=== PATIENT | male | born 1955 | race Caucasian/White ===

== ENCOUNTER 2016-04-10 07:14 | Day surgery (SDC) | payer OTHER ==
[2016-04-04 15:50] VITALS: BMI 29.9
[~2016-04-10 07:14] MED LIST: ACETAMINOPHEN TAB 500 MG TAB PO ONE; DEXAMETHASONE SOD PHOSPHATE 10 MG/ML 1 ML VIAL IV ONE; DEXAMETHASONE SOD PHOSPHATE 4 MG/ML 1 ML VIAL IV ONE; FAMOTIDINE 20 MG/2 ML VIAL IV ONE; HYDROmorphone 1 MG/ML 1 ML SYRINGE IVP PRN; LACTATED RINGERS 1,000 ML IV SCH; LIDOCAINE 1% 20 ML VIAL (10MG/ML) FOR IV START INTRADERMA PRN; MIDAZOLAM 2 MG/2 ML VIAL IV PRN; ONDANSETRON 4 MG/2 ML VIAL IVP ONE; SCOPOLAMINE 1.5MG/72HR PATCH TRANSDERM ONE
[2016-04-10 08:03] LABS: Glucose,Whole Blood 120 mg/dL (75-99)
[2016-04-10] MEDS ORDERED: fentaNYL (PF) 50 MCG/ML 2 ML AMP ONE (08:39)
[2016-04-10] MEDS ORDERED: DEXAMETHASONE SOD PHOS (MDV) 100 MG/10 ML VIAL ONE (08:39)
[2016-04-10] MEDS ORDERED: GLYCOPYRROLATE 0.2 MG/ML 2 ML VIAL ONE (08:39)
[2016-04-10] MEDS ORDERED: ROCURONIUM BROMIDE 10 MG/ML 10 ML VIAL IV ONE (08:39)
[2016-04-10] MEDS ORDERED: LIDOCAINE 1% INJ 10MG/ML (20 ML MDV) ONE (08:39)
[2016-04-10] MEDS ORDERED: SUCCINYLCHOLINE CHLORIDE VIAL 200 MG/10 ML VIAL IV ONE (08:39)
[2016-04-10] MEDS ORDERED: NEOSTIGMINE 1 MG/ML 10 ML VIAL ONE (08:39)
[2016-04-10] MEDS ORDERED: MIDAZOLAM 2 MG/2 ML VIAL ONE (08:39)
[2016-04-10] MEDS ORDERED: PROPOFOL 10 MG/ML 20 ML VIAL IV ONE (08:39)
[2016-04-10 09:29] VITALS: TEMP 97.4
--- NOTE | 2016-04-10 09:51 | P.OP ---
Date of Procedure: 04/10/16 Preoperative Diagnosis: Left vocal cord mass Postoperative Diagnosis: same Procedure(s) Performed: Direct microscopic laryngoscopy with removal of left vocal cord mass Anesthesia: PRASHANTHA Surgeon: Derek Reina Estimated Blood Loss (ml): 0 Pathology: other (left vocal cord mass) Condition: stable Disposition: PACU Indications for Procedure: This patient has had persistent hoarseness and was found have a left vocal cord mass. Surgical removal was recommended. All risks, benefits, and alternative therapies were discussed in detail. Consent was obtained and all questions were answered. Operative Findings: Left vocal cord mass noted Description of Procedure: This patient was taken to the operative room and placed in the supine position. A general inhalation anesthetic is administered to the patient by mask and subsequently intubated with a cuffed endotracheal tube by the department of anesthesia with a functioning IV line in place. The patient was monitored throughout the entire case by the department of anesthesia. A Jako laryngoscope was placed into the patient's mouth with care to avoid any trauma to the lips teeth gums or tongue. The entire Eliseo and hypopharynx was evaluated including the piriform sinus aryepiglottic folds Pitkin cords base of tongue etc. After a thorough evaluation was placed on suspension on a Lewy and a left vocal cord mass was identified which was removed with biopsy forceps. Complete removal of this mass was obtained without entry into the lamina propria. Patient tolerated this well. Hemostasis occurred spontaneously is to mentation was removed and the patient was taken to postanesthesia recovery room in excellent condition. Patient is to call me if any problems should arise. The patient is on 7 days of absolute voice rest. His tells me he clears his throat a lot because of postnasal drainage I will keep him on Flonase with continue to treat him with omeprazole twice a day and will give and [place] for pain
[2016-04-10 10:06] VITALS: RESP 18
[2016-04-10 10:31] VITALS: BP 122/75; PULSE 52
[2016-04-10 10:31] LABS: Glucose,Whole Blood 173 mg/dL (75-99)
== END 2016-04-10 11:24 | disposition home or self-care (01) ==
LOC: OR 07:14
PROVIDERS: ATTEND Otolaryngology
DX: J38.1 Polyp of vocal cord and larynx (principal); K21.9 Gastro-esophageal reflux disease without esophagitis; E11.9 Type 2 diabetes mellitus without complications; I10 Essential (primary) hypertension; Z79.2 Long term (current) use of antibiotics; Z79.84 Long term (current) use of oral hypoglycemic drugs; Z79.52 Long term (current) use of systemic steroids; Z79.899 Other long term (current) drug therapy; Z87.891 Personal history of nicotine dependence
CPT/HCPCS: 88305; 31541; J2250; J0330; J1100 ×2; J2710; J2405; J2001; J3010; J2704

== ENCOUNTER 2017-06-26 07:48 | Day surgery (SDC) | payer OTHER ==
[2017-06-24 11:56] VITALS: BMI 31.8
[~2017-06-26 07:48] MED LIST changes: -ACETAMINOPHEN TAB 500 MG TAB PO ONE; -DEXAMETHASONE SOD PHOSPHATE 10 MG/ML 1 ML VIAL IV ONE; -DEXAMETHASONE SOD PHOSPHATE 4 MG/ML 1 ML VIAL IV ONE; -FAMOTIDINE 20 MG/2 ML VIAL IV ONE; -HYDROmorphone 1 MG/ML 1 ML SYRINGE IVP PRN; -LIDOCAINE 1% 20 ML VIAL (10MG/ML) FOR IV START INTRADERMA PRN; -MIDAZOLAM 2 MG/2 ML VIAL IV PRN; -ONDANSETRON 4 MG/2 ML VIAL IVP ONE; -SCOPOLAMINE 1.5MG/72HR PATCH TRANSDERM ONE
[2017-06-26 07:59] VITALS: TEMP 96.9
[2017-06-26] MEDS ORDERED: LIDOCAINE 1% 20 ML VIAL (10MG/ML) FOR IV START INTRADERMA ONE (08:10)
[2017-06-26 08:13] LABS: Glucose,Whole Blood 87 mg/dL (75-99)
[2017-06-26] MEDS ORDERED: PROPOFOL 10 MG/ML 20 ML VIAL IV ONE (08:42)
[2017-06-26] MEDS ORDERED: fentaNYL (PF) 50 MCG/ML 2 ML AMP ONE (08:42)
[2017-06-26] MEDS ORDERED: MIDAZOLAM 2 MG/2 ML VIAL ONE (08:42)
[2017-06-26 09:22] VITALS: BP 143/80; PULSE 69; RESP 18
[2017-06-26 09:28] LABS: Glucose,Whole Blood 87 mg/dL (75-99)
--- NOTE | 2017-06-26 09:46 | P.PCN ---
Date of Procedure: 06/26/17 Preoperative Diagnosis: Screening colonoscopy Postoperative Diagnosis: Colon polyps one in descending two at hepatic flexure Procedure(s) Performed: Colonoscopy with polypectomy 3 Anesthesia: MAC Surgeon: Jadiel Gomez Pathology: other (Colon polyp 3) Condition: stable Description of Procedure: Patient was brought into the Endo suitePlaced in left lateral decubitus position underwent sedation per department of anesthesia rectal exam was performed onto maladies are noted the scope was then passed from the rectum to the cecum with ease and slowly withdrawn make sure to visualize all well gordon on the way out there were 2 sessile polyps noted at the hepatic flexure these were removed using hot forceps biopsy. There was a pedunculated polyp noted in the descending colon this was removed via hot snare. There is no other abnormalities noted the scope was retroflexed in the rectum and no abnormalities were noted patient tolerated procedure well no apparent complications Plan - Discharge Summary New Discharge Prescriptions: No Action Metoprolol Succinate [Toprol XL] 100 mg PO QAM Fenofibrate 160 mg PO DAILY Ezetimibe/Simvastatin [Vytorin 10-40 mg Tablet] 1 tab PO DAILY Losartan [Cozaar] 50 mg PO QAM Multivitamins, Thera [Multivitamin (formulary)] 1 tab PO DAILY sitaGLIPtin PHOS/metFORMIN HCL [Janumet 50-1,000 mg Tablet] 1 tab PO BID chlordiazePOXIDE/CLIDINIUM BR [Chlordiazepoxide-Clidinium Cap] 1 cap PO DAILY Acetaminophen Tab [Tylenol Tab] 650 mg PO DIRECTED PRN PRN Reason: Pain Cinnamon Bark [Cinnamon] 500 mg PO DAILY Omeprazole 20 mg PO BID #60 cap Discharge Medication List Ezetimibe/Simvastatin [Vytorin 10-40 mg Tablet] 1 tab PO DAILY 12/23/13 [History ] Fenofibrate 160 mg PO DAILY 12/23/13 [History] Losartan [Cozaar] 50 mg PO QAM 12/23/13 [History] Metoprolol Succinate [Toprol XL] 100 mg PO QAM 12/23/13 [History] Multivitamins, Thera [Multivitamin (formulary)] 1 tab PO DAILY 12/06/15 [History ] chlordiazePOXIDE/CLIDINIUM BR [Chlordiazepoxide-Clidinium Cap] 1 cap PO DAILY [History] sitaGLIPtin PHOS/metFORMIN HCL [Janumet 50-1,000 mg Tablet] 1 tab PO BID [History] Acetaminophen Tab [Tylenol Tab] 650 mg PO DIRECTED PRN 04/04/16 [History] Cinnamon Bark [Cinnamon] 500 mg PO DAILY 04/04/16 [History] Omeprazole 20 mg PO BID #60 cap 04/10/16 [Rx] Follow up Appointment(s)/Referral(s): Jadiel Gomez, [Doctor of Osteopathic Medicine] - As Needed Patient Instructions/Handouts: *[facility] - (Anesthesia) Endoscopy Discharge Instructions, Colonoscopy (DC), Colorectal Polyps (DC) Activity/Diet/Wound Care/Special Instructions: REST TODAY, ENCOURAGE FLUIDS AT HOME DR GOMEZ'S OFFICE WILL CALL WITH RESULTS IN 5-7 DAYS AND WHEN TO HAVE THE COLONOSCOPY. (WITHIN 3 DAYS) Discharge Disposition: HOME SELF-CARE
== END 2017-06-26 09:43 | disposition home or self-care (01) ==
LOC: ORWHC2ENDO 07:48
PROVIDERS: ATTEND Student in an Organized Health Care Education/Training Program
DX: Z12.11 Encounter for screening for malignant neoplasm of colon (principal); D12.3 Benign neoplasm of transverse colon; D12.4 Benign neoplasm of descending colon; I10 Essential (primary) hypertension; E78.5 Hyperlipidemia, unspecified; E78.00 Pure hypercholesterolemia, unspecified; E11.9 Type 2 diabetes mellitus without complications; Z79.84 Long term (current) use of oral hypoglycemic drugs; Z79.899 Other long term (current) drug therapy; Z86.010 Personal history of colon polyps
CPT/HCPCS: 88305; 45385; 45384; J2250; J3010; J2704

== ENCOUNTER 2019-06-20 08:22 | Inpatient (IN) | payer OTHER ==
--- NOTE | 2019-06-20 08:48 | ED ---
Abdominal Pain HPI - General Source: patient Mode of arrival: ambulatory <Day Patel - Last Filed: 06/20/19 12:25> <Brandie Moreno - Last Filed: 06/25/19 12:33> - General Chief Complaint: Abdominal Pain Stated Complaint: stomach pain/cramps/vomiting Time Seen by Provider: 06/20/19 08:31 - History of Present Illness Initial Comments: 63-year-old male with history of ETOH abuse, PUD and HTN presenting today for chief complaint of generalized crampy in nature abdominal pain x 1-2 days. Patient states that he has not had a bowel movement 3 days and feels as though he is constipated. However patient does note that he has specific pain in the epigastric region. Patient denies any radiation to the back. Patient states he attempts to eat or drink for the last day he has had vomiting he states it comes back up. Patient denies any melanotic stool prior to the onset of the symptoms. Patient denies any particular blood per rectum. Patient does have history of peptic ulcer he states this feels different than when that "acts up". Patient denies chest pain, shortness of breath. Patient states he has not been drinking heavily, denies feeling like he is withdrawing- he state his history of severe alcohol abuse was when he was over 2 years ago. (Day Patel) - Related Data Home Medications Medication Instructions Recorded Confirmed Ezetimibe/Simvastatin [Vytorin 1 tab PO DAILY 12/23/13 06/20/19 10-40 mg Tablet] Fenofibrate 160 mg PO DAILY 12/23/13 06/20/19 Losartan [Cozaar] 50 mg PO QAM 12/23/13 06/20/19 Metoprolol Succinate [Toprol XL] 100 mg PO QAM 12/23/13 06/20/19 sitaGLIPtin PHOS/metFORMIN HCL 1 tab PO BID 12/06/15 06/20/19 [Janumet 50-1,000 mg Tablet] Cinnamon Bark [Cinnamon] 500 mg PO BID 04/04/16 06/20/19 Alive Men's 1 tab PO DAILY 06/20/19 06/20/19 Cartilage/Collagen/Bor/Hyalur 1 tab PO DAILY 06/20/19 06/20/19 [Move Free Ultra Tablet] Omeprazole 20 mg PO DAILY 06/20/19 06/20/19 Previous Rx's Medication Instructions Recorded Melatonin 10 mg PO HS #30 tablet.er 06/24/19 Sennosides/Docusate Sodium [Carmen 1 tab PO DAILY #30 tab 06/24/19 Colace] Trimethobenzamide [Tigan] 300 mg PO TID #10 capsule 06/24/19 Allergies Allergy/AdvReac Type Severity Reaction Status Date / Time No Known Allergies Allergy Verified 06/20/19 11:32 Review of Systems ROS Other: All systems not noted in ROS Statement are negative. <Day Patel - Last Filed: 06/20/19 12:25> ROS Other: All systems not noted in ROS Statement are negative. <Brandie Moreno - Last Filed: 06/25/19 12:33> ROS Statement: Those systems with pertinent positive or pertinent negative responses have been documented in the HPI. Past Medical History Past Medical History: Diabetes Mellitus, GERD/Reflux, Hyperlipidemia, Hypertension, Musculoskeletal Disorder Additional Past Medical History / Comment(s): DDD, HX OF PEPTIC ULCERS years ago, alcholism History of Any Multi-Drug Resistant Organisms: None Reported Past Surgical History: Orthopedic Surgery, Tonsillectomy Additional Past Surgical History / Comment(s): RIGHT ANKLE, right elbow replacement,cyst removed from vocal cord Past Anesthesia/Blood Transfusion Reactions: No Reported Reaction Past Psychological History: No Psychological Hx Reported Smoking Status: Former smoker Past Alcohol Use History: Occasional Past Drug Use History: None Reported - Past Family History Mother Family Medical History: No Reported History Father Additional Family Medical History / Comment(s): Father had borderline diabetes. He is living. <Day Patel - Last Filed: 06/20/19 12:25> General Exam <Day Patel - Last Filed: 06/20/19 12:25> - General Exam Comments Initial Comments: General: The patient is awake and alert, appears uncomfortable. Eye: +3 mm pupils are equal, round and reactive to light, extra-ocular moveme nts are intact. No nystagmus. There is normal conjunctiva bilaterally. No signs of icterus. Ears, nose, mouth and throat: There are moist mucous membranes and no oral le sions. Neck: The neck is supple, there is no tenderness or JVD. Cardiovascular: There is a regular rate and rhythm. No murmur, rub or gallop is appreciated. Respiratory: Lungs are clear to auscultation, respirations are non-labored, breath sounds are equal. No wheezes, stridor, rales, or rhonchi. Gastrointestinal: Soft, non-distended, diffusely tender abdomen but maximal tenderness in the epigastric region, abdomen is without masses or organomegaly noted. There is no rebound or guarding present. Musculoskeletal: Normal ROM, no tenderness. Strength 5/5. Sensation intact. Radial pulses equal bilaterally 2+. Neurological: A&O x 3. CN II-XII intact grossly, There are no obvious motor or sensory deficits. Coordination appears grossly intact. Speech is normal. Skin: Skin is warm and dry and no rashes or lesions are noted. Psychiatric: Cooperative, appropriate mood & affect, normal judgment. (Day Patel) Course Vital Signs 06/20/19 06/20/19 08:27 10:54 Temperature 98.5 F Pulse Rate 131 H 86 Respiratory 18 16 Rate Blood Pressure 120/87 146/80 O2 Sat by Pulse 98 99 Oximetry Medical Decision Making - Lab Data Result diagrams: 06/20/19 08:55 06/20/19 08:55 <Day Patel - Last Filed: 06/20/19 12:25> - Lab Data Result diagrams: 06/22/19 05:21 06/23/19 10:43 <Brandie Moreno - Last Filed: 06/25/19 12:33> - Medical Decision Making 63-year-old male presenting today for chief complaint of abdominal pain history of alcoholism. CT revealed findings consistent with pancreatitis. No evidence of necrotizing pancreatitis. Patient has no cullens or parham turners sign. Pa tient lipase ~11,000 amylsa 6x upper limits of normal. Lactic acid elevated. Pt given hydration. Ordered NPO. [place]ma on consult. Patient admitted after attending provider spoke with provider from [facility]. Patient agreeable to admission and care plan. (Day Patel) I was available for consultation in the emergency department. The history and physical exam were done by the midlevel provider. I was consulted for this patients care. I reviewed the case with the midlevel provider and based on their presentation of the patient, I agree with the assessment, medical decision making and plan of care as documented. I discussed the case with Dr. Noel who accepted admission of the patient. Chart was dictated using [employer] dictation software. Attempts were made to correct any dictation errors however some typographical errors may persist. (Brandie Moreno) - Lab Data Lab Results 06/20/19 06/20/19 06/20/19 Range/Units 08:55 08:55 08:55 WBC 10.4 (3.8-10.6) k/uL RBC 4.64 (4.30-5.90) m/uL Hgb 14.3 (13.0-17.5) gm/dL Hct 43.9 (39.0-53.0) % MCV 94.7 (80.0-100.0) fL MCH 30.8 (25.0-35.0) pg MCHC 32.5 (31.0-37.0) g/dL RDW 12.9 (11.5-15.5) % Plt Count 165 (150-450) k/uL Neutrophils % 80 % Lymphocytes % 12 % Monocytes % 6 % Eosinophils % 1 % Basophils % 0 % Neutrophils # 8.3 H (1.3-7.7) k/uL Lymphocytes # 1.2 (1.0-4.8) k/uL Monocytes # 0.6 (0-1.0) k/uL Eosinophils # 0.1 (0-0.7) k/uL Basophils # 0.0 (0-0.2) k/uL PT 12.7 H (9.0-12.0) sec INR 1.3 H (<1.2) APTT 24.2 (22.0-30.0) sec Sodium 138 (137-145) mmol/L Potassium 4.2 (3.5-5.1) mmol/L Chloride 103 (98-107) mmol/L Carbon Dioxide 20 L (22-30) mmol/L Anion Gap 15 mmol/L BUN 20 (9-20) mg/dL Creatinine 1.42 H (0.66-1.25) mg/dL Est GFR (CKD-EPI)AfAm 61 (>60 ml/min/1.73 sqM) Est GFR (CKD-EPI)NonAf 53 (>60 ml/min/1.73 sqM) Glucose 218 H (74-99) mg/dL Lactic Ac Sepsis Rflx Plasma Lactic Acid Yang (0.7-2.0) mmol/L Calcium 9.3 (8.4-10.2) mg/dL Total Bilirubin 1.6 H (0.2-1.3) mg/dL AST 43 (17-59) U/L ALT 26 (4-49) U/L Alkaline Phosphatase 27 L (38-126) U/L Troponin I (0.000-0.034) ng/mL Total Protein 7.1 (6.3-8.2) g/dL Albumin 4.3 (3.5-5.0) g/dL Amylase 641 H* (30-110) U/L Lipase 38194 H (23-300) U/L Serum Alcohol <10 mg/dL 06/20/19 06/20/19 06/20/19 Range/Units 08:55 08:55 09:45 WBC (3.8-10.6) k/uL RBC (4.30-5.90) m/uL Hgb (13.0-17.5) gm/dL Hct (39.0-53.0) % MCV (80.0-100.0) fL MCH (25.0-35.0) pg MCHC (31.0-37.0) g/dL RDW (11.5-15.5) % Plt Count (150-450) k/uL Neutrophils % % Lymphocytes % % Monocytes % % Eosinophils % % Basophils % % Neutrophils # (1.3-7.7) k/uL Lymphocytes # (1.0-4.8) k/uL Monocytes # (0-1.0) k/uL Eosinophils # (0-0.7) k/uL Basophils # (0-0.2) k/uL PT (9.0-12.0) sec INR (<1.2) APTT (22.0-30.0) sec Sodium (137-145) mmol/L Potassium (3.5-5.1) mmol/L Chloride (98-107) mmol/L Carbon Dioxide (22-30) mmol/L Anion Gap mmol/L BUN (9-20) mg/dL Creatinine (0.66-1.25) mg/dL Est GFR (CKD-EPI)AfAm (>60 ml/min/1.73 sqM) Est GFR (CKD-EPI)NonAf (>60 ml/min/1.73 sqM) Glucose (74-99) mg/dL Lactic Ac Sepsis Rflx Y Plasma Lactic Acid Yang 2.7 H* (0.7-2.0) mmol/L Calcium (8.4-10.2) mg/dL Total Bilirubin (0.2-1.3) mg/dL AST (17-59) U/L ALT (4-49) U/L Alkaline Phosphatase (38-126) U/L Troponin I <0.012 (0.000-0.034) ng/mL Total Protein (6.3-8.2) g/dL Albumin (3.5-5.0) g/dL Amylase (30-110) U/L Lipase (23-300) U/L Serum Alcohol mg/dL Disposition Is patient prescribed a controlled substance at d/c from ED?: No Time of Disposition: 10:37 Decision to Admit Reason: Admit from EC Decision Date: 06/20/19 Decision Time: 10:37 <Day Patel - Last Filed: 06/20/19 12:25> <Brandie Moreno - Last Filed: 06/25/19 12:33> Clinical Impression: Pancreatitis, Abdominal pain, Nausea, Vomiting, Lactic acidosis Disposition: HOME SELF-CARE Condition: Good
[2019-06-20] MEDS ORDERED: ONDANSETRON 4 MG/2 ML VIAL IVP STA (08:55)
[2019-06-20] MEDS ORDERED: HYDROmorphone 0.5 MG/0.5 ML SYRINGE IVP STA ×2 (08:55→10:34)
[2019-06-20] MEDS ORDERED: SODIUM CHLORIDE 0.9% 1,000 ML IV ONE ×2 (08:56→09:46)
[2019-06-20 09:10] LABS: Basophils % (A) 0 %; Eosinophils # (A) 0.1 k/uL (0-0.7); Eosinophils % (A) 1 %; HCT 43.9 % (39.0-53.0); HGB 14.3 gm/dL (13.0-17.5); Lymphocytes # (A) 1.2 k/uL (1.0-4.8); Lymphocytes % (A) 12 %; MCH 30.8 pg (25.0-35.0); MCHC 32.5 g/dL (31.0-37.0); MCV 94.7 fL (80.0-100.0); Mean Platelet Volume 8.7; Monocytes # (A) 0.6 k/uL (0-1.0); Monocytes % (A) 6 %; Neutrophils # (A) 8.3 k/uL (1.3-7.7); Neutrophils % (A) 80 %; Platelet Count 165 k/uL (150-450); RBC 4.64 m/uL (4.30-5.90); RDW 12.9 % (11.5-15.5); WBC 10.4 k/uL (3.8-10.6)
[2019-06-20 09:26] LABS: ALT 26 U/L (4-49); AST 43 U/L (17-59); African American GFR (CKD) 61 (>60 ml/min/1.73 sqM); Albumin 4.3 g/dL (3.5-5.0); Alcohol <10 mg/dL; Alkaline Phosphatase 27 U/L (38-126); Anion Gap 15 mmol/L; Blood Urea Nitrogen 20 mg/dL (9-20); Calcium 9.3 mg/dL (8.4-10.2); Carbon Dioxide 20 mmol/L (22-30); Chloride 103 mmol/L (98-107); Glucose 218 mg/dL (74-99); Non-African American GFR(CKD) 53 (>60 ml/min/1.73 sqM); Potassium 4.2 mmol/L (3.5-5.1); Sodium 138 mmol/L (137-145); Total Bilirubin 1.6 mg/dL (0.2-1.3); Total Protein 7.1 g/dL (6.3-8.2)
[2019-06-20 09:30] LABS: Amylase 641 U/L (30-110)
[2019-06-20 09:32] LABS: INR 1.3 (<1.2); Partial Thromboplastin Time 24.2 sec (22.0-30.0); Prothrombin Time 12.7 sec (9.0-12.0)
[2019-06-20] MEDS ORDERED: SODIUM CHLORIDE 0.9% 500 ML 500 ML IV ONE (09:47)
--- NOTE | 2019-06-20 10:27 | CT ---
EXAMINATION TYPE: CT abdomen pelvis w con DATE OF EXAM: 06/20/2019 COMPARISON: None HISTORY: Nonlocalized abdominal pain, cramps and vomiting CT DLP: 1710.6 mGycm Automated exposure control for dose reduction was used. TECHNIQUE: Helical acquisition of images was performed from the lung bases through the pelvis. CONTRAST: Performed without Oral Contrast and with IV Contrast, patient injected with 100 ml mL of Isovue 300. FINDINGS: LUNG BASES: Minimal bibasilar subsegmental atelectasis. LIVER/GB: Hepatic parenchyma is diffusely hypoattenuated in comparison to that of the spleen, most commonly see n in hepatic steatosis. This finding limits evaluation for hepatic masses. Hyperdense 1.3 cm left hep atic lesion seen on image 15 that is incompletely characterized. No intrahepatic biliary ductal dilat ation. No cholelithiasis on CT. Trace perihepatic ascites on coronal image 35. PANCREAS: Moderate to severe peripancreatic fat stranding and mesenteric edema seen. The pancreas enh ances homogeneously without evidence of necrotizing pancreatitis at this time. There is no well-forme d peripherally enhancing fluid collection to suggest acute necrotic fluid collection or pancreatic ps eudocyst. The splenic artery is unremarkable without evidence of pseudoaneurysm. Portal vein and port al splenic confluence as well as the splenic vein appear patent. There is likely reactive circumferen tial thickening of the duodenum related to reactive duodenitis. Prominent and enlarged peripancreatic lymph nodes measure up to 1.2 cm in short axis, also likely reactive. Mesenteric edema extends throu ghout the central low abdomen and a small amount of free fluid is seen within the pelvis. SPLEEN: No splenomegaly. ADRENALS: No nodule or thickening. KIDNEYS: Kidneys enhance and excrete symmetrically without hydronephrosis. FREE AIR: No free air is visualized. ADENOPATHY: Prominent an enlarged peripancreatic lymph nodes as described above. No abnormal adenopa thy of the pelvis. REPRODUCTIVE ORGANS: Probable small left hydrocele that would be better evaluated with ultrasound. URINARY BLADDER: Circumferential thickening may relate to incomplete distention. OSSEOUS STRUCTURES: Compression deformity at L1 has vertebral body height loss of approximately 40 % and is age-indeterminate without priors. Mild to moderate multilevel degenerative change of the spin e. BOWEL: Circumferential thickening of the duodenum again likely relates to reactive duodenitis. No di lated large or small bowel. Appendix is not seen however the inflammatory changes are more localized in the upper abdomen done right lower quadrant. OTHER: Mild atherosclerosis of the abdominal aorta and its branches. IMPRESSION: 1. ACUTE UNCOMPLICATED PANCREATITIS WITHOUT EVIDENCE OF NECROTIZING PANCREATITIS, SPLENIC ARTERY PSEU DOANEURYSM, PORTAL SPLENIC THROMBOSIS, OR PERIPANCREATIC FLUID COLLECTION. THERE IS HOWEVER THICKENIN G OF THE ADJACENT DUODENUM, LIKELY REACTIVE DUODENITIS. THERE IS ALSO MESENTERIC EDEMA AND SMALL VOLU ME ASCITES. APPENDIX IS NONVISUALIZED. 2. HEPATIC STEATOSIS AND INDETERMINANT LEFT HEPATIC LOBE HYPERDENSE 1.3 CM LESION THAT COULD BE FURTH ER CHARACTERIZED WITH ENHANCED LIVER MRI NONEMERGENT BASIS.
[2019-06-20] MEDS ORDERED: HYDROmorphone 0.5 MG/0.5 ML SYRINGE IVP PRN (10:34)
[2019-06-20] MEDS ORDERED: NALOXONE 0.4 MG/ML 1 ML VIAL IV PRN (10:34)
[2019-06-20] MEDS: SODIUM CHLORIDE 0.9% 1,000 ML IV SCH ×3 (10:51→23:57)
[2019-06-20 12:29] LABS: Glucose,Whole Blood 186 mg/dL (75-99)
[2019-06-20] MEDS ORDERED: INSULIN ASPART (NovoLOG) 100 UNIT/ML VIAL SQ SCH (12:30)
[2019-06-20] MEDS: POLYETHYLENE GLYCOL 3350 17 GM POWD.PACK PO SCH (12:38)
[2019-06-20] MEDS: ONDANSETRON 4 MG/2 ML VIAL IVP PRN ×2 (12:38→18:57)
[2019-06-20] MEDS: LOSARTAN 50 MG TAB PO SCH (12:38)
[2019-06-20] MEDS: METOPROLOL SUCCINATE (ER) 100 MG TAB.ER.24H PO SCH (12:55)
[2019-06-20] MEDS: SIMETHICONE 80 MG CHEWABLE PO SCH ×3 (12:56→20:45)
[2019-06-20] MEDS ORDERED: LORazepam 2 MG/ML INJ IV PRN ×3 (13:09)
--- NOTE | 2019-06-20 13:25 | P.HPIM ---
<Dayami Camarena A - Last Filed: 06/20/19 13:08> History of Present Illness H&P Date: 06/20/19 Chief Complaint: abdominal pain This is a 63-year-old male patient of Dr. Boothe with past medical history of diabetes mellitus type 2, gastroesophageal reflux disease, hypertension, hyperlipidemia, degenerative disc disease, history of alcohol abuse. Patient complains of abdominal discomfort with bloating for a couple of days. He states he thought he was just constipated. He states it was so bad that he was unable to sleep due to the pain. He has been taking water and Tylenol which seemed to make his symptoms worse. He states his last alcohol intake was 3 days ago. He usually drinks a half a pint 3-4 times per week. Patient's last colonoscopy was in [address] szymanski status post polypectomy 2 finding in the descending colon tubulovillous adenoma and in the hepatic flexure tubular adenoma. Patient came into [facility] emergency center for evaluation. Patient was afebrile, heart rate initially 131 and repeated 86, blood pressure 120/87, pulse ox 90% on room air. CBC unremarkable. Electrolytes within normal limits, CO2 20, BUN 20 creatinine 1.42, blood sugar 218. Amylase 641, lipase 11,249. Lactic acid 2.7. Troponin negative. CAT scan of the abdomen and pelvis revealed acute uncomplicated pancreatitis without evidence of necrotizing pancreatitis, splenic artery pseudoaneurysm aneurysm, portosplenic thrombosis or. Pancreatic fluid collection. There is however thickening of the adjacent duodenum likely reactive duodenitis. Also mesenteric edema and small volume ascites. Appendix not visualized. Hepatic steatosis and indeterminate left hepatic lobe hyperdense 1.3 cm lesion that could be further characterized with enhanced liver MRI. Patient was admitted to the [facility] floor and consult requested with GI. Review of Systems Constitutional: Reports poor appetite, Denies chills, Denies fever, Denies lethargy, Denies malaise Eyes: denies blurred vision, denies pain Ears, nose, mouth and throat: Denies dental pain, Denies nasal congestion, Denies nasal discharge, Denies vertigo Cardiovascular: Denies chest pain, Denies decreased exercise tolerance, Denies dyspnea on exertion, Denies edema, Denies leg edema, Denies lightheadedness, Denies shortness of breath, Denies syncope Respiratory: Denies cough, Denies cough with sputum, Denies dyspnea, Denies excessive sputum, Denies hemoptysis, Denies home oxygen, Denies respiratory infections, Denies wheezing Gastrointestinal: Reports abdominal pain, Reports bloating, Reports constipation, Reports loss of appetite, Denies BRBPR, Denies diarrhea, Denies hematemesis, Denies hematochezia, Denies melena, Denies nausea, Denies vomiting Genitourinary: Denies dysuria, Denies urinary frequency, Denies urinary retention Musculoskeletal: Denies frequent falls, Denies gait dysfunction, Denies muscle weakness, Denies myalgias Integumentary: Denies pruritus, Denies rash, Denies wounds Neurological: Denies change in mentation, Denies change in speech, Denies gait dysfunction, Denies numbness, Denies seizures, Denies weakness Psychiatric: Denies anxiety, Denies depression Endocrine: Denies fatigue, Denies weight change Past Medical History Past Medical History: Diabetes Mellitus, Eye Disorder, GERD/Reflux, Hyperlipidemia, Hypertension, Osteoarthritis (OA) Additional Past Medical History / Comment(s): NIDDM type II, peptic ulcer, alcoholism, benign colon polyp, occasional thoracic back pain (hs of crushed vertebra), arthritis R ankle, glaucoma L eye History of Any Multi-Drug Resistant Organisms: None Reported Past Surgical History: Adenoidectomy, Orthopedic Surgery, Tonsillectomy Additional Past Surgical History / Comment(s): r elbow radial head implant, bilateral carpal tunnel releases, trimalleolar fracture repair on the right with subsequent removal of hardware, benign L vocal cord mass removed, colonoscopy wi th polypectomy, bilateral cataract removals/lens implants. Past Anesthesia/Blood Transfusion Reactions: No Reported Reaction, Motion Sickness Smoking Status: Former smoker Additional Past Alcohol Use History / Comment(s): Patient smoked from 1996 and quit in 2002. Patient has a history of alcohol abuse currently drinking a half a pint of vodka treated 4 times per week. - Past Family History Mother Family Medical History: Cancer, Diabetes Mellitus Additional Family Medical History / Comment(s): Skin cancer. Mother at age 85 from dementia. Father Additional Family Medical History / Comment(s): Father had borderline diabetes. He is living. Sister(s) Additional Family Medical History / Comment(s): patient has 3 sisters with no major medical problems. Patient does not have any brothers. Patient has 2 sons and 2 daughters with no major medical problems. Medications and Allergies Home Medications Medication Instructions Recorded Confirmed Type Ezetimibe/Simvastatin [Vytorin 1 tab PO DAILY 12/23/13 06/20/19 History 10-40 mg Tablet] Fenofibrate 160 mg PO DAILY 12/23/13 06/20/19 History Losartan [Cozaar] 50 mg PO QAM 12/23/13 06/20/19 History Metoprolol Succinate [Toprol XL] 100 mg PO QAM 12/23/13 06/20/19 History sitaGLIPtin PHOS/metFORMIN HCL 1 tab PO BID 12/06/15 06/20/19 History [Janumet 50-1,000 mg Tablet] Cinnamon Bark [Cinnamon] 500 mg PO BID 04/04/16 06/20/19 History Alive Men's 1 tab PO DAILY 06/20/19 06/20/19 History Cartilage/Collagen/Bor/Hyalur 1 tab PO DAILY 06/20/19 06/20/19 History [Move Free Ultra Tablet] Omeprazole 20 mg PO DAILY 06/20/19 06/20/19 History Melatonin 10 mg PO HS #30 tablet.er 06/24/19 Rx Sennosides/Docusate Sodium [Carmen 1 tab PO DAILY #30 tab 06/24/19 Rx Colace] Trimethobenzamide [Tigan] 300 mg PO TID #10 capsule 06/24/19 Rx Allergies Allergy/AdvReac Type Severity Reaction Status Date / Time No Known Allergies Allergy Verified 06/20/19 11:32 Physical Exam Vitals: Vital Signs Temp Pulse Resp BP Pulse Ox 06/20/19 10:54 86 16 146/80 99 06/20/19 08:27 98.5 F 131 H 18 120/87 98 Intake and Output 06/19/19 06/20/19 06/20/19 22:59 06:59 14:59 Other: Weight 108.862 kg Gen: This is a 63-year-old male. Patient is resting in bed and appears to be comfortable and in no acute distress. HEENT: Head is atraumatic, normocephalic. Pupils equal, round. Sclerae is anicteric. NECK: Supple. No JVD. No lymphadenopathy. No thyromegaly. LUNGS: Clear to auscultation. No wheezes or rhonchi. No intercostal retractions. HEART: Regular rate and rhythm. Systolic murmur. ABDOMEN: Distended. Bowel sounds are present. No masses. Left-sided tenderness. EXTREMITIES: No pedal edema. No calf tenderness. Dorsalis pedis +2 bilaterally. NEUROLOGICAL: Patient is awake, alert and oriented x3. Cranial nerves 2 through 12 are grossly intact. Results CBC & Chem 7: 06/20/19 08:55 06/20/19 08:55 Labs: Abnormal Lab Results - Last 24 Hours (Table) 06/20/19 06/20/19 06/20/19 Range/Units 08:55 08:55 08:55 Neutrophils # 8.3 H (1.3-7.7) k/uL PT 12.7 H (9.0-12.0) sec INR 1.3 H (<1.2) Carbon Dioxide 20 L (22-30) mmol/L Creatinine 1.42 H (0.66-1.25) mg/dL Glucose 218 H (74-99) mg/dL Plasma Lactic Acid Yang (0.7-2.0) mmol/L Total Bilirubin 1.6 H (0.2-1.3) mg/dL Alkaline Phosphatase 27 L (38-126) U/L Amylase 641 H* (30-110) U/L Lipase 29009 H (23-300) U/L 06/20/19 Range/Units 08:55 Neutrophils # (1.3-7.7) k/uL PT (9.0-12.0) sec INR (<1.2) Carbon Dioxide (22-30) mmol/L Creatinine (0.66-1.25) mg/dL Glucose (74-99) mg/dL Plasma Lactic Acid Yang 2.7 H* (0.7-2.0) mmol/L Total Bilirubin (0.2-1.3) mg/dL Alkaline Phosphatase (38-126) U/L Amylase (30-110) U/L Lipase (23-300) U/L Thrombosis Risk Factor Assmnt - DVT/VTE Prophylaxis DVT/VTE Prophylaxis: Pharmacologic Prophylaxis ordered - Choose All That Apply Any of the Below Risk Factors Present?: Yes Each Factor Represents 1 point: Obesity (BMI >25) Other Risk Factors: Yes Each Risk Factor Represents 2 Points: Age 61-74 years Other congenital or acquired thrombophilia - If yes, enter type in comment: No Thrombosis Risk Factor Assessment Total Risk Factor Score: 3 Thrombosis Risk Factor Assessment Level: Moderate Risk Assessment and Plan Plan: 1. Acute pancreatitis. Consult with GI. Continue Dilaudid as needed for pain, Zofran as needed for nausea and IV fluids. MiraLAX and simethicone added. R echeck lipase, CMP and CBC in the morning. 2. Hypertension. Continue losartan 50 mg daily, Toprol-XL 100 mg daily. 3. Hyperlipidemia. Hold fenofibrate and Vytorin. 4. Diabetes mellitus type 2. Hold Janumet. Start NovoLog scale every 6 hours. 5. Gastroesophageal reflux disease. Continue Protonix 40 mg IV push twice daily. 6. Alcohol abuse. Patient placed on the CIWA protocol with Ativan. Continue thiamine daily. 7. Acute kidney injury and chronic kidney disease stage II. Continue IV fluids. Recheck electrolytes and renal function in the morning. 8. DVT prophylaxis. Heparin subcu. Patient will be admitted to the hospital for a minimum of 2 night stay. Discharge plan: home Impression and plan of care have been directed as dictated by the signing physician. Dayami Camarena nurse practitioner acting as scribe for signing physician. <Marcella Noel - Last Filed: 06/30/19 20:21> Results CBC & Chem 7: 06/22/19 05:21 06/23/19 10:43
[2019-06-20] MEDS ORDERED: HYDROmorphone 1 MG/ML 1 ML SYRINGE IM PRN (13:48)
[2019-06-20] MEDS: THIAMINE 100 MG TAB PO SCH (16:58)
[2019-06-20] MEDS: HYDROmorphone 1 MG/ML 1 ML SYRINGE IVP PRN ×3 (16:59→23:56)
[2019-06-20 17:56] LABS: Glucose,Whole Blood 193 mg/dL (75-99)
[2019-06-20] MEDS: INSULIN ASPART (NovoLOG) 100 UNIT/ML VIAL SQ SCH ×2 (17:58→23:59)
[2019-06-20] MEDS: PANTOPRAZOLE 40 MG/10 ML VIAL IVP SCH (20:43)
[2019-06-20] MEDS: HEPARIN SODIUM,PORCINE 5,000 UNIT/ML 1 ML VIAL SQ SCH (20:45)
[2019-06-20 23:51] LABS: Glucose,Whole Blood 167 mg/dL (75-99)
[2019-06-21] MEDS: ONDANSETRON 4 MG/2 ML VIAL IVP PRN ×3 (03:06→21:05)
[2019-06-21] MEDS: HYDROmorphone 1 MG/ML 1 ML SYRINGE IVP PRN ×7 (03:08→23:57)
[2019-06-21 05:49] LABS: Glucose,Whole Blood 137 mg/dL (75-99)
[2019-06-21] MEDS: INSULIN ASPART (NovoLOG) 100 UNIT/ML VIAL SQ SCH ×5 (06:05→20:58)
[2019-06-21] MEDS: SODIUM CHLORIDE 0.9% 1,000 ML IV SCH ×2 (06:08→17:43)
[2019-06-21 06:34] LABS: ALT 18 U/L (4-49); AST 31 U/L (17-59); African American GFR (CKD) >90 (>60 ml/min/1.73 sqM); Alkaline Phosphatase 22 U/L (38-126); Anion Gap 7 mmol/L; Blood Urea Nitrogen 17 mg/dL (9-20); Calcium 7.5 mg/dL (8.4-10.2); Carbon Dioxide 25 mmol/L (22-30); Chloride 105 mmol/L (98-107); Glucose 155 mg/dL (74-99); Non-African American GFR(CKD) 80 (>60 ml/min/1.73 sqM); Potassium 4.3 mmol/L (3.5-5.1); Sodium 137 mmol/L (137-145); Total Bilirubin 1.1 mg/dL (0.2-1.3); Total Protein 5.6 g/dL (6.3-8.2)
[2019-06-21 06:38] LABS: HCT 36.9 % (39.0-53.0); HGB 11.9 gm/dL (13.0-17.5); MCHC 32.3 g/dL (31.0-37.0); MCV 96.1 fL (80.0-100.0); Mean Platelet Volume 9.2; Platelet Count 108 k/uL (150-450); RBC 3.83 m/uL (4.30-5.90)
[2019-06-21 07:22] LABS: Cholesterol 117 mg/dL (<200); HDL Cholesterol 26 mg/dL (40-60); LDL Cholesterol,Calculated 72 mg/dL (0-99); Triglycerides 94 mg/dL (<150)
[2019-06-21] MEDS: THIAMINE 100 MG TAB PO SCH ×2 (08:21→17:44)
[2019-06-21] MEDS: LOSARTAN 50 MG TAB PO SCH (08:21)
[2019-06-21] MEDS: POLYETHYLENE GLYCOL 3350 17 GM POWD.PACK PO SCH ×2 (08:22→09:17)
[2019-06-21] MEDS: HEPARIN SODIUM,PORCINE 5,000 UNIT/ML 1 ML VIAL SQ SCH ×2 (08:22→20:58)
[2019-06-21] MEDS: METOPROLOL SUCCINATE (ER) 100 MG TAB.ER.24H PO SCH (08:22)
[2019-06-21] MEDS: PANTOPRAZOLE 40 MG/10 ML VIAL IVP SCH ×2 (08:22→20:57)
[2019-06-21] MEDS ORDERED: NON FORMULARY DRUG (Omeprazole [Omeprazole] 20 MG) PO SCH (09:00)
[2019-06-21 11:19] VITALS: BMI 29.9
[2019-06-21 11:45] LABS: Glucose,Whole Blood 144 mg/dL (75-99)
--- NOTE | 2019-06-21 12:17 | P.PN ---
Subjective Progress Note Date: 06/21/19 This is a 63-year-old male patient of Dr. Boothe with past medical history of diabetes mellitus type 2, gastroesophageal reflux disease, hypertension, hyperlipidemia, degenerative disc disease, history of alcohol abuse. Patient complains of abdominal discomfort with bloating for a couple of days. He states he thought he was just constipated. He states it was so bad that he was unable to sleep due to the pain. He has been taking water and Tylenol which seemed to make his symptoms worse. He states his last alcohol intake was 3 days ago. He usually drinks a half a pint 3-4 times per week. Patient's last colonoscopy was in [address] szymanski status post polypectomy 2 finding in the descending colon tubulovillous adenoma and in the hepatic flexure tubular adenoma. Patient came into [facility] emergency center for evaluation. Patient was afebrile, heart rate initially 131 and repeated 86, blood pressure 120/87, pulse ox 90% on room air. CBC unremarkable. Electrolytes within normal limits, CO2 20, BUN 20 creatinine 1.42, blood sugar 218. Amylase 641, lipase 11,249. Lactic acid 2.7. Troponin negative. CAT scan of the abdomen and pelvis revealed acute uncomplicated pancreatitis without evidence of necrotizing pancreatitis, splenic artery pseudoaneurysm aneurysm, portosplenic thrombosis or. Pancreatic fluid collection. There is however thickening of the adjacent duodenum likely reactive duodenitis. Also mesenteric edema and small volume ascites. Appendix not visualized. Hepatic steatosis and indeterminate left hepatic lobe hyperdense 1.3 cm lesion that could be further characterized with enhanced liver MRI. Patient was admitted to the [facility] floor and consult requested with GI. 06/20: Patient is afebrile, heart rate 90, blood pressure 135/72, pulse ox 94% on room air. Repeat blood work reveals an ABC 8, hemoglobin 11.9,, platelet count 108. Electrolytes and renal function normal, blood sugar 155, Blood blood glucose running between 137 193. Total bilirubin 1.1, AST 31, ALT 18, alkaline phosphatase 22. Albumin 3. Triglycerides 94, cholesterol 117, LDL 72, HDL 26, repeat lipase 3842. Patient is currently nothing by mouth except for his small amount of ice chips and medications. Patient has been seen by GI this morning and diet advanced to clear liquids. Patient states that he is feeling better today. He continues to have some pain more so to the lower abdomen. Patient states he had a little nausea this morning which is improved. His last bowel movement was on Thursday. He is not passing gas. He still some bloating. Simethicone was discontinued. Patient states that he slept okay last night but floor was very noisy. Objective - Vital Signs Vital signs: Vital Signs Temp 99 F 06/21/19 05:00 Pulse 90 06/21/19 05:00 Resp 16 06/21/19 05:00 BP 135/72 06/21/19 05:00 Pulse Ox 94 L 06/21/19 05:00 Intake & Output 06/20/19 06/21/19 06/21/19 18:59 06:59 18:59 Intake Total 300 1800 Balance 300 1800 Weight 108.862 kg Intake: Intake, IV Titration 300 1800 Amount Sodium Chloride 0.9% 1, 300 1800 000 ml @ 150 mls/hr IV . [id number] Rx[facility][id number] Other: # Voids 1 2 - Exam Review of Systems Constitutional: Reports poor appetite, Denies chills, Denies fever, Denies lethargy, Denies malaise Eyes: denies blurred vision, denies pain Ears, nose, mouth and throat: Denies dental pain, Denies nasal congestion, Denies nasal discharge, Denies vertigo Cardiovascular: Denies chest pain, Denies decreased exercise tolerance, Denies dyspnea on exertion, Denies edema, Denies leg edema, Denies lightheadedness, Denies shortness of breath, Denies syncope Respiratory: Denies cough, Denies cough with sputum, Denies dyspnea, Denies excessive sputum, Denies hemoptysis, Denies home oxygen, Denies respiratory infections, Denies wheezing Gastrointestinal: Reports abdominal pain-improving, Reports bloating, Reports constipation, Reports loss of appetite, Denies BRBPR, Denies diarrhea, Denies hematemesis, Denies hematochezia, Denies melena, Denies nausea, Denies vomiting Genitourinary: Denies dysuria, Denies urinary frequency, Denies urinary re tention Musculoskeletal: Denies frequent falls, Denies gait dysfunction, Denies muscle weakness, Denies myalgias Integumentary: Denies pruritus, Denies rash, Denies wounds Neurological: Denies change in mentation, Denies change in speech, Denies gait dysfunction, Denies numbness, Denies seizures, Denies weakness Psychiatric: Denies anxiety, Denies depression Endocrine: Denies fatigue, Denies weight change Physical examination Gen: This is a 63-year-old male. Patient is resting in bed and appears to be comfortable and in no acute distress. HEENT: Head is atraumatic, normocephalic. Pupils equal, round. Sclerae is anicteric. NECK: Supple. No JVD. No lymphadenopathy. No thyromegaly. LUNGS: Clear to auscultation. No wheezes or rhonchi. No intercostal retractions. HEART: Regular rate and rhythm. Systolic murmur. ABDOMEN: Distended. Bowel sounds are present. No masses. Mild lower quadrant tenderness. EXTREMITIES: No pedal edema. No calf tenderness. Dorsalis pedis +2 bilaterally. NEUROLOGICAL: Patient is awake, alert and oriented x3. Cranial nerves 2 through 12 are grossly intact. - Labs CBC & Chem 7: 06/21/19 05:45 06/21/19 05:45 Labs: Abnormal Lab Results - Last 24 Hours (Table) 06/20/19 06/20/19 06/20/19 Range/Units 08:55 08:55 08:55 RBC (4.30-5.90) m/uL Hgb (13.0-17.5) gm/dL Hct (39.0-53.0) % Plt Count (150-450) k/uL Neutrophils # 8.3 H (1.3-7.7) k/uL PT 12.7 H (9.0-12.0) sec INR 1.3 H (<1.2) Carbon Dioxide 20 L (22-30) mmol/L Creatinine 1.42 H (0.66-1.25) mg/dL Glucose 218 H (74-99) mg/dL POC Glucose (mg/dL) (75-99) mg/dL Plasma Lactic Acid Yang (0.7-2.0) mmol/L Calcium (8.4-10.2) mg/dL Total Bilirubin 1.6 H (0.2-1.3) mg/dL Alkaline Phosphatase 27 L (38-126) U/L Total Protein (6.3-8.2) g/dL Albumin (3.5-5.0) g/dL HDL Cholesterol (40-60) mg/dL Amylase 641 H* (30-110) U/L Lipase 63001 H (23-300) U/L 06/20/19 06/20/19 06/20/19 Range/Units 08:55 12:26 17:53 RBC (4.30-5.90) m/uL Hgb (13.0-17.5) gm/dL Hct (39.0-53.0) % Plt Count (150-450) k/uL Neutrophils # (1.3-7.7) k/uL PT (9.0-12.0) sec INR (<1.2) Carbon Dioxide (22-30) mmol/L Creatinine (0.66-1.25) mg/dL Glucose (74-99) mg/dL POC Glucose (mg/dL) 186 H 193 H (75-99) mg/dL Plasma Lactic Acid Yang 2.7 H* (0.7-2.0) mmol/L Calcium (8.4-10.2) mg/dL Total Bilirubin (0.2-1.3) mg/dL Alkaline Phosphatase (38-126) U/L Total Protein (6.3-8.2) g/dL Albumin (3.5-5.0) g/dL HDL Cholesterol (40-60) mg/dL Amylase (30-110) U/L Lipase (23-300) U/L 06/20/19 06/21/19 06/21/19 Range/Units 23:50 05:45 05:45 RBC 3.83 L (4.30-5.90) m/uL Hgb 11.9 L (13.0-17.5) gm/dL Hct 36.9 L (39.0-53.0) % Plt Count 108 L (150-450) k/uL Neutrophils # (1.3-7.7) k/uL PT (9.0-12.0) sec INR (<1.2) Carbon Dioxide (22-30) mmol/L Creatinine (0.66-1.25) mg/dL Glucose 155 H (74-99) mg/dL POC Glucose (mg/dL) 167 H (75-99) mg/dL Plasma Lactic Acid Yang (0.7-2.0) mmol/L Calcium 7.5 L (8.4-10.2) mg/dL Total Bilirubin (0.2-1.3) mg/dL Alkaline Phosphatase 22 L (38-126) U/L Total Protein 5.6 L (6.3-8.2) g/dL Albumin 3.0 L (3.5-5.0) g/dL HDL Cholesterol 26 L (40-60) mg/dL Amylase (30-110) U/L Lipase 3842 H (23-300) U/L 06/21/19 Range/Units 05:49 RBC (4.30-5.90) m/uL Hgb (13.0-17.5) gm/dL Hct (39.0-53.0) % Plt Count (150-450) k/uL Neutrophils # (1.3-7.7) k/uL PT (9.0-12.0) sec INR (<1.2) Carbon Dioxide (22-30) mmol/L Creatinine (0.66-1.25) mg/dL Glucose (74-99) mg/dL POC Glucose (mg/dL) 137 H (75-99) mg/dL Plasma Lactic Acid Yang (0.7-2.0) mmol/L Calcium (8.4-10.2) mg/dL Total Bilirubin (0.2-1.3) mg/dL Alkaline Phosphatase (38-126) U/L Total Protein (6.3-8.2) g/dL Albumin (3.5-5.0) g/dL HDL Cholesterol (40-60) mg/dL Amylase (30-110) U/L Lipase (23-300) U/L Assessment and Plan Plan: 1. Acute pancreatitis, alcohol induced. Consult with GI. Continue Dilaudid as needed for pain, Zofran as needed for nausea and IV fluids. Recheck lipase, and CBC in the morning. Advance diet to clear liquids. 2. Hypertension. Continue losartan 50 mg daily, Toprol-XL 100 mg daily. 3. Hyperlipidemia. Hold fenofibrate and Vytorin. 4. Diabetes mellitus type 2. Hold Janumet. Continue NovoLog scale every bef ore meals and at bedtime. 5. Gastroesophageal reflux disease. Continue Protonix 40 mg IV push twice daily. 6. Alcohol abuse. Patient placed on the CIWA protocol with Ativan. Continue thiamine daily. 7. Acute kidney injury and chronic kidney disease stage II. Decrease IV fluids to 50 mL per hour. 8. Thrombocytopenia, chronic secondary to alcohol abuse. 9. DVT prophylaxis. Heparin subcu. Discharge plan: home on Thursday or Impression and plan of care have been directed as dictated by the signing physician. Dayami Camarena nurse practitioner acting as scribe for signing physician.
[2019-06-21 14:57] LABS: Hemoglobin A1C 6.2 % (4.0-6.0)
[2019-06-21 17:47] LABS: Glucose,Whole Blood 159 mg/dL (75-99)
--- NOTE | 2019-06-21 18:56 | P.CONS ---
History of Present Illness - Reason for Consult Consult date: 06/21/19 Pancreatitis Requesting physician: Rashel Boothe - Chief Complaint Abdominal pain - History of Present Illness 63-year-old male with a medical history significant for diabetes mellitus, GERD, hypertension, hyperlipidemia, and alcohol abuse who presented to the hospital for evaluation of abdominal pain. The patient reports abdominal pain in the right upper quadrant. Epigastric region of his abdomen occurring over the few days prior to presentation. He reports that the pain was severe and woke him up from his sleep. He denies any similar episodes of pain or hospitalizations for pancreatitis. He does believe he is a remote history of peptic ulcer disease. She reports associated nausea and vomiting with the episode. The patient does have a history of alcohol abuse and reports daily alcohol consumption up until 2 years ago. Currently he is still drinking liquor approximately 3-4 days per week when he consumes 0.5-1 pints at that time. Last colonoscopy was in 06/2017 and significant for polypectomy. He denies any change in bowel habits at this time with no bowel movement reported today. He currently denies passing any flatus. He takes omeprazole daily for his reflux disease. Laboratory evaluation on presentation was significant for WBC 8, hemoglobin 11.9, platelet count 108,000, INR 1.3, total bilirubin 1.1, alkaline phosphatase 22, AST 31, PLT 18, triglyceride level XCIV with a amylase of 641 and a lipase of 11,249 on presentation. Computed tomography scan of the abdomen was significant for uncomplicated pancreatitis with a small liver cyst noted. Review of Systems REVIEW OF SYSTEMS: CONSTITUTIONAL: Denies any fevers, chills, weight change or fatigue. CARDIOVASCULAR: Denies any chest pain, palpitations high or low blood pressures RESPIRATORY: Denies any shortness of breath, hemoptysis or cough. GENITOURINARY: No dysuria or hematuria. MUSCULOSKELETAL: No weakness reported. SKIN: Denies any new rashes or lesions, jaundice or pallor. PSYCHIATRIC: Denies any depression or anxiety, history of alcohol abuse. NEUROLOGY: Denies headache, denies any new focal deficits. EARS/NOSE/THROAT: No recent hearing change, congestion, nasal discharge or sore throat. EYES: No pain in eyes, discharge or change in vision. GASTROINTESTINAL: As per HPI. Past Medical History Past Medical History: Diabetes Mellitus, Eye Disorder, GERD/Reflux, Hyperlipidemia, Hypertension, Osteoarthritis (OA) Additional Past Medical History / Comment(s): NIDDM type II, peptic ulcer, alcoholism, benign colon polyp, occasional thoracic back pain (hs of crushed vertebra), arthritis R ankle, glaucoma L eye History of Any Multi-Drug Resistant Organisms: None Reported Past Surgical History: Adenoidectomy, Orthopedic Surgery, Tonsillectomy Additional Past Surgical History / Comment(s): r elbow radial head implant, bilateral carpal tunnel releases, trimalleolar fracture repair on the right with subsequent removal of hardware, benign L vocal cord mass removed, colonoscopy with polypectomy, bilateral cataract removals/lens implants. Past Anesthesia/Blood Transfusion Reactions: No Reported Reaction, Motion Sickness Smoking Status: Former smoker Additional Past Alcohol Use History / Comment(s): Patient smoked from 1996 and quit in 2002. Patient has a history of alcohol abuse currently drinking a half a pint of vodka treated 4 times per week. - Past Family History Mother Family Medical History: Cancer, Diabetes Mellitus Additional Family Medical History / Comment(s): Skin cancer. Mother at age 85 from dementia. Father Additional Family Medical History / Comment(s): Father had borderline diabetes. He is living. Sister(s) Additional Family Medical History / Comment(s): patient has 3 sisters with no major medical problems. Patient does not have any brothers. Patient has 2 sons and 2 daughters with no major medical problems. Medications and Allergies Home Medications Medication Instructions Recorded Confirmed Type Ezetimibe/Simvastatin [Vytorin 1 tab PO DAILY 12/23/13 06/20/19 History 10-40 mg Tablet] Fenofibrate 160 mg PO DAILY 12/23/13 06/20/19 History Losartan [Cozaar] 50 mg PO QAM 12/23/13 06/20/19 History Metoprolol Succinate [Toprol XL] 100 mg PO QAM 12/23/13 06/20/19 History sitaGLIPtin PHOS/metFORMIN HCL 1 tab PO BID 12/06/15 06/20/19 History [Janumet 50-1,000 mg Tablet] Cinnamon Bark [Cinnamon] 500 mg PO BID 04/04/16 06/20/19 History Alive Men's 1 tab PO DAILY 06/20/19 06/20/19 History Cartilage/Collagen/Bor/Hyalur 1 tab PO DAILY 06/20/19 06/20/19 History [Move Free Ultra Tablet] Omeprazole 20 mg PO DAILY 06/20/19 06/20/19 History Allergies Allergy/AdvReac Type Severity Reaction Status Date / Time No Known Allergies Allergy Verified 06/20/19 11:32 Physical Exam Vitals: Vital Signs Temp Pulse Pulse Resp BP BP Pulse Ox 06/21/19 08:00 90 16 06/21/19 05:00 99 F 90 16 135/72 94 L 06/21/19 00:00 16 06/20/19 21:00 98.4 F 93 16 156/80 97 06/20/19 12:00 109 H 18 172/100 96 06/20/19 10:54 86 16 146/80 99 Intake and Output 06/20/19 06/21/19 06/21/19 22:59 06:59 14:59 Intake Total 600 1200 Balance 600 1200 Intake: Intake, IV Titration 600 1200 Amount Sodium Chloride 0.9% 1, 600 1200 000 ml @ 150 mls/hr IV . Q6H40M MELISSA Rx#:[id number] Other: # Voids 2 On physical examination, patient appears comfortable in no apparent distress. HEAD: Normocephalic, atraumatic. EYES: No scleral icterus. No conjunctival injection. MOUTH: No lesions, tongue midline. NECK: Trachea midline, no gross abnormalities. CHEST: Clear to auscultation with no wheezing or rhonchi appreciated. HEART: Regular rate and rhythm. ABDOMEN: Soft, obese and moderately tender to palpation. Bowel sounds are positive. No organomegaly. No guarding or rigidity. EXTREMITIES: No pedal edema. SKIN: No rashes, no jaundice. NEUROLOGIC: Alert and oriented x3. No focal deficits. Results CBC & Chem 7: 06/21/19 05:45 06/21/19 05:45 Labs: Abnormal Lab Results - Last 24 Hours (Table) 06/20/19 06/20/19 06/20/19 Range/Units 08:55 08:55 08:55 RBC (4.30-5.90) m/uL Hgb (13.0-17.5) gm/dL Hct (39.0-53.0) % Plt Count (150-450) k/uL PT 12.7 H (9.0-12.0) sec INR 1.3 H (<1.2) Carbon Dioxide 20 L (22-30) mmol/L Creatinine 1.42 H (0.66-1.25) mg/dL Glucose 218 H (74-99) mg/dL POC Glucose (mg/dL) (75-99) mg/dL Plasma Lactic Acid Yang 2.7 H* (0.7-2.0) mmol/L Calcium (8.4-10.2) mg/dL Total Bilirubin 1.6 H (0.2-1.3) mg/dL Alkaline Phosphatase 27 L (38-126) U/L Total Protein (6.3-8.2) g/dL Albumin (3.5-5.0) g/dL HDL Cholesterol (40-60) mg/dL Amylase 641 H* (30-110) U/L Lipase 79593 H (23-300) U/L 06/20/19 06/20/19 06/20/19 Range/Units 12:26 17:53 23:50 RBC (4.30-5.90) m/uL Hgb (13.0-17.5) gm/dL Hct (39.0-53.0) % Plt Count (150-450) k/uL PT (9.0-12.0) sec INR (<1.2) Carbon Dioxide (22-30) mmol/L Creatinine (0.66-1.25) mg/dL Glucose (74-99) mg/dL POC Glucose (mg/dL) 186 H 193 H 167 H (75-99) mg/dL Plasma Lactic Acid Yang (0.7-2.0) mmol/L Calcium (8.4-10.2) mg/dL Total Bilirubin (0.2-1.3) mg/dL Alkaline Phosphatase (38-126) U/L Total Protein (6.3-8.2) g/dL Albumin (3.5-5.0) g/dL HDL Cholesterol (40-60) mg/dL Amylase (30-110) U/L Lipase (23-300) U/L 06/21/19 06/21/19 06/21/19 Range/Units 05:45 05:45 05:49 RBC 3.83 L (4.30-5.90) m/uL Hgb 11.9 L (13.0-17.5) gm/dL Hct 36.9 L (39.0-53.0) % Plt Count 108 L (150-450) k/uL PT (9.0-12.0) sec INR (<1.2) Carbon Dioxide (22-30) mmol/L Creatinine (0.66-1.25) mg/dL Glucose 155 H (74-99) mg/dL POC Glucose (mg/dL) 137 H (75-99) mg/dL Plasma Lactic Acid Yang (0.7-2.0) mmol/L Calcium 7.5 L (8.4-10.2) mg/dL Total Bilirubin (0.2-1.3) mg/dL Alkaline Phosphatase 22 L (38-126) U/L Total Protein 5.6 L (6.3-8.2) g/dL Albumin 3.0 L (3.5-5.0) g/dL HDL Cholesterol 26 L (40-60) mg/dL Amylase (30-110) U/L Lipase 3842 H (23-300) U/L CT scan - abdomen: report reviewed (Computed tomography scan of the abdomen was significant for uncomplicated pancreatitis with a small liver cyst noted.) Assessment and Plan (1) Pancreatitis Narrative/Plan: 63-year-old male presented to the hospital with complaints of abdominal pain found to have elevation in amylase at 641 and lipase at 11,[address] imaging suggestive of acute uncomplicated pancreatitis. No prior episodes of pancreatitis. Likely etiology secondary to alcohol consumption with the patient reporting daily alcohol use until 2 years ago and currently still consuming liquor approximately 0.5-1 pint of alcohol 3-4 days per week. Triglyceride level was found to be normal. No evidence of cholelithiasis on computed tomography scan of the abdomen. Current Visit: Yes Status: Acute Code(s): K85.90 - ACUTE PANCREATITIS WITHOUT NECROSIS OR INFECTION, UNSP SNOMED Code(s): 43842895 (2) Liver cyst Current Visit: Yes Status: Acute Code(s): K76.89 - OTHER SPECIFIED DISEASES OF LIVER SNOMED Code(s): 23106612 (3) Abdominal pain Current Visit: Yes Status: Acute Code(s): R10.9 - UNSPECIFIED ABDOMINAL PAIN SNOMED Code(s): 76383583 (4) Chronic alcohol abuse Current Visit: No Status: Acute Code(s): F10.10 - ALCOHOL ABUSE, UNCOMPLICATED SNOMED Code(s): 387510976 Plan: Supportive care Okay for liquid diet Continue IV fluid hydration Continue patient control Patient encouraged to ambulate Alcohol abstinence Alpha-fetoprotein level ordered given findings of liver cyst which is likely benign in nature Ultrasound of the abdomen ordered for further characterization of liver cyst and to rule out cholelithiasis, although likely etiology of pancreatitis is secondary to alcohol consumption Thank you for allowing us to participate in the care of the patient
[2019-06-21 20:37] LABS: Glucose,Whole Blood 147 mg/dL (75-99)
[2019-06-22] MEDS: HYDROmorphone 1 MG/ML 1 ML SYRINGE IVP PRN ×7 (03:14→22:24)
[2019-06-22 07:01] LABS: Glucose,Whole Blood 126 mg/dL (75-99)
[2019-06-22 07:46] LABS: HCT 33.8 % (39.0-53.0); HGB 10.9 gm/dL (13.0-17.5); MCH 31.1 pg (25.0-35.0); MCHC 32.2 g/dL (31.0-37.0); MCV 96.4 fL (80.0-100.0); Mean Platelet Volume 9.6; RDW 12.9 % (11.5-15.5); WBC 7.9 k/uL (3.8-10.6)
[2019-06-22] MEDS: INSULIN ASPART (NovoLOG) 100 UNIT/ML VIAL SQ SCH ×4 (07:55→20:36)
[2019-06-22] MEDS: LOSARTAN 50 MG TAB PO SCH (08:03)
[2019-06-22] MEDS: THIAMINE 100 MG TAB PO SCH ×2 (08:03→13:13)
[2019-06-22] MEDS: SODIUM CHLORIDE 0.9% 1,000 ML IV SCH (08:04)
[2019-06-22] MEDS: HEPARIN SODIUM,PORCINE 5,000 UNIT/ML 1 ML VIAL SQ SCH ×2 (08:05→20:36)
[2019-06-22] MEDS: PANTOPRAZOLE 40 MG/10 ML VIAL IVP SCH ×2 (08:05→20:35)
[2019-06-22] MEDS: METOPROLOL SUCCINATE (ER) 100 MG TAB.ER.24H PO SCH (08:14)
--- NOTE | 2019-06-22 08:19 | US ---
EXAMINATION TYPE: US abdomen complete DATE OF EXAM: 06/22/2019 COMPARISON: CT 06/20/2019 CLINICAL HISTORY: Pancreatitis. Very limited exam due to large amount of overlying bowel gas EXAM MEASUREMENTS: Liver Length: 17.3 cm Gallbladder Wall: 0.2 cm CBD: Not visualized with certainty Spleen: 13.7 cm Right Kidney: 12.3 x 7.6 x 6.1 cm Left Kidney: 14.0 x 7.7 x 6.3 cm Pancreas: Obscured by bowel gas Liver: Attenuating, coarse, echogenic echotexture. Measuring upper limits of normal. Unable to visua lized area seen on CT Gallbladder: Sludge visualized, appears hydropic Evidence for sonographic Garcia's sign: Yes CBD: Not visualized with certainty Spleen: Measuring upper limits of normal Right Kidney: No hydronephrosis or masses seen Left Kidney: No hydronephrosis or masses seen Upper IVC: Unable to visualized due to overlying bowel gas Abd Aorta: Unable to visualized due to overlying bowel gas Small amount of ascites visualized Kidneys are symmetric and free of hydronephrosis. No renal lesions are seen. IMPRESSION: 1. Limited evaluation. 2. Fatty liver with hepatomegaly. 3. Gallbladder sludge with hydrops noted.
[2019-06-22] MEDS ORDERED: BISACODYL 10 MG SUPP RECTAL STA (10:40)
[2019-06-22] MEDS ORDERED: BISACODYL 5 MG TABLET.DR PO SCH (10:45)
[2019-06-22 11:01] LABS: Platelet Count 97 k/uL (150-450)
--- NOTE | 2019-06-22 11:24 | XR ---
EXAMINATION TYPE: XR abdomen 2V DATE OF EXAM: 06/22/2019 COMPARISON: NONE HISTORY: Pain TECHNIQUE: Single supine KUB image of the abdomen is obtained FINDINGS: Small bowel demonstrates no evidence for dilatation or air fluid levels. Gas and fecal material is seen in non-distended colon. No convincing evidence for pneumoperitoneum. No unusual calcifications. The lung bases are clear. The osseous structures are intact. IMPRESSION: 1. Overall nonobstructive bowel gas pattern.
[2019-06-22 11:33] LABS: Glucose,Whole Blood 186 mg/dL (75-99)
--- NOTE | 2019-06-22 13:52 | P.PN ---
Subjective Progress Note Date: 06/22/19 This is a 63-year-old male patient of Dr. Boothe with past medical history of diabetes mellitus type 2, gastroesophageal reflux disease, hypertension, hyperlipidemia, degenerative disc disease, history of alcohol abuse. Patient complains of abdominal discomfort with bloating for a couple of days. He states he thought he was just constipated. He states it was so bad that he was unable to sleep due to the pain. He has been taking water and Tylenol which seemed to make his symptoms worse. He states his last alcohol intake was 3 days ago. He usually drinks a half a pint 3-4 times per week. Patient's last colonoscopy was in [address] szymanski status post polypectomy 2 finding in the descending colon tubulovillous adenoma and in the hepatic flexure tubular adenoma. Patient came into [facility] emergency center for evaluation. Patient was afebrile, heart rate initially 131 and repeated 86, blood pressure 120/87, pulse ox 90% on room air. CBC unremarkable. Electrolytes within normal limits, CO2 20, BUN 20 creatinine 1.42, blood sugar 218. Amylase 641, lipase 11,249. Lactic acid 2.7. Troponin negative. CAT scan of the abdomen and pelvis revealed acute uncomplicated pancreatitis without evidence of necrotizing pancreatitis, splenic artery pseudoaneurysm aneurysm, portosplenic thrombosis or. Pancreatic fluid collection. There is however thickening of the adjacent duodenum likely reactive duodenitis. Also mesenteric edema and small volume ascites. Appendix not visualized. Hepatic steatosis and indeterminate left hepatic lobe hyperdense 1.3 cm lesion that could be further characterized with enhanced liver MRI. Patient was admitted to the [facility] floor and consult requested with GI. 06/20: Patient is afebrile, heart rate 90, blood pressure 135/72, pulse ox 94% on room air. Repeat blood work reveals an ABC 8, hemoglobin 11.9,, platelet count 108. Electrolytes and renal function normal, blood sugar 155, Blood blood glucose running between 137 193. Total bilirubin 1.1, AST 31, ALT 18, alkaline phosphatase 22. Albumin 3. Triglycerides 94, cholesterol 117, LDL 72, HDL 26, repeat lipase 3842. Patient is currently nothing by mouth except for his small amount of ice chips and medications. Patient has been seen by GI this morning and diet advanced to clear liquids. Patient states that he is feeling better today. He continues to have some pain more so to the lower abdomen. Patient states he had a little nausea this morning which is improved. His last bowel movement was on Thursday. He is not passing gas. He still some bloating. Simethicone was discontinued. Patient states that he slept okay last night but floor was very noisy. 06/21: Patient has been seen by GI and alpha-fetoprotein has been ordered regarding the liver cyst which is most likely is benign. Also ultrasound of the abdomen was ordered which revealed limited evaluation, fatty liver with hepatomegaly, gallbladder sludge with hydrops. Repeat lipase 861. AFP tumor marker less than 2.5. WBC 7.9 coming from 10.9 and platelet count 97. Blood sugars run between 126 and 186. The patient continues to have abdominal pain to the lower quadrants and states he has not had a bowel movement yet and has not been passing gas but is burping. He has been on MiraLAX daily and abdominal x- ray ordered which revealed nonobstructive bowel gas pattern. Dulcolax marquez ppository ordered. Diet was then kept at clear liquid. Anticipate possible discharge tomorrow. Objective - Vital Signs Vital signs: Vital Signs Temp 99 F 06/22/19 05:00 Pulse 86 06/22/19 08:00 Resp 16 06/22/19 08:00 BP 141/69 06/22/19 05:00 Pulse Ox 92 L 06/22/19 05:00 Intake & Output 06/21/19 06/22/19 06/22/19 18:59 06:59 18:59 Intake Total 800 760 Balance 800 760 Weight 108.862 kg Intake: Intake, IV Titration 800 400 Amount Sodium Chloride 0.9% 1, 600 000 ml @ 150 mls/hr IV . Q6H40M MELISSA Rx#:[id number] Sodium Chloride 0.9% 1, 200 400 000 ml @ 50 mls/hr IV . Q20H MELISSA Rx#:[id number] Oral 360 Other: # Voids 2 2 - Exam Review of Systems Constitutional: Reports poor appetite, Denies chills, Denies fever, Denies lethargy, Denies malaise Ears, nose, mouth and throat: Denies dental pain, Denies nasal congestion, Denies nasal discharge, Denies vertigo Cardiovascular: Denies chest pain, Denies decreased exercise tolerance, Denies dyspnea on exertion, Denies edema, Denies leg edema, Denies lightheadedness, Denies shortness of breath, Denies syncope Respiratory: Denies cough, Denies cough with sputum, Denies dyspnea, Denies excessive sputum, Denies hemoptysis, Denies home oxygen, Denies respiratory infections, Denies wheezing Gastrointestinal: Reports abdominal pain-improving, Reports bloating, Reports constipation, Reports loss of appetite, Denies BRBPR, Denies diarrhea, Denies hematemesis, Denies hematochezia, Denies melena, Denies nausea, Denies vomiting Genitourinary: Denies dysuria, Denies urinary frequency, Denies urinary retention Musculoskeletal: Denies frequent falls, Denies gait dysfunction, Denies muscle weakness, Denies myalgias Integumentary: Denies pruritus, Denies rash, Denies wounds Neurological: Denies change in mentation, Denies change in speech, Denies gait dysfunction, Denies numbness, Denies seizures, Denies weakness Psychiatric: Denies anxiety, Denies depression Endocrine: Denies fatigue, Denies weight change Physical examination Gen: This is a 63-year-old male. Patient is resting in bed and appears to be comfortable and in no acute distress. HEENT: Head is atraumatic, normocephalic. Pupils equal, round. Sclerae is anicteric. NECK: Supple. No JVD. No lymphadenopathy. No thyromegaly. LUNGS: Clear to auscultation. No wheezes or rhonchi. No intercostal retractions. HEART: Regular rate and rhythm. Systolic murmur. ABDOMEN: Mild distention. Bowel sounds are present. No masses. Mild lower quadrant tenderness to palpation. EXTREMITIES: No pedal edema. No calf tenderness. Dorsalis pedis +2 bilat erally. NEUROLOGICAL: Patient is awake, alert and oriented x3. Cranial nerves 2 through 12 are grossly intact. - Labs CBC & Chem 7: 06/22/19 05:21 06/21/19 05:45 Labs: Abnormal Lab Results - Last 24 Hours (Table) 06/21/19 06/21/19 06/21/19 Range/Units 05:45 11:37 17:40 RBC (4.30-5.90) m/uL Hgb (13.0-17.5) gm/dL Hct (39.0-53.0) % POC Glucose (mg/dL) 144 H 159 H (75-99) mg/dL Hemoglobin A1c 6.2 H (4.0-6.0) % Lipase (23-300) U/L 06/21/19 06/22/19 06/22/19 Range/Units 20:36 05:21 05:21 RBC 3.50 L (4.30-5.90) m/uL Hgb 10.9 L (13.0-17.5) gm/dL Hct 33.8 L (39.0-53.0) % POC Glucose (mg/dL) 147 H (75-99) mg/dL Hemoglobin A1c (4.0-6.0) % Lipase 861 H (23-300) U/L 06/22/19 Range/Units 07:00 RBC (4.30-5.90) m/uL Hgb (13.0-17.5) gm/dL Hct (39.0-53.0) % POC Glucose (mg/dL) 126 H (75-99) mg/dL Hemoglobin A1c (4.0-6.0) % Lipase (23-300) U/L Assessment and Plan Plan: 1. Acute pancreatitis, alcohol induced. Consult with GI. Continue Dilaudid as needed for pain, Zofran as needed for nausea and IV fluids. Recheck lipase. Continue clear liquids. Dulcolax suppository ordered and continue MiraLAX. 2. Hypertension. Continue losartan 50 mg daily, Toprol-XL 100 mg daily. 3. Hyperlipidemia. Hold fenofibrate and Vytorin. 4. Diabetes mellitus type 2. Hold Janumet. Continue NovoLog scale every before meals and at bedtime. 5. Gastroesophageal reflux disease. Continue Protonix 40 mg IV push twice daily. 6. Alcohol abuse. Patient placed on the CIWA protocol with Ativan. Continue thiamine daily. 7. Acute kidney injury and chronic kidney disease stage II. Decrease IV fluids to 50 mL per hour. 8. Thrombocytopenia, chronic secondary to alcohol abuse. 9. DVT prophylaxis. Heparin subcu. Discharge plan: home on Impression and plan of care have been directed as dictated by the signing physician. Dayami Camarena nurse practitioner acting as scribe for signing physician.
[2019-06-22 17:04] LABS: Glucose,Whole Blood 146 mg/dL (75-99)
--- NOTE | 2019-06-22 17:28 | P.PN ---
Subjective Progress Note Date: 06/22/19 Principal diagnosis: Abdominal pain, pancreatitis Patient is seen in bed reporting abdominal pain and associated nausea and vomiting. Overall improved however still symptomatic. Objective - Vital Signs Vital signs: Vital Signs Temp 99 F 06/22/19 11:40 Pulse 86 06/22/19 16:00 Resp 20 06/22/19 16:00 BP 152/89 06/22/19 11:40 Pulse Ox 93 L 06/22/19 11:40 Intake & Output 06/21/19 06/22/19 06/22/19 18:59 06:59 18:59 Intake Total 800 760 400 Balance 800 760 400 Weight 108.862 kg Intake: Intake, IV Titration 800 400 400 Amount Sodium Chloride 0.9% 1, 600 000 ml @ 150 mls/hr IV . Q6H40M MELISSA Rx#:[id number] Sodium Chloride 0.9% 1, 200 400 400 000 ml @ 50 mls/hr IV . Q20H MELISSA Rx#:[id number] Oral 360 Other: # Voids 2 2 2 - Exam On physical examination, patient appears comfortable in no apparent distress. HEAD: Normocephalic, atraumatic. EYES: No scleral icterus. No conjunctival injection. MOUTH: No lesions, tongue midline. NECK: Trachea midline, no gross abnormalities. ABDOMEN: Soft, moderately tender to palpation. Bowel sounds are positive. No organomegaly. No guarding or rigidity. EXTREMITIES: No pedal edema. SKIN: No rashes, no jaundice. NEUROLOGIC: Alert and oriented x3. - Labs CBC & Chem 7: 06/22/19 05:21 06/21/19 05:45 Labs: Abnormal Lab Results - Last 24 Hours (Table) 06/21/19 06/21/19 06/22/19 Range/Units 17:40 20:36 05:21 RBC (4.30-5.90) m/uL Hgb (13.0-17.5) gm/dL Hct (39.0-53.0) % Plt Count (150-450) k/uL POC Glucose (mg/dL) 159 H 147 H (75-99) mg/dL Lipase 861 H (23-300) U/L 06/22/19 06/22/19 06/22/19 Range/Units 05:21 07:00 11:17 RBC 3.50 L (4.30-5.90) m/uL Hgb 10.9 L (13.0-17.5) gm/dL Hct 33.8 L (39.0-53.0) % Plt Count 97 L (150-450) k/uL POC Glucose (mg/dL) 126 H 186 H (75-99) mg/dL Lipase (23-300) U/L 06/22/19 Range/Units 17:02 RBC (4.30-5.90) m/uL Hgb (13.0-17.5) gm/dL Hct (39.0-53.0) % Plt Count (150-450) k/uL POC Glucose (mg/dL) 146 H (75-99) mg/dL Lipase (23-300) U/L Assessment and Plan (1) Pancreatitis Narrative/Plan: 63-year-old male presented to the hospital with complaints of abdominal pain found to have elevation in amylase at 641 and lipase at 11,[address] imaging suggestive of acute uncomplicated pancreatitis. No prior episodes of pancreatitis. Likely etiology secondary to alcohol consumption with the patient reporting daily alcohol use until 2 years ago and currently still consuming liquor approximately 0.5-1 pint of alcohol 3-4 days per week. Triglyceride level was found to be normal. No evidence of cholelithiasis on computed tomography scan of the abdomen. Current Visit: Yes Status: Acute Code(s): K85.90 - ACUTE PANCREATITIS WITHOUT NECROSIS OR INFECTION, UNSP SNOMED Code(s): 05272339 (2) Liver cyst Current Visit: Yes Status: Acute Code(s): K76.89 - OTHER SPECIFIED DISEASES OF LIVER SNOMED Code(s): 88092589 (3) Abdominal pain Current Visit: Yes Status: Acute Code(s): R10.9 - UNSPECIFIED ABDOMINAL PAIN SNOMED Code(s): 94080375 (4) Chronic alcohol abuse Current Visit: No Status: Acute Code(s): F10.10 - ALCOHOL ABUSE, UNCOMPLICATED SNOMED Code(s): 563257682 Plan: Supportive care Okay for liquid diet Continue IV fluid hydration Continue patient control Patient encouraged to ambulate Alcohol abstinence Alpha-fetoprotein level ordered given findings of liver cyst and normal Ultrasound of the abdomen significant for some sludge and a hydropic gallbladder Thank you for allowing us to participate in the care of the patient
[2019-06-22 20:07] LABS: Glucose,Whole Blood 143 mg/dL (75-99)
[2019-06-23] MEDS: HYDROmorphone 1 MG/ML 1 ML SYRINGE IVP PRN ×2 (02:49→08:45)
[2019-06-23] MEDS: SODIUM CHLORIDE 0.9% 1,000 ML IV SCH (02:52)
[2019-06-23 07:03] LABS: Glucose,Whole Blood 124 mg/dL (75-99)
[2019-06-23] MEDS: INSULIN ASPART (NovoLOG) 100 UNIT/ML VIAL SQ SCH ×4 (08:15→20:34)
[2019-06-23] MEDS: POLYETHYLENE GLYCOL 3350 17 GM POWD.PACK PO SCH (08:21)
[2019-06-23] MEDS: PANTOPRAZOLE 40 MG/10 ML VIAL IVP SCH ×2 (08:21→20:34)
[2019-06-23] MEDS: LOSARTAN 50 MG TAB PO SCH (08:21)
[2019-06-23] MEDS: HEPARIN SODIUM,PORCINE 5,000 UNIT/ML 1 ML VIAL SQ SCH ×2 (08:21→20:34)
[2019-06-23] MEDS: THIAMINE 100 MG TAB PO SCH ×2 (08:21→17:48)
[2019-06-23] MEDS: METOPROLOL SUCCINATE (ER) 100 MG TAB.ER.24H PO SCH (08:21)
[2019-06-23] MEDS: ONDANSETRON 4 MG/2 ML VIAL IVP PRN (08:25)
[2019-06-23] MEDS: TRIMETHOBENZAMIDE 300 MG CAP PO SCH ×3 (10:48→22:05)
[2019-06-23 11:02] LABS: Glucose,Whole Blood 205 mg/dL (75-99)
[2019-06-23] MEDS ORDERED: NA PHOS,M-B/NA PHOS,DI-BA 133 ML ENEMA RECTAL ONE (11:13)
[2019-06-23 11:14] LABS: ALT 14 U/L (4-49); AST 27 U/L (17-59); African American GFR (CKD) >90 (>60 ml/min/1.73 sqM); Albumin 2.9 g/dL (3.5-5.0); Alkaline Phosphatase 25 U/L (38-126); Anion Gap 8 mmol/L; Blood Urea Nitrogen 11 mg/dL (9-20); Calcium 7.4 mg/dL (8.4-10.2); Carbon Dioxide 24 mmol/L (22-30); Chloride 100 mmol/L (98-107); Glucose 197 mg/dL (74-99); Non-African American GFR(CKD) >90 (>60 ml/min/1.73 sqM); Potassium 4.1 mmol/L (3.5-5.1); Sodium 132 mmol/L (137-145); Total Bilirubin 1.5 mg/dL (0.2-1.3); Total Protein 5.5 g/dL (6.3-8.2)
[2019-06-23] MEDS: KETOROLAC 30 MG/ML 1 ML VIAL IVP PRN ×2 (13:18→20:32)
--- NOTE | 2019-06-23 13:27 | P.PN ---
Subjective Progress Note Date: 06/23/19 This is a 63-year-old male patient of Dr. Boothe with past medical history of diabetes mellitus type 2, gastroesophageal reflux disease, hypertension, hyperlipidemia, degenerative disc disease, history of alcohol abuse. Patient complains of abdominal discomfort with bloating for a couple of days. He states he thought he was just constipated. He states it was so bad that he was unable to sleep due to the pain. He has been taking water and Tylenol which seemed to make his symptoms worse. He states his last alcohol intake was 3 days ago. He usually drinks a half a pint 3-4 times per week. Patient's last colonoscopy was in [address] szymanski status post polypectomy 2 finding in the descending colon tubulovillous adenoma and in the hepatic flexure tubular adenoma. Patient came into [facility] emergency center for evaluation. Patient was afebrile, heart rate initially 131 and repeated 86, blood pressure 120/87, pulse ox 90% on room air. CBC unremarkable. Electrolytes within normal limits, CO2 20, BUN 20 creatinine 1.42, blood sugar 218. Amylase 641, lipase 11,249. Lactic acid 2.7. Troponin negative. CAT scan of the abdomen and pelvis revealed acute uncomplicated pancreatitis without evidence of necrotizing pancreatitis, splenic artery pseudoaneurysm aneurysm, portosplenic thrombosis or. Pancreatic fluid collection. There is however thickening of the adjacent duodenum likely reactive duodenitis. Also mesenteric edema and small volume ascites. Appendix not visualized. Hepatic steatosis and indeterminate left hepatic lobe hyperdense 1.3 cm lesion that could be further characterized with enhanced liver MRI. Patient was admitted to the [facility] floor and consult requested with GI. 06/20: Patient is afebrile, heart rate 90, blood pressure 135/72, pulse ox 94% on room air. Repeat blood work reveals an ABC 8, hemoglobin 11.9,, platelet count 108. Electrolytes and renal function normal, blood sugar 155, Blood blood glucose running between 137 193. Total bilirubin 1.1, AST 31, ALT 18, alkaline phosphatase 22. Albumin 3. Triglycerides 94, cholesterol 117, LDL 72, HDL 26, repeat lipase 3842. Patient is currently nothing by mouth except for his small amount of ice chips and medications. Patient has been seen by GI this morning and diet advanced to clear liquids. Patient states that he is feeling better today. He continues to have some pain more so to the lower abdomen. Patient states he had a little nausea this morning which is improved. His last bowel movement was on Thursday. He is not passing gas. He still some bloating. Simethicone was discontinued. Patient states that he slept okay last night but floor was very noisy. 06/21: Patient has been seen by GI and alpha-fetoprotein has been ordered regarding the liver cyst which is most likely is benign. Also ultrasound of the abdomen was ordered which revealed limited evaluation, fatty liver with hepatomegaly, gallbladder sludge with hydrops. Repeat lipase 861. AFP tumor marker less than 2.5. WBC 7.9 coming from 10.9 and platelet count 97. Blood sugars run between 126 and 186. The patient continues to have abdominal pain to the lower quadrants and states he has not had a bowel movement yet and has not been passing gas but is burping. He has been on MiraLAX daily and abdominal x- ray ordered which revealed nonobstructive bowel gas pattern. Dulcolax marquez ppository ordered. Diet was then kept at clear liquid. Anticipate possible discharge tomorrow. 06/22: Patient did not have a bowel movement yesterday after MiraLAX and Dulcolax suppository. Patient complains of cramping type abdominal pain both lower quadrants into the left side. He is passing very little gas. He continues to have nausea and vomiting with clear liquids. GI has not advanced diet. GI he has change Zofran to Tigan. Patient states that he is urinating without difficulties. We will add Fleets enema for today, discontinue Dilaudid and start Toradol as needed. Patient has been afebrile, heart rate 75, blood pressure 162/72, pulse ox 95% on room air. Repeat lipase 595, total bilirubin 1.5, AST 27, ALT 14, alkaline phosphatase 25, albumin 2.9 and blood sugars running between 124 and 205. Sodium 132, potassium 4.1, chloride 100, CO2 24, BUN 11 creatinine 0.74. Anticipate probable discharge tomorrow. Objective - Vital Signs Vital signs: Vital Signs Temp 98.6 F 06/23/19 05:00 Pulse 75 06/23/19 05:00 Resp 18 06/23/19 05:00 BP 162/72 06/23/19 05:00 Pulse Ox 95 06/23/19 05:00 Intake & Output 06/22/19 06/23/19 06/23/19 18:59 06:59 18:59 Intake Total 400 590 Balance 400 590 Intake: Intake, IV Titration 400 Amount Sodium Chloride 0.9% 1, 400 000 ml @ 50 mls/hr IV . Q20H [facility] Rx#:[id number] Oral 590 Other: Voiding Method Toilet # Voids 2 3 - Exam Review of Systems Constitutional: Reports poor appetite, Denies chills, Denies fever, Denies lethargy, Denies malaise Ears, nose, mouth and throat: Denies dental pain, Denies nasal congestion, Denies nasal discharge, Denies vertigo Cardiovascular: Denies chest pain, Denies decreased exercise tolerance, Denies dyspnea on exertion, Denies edema, Denies leg edema, Denies lightheadedness, Denies shortness of breath, Denies syncope Respiratory: Denies cough, Denies cough with sputum, Denies dyspnea, Denies e xcessive sputum, Denies hemoptysis, Denies home oxygen, Denies respiratory infections, Denies wheezing Gastrointestinal: Reports abdominal pain-improving, Reports bloating, Reports constipation, Reports loss of appetite, Denies BRBPR, Denies diarrhea, Denies hematemesis, Denies hematochezia, Denies melena, reports nausea, reports vomiting Genitourinary: Denies dysuria, Denies urinary frequency, Denies urinary retention Musculoskeletal: Denies frequent falls, Denies gait dysfunction, Denies muscle weakness, Denies myalgias Integumentary: Denies pruritus, Denies rash, Denies wounds Neurological: Denies change in mentation, Denies change in speech, Denies gait dysfunction, Denies numbness, Denies seizures, Denies weakness Psychiatric: Denies anxiety, Denies depression Endocrine: Denies fatigue, Denies weight change Physical examination Gen: This is a 63-year-old male. Patient is resting in bed and appears to be comfortable and in no acute distress. HEENT: Head is atraumatic, normocephalic. Pupils equal, round. Sclerae is anicteric. NECK: Supple. No JVD. No lymphadenopathy. No thyromegaly. LUNGS: Clear to auscultation. No wheezes or rhonchi. No intercostal retractions. HEART: Regular rate and rhythm. Systolic murmur. ABDOMEN: Mild distention. Bowel sounds are present. No masses. Mild lower quadrant and left upper quadrant tenderness to palpation. EXTREMITIES: No pedal edema. No calf tenderness. Dorsalis pedis +2 bilaterally. NEUROLOGICAL: Patient is awake, alert and oriented x3. Cranial nerves 2 through 12 are grossly intact. - Labs CBC & Chem 7: 06/22/19 05:21 06/23/19 10:43 Labs: Abnormal Lab Results - Last 24 Hours (Table) 06/22/19 06/22/19 06/22/19 Range/Units 11:17 17:02 20:06 POC Glucose (mg/dL) 186 H 146 H 143 H (75-99) mg/dL 06/23/19 06/23/19 Range/Units 07:02 11:01 POC Glucose (mg/dL) 124 H 205 H (75-99) mg/dL Assessment and Plan Plan: 1. Acute pancreatitis, alcohol induced. Consult with GI. Dilaudid discontinued and started Toradol IV as needed. Zofran changed to Tigan. Continue clear liquids for now. Repeat lipase for the morning. 2. Hypertension. Continue losartan 50 mg daily, Toprol-XL 100 mg daily. 3. Hyperlipidemia. Hold fenofibrate and Vytorin. 4. Diabetes mellitus type 2. Hold Janumet. Continue NovoLog scale every before meals and at bedtime. 5. Gastroesophageal reflux disease. Continue Protonix 40 mg IV push twice daily. 6. Alcohol abuse. Patient placed on the CIWA protocol with Ativan. Continue thiamine daily. 7. Acute kidney injury and chronic kidney disease stage II. Saline lock 8. Thrombocytopenia, chronic secondary to alcohol abuse. 9. Constipation. Continue MiraLAX and fleets enema ordered for today. 10. DVT prophylaxis. Heparin subcu. Discharge plan: home on Thursday Impression and plan of care have been directed as dictated by the signing physician. Dayami Camarena nurse practitioner acting as scribe for signing physician.
[2019-06-23 17:06] LABS: Glucose,Whole Blood 107 mg/dL (75-99)
[2019-06-23 20:02] LABS: Glucose,Whole Blood 138 mg/dL (75-99)
--- NOTE | 2019-06-23 20:15 | P.PN ---
Subjective Progress Note Date: 06/23/19 Principal diagnosis: Abdominal pain, pancreatitis Patient is seen in bed he is still reporting abdominal pain. No bowel movement reported. He is passing flatus. Objective - Vital Signs Vital signs: Vital Signs Temp 98.6 F 06/23/19 14:13 Pulse 81 06/23/19 14:13 Resp 18 06/23/19 14:13 BP 150/77 06/23/19 14:13 Pulse Ox 95 06/23/19 14:13 Intake & Output 06/23/19 06/23/19 06/24/19 06:59 18:59 06:59 Intake Total 590 240 Balance 590 240 Intake: Oral 590 240 Other: Voiding Method Toilet # Voids 3 1 - Exam On physical examination, patient appears comfortable in no apparent distress. HEAD: Normocephalic, atraumatic. EYES: No scleral icterus. No conjunctival injection. MOUTH: No lesions, tongue midline. NECK: Trachea midline, no gross abnormalities. ABDOMEN: Soft, moderately tender to palpation. Bowel sounds are positive. No organomegaly. No guarding or rigidity. EXTREMITIES: No pedal edema. SKIN: No rashes, no jaundice. NEUROLOGIC: Alert and oriented x3. - Labs CBC & Chem 7: 06/22/19 05:21 06/23/19 10:43 Labs: Abnormal Lab Results - Last 24 Hours (Table) 06/23/19 06/23/19 06/23/19 Range/Units 07:02 10:43 11:01 Sodium 132 L (137-145) mmol/L Glucose 197 H (74-99) mg/dL POC Glucose (mg/dL) 124 H 205 H (75-99) mg/dL Calcium 7.4 L (8.4-10.2) mg/dL Total Bilirubin 1.5 H (0.2-1.3) mg/dL Alkaline Phosphatase 25 L (38-126) U/L Total Protein 5.5 L (6.3-8.2) g/dL Albumin 2.9 L (3.5-5.0) g/dL Lipase 595 H (23-300) U/L 06/23/19 06/23/19 Range/Units 17:05 20:01 Sodium (137-145) mmol/L Glucose (74-99) mg/dL POC Glucose (mg/dL) 107 H 138 H (75-99) mg/dL Calcium (8.4-10.2) mg/dL Total Bilirubin (0.2-1.3) mg/dL Alkaline Phosphatase (38-126) U/L Total Protein (6.3-8.2) g/dL Albumin (3.5-5.0) g/dL Lipase (23-300) U/L Assessment and Plan (1) Pancreatitis Narrative/Plan: 63-year-old male presented to the hospital with complaints of abdominal pain found to have elevation in amylase at 641 and lipase at 11,[address] imaging suggestive of acute uncomplicated pancreatitis. No prior episodes of pancreatitis. Likely etiology secondary to alcohol consumption with the patient reporting daily alcohol use until 2 years ago and currently still consuming liquor approximately 0.5-1 pint of alcohol 3-4 days per week. Triglyceride level was found to be normal. No evidence of cholelithiasis on computed tomography scan of the abdomen. Current Visit: Yes Status: Acute Code(s): K85.90 - ACUTE PANCREATITIS WITHOUT NECROSIS OR INFECTION, UNSP SNOMED Code(s): 68586896 (2) Liver cyst Current Visit: Yes Status: Acute Code(s): K76.89 - OTHER SPECIFIED DISEASES OF LIVER SNOMED Code(s): 29600199 (3) Abdominal pain Current Visit: Yes Status: Acute Code(s): R10.9 - UNSPECIFIED ABDOMINAL PAIN SNOMED Code(s): 12001850 (4) Chronic alcohol abuse Current Visit: No Status: Acute Code(s): F10.10 - ALCOHOL ABUSE, UNCOMPLICATED SNOMED Code(s): 726932306 Plan: Supportive care Okay for liquid diet Continue IV fluid hydration Continue patient control Patient encouraged to ambulate Alcohol abstinence Alpha-fetoprotein level normal Ultrasound of the abdomen significant for some sludge and a hydropic gallbladder Thank you for allowing us to participate in the care of the patient
[2019-06-24 07:01] LABS: Glucose,Whole Blood 125 mg/dL (75-99)
[2019-06-24] MEDS: INSULIN ASPART (NovoLOG) 100 UNIT/ML VIAL SQ SCH ×2 (07:36→13:03)
[2019-06-24] MEDS: PANTOPRAZOLE 40 MG/10 ML VIAL IVP SCH (08:58)
[2019-06-24] MEDS: LOSARTAN 50 MG TAB PO SCH (08:58)
[2019-06-24] MEDS: HEPARIN SODIUM,PORCINE 5,000 UNIT/ML 1 ML VIAL SQ SCH (08:58)
[2019-06-24] MEDS: POLYETHYLENE GLYCOL 3350 17 GM POWD.PACK PO SCH (08:58)
[2019-06-24] MEDS: TRIMETHOBENZAMIDE 300 MG CAP PO SCH (08:59)
[2019-06-24] MEDS: THIAMINE 100 MG TAB PO SCH (08:59)
[2019-06-24] MEDS: METOPROLOL SUCCINATE (ER) 100 MG TAB.ER.24H PO SCH (09:01)
[2019-06-24] MEDS: KETOROLAC 30 MG/ML 1 ML VIAL IVP PRN (09:08)
[2019-06-24 11:55] LABS: Glucose,Whole Blood 177 mg/dL (75-99)
[2019-06-24 12:31] VITALS: BP 160/84; PULSE 55; RESP 17; TEMP 98.5
--- NOTE | 2019-06-24 12:42 | P.DS ---
Providers Date of admission: 06/20/19 11:17 Expected date of discharge: 06/24/19 Attending physician: Rashel Boothe Consults: 06/20/19 11:42 Consult Physician Routine Consulting Provider: Nerissa Gallegos Consult Reason/Comments: pancreatitis Do you want consulting provider notified?: Yes Primary care physician: Rashel Boothe [facility] Course: This is a 63-year-old male patient of Dr. Boothe with past medical history of diabetes mellitus type 2, gastroesophageal reflux disease, hypertension, hyperlipidemia, degenerative disc disease, history of alcohol abuse. Patient complains of abdominal discomfort with bloating for a couple of days. He states he thought he was just constipated. He states it was so bad that he was unable to sleep due to the pain. He has been taking water and Tylenol which seemed to make his symptoms worse. He states his last alcohol intake was 3 days ago. He usually drinks a half a pint 3-4 times per week. Patient's last colonoscopy was in [address] szymanski status post polypectomy 2 finding in the descending colon tubulovillous adenoma and in the hepatic flexure tubular adenoma. Patient came into [facility] emergency center for evaluation. Patient was afebrile, heart rate initially 131 and repeated 86, blood pressure 120/87, pulse ox 90% on room air. CBC unremarkable. Electrolytes within normal limits, CO2 20, BUN 20 creatinine 1.42, blood sugar 218. Amylase 641, lipase 11,249. Lactic acid 2.7. Troponin negative. CAT scan of the abdomen and pelvis revealed acute uncomplicated pancreatitis without evidence of necrotizing pancreatitis, splenic artery pseudoaneurysm aneurysm, portosplenic thrombosis or. Pancreatic fluid collection. There is however thickening of the adjacent duodenum likely reactive duodenitis. Also mesenteric edema and small volume ascites. Appendix not visualized. Hepatic steatosis and indeterminate left hepatic lobe hyperdense 1.3 cm lesion that could be further characterized with enhanced liver MRI. Patient was admitted to the [facility] floor and consult requested with GI. 06/20: Patient is afebrile, heart rate 90, blood pressure 135/72, pulse ox 94% on room air. Repeat blood work reveals an ABC 8, hemoglobin 11.9,, platelet count 108. Electrolytes and renal function normal, blood sugar 155, Blood blood glucose running between 137 193. Total bilirubin 1.1, AST 31, ALT 18, alkaline phosphatase 22. Albumin 3. Triglycerides 94, cholesterol 117, LDL 72, HDL 26, repeat lipase 3842. Patient is currently nothing by mouth except for his small amount of ice chips and medications. Patient has been seen by GI this morning and diet advanced to clear liquids. Patient states that he is feeling better today. He continues to have some pain more so to the lower abdomen. Patient states he had a little nausea this morning which is improved. His last bowel movement was on Thursday. He is not passing gas. He still some bloating. Simethicone was discontinued. Patient states that he slept okay last night but floor was very noisy. 06/21: Patient has been seen by GI and alpha-fetoprotein has been ordered regarding the liver cyst which is most likely is benign. Also ultrasound of the abdomen was ordered which revealed limited evaluation, fatty liver with hepatomegaly, gallbladder sludge with hydrops. Repeat lipase 861. AFP tumor marker less than 2.5. WBC 7.9 coming from 10.9 and platelet count 97. Blood sugars run between 126 and 186. The patient continues to have abdominal pain to the lower quadrants and states he has not had a bowel movement yet and has not been passing gas but is burping. He has been on MiraLAX daily and abdominal x- ray ordered which revealed nonobstructive bowel gas pattern. Dulcolax suppository ordered. Diet was then kept at clear liquid. Anticipate possible discharge tomorrow. 06/22: Patient did not have a bowel movement yesterday after MiraLAX and Dulcolax suppository. Patient complains of cramping type abdominal pain both lower quadrants into the left side. He is passing very little gas. He continues to have nausea and vomiting with clear liquids. GI has not advanced diet. GI he has change Zofran to Tigan. Patient states that he is urinating without difficulties. We will add Fleets enema for today, discontinue Dilaudid and start Toradol as needed. Patient has been afebrile, heart rate 75, blood pr essure 162/72, pulse ox 95% on room air. Repeat lipase 595, total bilirubin 1.5, AST 27, ALT 14, alkaline phosphatase 25, albumin 2.9 and blood sugars running between 124 and 205. Sodium 132, potassium 4.1, chloride 100, CO2 24, BUN 11 creatinine 0.74. Anticipate probable discharge tomorrow. 06/23: Patient is an afebrile, heart rate 59, blood pressure 135/69, pulse ox 92- 95% on room air. Repeat lipase 672. Sugars running between 125 and 138. The patient did have a small bowel movement yesterday. Abdominal pain is improving. He has been receiving Tigan and Toradol. GI has increased diet full liquids. Patient tolerates this diet for lunch, patient will be discharged home today in stable condition. Discharge diagnoses: 1. Acute pancreatitis, alcohol induced. 2. Hypertension. 3. Hyperlipidemia. 4. Diabetes mellitus type 2. 5. Gastroesophageal reflux disease. 6. Alcohol abuse. 7. Acute kidney injury and chronic kidney disease stage II. 8. Thrombocytopenia, chronic secondary to alcohol abuse. Discharge plan: home Impression and plan of care have been directed as dictated by the signing physician. Dayami Camarena nurse practitioner acting as scribe for signing physician. Patient Condition at Discharge: Good Plan - Discharge Summary Discharge Rx Participant: No New Discharge Prescriptions: New Sennosides/Docusate Sodium [Carmen Colace] 1 tab PO DAILY #30 tab Melatonin 10 mg PO HS #30 tablet.er Trimethobenzamide [Tigan] 300 mg PO TID #10 capsule Continue Metoprolol Succinate [Toprol XL] 100 mg PO QAM Fenofibrate 160 mg PO DAILY Ezetimibe/Simvastatin [Vytorin 10-40 mg Tablet] 1 tab PO DAILY Losartan [Cozaar] 50 mg PO QAM sitaGLIPtin PHOS/metFORMIN HCL [Janumet 50-1,000 mg Tablet] 1 tab PO BID Cinnamon Bark [Cinnamon] 500 mg PO BID Alive Men's 1 tab PO DAILY Omeprazole 20 mg PO DAILY Cartilage/Collagen/Bor/Hyalur [Move Free Ultra Tablet] 1 tab PO DAILY Discharge Medication List Ezetimibe/Simvastatin [Vytorin 10-40 mg Tablet] 1 tab PO DAILY 12/23/13 [History] Fenofibrate 160 mg PO DAILY 12/23/13 [History] Losartan [Cozaar] 50 mg PO QAM 12/23/13 [History] Metoprolol Succinate [Toprol XL] 100 mg PO QAM 12/23/13 [History] sitaGLIPtin PHOS/metFORMIN HCL [Janumet 50-1,000 mg Tablet] 1 tab PO BID 12/06/15 [History] Cinnamon Bark [Cinnamon] 500 mg PO BID 04/04/16 [History] Alive Men's 1 tab PO DAILY 06/20/19 [History] Cartilage/Collagen/Bor/Hyalur [Move Free Ultra Tablet] 1 tab PO DAILY 06/20/19 [History] Omeprazole 20 mg PO DAILY 06/20/19 [History] Melatonin 10 mg PO HS #30 tablet.er 06/24/19 [Rx] Sennosides/Docusate Sodium [Carmen Colace] 1 tab PO DAILY #30 tab 06/24/19 [Rx] Trimethobenzamide [Tigan] 300 mg PO TID #10 capsule 06/24/19 [Rx] Follow up Appointment(s)/Referral(s): Rashel Boothe MD [Primary Care Provider] - 1 Week (Office message states that they are closed please call thursday to schedule a follow up.) Activity/Diet/Wound Care/Special Instructions: Hold Vytorin for one week Discharge Disposition: HOME SELF-CARE
== END 2019-06-24 15:44 | disposition home or self-care (01) | DRG 439 ==
LOC: EC 08:22 → 5NMEDONC 11:17
PROVIDERS: ADMIT Internal Medicine Geriatric Medicine; ATTEND Internal Medicine Geriatric Medicine
DX: K85.20 Alcohol induced acute pancreatitis without necrosis or infection (principal); E87.2 Acidosis; K82.1 Hydrops of gallbladder; N17.9 Acute kidney failure, unspecified; R18.8 Other ascites; D69.59 Other secondary thrombocytopenia; E11.22 Type 2 diabetes mellitus with diabetic chronic kidney disease; E78.5 Hyperlipidemia, unspecified; F10.10 Alcohol abuse, uncomplicated; I12.9 Hypertensive chronic kidney disease with stage 1 through stage 4 chronic kidney disease, or unspecified chronic kidney disease; K21.9 Gastro-esophageal reflux disease without esophagitis; K29.80 Duodenitis without bleeding; K76.0 Fatty (change of) liver, not elsewhere classified; K76.89 Other specified diseases of liver; N18.2 Chronic kidney disease, stage 2 (mild); Z79.84 Long term (current) use of oral hypoglycemic drugs; Z79.899 Other long term (current) drug therapy; Z80.8 Family history of malignant neoplasm of other organs or systems; Z83.3 Family history of diabetes mellitus; Z86.010 Personal history of colon polyps; Z87.11 Personal history of peptic ulcer disease; Z87.19 Personal history of other diseases of the digestive system; Z87.891 Personal history of nicotine dependence; Z96.1 Presence of intraocular lens
CPT/HCPCS: 74019; 74177; 76700; 80053; 80061; 80320; 82105; 82150; 83036; 83605; 83690; 84484; 85025; 85027; 85610; 85730; 93005; 96361; 96374; 96375; 96376; 99285

== ENCOUNTER 2019-10-15 13:07 | Inpatient (IN) | payer OTHER ==
[2019-10-15] MEDS ORDERED: SODIUM CHLORIDE 0.9% 1,000 ML IV STA ×4 (13:25→13:30)
[2019-10-15] MEDS ORDERED: ONDANSETRON 4 MG/2 ML VIAL IVP STA (13:30)
--- NOTE | 2019-10-15 13:36 | ED ---
Abdominal Pain HPI - General Chief Complaint: Abdominal Pain Stated Complaint: abdominal pain/nausea Time Seen by Provider: 10/15/19 13:23 Source: patient, RN notes reviewed Mode of arrival: ambulatory Limitations: no limitations - History of Present Illness Initial Comments: This is a 63-year-old male with a history of pancreatitis in the past secondary to alcohol abuse history of hypertension GERD hyperlipidemia he states he has a history of gallbladder problems also history of a tubulovillous adenoma removal in 2018 that was a polyp in his colon at the hepatic flexure who presents with complaints of 3 days of progressively worsening abdominal pain mostly upper abdomen some left sided abdominal pain with nausea vomiting. He states his been unable keep food or fluids down he believes food is a cause of this episode. No fevers chills or sweats no other modifying factors at this time he does feel bloated and distended MD Complaint: abdominal pain - Related Data Home Medications Medication Instructions Recorded Confirmed Ezetimibe/Simvastatin [Vytorin 1 tab PO DAILY 12/23/13 10/15/19 10-40 mg Tablet] Fenofibrate 160 mg PO DAILY 12/23/13 10/15/19 Losartan [Cozaar] 50 mg PO QAM 12/23/13 10/15/19 Metoprolol Succinate [Toprol XL] 100 mg PO HS 12/23/13 10/15/19 sitaGLIPtin PHOS/metFORMIN HCL 1 tab PO BID 12/06/15 10/15/19 [Janumet 50-1,000 mg Tablet] Cinnamon Bark [Cinnamon] 500 mg PO BID 04/04/16 10/15/19 Cartilage/Collagen/Bor/Hyalur 1 tab PO DAILY 06/20/19 10/15/19 [Move Free Ultra Tripl Actn Tab] Omeprazole 20 mg PO DAILY 06/20/19 10/15/19 Allergies Allergy/AdvReac Type Severity Reaction Status Date / Time No Known Allergies Allergy Verified 10/15/19 15:19 Review of Systems ROS Statement: Those systems with pertinent positive or pertinent negative responses have been documented in the HPI. ROS Other: All systems not noted in ROS Statement are negative. Past Medical History Past Medical History: Diabetes Mellitus, Eye Disorder, GERD/Reflux, Hyperlipidemia, Hypertension, Osteoarthritis (OA) Additional Past Medical History / Comment(s): NIDDM type II, peptic ulcer, alcoholism, benign colon polyp, occasional thoracic back pain (hs of crushed vertebra), arthritis R ankle, glaucoma L eye History of Any Multi-Drug Resistant Organisms: None Reported Past Surgical History: Adenoidectomy, Orthopedic Surgery, Tonsillectomy Additional Past Surgical History / Comment(s): r elbow radial head implant, bilateral carpal tunnel releases, trimalleolar fracture repair on the right with subsequent removal of hardware, benign L vocal cord mass removed, colonoscopy with polypectomy, bilateral cataract removals/lens implants. Past Anesthesia/Blood Transfusion Reactions: No Reported Reaction, Motion Sickness Past Psychological History: No Psychological Hx Reported Smoking Status: Never smoker Past Alcohol Use History: Occasional Past Drug Use History: None Reported - Past Family History Mother Family Medical History: Cancer, Diabetes Mellitus Additional Family Medical History / Comment(s): Skin cancer. Mother at age 85 from dementia. Father Additional Family Medical History / Comment(s): Father had borderline diabetes. He is living. Sister(s) Additional Family Medical History / Comment(s): patient has 3 sisters with no major medical problems. Patient does not have any brothers. Patient has 2 sons and 2 daughters with no major medical problems. General Exam - General Exam Comments Initial Comments: This is a well-developed well-nourished awake alert oriented 3 male who was actively vomiting during the exam Limitations: no limitations General appearance: alert, anxious, in distress Head exam: Present: atraumatic, normocephalic, normal inspection Eye exam: Present: normal appearance, PERRL, EOMI. Absent: scleral icterus, conjunctival injection, periorbital swelling ENT exam: Present: normal exam, mucous membranes moist Neck exam: Present: normal inspection, full ROM. Absent: tenderness, meningismus, lymphadenopathy Respiratory exam: Present: normal lung sounds bilaterally. Absent: respiratory distress, wheezes, rales, rhonchi, stridor Cardiovascular Exam: Present: regular rate, normal rhythm, normal heart sounds. Absent: systolic murmur, diastolic murmur, rubs, gallop, clicks GI/Abdominal exam: Present: soft, distended, tenderness (Generalized tenderness no overt guarding or rebound), normal bowel sounds. Absent: guarding, rebound, rigid Rectal exam: Present: deferred Extremities exam: Present: normal inspection, full ROM, normal capillary refill. Absent: tenderness, pedal edema, joint swelling, calf tenderness Back exam: Present: normal inspection Neurological exam: Present: alert, oriented X3, CN II-XII intact Psychiatric exam: Present: normal affect, normal mood Skin exam: Present: warm, dry, intact, normal color. Absent: rash Course Vital Signs 10/15/19 10/15/19 10/15/19 13:18 14:24 15:17 Temperature 98.3 F Pulse Rate 91 78 77 Respiratory 18 18 18 Rate Blood Pressure 94/61 115/65 105/57 O2 Sat by Pulse 97 95 95 Oximetry Medical Decision Making - Medical Decision Making I did reevaluate patient several occasions he denies drinking alcohol recently. Patient will be admitted he does have evidence of acute pancreatitis. I had originally discuss the case with Dr. Osborne. - Lab Data Result diagrams: 10/15/19 13:46 10/15/19 13:46 Lab Results 10/15/19 10/15/19 10/15/19 Range/Units 13:46 13:46 13:46 WBC 13.3 H (3.8-10.6) k/uL RBC 4.42 (4.30-5.90) m/uL Hgb 12.9 L (13.0-17.5) gm/dL Hct 42.6 (39.0-53.0) % MCV 96.5 (80.0-100.0) fL MCH 29.3 (25.0-35.0) pg MCHC 30.3 L (31.0-37.0) g/dL RDW 13.1 (11.5-15.5) % Plt Count 248 (150-450) k/uL Neutrophils % 73 % Lymphocytes % 10 % Monocytes % 11 % Eosinophils % 3 % Basophils % 0 % Neutrophils # 9.7 H (1.3-7.7) k/uL Lymphocytes # 1.3 (1.0-4.8) k/uL Monocytes # 1.5 H (0-1.0) k/uL Eosinophils # 0.4 (0-0.7) k/uL Basophils # 0.0 (0-0.2) k/uL Hypochromasia Slight Sodium 132 L (137-145) mmol/L Potassium 5.2 H (3.5-5.1) mmol/L Chloride 105 (98-107) mmol/L Carbon Dioxide 14 L (22-30) mmol/L Anion Gap 13 mmol/L BUN 45 H (9-20) mg/dL Creatinine 1.67 H (0.66-1.25) mg/dL Est GFR (CKD-EPI)AfAm 50 (>60 ml/min/1.73 sqM) Est GFR (CKD-EPI)NonAf 43 (>60 ml/min/1.73 sqM) Glucose 132 H (74-99) mg/dL Plasma Lactic Acid Yang 1.5 (0.7-2.0) mmol/L Calcium 8.9 (8.4-10.2) mg/dL Total Bilirubin 1.4 H (0.2-1.3) mg/dL AST 33 (17-59) U/L ALT 16 (4-49) U/L Alkaline Phosphatase 33 L (38-126) U/L Creatine Kinase 50 L (55-170) U/L Troponin I (0.000-0.034) ng/mL Total Protein 5.9 L (6.3-8.2) g/dL Albumin 3.1 L (3.5-5.0) g/dL Amylase 1670 H* (30-110) U/L Lipase 54113 H (23-300) U/L Serum Alcohol <10 mg/dL 10/15/19 Range/Units 13:46 WBC (3.8-10.6) k/uL RBC (4.30-5.90) m/uL Hgb (13.0-17.5) gm/dL Hct (39.0-53.0) % MCV (80.0-100.0) fL MCH (25.0-35.0) pg MCHC (31.0-37.0) g/dL RDW (11.5-15.5) % Plt Count (150-450) k/uL Neutrophils % % Lymphocytes % % Monocytes % % Eosinophils % % Basophils % % Neutrophils # (1.3-7.7) k/uL Lymphocytes # (1.0-4.8) k/uL Monocytes # (0-1.0) k/uL Eosinophils # (0-0.7) k/uL Basophils # (0-0.2) k/uL Hypochromasia Sodium (137-145) mmol/L Potassium (3.5-5.1) mmol/L Chloride (98-107) mmol/L Carbon Dioxide (22-30) mmol/L Anion Gap mmol/L BUN (9-20) mg/dL Creatinine (0.66-1.25) mg/dL Est GFR (CKD-EPI)AfAm (>60 ml/min/1.73 sqM) Est GFR (CKD-EPI)NonAf (>60 ml/min/1.73 sqM) Glucose (74-99) mg/dL Plasma Lactic Acid Yang (0.7-2.0) mmol/L Calcium (8.4-10.2) mg/dL Total Bilirubin (0.2-1.3) mg/dL AST (17-59) U/L ALT (4-49) U/L Alkaline Phosphatase (38-126) U/L Creatine Kinase (55-170) U/L Troponin I <0.012 (0.000-0.034) ng/mL Total Protein (6.3-8.2) g/dL Albumin (3.5-5.0) g/dL Amylase (30-110) U/L Lipase (23-300) U/L Serum Alcohol mg/dL - Radiology Data Radiology results: report reviewed (I did review the imaging and report no acute findings. It is evidence of ascites.), image reviewed Disposition Clinical Impression: Acute pancreatitis, Dehydration, Abdominal pain, Nausea, Vomiting Disposition: ADMITTED IP TO THIS [facility] Condition: Fair Referrals: Rashel Boothe MD [Primary Care Provider] - 1-2 days
[2019-10-15] MEDS ORDERED: HYDROmorphone 1 MG/ML 1 ML SYRINGE IVP STA (13:55)
[2019-10-15 14:02] LABS: Basophils % (A) 0 %; Eosinophils # (A) 0.4 k/uL (0-0.7); Eosinophils % (A) 3 %; HCT 42.6 % (39.0-53.0); HGB 12.9 gm/dL (13.0-17.5); Hypochromasia Slight; Lymphocytes # (A) 1.3 k/uL (1.0-4.8); Lymphocytes % (A) 10 %; MCH 29.3 pg (25.0-35.0); MCHC 30.3 g/dL (31.0-37.0); MCV 96.5 fL (80.0-100.0); Mean Platelet Volume 8.9; Monocytes # (A) 1.5 k/uL (0-1.0); Monocytes % (A) 11 %; Neutrophils # (A) 9.7 k/uL (1.3-7.7); Neutrophils % (A) 73 %; Platelet Count 248 k/uL (150-450); RBC 4.42 m/uL (4.30-5.90); RDW 13.1 % (11.5-15.5); WBC 13.3 k/uL (3.8-10.6)
[2019-10-15 14:19] LABS: ALT 16 U/L (4-49); AST 33 U/L (17-59); African American GFR (CKD) 50 (>60 ml/min/1.73 sqM); Albumin 3.1 g/dL (3.5-5.0); Alcohol <10 mg/dL; Alkaline Phosphatase 33 U/L (38-126); Anion Gap 13 mmol/L; Blood Urea Nitrogen 45 mg/dL (9-20); Calcium 8.9 mg/dL (8.4-10.2); Carbon Dioxide 14 mmol/L (22-30); Chloride 105 mmol/L (98-107); Creatine Kinase 50 U/L (55-170); Glucose 132 mg/dL (74-99); Non-African American GFR(CKD) 43 (>60 ml/min/1.73 sqM); Potassium 5.2 mmol/L (3.5-5.1); Sodium 132 mmol/L (137-145); Total Bilirubin 1.4 mg/dL (0.2-1.3); Total Protein 5.9 g/dL (6.3-8.2)
[2019-10-15 14:38] LABS: Amylase 1670 U/L (30-110)
--- NOTE | 2019-10-15 14:39 | XR ---
EXAMINATION TYPE: XR chest 2V DATE OF EXAM: 10/15/2019 COMPARISON: NONE HISTORY: Abdominal pain TECHNIQUE: 2 views FINDINGS: There is some atelectasis right lung base. There is elevated right diaphragm. Heart size is normal. There are no hilar masses. There is no mediastinal adenopathy. Bony thorax is intact. IMPRESSION: Atelectasis in both lower lobes mainly on the right side. No heart failure seen. Normal h eart.
--- NOTE | 2019-10-15 14:41 | XR ---
EXAMINATION TYPE: XR abdomen 2V DATE OF EXAM: 10/15/2019 COMPARISON: 06/22/2019 HISTORY: Constipation TECHNIQUE: 2 views supine and upright FINDINGS: There is some gas-filled distended small bowel loops without disproportionate dilation of a ny one loop. There is slight increased density over the abdomen that could relate to ascites. There i s no evidence of free air. There is some atelectasis at the lung bases. There are no pathologic calci fications over the kidneys. IMPRESSION: There is probably of ascites. No free air. Atelectasis at the lung bases. No bowel obstruction.
[2019-10-15] MEDS ORDERED: NALOXONE 0.4 MG/ML 1 ML VIAL IV PRN (15:32)
[2019-10-15] MEDS: HYDROmorphone 1 MG/ML 1 ML SYRINGE IVP PRN ×3 (17:09→23:38)
[2019-10-15 17:32] LABS: Glucose,Whole Blood 119 mg/dL (75-99)
[2019-10-15] MEDS: SODIUM CHLORIDE 0.9% 1,000 ML IV SCH ×2 (18:00→22:59)
[2019-10-15] MEDS: INSULIN ASPART (NovoLOG) 100 UNIT/ML VIAL SQ SCH (18:15)
[2019-10-15] MEDS: METOPROLOL SUCCINATE (ER) 100 MG TAB.ER.24H PO SCH (20:32)
[2019-10-16 00:30] LABS: Glucose,Whole Blood 107 mg/dL (75-99)
[2019-10-16] MEDS: INSULIN ASPART (NovoLOG) 100 UNIT/ML VIAL SQ SCH ×4 (00:45→18:15)
[2019-10-16 01:13] LABS: Appearance,Urine Cloudy (Clear); Bacteria,Urine Rare /hpf; Bilirubin,Urine 2+ (Negative); Blood,Urine Negative (Negative); Color,Urine Dark Brown; Glucose,Urine (UA) Negative (Negative); Hyaline Casts,Urine 44 /lpf (0-2); Ketones,Urine Trace (Negative); Leukocyte Esterase,Urine Small (Negative); Mucus,Urine Rare /hpf; Nitrite,Urine Negative (Negative); Protein,Urine 1+ (Negative); RBC,Urine <1 /hpf (0-5); Specific Gravity,Urine 1.029 (1.001-1.035); Squamous Epithelial Cell,Urine <1 /hpf (0-4); WBC,Urine 8 /hpf (0-5)
[2019-10-16] MEDS: HYDROmorphone 1 MG/ML 1 ML SYRINGE IVP PRN ×8 (02:41→23:12)
[2019-10-16] MEDS: SODIUM CHLORIDE 0.9% 1,000 ML IV SCH ×3 (05:38→19:24)
[2019-10-16 06:26] LABS: Glucose,Whole Blood 111 mg/dL (75-99)
[2019-10-16] MEDS: PANTOPRAZOLE 40 MG/10 ML VIAL IV SCH (08:21)
[2019-10-16] MEDS: FENOFIBRATE 160 MG TAB PO SCH (08:22)
[2019-10-16] MEDS: ONDANSETRON 4 MG/2 ML VIAL IVP PRN ×3 (08:22→23:12)
[2019-10-16] MEDS ORDERED: SODIUM CHLORIDE 0.9% 1,000 ML IV ONE (09:01)
[2019-10-16 09:47] LABS: Basophils % (A) 0 %; Eosinophils # (A) 0.2 k/uL (0-0.7); Eosinophils % (A) 3 %; HCT 37.2 % (39.0-53.0); HGB 11.4 gm/dL (13.0-17.5); Hypochromasia Moderate; Lymphocytes # (A) 0.8 k/uL (1.0-4.8); Lymphocytes % (A) 10 %; MCHC 30.5 g/dL (31.0-37.0); MCV 98.2 fL (80.0-100.0); Mean Platelet Volume 8.4; Monocytes % (A) 13 %; Neutrophils # (A) 5.6 k/uL (1.3-7.7); Neutrophils % (A) 70 %; Platelet Count 217 k/uL (150-450); RBC 3.79 m/uL (4.30-5.90)
[2019-10-16] MEDS ORDERED: POTASSIUM CHLORIDE 10 MEQ in WATER FOR INJECTION 1 100ML.BAG IVPB SCH (10:00)
[2019-10-16 10:03] LABS: Albumin 2.5 g/dL (3.5-5.0); Calcium 7.9 mg/dL (8.4-10.2); Total Bilirubin 1.2 mg/dL (0.2-1.3); Total Protein 4.9 g/dL (6.3-8.2)
--- NOTE | 2019-10-16 10:46 | P.HPIM ---
History of Present Illness H&P Date: 10/16/19 Chief Complaint: Abdominal pain, dehydration, acute pancreatitis This is a 63-year-old male patient of Dr. Garcia who presented to the emergency room with severe abdominal pain with a history of pancreatitis secondary to alcohol abuse. Patient's past medical history significant for hypertension, acid reflux, hyperlipidemia. Patient states he has a history of issues with his gallbladder previous ultrasound showed sludge and polyps. Patient states about a week ago he started to have nausea and stomach discomfort and diarrhea. After a few days the symptoms went away and he was starting to feel much better. Patient was able to eat and tolerate his diet. At that time he began to eat foods and they began to develop increased abdominal pain and nausea. He was seen by Dr. Boothe on Thursday and was given [place] for pain. The pain increasingly got worse and the pain analgesics did not help. Patient then came to the emergency room. Patient's last alcohol consumption was 1 month ago where he had half a pint of vodka. He has not had any beer or other alcohol beverages since then. Patient denies any fever or chills at this time. Patient had any recent travel no lightheadedness or dizziness. Patient is a nonsmoker. For the last 2 days patient has been unable to eat he does feel a bit shaky due to not eating. Patient continues to have severe abdominal pain and nausea at this time. Review of Systems Review Of Systems: Constitutional: No fever, no chills, no night sweats. No weight change. No weakness, fatigue or lethargy. No daytime sleepiness. EENT: No headache. No blurred vision or double vision, no loss of vision. No loss of Hearing, no ringing in the ears, no dizziness. No nasal drainage or congestion. No epistaxis. No sore throat. Lungs: No shortness of breath, cough, no sputum production. No wheezing. Cardiovascular: No chest pain, no lower extremity edema. No palpitations. No paroxysmal nocturnal dyspnea. No orthopnea. No lightheadedness or dizziness. No syncopal episodes. Abdominal: Reports abdominal discomfort. Report nausea, denies vomiting. Resolved diarrhea. No constipation. No bloody or tarry stools. Report loss of appetite. Genitourinary: No dysuria, increased frequency, urgency. No urinary retention. Musculoskeletal: No myalgias. No muscle weakness, no gait dysfunction, no fr equent falls. No back pain. No neck pain. Integumentary: No wounds, no lesions. No rash or pruritus. No unusual bruising. No change in hair or nails. Neurologic: No aphasia. No facial droop. No change in mentation. No head injury. No headache. No paralysis. No paresthesia. Psychiatric: No depression. No anxiety. No mood swings. Endocrine: No abnormal blood sugars. No weight change. No excessive sweating or thirst. Past Medical History Past Medical History: Diabetes Mellitus, Eye Disorder, GERD/Reflux, Hyperlipidem ia, Hypertension, Osteoarthritis (OA) Additional Past Medical History / Comment(s): NIDDM type II, peptic ulcer, alcoholism, benign colon polyp, occasional thoracic back pain (hs of crushed vertebra), arthritis R ankle, glaucoma L eye History of Any Multi-Drug Resistant Organisms: None Reported Past Surgical History: Adenoidectomy, Orthopedic Surgery, Tonsillectomy Additional Past Surgical History / Comment(s): r elbow radial head implant, bilateral carpal tunnel releases, trimalleolar fracture repair on the right with subsequent removal of hardware, benign L vocal cord mass removed, colonoscopy with polypectomy, bilateral cataract removals/lens implants. Past Anesthesia/Blood Transfusion Reactions: No Reported Reaction, Motion Sickness Past Psychological History: No Psychological Hx Reported Additional Psychological History / Comment(s): Pt resides with his spouse. He is retired. He is independent. Smoking Status: Never smoker Past Alcohol Use History: Occasional Additional Past Alcohol Use History / Comment(s): Patient smoked from 1996 and quit in 2002. Patient has a history of alcohol abuse currently drinking a half a pint of vodka treated 4 times per week. Past Drug Use History: None Reported - Past Family History Mother Family Medical History: Cancer, Diabetes Mellitus Additional Family Medical History / Comment(s): Skin cancer. Mother at age 85 from dementia. Father Additional Family Medical History / Comment(s): Father had borderline diabetes. He is living. Sister(s) Additional Family Medical History / Comment(s): patient has 3 sisters with no major medical problems. Patient does not have any brothers. Patient has 2 sons and 2 daughters with no major medical problems. Medications and Allergies Home Medications Medication Instructions Recorded Confirmed Type Ezetimibe/Simvastatin [Vytorin 1 tab PO DAILY 12/23/13 10/15/19 History 10-40 mg Tablet] Fenofibrate 160 mg PO DAILY 12/23/13 10/15/19 History Losartan [Cozaar] 50 mg PO QAM 12/23/13 10/15/19 History Metoprolol Succinate [Toprol XL] 100 mg PO HS 12/23/13 10/15/19 History sitaGLIPtin PHOS/metFORMIN HCL 1 tab PO BID 12/06/15 10/15/19 History [Janumet 50-1,000 mg Tablet] Cinnamon Bark [Cinnamon] 500 mg PO BID 04/04/16 10/15/19 History Cartilage/Collagen/Bor/Hyalur 1 tab PO DAILY 06/20/19 10/15/19 History [Move Free Ultra Tripl Actn Tab] Omeprazole 20 mg PO DAILY 06/20/19 10/15/19 History Allergies Allergy/AdvReac Type Severity Reaction Status Date / Time No Known Allergies Allergy Verified 10/15/19 15:19 Physical Exam Vitals: Vital Signs Temp Pulse Pulse Resp BP BP Pulse Ox 10/16/19 05:17 98.3 F 78 16 99/62 92 L 10/15/19 20:54 98.0 F 77 16 97/60 91 L 10/15/19 16:00 75 18 104/61 94 L 10/15/19 15:17 77 18 105/57 95 10/15/19 14:24 78 18 115/65 95 10/15/19 13:18 98.3 F 91 18 94/61 97 Intake and Output 10/15/19 10/16/19 10/16/19 22:59 06:59 14:59 Intake Total 450 Output Total 200 Balance 450 -200 Intake: Intake, IV Titration 450 Amount Sodium Chloride 0.9% 1, 450 000 ml @ 150 mls/hr IV . Q6H40M [facility] Rx#:[id number] Output: Urine 200 Other: Voiding Method Toilet Weight 106.594 kg General Appearance: Alert, cooperative, no distress, appears stated age. Neck HEENT: Supple, no lymphadenopathy, no thyroid enlargement, no carotid bruits. Lungs: Clear to auscultation without crackles or wheezes no rhonchi, no deformity. Chest Wall: Chest wall normal expansion with deep inspiration no tenderness and no deformity was found on exam, no costochondral pain or discomfort. Heart: Regular rate and rhythm, S1, S2 normal, no murmur, rub or gallop. Back: Symmetric, no curvature, ROM normal, no CVA tenderness. Abdomen: Epigastric and lower quadrant tenderness with palpation Soft, no rebound or rigidity, no hepatosplenomegaly. Extremities: Extremities normal, atraumatic, no cyanosis or edema. Pulses: 2+ and symmetric. Skin: Skin color, texture, tugor normal, no rashes or lesions. Neurologic: Alert oriented x3 cranial nerves II through XII intact, no motor deficit, no abnormal balance or gait Results CBC & Chem 7: 10/16/19 09:36 10/16/19 09:36 Labs: Abnormal Lab Results - Last 24 Hours (Table) 10/15/19 10/15/19 10/15/19 Range/Units 13:25 13:46 13:46 WBC 13.3 H (3.8-10.6) k/uL RBC (4.30-5.90) m/uL Hgb 12.9 L (13.0-17.5) gm/dL Hct (39.0-53.0) % MCHC 30.3 L (31.0-37.0) g/dL Neutrophils # 9.7 H (1.3-7.7) k/uL Lymphocytes # (1.0-4.8) k/uL Monocytes # 1.5 H (0-1.0) k/uL Sodium 132 L (137-145) mmol/L Potassium 5.2 H (3.5-5.1) mmol/L Carbon Dioxide 14 L (22-30) mmol/L BUN 45 H (9-20) mg/dL Creatinine 1.67 H (0.66-1.25) mg/dL Glucose 132 H (74-99) mg/dL POC Glucose (mg/dL) (75-99) mg/dL Calcium (8.4-10.2) mg/dL Total Bilirubin 1.4 H (0.2-1.3) mg/dL Alkaline Phosphatase 33 L (38-126) U/L Creatine Kinase 50 L (55-170) U/L Total Protein 5.9 L (6.3-8.2) g/dL Albumin 3.1 L (3.5-5.0) g/dL Amylase 1670 H* (30-110) U/L Lipase 63634 H (23-300) U/L Urine Protein 1+ H (Negative) Urine Ketones Trace H (Negative) Urine Bilirubin 2+ H (Negative) Ur Leukocyte Esterase Small H (Negative) Urine WBC 8 H (0-5) /hpf Urine Bacteria Rare H (None) /hpf Hyaline Casts 44 H (0-2) /lpf Urine Mucus Rare H (None) /hpf 10/15/19 10/16/19 10/16/19 Range/Units 17:30 00:29 06:25 WBC (3.8-10.6) k/uL RBC (4.30-5.90) m/uL Hgb (13.0-17.5) gm/dL Hct (39.0-53.0) % MCHC (31.0-37.0) g/dL Neutrophils # (1.3-7.7) k/uL Lymphocytes # (1.0-4.8) k/uL Monocytes # (0-1.0) k/uL Sodium (137-145) mmol/L Potassium (3.5-5.1) mmol/L Carbon Dioxide (22-30) mmol/L BUN (9-20) mg/dL Creatinine (0.66-1.25) mg/dL Glucose (74-99) mg/dL POC Glucose (mg/dL) 119 H 107 H 111 H (75-99) mg/dL Calcium (8.4-10.2) mg/dL Total Bilirubin (0.2-1.3) mg/dL Alkaline Phosphatase (38-126) U/L Creatine Kinase (55-170) U/L Total Protein (6.3-8.2) g/dL Albumin (3.5-5.0) g/dL Amylase (30-110) U/L Lipase (23-300) U/L Urine Protein (Negative) Urine Ketones (Negative) Urine Bilirubin (Negative) Ur Leukocyte Esterase (Negative) Urine WBC (0-5) /hpf Urine Bacteria (None) /hpf Hyaline Casts (0-2) /lpf Urine Mucus (None) /hpf 10/16/19 10/16/19 Range/Units 09:36 09:36 WBC (3.8-10.6) k/uL RBC 3.79 L (4.30-5.90) m/uL Hgb 11.4 L (13.0-17.5) gm/dL Hct 37.2 L (39.0-53.0) % MCHC 30.5 L (31.0-37.0) g/dL Neutrophils # (1.3-7.7) k/uL Lymphocytes # 0.8 L (1.0-4.8) k/uL Monocytes # (0-1.0) k/uL Sodium 134 L (137-145) mmol/L Potassium 6.0 H (3.5-5.1) mmol/L Carbon Dioxide 19 L (22-30) mmol/L BUN 58 H (9-20) mg/dL Creatinine 3.62 H (0.66-1.25) mg/dL Glucose 131 H (74-99) mg/dL POC Glucose (mg/dL) (75-99) mg/dL Calcium 7.9 L (8.4-10.2) mg/dL Total Bilirubin (0.2-1.3) mg/dL Alkaline Phosphatase 30 L (38-126) U/L Creatine Kinase (55-170) U/L Total Protein 4.9 L (6.3-8.2) g/dL Albumin 2.5 L (3.5-5.0) g/dL Amylase (30-110) U/L Lipase 9608 H (23-300) U/L Urine Protein (Negative) Urine Ketones (Negative) Urine Bilirubin (Negative) Ur Leukocyte Esterase (Negative) Urine WBC (0-5) /hpf Urine Bacteria (None) /hpf Hyaline Casts (0-2) /lpf Urine Mucus (None) /hpf Thrombosis Risk Factor Assmnt - Choose All That Apply Each Risk Factor Represents 2 Points: Age 61-74 years Thrombosis Risk Factor Assessment Total Risk Factor Score: 2 Thrombosis Risk Factor Assessment Level: Low Risk Assessment and Plan Plan: 1. Acute pancreatitis. Remain nothing by mouth at this time. Repeat lipase and CMP in the morning. Continue with pain management including Dilaudid 1 mg IV past 2-3 hours. Continue his Zofran 4 mg IV push every 8 hours as needed 2. Acute kidney injury secondary to dehydration. 1 L normal saline bolus. Continue to monitor kidney function 3. Viral gastroenteritis, resolved. 4. Hyperkalemia, repeat CMP in the morning. Hydration. 5. Diabetes mellitus 2 NovoLog sliding scale, hold Janumet 6. GERD. Protonix 40 mg 7. Hyperlipidemia, hold Vytorin, fenofibrate 160 mg by mouth daily 8. Hypertension hold metoprolol, Cozaar, 9. Alcoholism, patient has not had EtOH consumption for 1 month. No need for CIWA at this time. 10. DVT prophylaxis pneumatic compression stockings. 11. GI prophylaxis Protonix 40 mg IV daily. 12. Covid 19 testing pending Discharge plan: A minimum of 2 nights hospital stay CODE STATUS: Full code Impression and plan of care have been directed as dictated by the signing physician. Eda Warner nurse practitioner acting as scribe for signing physician.
[2019-10-16 11:41] LABS: Glucose,Whole Blood 110 mg/dL (75-99)
[2019-10-16 17:35] LABS: Glucose,Whole Blood 123 mg/dL (75-99)
[2019-10-16] MEDS: METOPROLOL SUCCINATE (ER) 100 MG TAB.ER.24H PO SCH (21:09)
[2019-10-16 23:38] LABS: Albumin 2.8 g/dL (3.5-5.0); Potassium 5.2 mmol/L (3.5-5.1); Total Bilirubin 1.4 mg/dL (0.2-1.3); Total Protein 5.5 g/dL (6.3-8.2)
[2019-10-16 23:54] LABS: Basophils % (A) 0 %; Eosinophils # (A) 0.1 k/uL (0-0.7); Eosinophils % (A) 2 %; HCT 39.3 % (39.0-53.0); HGB 12.1 gm/dL (13.0-17.5); Hypochromasia Moderate; Lymphocytes # (A) 0.4 k/uL (1.0-4.8); Lymphocytes % (A) 7 %; MCH 30.3 pg (25.0-35.0); MCHC 30.8 g/dL (31.0-37.0); MCV 98.5 fL (80.0-100.0); Mean Platelet Volume 8.6; Monocytes % (A) 19 %; Neutrophils # (A) 3.7 k/uL (1.3-7.7); Neutrophils % (A) 68 %; Platelet Count 276 k/uL (150-450); RBC 3.99 m/uL (4.30-5.90); RDW 12.9 % (11.5-15.5); WBC 5.4 k/uL (3.8-10.6)
--- NOTE | 2019-10-17 | XR ---
EXAMINATION TYPE: XR KUB portable DATE OF EXAM: 10/16/2019 COMPARISON: 10/15/2019 HISTORY: Abdominal pain TECHNIQUE: 2 views upright FINDINGS: There are some gas-filled loops of small bowel in the upper abdomen. There is increased den sity over the abdomen suggestive of ascites. I do not see evidence for a bowel obstruction. There is no evidence of free air. There are no pathologic calcifications over the kidneys. IMPRESSION: Abdominal ascites. Mild small bowel ileus. No change compared to yesterday.
[2019-10-17 00:05] LABS: Glucose,Whole Blood 115 mg/dL (75-99)
--- NOTE | 2019-10-17 00:07 | CT ---
EXAMINATION TYPE: CT abdomen pelvis wo con DATE OF EXAM: 10/16/2019 COMPARISON: 06/20/2019 HISTORY: chatman catherter placement , N&V CT DLP: 1119.2 mGycm Automated exposure control for dose reduction was used. There are mild bilateral pleural effusions. There is bilateral lower lobe infiltrate and atelectasis. Heart size is fairly normal. There is coronary artery calcification. There is moderate abdominal asc ites fluid. Liver shows no focal defect. There are calcified gallstones in the dependent gallbladder. There is no evidence of pancreatic mass. Spleen is intact. There is no adrenal mass. Stomach is intact. Kidneys have normal size and contour. There is no hydron ephrosis. Ureters are not dilated. There is no retroperitoneal adenopathy. There is Chatman catheter in the urinary bladder. Bladder is empty. There is no inguinal hernia. There is 15% wedging of L1 verte bral body that appears old. Lumbar vertebra have fairly normal alignment. There is degenerative spurr ing in the lumbar spine. The bony pelvis appears intact. There are multiple small bowel fluid levels in the mid abdomen. I see no evidence of free air. Small bowel measures up to 3.3 cm. I see no transition point. The distal ileum is not dilated. IMPRESSION: Moderate ascites. Bilateral pleural effusions and basilar pulmonary infiltrates and atelectasis. Nume carolin small bowel fluid levels with distention consistent with ileus or partial mechanical obstruction . Abnormalities are all essentially new compared to old exam. Minimal ascites was present on old exam. Small calcified gallstones unchanged.
[2019-10-17] MEDS: TAMSULOSIN 0.4 MG CAP.ER.24H PO SCH ×2 (00:31→11:02)
[2019-10-17] MEDS: LORazepam 2 MG/ML INJ IV PRN (00:37)
[2019-10-17] MEDS: SODIUM CHLORIDE 0.9% 1,000 ML IV SCH (00:49)
[2019-10-17] MEDS: INSULIN ASPART (NovoLOG) 100 UNIT/ML VIAL SQ SCH ×4 (00:51→17:28)
[2019-10-17] MEDS: HYDROmorphone 1 MG/ML 1 ML SYRINGE IVP PRN ×7 (02:57→21:36)
[2019-10-17 06:06] LABS: Glucose,Whole Blood 117 mg/dL (75-99)
--- NOTE | 2019-10-17 07:03 | XR ---
EXAMINATION TYPE: XR abdomen 1V DATE OF EXAM: 10/17/2019 6:48 AM CLINICAL HISTORY: NG tube placement. TECHNIQUE: Two portable supine KUB images of the abdomen are obtained. COMPARISON: Abdominal x-ray and CT from one day earlier.. FINDINGS: Interval successful placement of nasogastric tube projecting below diaphragm. Gas prominenc e but not dilated small and large bowel loops with air-fluid levels centrally in the abdomen remain p resent. Some bulging of flanks consistent with underlying ascites. Visualized osseous structures are intact. Slightly elevated right hemidiaphragm partially imaged. IMPRESSION: Interval Successful placement of nasogastric tube.
[2019-10-17] MEDS ORDERED: SODIUM CHLORIDE 0.9% 1,000 ML IV SCH (07:45)
[2019-10-17 08:03] LABS: Albumin 2.5 g/dL (3.5-5.0); Total Bilirubin 1.6 mg/dL (0.2-1.3)
[2019-10-17 08:07] LABS: HCT 37.5 % (39.0-53.0); HGB 11.5 gm/dL (13.0-17.5); Hypochromasia Moderate; MCH 30.1 pg (25.0-35.0); MCHC 30.8 g/dL (31.0-37.0); MCV 97.9 fL (80.0-100.0); Mean Platelet Volume 8.5; Platelet Count 247 k/uL (150-450); RBC 3.83 m/uL (4.30-5.90); RDW 12.9 % (11.5-15.5); WBC 3.6 k/uL (3.8-10.6)
--- NOTE | 2019-10-17 08:12 | US ---
EXAMINATION TYPE: US kidneys/renal and bladder DATE OF EXAM: 10/17/2019 COMPARISON: CT yesterday. CLINICAL HISTORY: increased BUN Creat. EXAM MEASUREMENTS: Right Kidney: 12.0 x 6.6 x 6.4 cm Left Kidney: 11.9 x 6.9 x 5.3 cm Right Kidney: No hydronephrosis or masses seen Left Kidney: No hydronephrosis or masses seen Bladder: Not fully distended Bilateral Jets seen: No There is no evidence for hydronephrosis at this point in time. No nephrolithiasis is seen. No babs s are identified. Suboptimal evaluation of bladder due to poor distention. Some intra-abdominal ryan toneal ascites noted during beginning of study during scanning of right kidney. IMPRESSION: No hydronephrosis is noted bilaterally.
[2019-10-17 10:02] LABS: Band Neutrophils % 5 %; Eosinophils # (M) 0.04 k/uL (0-0.7); Lymphocytes # (M) 0.29 k/uL (1.0-4.8); Neutrophils % (M) 61 %; Nucleated Red Blood Cells 0 /100 WBC (0-0); Total Cells Counted 100
[2019-10-17 10:03] LABS: Anisocytosis (M) Present; Poikilocytosis (M) Present
[2019-10-17] MEDS: FENOFIBRATE 160 MG TAB PO SCH (10:43)
[2019-10-17] MEDS: PANTOPRAZOLE 40 MG/10 ML VIAL IV SCH (10:57)
[2019-10-17 11:26] LABS: Glucose,Whole Blood 118 mg/dL (75-99)
[2019-10-17] MEDS ORDERED: FUROSEMIDE 10 MG/ML 10 ML VIAL IV STA (12:11)
--- NOTE | 2019-10-17 13:11 | CONS ---
CONSULTATION REASON FOR CONSULT: Renal failure. HISTORY OF PRESENT ILLNESS: The patient is a 63-year-old male who has a prior history of pancreatitis about a month ago related to ETOH use. He was admitted this time with complaints of significant abdominal pain, nausea and vomiting. The patient was found to have pancreatitis again. Lipase was 10,545, decreasing to 6793 now. However, patient continues to have significant abdominal pain. He denied any prior history of kidney diseases. Serum creatinine was 4.34 today. On admission, serum creatinine was 1.67. And prior to that on 06/23/2019, serum creatinine was 0.74. The patient had no urine output at all yesterday. He did have a Hardwick catheter placed and has had only about 40 mL of urine throughout the day today. An initial bladder scan showed about 900 mL; however, I believe that was the ascites. The patient is complaining of abdominal distention. He had an abdominal CT done yesterday which shows moderate ascites, bilateral pleural effusion, multiple fluid levels suggestive of ileus. Small calcified gallstones were seen. No hydronephrosis noted. Review of vital signs shows blood pressure has been low with systolic 94-95 mmHg. The patient is currently not on any nephrotoxic medications. He has not received IV contrast recently. UA shows 1+ protein, no blood, WBC is 8, multiple hyaline casts. PAST MEDICAL HISTORY: Recent alcoholic pancreatitis about a month ago, type 2 diabetes, gastroesophageal reflux disease, hyperlipidemia, hypertension, osteoarthritis, history of peptic ulcers, benign colonic polyp, glaucoma. PAST SURGICAL HISTORY: Appendectomy, tonsillectomy, right elbow surgery, carpal tunnel release, polypectomy, cataract surgeries, vocal cord mass that was removed. SOCIAL HISTORY: Negative for smoking, drug abuse. Patient does have history of alcohol abuse. MEDICATIONS: At home prior to admission included Vytorin, Cozaar Toprol, metformin in the form of Janumet, omeprazole. ALLERGIES: None. REVIEW OF SYSTEMS: As per HPI. Other systems negative. PHYSICAL EXAMINATION: Patient is comfortable. He is in mild pain from abdominal distention and some abdominal pain. No acute distress. Blood pressure is 112/70, heart rate 94 per minute, he is afebrile. Examination of the heart S1, S2. Examination of the lungs, bilateral breath sounds are heard. Decreased breath sounds at bases. Abdomen is soft, distended, tender. Examination of lower extremities shows no significant edema. [employer]IRS[employer]ING INSPECTOR exam grossly intact. LABS: Show sodium 135, potassium 6.0, chloride 107, CO2 is 16, BUN 74, serum creatinine 4.34, hemoglobin 11.5 g/dL. ASSESSMENT: 1. Acute kidney injury, rule out compartment syndrome, associated with ascites with no urine output. Also consideration for ATN, currently oliguric. No evidence of hydronephrosis on ultrasound. The patient has a Hardwick catheter. He is currently not on any nephrotoxic medications. Blood pressure had been low, which also probably contributed to his acute kidney injury. He will need ascites is if his abdominal pressure is high. 2. Non-gap metabolic acidosis associated with renal failure. I will start the patient on IV bicarb. 3. Hyperkalemia associated with acute kidney injury. 4. Acute pancreatitis. Second episode lipase decreasing, small gallstones identified on CT scan. Surgery is been consulted. No evidence of pseudocyst formation. 5. Type 2 diabetes. PLAN: Check intraabdominal pressure IV Lasix x1. Change IV fluids to IV bicarb. Patient will need paracentesis if his abdominal pressure is high. Continue to avoid nephrotoxic agents. Repeat labs in a.m. Thank you for this consultation. Will continue to follow the patient with you during his hospitalization. MMODL / IJN: [id number] /
[2019-10-17] MEDS: MIDODRINE 5 MG TAB PO SCH ×2 (13:17→16:55)
--- NOTE | 2019-10-17 14:27 | P.PN ---
Subjective Progress Note Date: 10/17/19 This is a 63-year-old male who presents with a chief complaint of abdominal pain.The patient has a history of alcoholic pancreatitis. He was admitted several months ago for similar episode. He also has been complaining of nausea he states he is not passed gas or bowel movement for several days. On CT scan he was found to have a large amount of ascites dilated small bowel and questionable small calculi in the gallbladder. Patient states he has not had any alcohol for approximately a month. Objective - Vital Signs Vital signs: Vital Signs Temp 97.9 F 10/17/19 12:00 Pulse 105 H 10/17/19 12:00 Resp 20 10/17/19 12:00 BP 120/72 10/17/19 12:00 Pulse Ox 93 L 10/17/19 12:00 Intake & Output 10/16/19 10/17/19 10/17/19 18:59 06:59 18:59 Output Total 120 45 Balance -120 -45 Output: Gastric Drainage 50 Urine 70 45 Uretheral (Hardwick) 50 45 Other: Voiding Method Urinal Urinal # Voids 1 1 - Constitutional General appearance: Present: cooperative - Respiratory Details: Nonlabored - Cardiovascular Rhythm: regular - Gastrointestinal Gastrointestinal Comment(s): Soft distended mild tenderness to palpation midepigastric area - Psychiatric Psychiatric: Present: A&O x's 3 - Labs CBC & Chem 7: 10/17/19 07:19 10/17/19 07:19 Labs: Abnormal Lab Results - Last 24 Hours (Table) 10/16/19 10/16/19 10/16/19 Range/Units 17:24 23:05 23:05 WBC (3.8-10.6) k/uL RBC 3.99 L (4.30-5.90) m/uL Hgb 12.1 L (13.0-17.5) gm/dL Hct (39.0-53.0) % MCHC 30.8 L (31.0-37.0) g/dL Lymphocytes # 0.4 L (1.0-4.8) k/uL Lymphocytes # (Manual) (1.0-4.8) k/uL Sodium 133 L (137-145) mmol/L Potassium 5.2 H (3.5-5.1) mmol/L Carbon Dioxide 15 L (22-30) mmol/L BUN 67 H (9-20) mg/dL Creatinine 4.08 H (0.66-1.25) mg/dL Glucose 125 H (74-99) mg/dL POC Glucose (mg/dL) 123 H (75-99) mg/dL Calcium 8.0 L (8.4-10.2) mg/dL Total Bilirubin 1.4 H (0.2-1.3) mg/dL Alkaline Phosphatase (38-126) U/L Total Protein 5.5 L (6.3-8.2) g/dL Albumin 2.8 L (3.5-5.0) g/dL Lipase (23-300) U/L 10/17/19 10/17/19 10/17/19 Range/Units 00:02 06:05 07:19 WBC (3.8-10.6) k/uL RBC (4.30-5.90) m/uL Hgb (13.0-17.5) gm/dL Hct (39.0-53.0) % MCHC (31.0-37.0) g/dL Lymphocytes # (1.0-4.8) k/uL Lymphocytes # (Manual) (1.0-4.8) k/uL Sodium 135 L (137-145) mmol/L Potassium 6.0 H (3.5-5.1) mmol/L Carbon Dioxide 16 L (22-30) mmol/L BUN 74 H (9-20) mg/dL Creatinine 4.34 H (0.66-1.25) mg/dL Glucose 134 H (74-99) mg/dL POC Glucose (mg/dL) 115 H 117 H (75-99) mg/dL Calcium 8.0 L (8.4-10.2) mg/dL Total Bilirubin 1.6 H (0.2-1.3) mg/dL Alkaline Phosphatase 36 L (38-126) U/L Total Protein 5.0 L (6.3-8.2) g/dL Albumin 2.5 L (3.5-5.0) g/dL Lipase 6793 H (23-300) U/L 10/17/19 10/17/19 Range/Units 07:19 11:24 WBC 3.6 L (3.8-10.6) k/uL RBC 3.83 L (4.30-5.90) m/uL Hgb 11.5 L (13.0-17.5) gm/dL Hct 37.5 L (39.0-53.0) % MCHC 30.8 L (31.0-37.0) g/dL Lymphocytes # (1.0-4.8) k/uL Lymphocytes # (Manual) 0.29 L (1.0-4.8) k/uL Sodium (137-145) mmol/L Potassium (3.5-5.1) mmol/L Carbon Dioxide (22-30) mmol/L BUN (9-20) mg/dL Creatinine (0.66-1.25) mg/dL Glucose (74-99) mg/dL POC Glucose (mg/dL) 118 H (75-99) mg/dL Calcium (8.4-10.2) mg/dL Total Bilirubin (0.2-1.3) mg/dL Alkaline Phosphatase (38-126) U/L Total Protein (6.3-8.2) g/dL Albumin (3.5-5.0) g/dL Lipase (23-300) U/L Assessment and Plan Assessment: Acute pancreatitis, ileus, acute renal failure, history of alcohol abuse, large amount of ascites Plan: The patient does have an ileus likely related to the large amount of ascites, renal failure and pancreatitis. Continue NG tube decompression at this time. Await further bowel function. As for the gallbladder there are some questi onable small gallstones. Patient has a history of alcohol abuse which was thought to be the cause of his first episode of pancreatitis. This could be related to gallstones however could also be recurring pancreatitis from his alcoholic pancreatitis. Patient is not a good surgical candidate at this time due to his massive ascites and renal failure, along with acute pancreatitis that is active. Patient would likely benefit from cholecystectomy in the future when his medical comorbidities are improved and he is stabilized and medically optimized. Complete alcohol abstinence was also discussed with the patient.
--- NOTE | 2019-10-17 15:34 | P.PN ---
Subjective Progress Note Date: 10/17/19 This is a 63-year-old male patient of Dr. Garcia who presented to the emergency room with severe abdominal pain with a history of pancreatitis secondary to alcohol abuse. Patient's past medical history significant for hypertension, acid reflux, hyperlipidemia. Patient states he has a history of issues with his gallbladder previous ultrasound showed sludge and polyps. Patient states about a week ago he started to have nausea and stomach discomfort and diarrhea. After a few days the symptoms went away and he was starting to feel much better. Patient was able to eat and tolerate his diet. At that time he began to eat foods and they began to develop increased abdominal pain and nausea. He was s een by Dr. Boothe on Thursday and was given Virgil for pain. The pain increasingly got worse and the pain analgesics did not help. Patient then came to the emergency room. Patient's last alcohol consumption was 1 month ago where he had half a pint of vodka. He has not had any beer or other alcohol beverages since then. Patient denies any fever or chills at this time. Patient had any recent travel no lightheadedness or dizziness. Patient is a nonsmoker. For the last 2 days patient has been unable to eat he does feel a bit shaky due to not eating. Patient continues to have severe abdominal pain and nausea at this time. 10/16: Patient had a renal ultrasound that showed no hydronephrosis bilaterally. Patient continues complaining of abdominal pain. Repeat lab work revealed WBC 3.6, hemoglobin 11.5. Sodium 135, potassium 6.0, chloride 107, CO2 16, BUN 74, creatinine 4.34. Blood sugars running between 117 134. Total bilirubin 1.6, AST 34, ALT 14, alkaline phosphates 36, lipase 6793. Nephrology and surgery are following the patient. Nursing soon to place Hardwick catheter. Review Of Systems: Constitutional: No fever, no chills, no night sweats. No weight change. No weakness, fatigue or lethargy. No daytime sleepiness. EENT: No headache. No blurred vision or double vision, no loss of vision. No loss of Hearing, no ringing in the ears, no dizziness. No nasal drainage or congestion. No epistaxis. No sore throat. Lungs: No shortness of breath, cough, no sputum production. No wheezing. Cardiovascular: No chest pain, no lower extremity edema. No palpitations. No paroxysmal nocturnal dyspnea. No orthopnea. No lightheadedness or dizziness. No syncopal episodes. Abdominal: Reports abdominal pain. Report nausea, denies vomiting. Resolved diarrhea. No constipation. No bloody or tarry stools. Report loss of appetite. Genitourinary: No dysuria, increased frequency, urgency. No urinary retention. Musculoskeletal: No myalgias. No muscle weakness, no gait dysfunction, no frequent falls. No back pain. No neck pain. Integumentary: No wounds, no lesions. No rash or pruritus. No unusual bruising. No change in hair or nails. Neurologic: No aphasia. No facial droop. No change in mentation. No head injury. No headache. No paralysis. No paresthesia. Psychiatric: No depression. No anxiety. No mood swings. Endocrine: No abnormal blood sugars. No weight change. No excessive sweating or thirst. Physical examination General Appearance: Alert, cooperative, no distress, appears stated age. Neck HEENT: Supple, no lymphadenopathy, no thyroid enlargement, no carotid bruits. Lungs: Clear to auscultation without crackles or wheezes no rhonchi, no deformity. Chest Wall: Chest wall normal expansion with deep inspiration no tenderness and no deformity was found on exam, no costochondral pain or discomfort. Heart: Regular rate and rhythm, S1, S2 normal, no murmur, rub or gallop. Back: Symmetric, no curvature, ROM normal, no CVA tenderness. Abdomen: Epigastric and lower quadrant tenderness, Soft, no rebound or rigidity, no hepatosplenomegaly. Extremities: Extremities normal, atraumatic, no cyanosis or edema. Pulses: 2+ and symmetric. Skin: Skin color, texture, tugor normal, no rashes or lesions. Neurologic: Alert oriented x3 cranial nerves II through XII intact, no motor deficit, no abnormal balance or gait Assessment and plan 1. Acute pancreatitis. Remain nothing by mouth at this time. Repeat lipase and CMP in the morning. Continue with pain management including Dilaudid 1 mg IV past 2-3 hours. Continue his Zofran 4 mg IV push every 8 hours as needed 2. Acute kidney injury secondary to dehydration with metabolic acidosis. 1 L normal saline bolus. Continue to monitor kidney function 3. Viral gastroenteritis, resolved. 4. Hyperkalemia, repeat CMP in the morning. Hydration. 5. Diabetes mellitus 2 NovoLog sliding scale, hold Janumet 6. GERD. Protonix 40 mg 7. Hyperlipidemia, hold Vytorin, fenofibrate 160 mg by mouth daily 8. Hypertension hold metoprolol, Cozaar, 9. Alcoholism, patient has not had EtOH consumption for 1 month. No need for CIWA at this time. 10. DVT prophylaxis pneumatic compression stockings. 11. GI prophylaxis Protonix 40 mg IV daily. 12. Covid 19 testing pending Discharge plan: home CODE STATUS: Full code Impression and plan of care have been directed as dictated by the signing physician. Dayami Camarena nurse practitioner acting as scribe for signing ph ysician. Objective - Vital Signs Vital signs: Vital Signs Temp 97.6 F 10/17/19 05:00 Pulse 94 10/17/19 05:00 Resp 20 10/17/19 05:00 BP 112/70 10/17/19 05:00 Pulse Ox 94 L 10/17/19 05:00 Intake & Output 10/16/19 10/17/19 10/17/19 18:59 06:59 18:59 Output Total 120 Balance -120 Output: Gastric Drainage 50 Urine 70 Uretheral (Hardwick) 50 Other: Voiding Method Urinal # Voids 1 1 - Labs CBC & Chem 7: 10/17/19 07:19 10/17/19 07:19 Labs: Abnormal Lab Results - Last 24 Hours (Table) 10/16/19 10/16/19 10/16/19 Range/Units 09:36 09:36 11:40 WBC (3.8-10.6) k/uL RBC 3.79 L (4.30-5.90) m/uL Hgb 11.4 L (13.0-17.5) gm/dL Hct 37.2 L (39.0-53.0) % MCHC 30.5 L (31.0-37.0) g/dL Lymphocytes # 0.8 L (1.0-4.8) k/uL Sodium 134 L (137-145) mmol/L Potassium 6.0 H (3.5-5.1) mmol/L Carbon Dioxide 19 L (22-30) mmol/L BUN 58 H (9-20) mg/dL Creatinine 3.62 H (0.66-1.25) mg/dL Glucose 131 H (74-99) mg/dL POC Glucose (mg/dL) 110 H (75-99) mg/dL Calcium 7.9 L (8.4-10.2) mg/dL Total Bilirubin (0.2-1.3) mg/dL Alkaline Phosphatase 30 L (38-126) U/L Total Protein 4.9 L (6.3-8.2) g/dL Albumin 2.5 L (3.5-5.0) g/dL Lipase 9608 H (23-300) U/L 10/16/19 10/16/19 10/16/19 Range/Units 17:24 23:05 23:05 WBC (3.8-10.6) k/uL RBC 3.99 L (4.30-5.90) m/uL Hgb 12.1 L (13.0-17.5) gm/dL Hct (39.0-53.0) % MCHC 30.8 L (31.0-37.0) g/dL Lymphocytes # 0.4 L (1.0-4.8) k/uL Sodium 133 L (137-145) mmol/L Potassium 5.2 H (3.5-5.1) mmol/L Carbon Dioxide 15 L (22-30) mmol/L BUN 67 H (9-20) mg/dL Creatinine 4.08 H (0.66-1.25) mg/dL Glucose 125 H (74-99) mg/dL POC Glucose (mg/dL) 123 H (75-99) mg/dL Calcium 8.0 L (8.4-10.2) mg/dL Total Bilirubin 1.4 H (0.2-1.3) mg/dL Alkaline Phosphatase (38-126) U/L Total Protein 5.5 L (6.3-8.2) g/dL Albumin 2.8 L (3.5-5.0) g/dL Lipase (23-300) U/L 10/17/19 10/17/19 10/17/19 Range/Units 00:02 06:05 07:19 WBC 3.6 L (3.8-10.6) k/uL RBC 3.83 L (4.30-5.90) m/uL Hgb 11.5 L (13.0-17.5) gm/dL Hct 37.5 L (39.0-53.0) % MCHC 30.8 L (31.0-37.0) g/dL Lymphocytes # (1.0-4.8) k/uL Sodium (137-145) mmol/L Potassium (3.5-5.1) mmol/L Carbon Dioxide (22-30) mmol/L BUN (9-20) mg/dL Creatinine (0.66-1.25) mg/dL Glucose (74-99) mg/dL POC Glucose (mg/dL) 115 H 117 H (75-99) mg/dL Calcium (8.4-10.2) mg/dL Total Bilirubin (0.2-1.3) mg/dL Alkaline Phosphatase (38-126) U/L Total Protein (6.3-8.2) g/dL Albumin (3.5-5.0) g/dL Lipase (23-300) U/L
[2019-10-17] MEDS: DEXTROSE 5% IN WATER 1,000 ML with SODIUM BICARB (1 MEQ/ML) 150 ML IV SCH (16:08)
[2019-10-17 17:26] LABS: Glucose,Whole Blood 120 mg/dL (75-99)
[2019-10-17 18:55] LABS: Albumin 2.4 g/dL (3.5-5.0); Calcium 8.3 mg/dL (8.4-10.2); Potassium 5.3 mmol/L (3.5-5.1); Total Bilirubin 1.5 mg/dL (0.2-1.3)
--- NOTE | 2019-10-18 00:04 | CONS ---
CONSULTATION DATE OF DICTATION: 10/17/2019 REASON FOR CONSULTATION: Acute pancreatitis. HISTORY OF PRESENT ILLNESS: The patient is a 63-year-old pleasant white male admitted to the hospital with severe epigastric pain for the last 2 weeks duration. The pain continued to progressively get worse. He came to the emergency room and was noted to have elevated lipase consistent with acute pancreatitis. He did have a CT of the abdomen and pelvis done that showed evidence of gallstones and dilated small bowel suspicious for small bowel obstruction versus ileus. Surgery has been consulted. He has an NG tube in place. He is feeling better. He has history of alcohol abuse; quit drinking about 6 months ago, but he relapsed and he quit drinking again a month ago. He had an episode of pancreatitis in the past. PAST MEDICAL HISTORY: Alcohol abuse, hypertension, hyperlipidemia, diabetes mellitus. PAST SURGICAL HISTORY: Tonsillectomy, adenoidectomy, right ankle surgery, bilateral carpal tunnel release, colonoscopy with polypectomy in the past, bilateral cataract surgery. MEDICATIONS: Medications at home include omeprazole, Janumet, Toprol, Cozaar, vitamin and fenofibrate. ALLERGIES: None. SOCIAL HISTORY: No smoking. Alcohol use as mentioned above. FAMILY HISTORY: Mother diabetes mellitus. Father diabetes mellitus. REVIEW OF SYSTEMS: CARDIOPULMONARY: No chest pain or shortness of breath. GENITOURINARY: No dysuria or hematuria. MUSCULOSKELETAL: Unremarkable. SKIN: Unremarkable. ENDOCRINE: Unremarkable. PSYCHIATRIC: Unremarkable. NEUROLOGY: Unremarkable. ENT/VISION: Unremarkable. CONSTITUTIONAL: No recent weight loss. No fever, chills, night sweats. PHYSICAL EXAMINATION: He appears comfortable, in no apparent distress. Vital signs are stable. Blood pressure is 133/86, pulse rate 105, temperature 97. HEENT EXAMINATION: Unremarkable. Conjunctive pink. Sclerae anicteric. Oral cavity no lesions. NECK: No JVD or lymph node enlargement. CHEST: Clear to auscultation. HEART: Regular rate and rhythm. ABDOMEN: Soft. Tenderness in the epigastric area. Slightly distended. NG tube in place. EXTREMITIES: No pedal edema. SKIN: No rashes. NEUROLOGIC: Alert and oriented x3. No focal deficits. LABS: WBC 3.6, hemoglobin 11.5, platelets normal. Basic metabolic panel, sodium 135, potassium 6, BUN 74, creatinine 4.37. Lipase 10,545 and amylase 1670. ALT, AST presently 33 and 16 respectively. T bilirubin 1.4. CT of the abdomen and pelvis showed dilated small bowel loops, sludge versus small calculi in the gallbladder, moderate amount of ascites, and bilateral pleural effusions noted. IMPRESSION: 1. Acute pancreatitis this being the second episode last episode in June of 2019, probably alcohol-related. Serum transaminases are within normal limits makes it unlikely we are dealing with biliary pancreatitis. However, ultrasound did show evidence of gallstones. 2. Dilated small bowel loops, possibly that is secondary to ileus from pancreatitis has an NG tube in place and feeling much better. 3. Elevated BUN and creatinine consistent with acute kidney injury. Nephrology following the patient closely. 4. Moderate amount of ascites, rule out pancreatic ascites versus related to underlying liver disease. RECOMMENDATION: 1. Continue with NG tube. 2. Symptomatic and supportive care. 3. Pain medications as needed. 4. If his abdominal distention continues to get worse despite decompression, we may consider paracentesis in the next few days. 5. Repeat labs in the morning. 6. We will follow with you closely. Thank you for this consultation. MMODL / IJN: [id number] /
[2019-10-18] MEDS: HYDROmorphone 1 MG/ML 1 ML SYRINGE IVP PRN ×8 (00:48→23:01)
[2019-10-18] MEDS: METOPROLOL SUCCINATE (ER) 100 MG TAB.ER.24H PO SCH ×2 (01:02→21:23)
[2019-10-18] MEDS: INSULIN ASPART (NovoLOG) 100 UNIT/ML VIAL SQ SCH ×4 (01:17→17:54)
[2019-10-18] MEDS: DEXTROSE 5% IN WATER 1,000 ML with SODIUM BICARB (1 MEQ/ML) 150 ML IV SCH ×2 (05:50→20:04)
[2019-10-18 06:04] LABS: Glucose,Whole Blood 159 mg/dL (75-99)
[2019-10-18 07:03] LABS: Glucose,Whole Blood 163 mg/dL (75-99)
[2019-10-18] MEDS: PANTOPRAZOLE 40 MG/10 ML VIAL IV SCH (07:41)
[2019-10-18] MEDS: TAMSULOSIN 0.4 MG CAP.ER.24H PO SCH (07:41)
[2019-10-18] MEDS: FENOFIBRATE 160 MG TAB PO SCH (07:41)
[2019-10-18] MEDS: MIDODRINE 5 MG TAB PO SCH ×3 (07:42→17:04)
[2019-10-18 08:11] LABS: Potassium 4.9 mmol/L (3.5-5.1)
[2019-10-18 08:12] LABS: Albumin 2.4 g/dL (3.5-5.0); Calcium 8.3 mg/dL (8.4-10.2); Total Bilirubin 1.7 mg/dL (0.2-1.3); Total Protein 4.9 g/dL (6.3-8.2)
[2019-10-18 08:37] LABS: HCT 37.8 % (39.0-53.0); HGB 11.5 gm/dL (13.0-17.5); Hypochromasia Slight; MCH 29.5 pg (25.0-35.0); MCHC 30.5 g/dL (31.0-37.0); MCV 96.6 fL (80.0-100.0); Mean Platelet Volume 8.8; Platelet Count 267 k/uL (150-450); RBC 3.91 m/uL (4.30-5.90); RDW 12.9 % (11.5-15.5); WBC 4.4 k/uL (3.8-10.6)
[2019-10-18] MEDS ORDERED: BENZOCAINE/MENTHOL LOZENG 1 EACH LOZENGE MUCOUS MEM PRN (08:56)
[2019-10-18 10:09] LABS: Band Neutrophils % 4 %; Eosinophils # (M) 0.09 k/uL (0-0.7); Lymphocytes # (M) 0.35 k/uL (1.0-4.8); Monocytes # (M) 0.66 k/uL (0-1.0); Neutrophils % (M) 71 %; Nucleated Red Blood Cells 0 /100 WBC (0-0); Total Cells Counted 100
[2019-10-18 10:11] LABS: Anisocytosis (M) Present; Poikilocytosis (M) Present
[2019-10-18 11:04] LABS: Glucose,Whole Blood 162 mg/dL (75-99)
--- NOTE | 2019-10-18 12:09 | P.PN ---
Subjective Progress Note Date: 10/18/19 This is a 63-year-old male patient of Dr. Garcia who presented to the emergency room with severe abdominal pain with a history of pancreatitis secondary to alcohol abuse. Patient's past medical history significant for hypertension, acid reflux, hyperlipidemia. Patient states he has a history of issues with his gallbladder previous ultrasound showed sludge and polyps. Patient states about a week ago he started to have nausea and stomach discomfort and diarrhea. After a few days the symptoms went away and he was starting to feel much better. Patient was able to eat and tolerate his diet. At that time he began to eat foods and they began to develop increased abdominal pain and nausea. He was seen by Dr. Boothe on Thursday and was given [place] for pain. The pain increasingly got worse and the pain analgesics did not help. Patient then came to the emergency room. Patient's last alcohol consumption was 1 month ago where he had half a pint of vodka. He has not had any beer or other alcohol beverages since then. Patient denies any fever or chills at this time. Patient had any recent travel no lightheadedness or dizziness. Patient is a nonsmoker. For the last 2 days patient has been unable to eat he does feel a bit shaky due to not eating. Patient continues to have severe abdominal pain and nausea at this time. 10/16: Patient had a renal ultrasound that showed no hydronephrosis bilaterally. Patient continues complaining of abdominal pain. Repeat lab work revealed WBC 3.6, hemoglobin 11.5. Sodium 135, potassium 6.0, chloride 107, CO2 16, BUN 74, creatinine 4.34. Blood sugars running between 117 134. Total bilirubin 1.6, AST 34, ALT 14, alkaline phosphates 36, lipase 6793. Nephrology and surgery are following the patient. Nursing soon to place Hardwick catheter. 10/17: Patient was seen this morning resting in bed, voiced discomfort of NG tube. Abdominal pain has slightly improved today. Labs were reviewed, WBCs were 4.4, hemoglobin 11.5, sodium 135 BUN 77, creatinine 2.86, lipase improving at 4222. Blood sugars are stable. Nephrology gastro-and surgery remain on the case. NG tube and Hardwick catheter in place. We well repeat Two-view of the abdomen in the morning along with repeat CBC and CMP with lipase daily. Review Of Systems: Constitutional: No fever, no chills, no night sweats. No weight change. No weakness, fatigue or lethargy. No daytime sleepiness. EENT: No headache. No blurred vision or double vision, no loss of vision. No loss of Hearing, no ringing in the ears, no dizziness. No nasal drainage or congestion. No epistaxis. sore throat related to NG placement Lungs: No shortness of breath, cough, no sputum production. No wheezing. Cardiovascular: No chest pain, no lower extremity edema. No palpitations. No paroxysmal nocturnal dyspnea. No orthopnea. No lightheadedness or dizziness. No syncopal episodes. Abdominal: Reports abdominal pain. Report nausea, denies vomiting. Resolved diarrhea. No constipation. No bloody or tarry stools. Report loss of appetite. Genitourinary: No dysuria, increased frequency, urgency. No urinary retention. Musculoskeletal: No myalgias. No muscle weakness, no gait dysfunction, no frequent falls. No back pain. No neck pain. Integumentary: No wounds, no lesions. No rash or pruritus. No unusual bruising. No change in hair or nails. Neurologic: No aphasia. No facial droop. No change in mentation. No head injury. No headache. No paralysis. No paresthesia. Psychiatric: No depression. No anxiety. No mood swings. Endocrine: No abnormal blood sugars. No weight change. No excessive sweating or thirst. Physical examination General Appearance: Alert, cooperative, no distress, appears stated age. Neck HEENT: Supple, no lymphadenopathy, no thyroid enlargement, no carotid bruits. Lungs: Clear to auscultation without crackles or wheezes no rhonchi, no deformity. Chest Wall: Chest wall normal expansion with deep inspiration no tenderness and no deformity was found on exam, no costochondral pain or discomfort. Heart: Regular rate and rhythm, S1, S2 normal, no murmur, rub or gallop. Back: Symmetric, no curvature, ROM normal, no CVA tenderness. Abdomen: Bowel sounds hypoactive , Epigastric and lower quadrant tenderness, Soft, no rebound or rigidity, no hepatosplenomegaly. Extremities: Extremities normal, atraumatic, no cyanosis or edema. Pulses: 2+ and symmetric. Skin: Skin color, texture, tugor normal, no rashes or lesions. Neurologic: Alert oriented x3 cranial nerves II through XII intact, no motor deficit, no abnormal balance or gait Assessment and plan 1. Acute pancreatitis. Remain nothing by mouth at this time. Repeat lipase a nd CMP in the morning. Continue with pain management including Dilaudid 1 mg IV past 2-3 hours. Continue his Zofran 4 mg IV push every 8 hours as needed 2. Acute kidney injury secondary to dehydration with metabolic acidosis. Continue to monitor kidney function and nephrology on the case 3. Viral gastroenteritis, resolved. 4. Hyperkalemia, repeat CMP in the morning. Hydration. 5. Diabetes mellitus 2 NovoLog sliding scale, hold Janumet 6. GERD. Protonix 40 mg 7. Hyperlipidemia, hold Vytorin, fenofibrate 160 mg by mouth daily 8. Hypertension hold metoprolol, Cozaar, 9. Alcoholism, patient has not had EtOH consumption for 1 month. No need for CIWA at this time. 10. DVT prophylaxis pneumatic compression stockings. 11. GI prophylaxis Protonix 40 mg IV daily. 12. Covid 19 not detected Discharge plan: home CODE STATUS: Full code Impression and plan of care have been directed as dictated by the signing physician. Negin Estrella nurse practitioner acting as scribe for signing physician. Objective - Vital Signs Vital signs: Vital Signs Temp 97.6 F 10/18/19 05:00 Pulse 115 H 10/18/19 05:00 Resp 16 10/18/19 05:00 BP 110/70 10/18/19 05:00 Pulse Ox 92 L 10/18/19 05:00 Intake & Output 10/17/19 10/18/19 10/18/19 18:59 06:59 18:59 Output Total 845 700 Balance -845 -700 Output: Urine 845 700 Uretheral (Hardwick) 45 Stool 0 0 Other: Voiding Method Indwelling Catheter Indwelling Catheter Indwelling Catheter - Labs CBC & Chem 7: 10/18/19 07:06 10/18/19 07:06 Labs: Abnormal Lab Results - Last 24 Hours (Table) 10/17/19 10/17/19 10/18/19 Range/Units 17:25 17:59 06:02 RBC (4.30-5.90) m/uL Hgb (13.0-17.5) gm/dL Hct (39.0-53.0) % MCHC (31.0-37.0) g/dL Lymphocytes # (Manual) (1.0-4.8) k/uL Sodium 134 L (137-145) mmol/L Potassium 5.3 H (3.5-5.1) mmol/L Carbon Dioxide 18 L (22-30) mmol/L BUN 78 H (9-20) mg/dL Creatinine 3.41 H (0.66-1.25) mg/dL Glucose 136 H (74-99) mg/dL POC Glucose (mg/dL) 120 H 159 H (75-99) mg/dL Calcium 8.3 L (8.4-10.2) mg/dL Total Bilirubin 1.5 H (0.2-1.3) mg/dL Total Protein 5.0 L (6.3-8.2) g/dL Albumin 2.4 L (3.5-5.0) g/dL Lipase (23-300) U/L 10/18/19 10/18/19 10/18/19 Range/Units 06:56 07:06 07:06 RBC 3.91 L (4.30-5.90) m/uL Hgb 11.5 L (13.0-17.5) gm/dL Hct 37.8 L (39.0-53.0) % MCHC 30.5 L (31.0-37.0) g/dL Lymphocytes # (Manual) 0.35 L (1.0-4.8) k/uL Sodium 135 L (137-145) mmol/L Potassium (3.5-5.1) mmol/L Carbon Dioxide 19 L (22-30) mmol/L BUN 77 H (9-20) mg/dL Creatinine 2.86 H (0.66-1.25) mg/dL Glucose 166 H (74-99) mg/dL POC Glucose (mg/dL) 163 H (75-99) mg/dL Calcium 8.3 L (8.4-10.2) mg/dL Total Bilirubin 1.7 H (0.2-1.3) mg/dL Total Protein 4.9 L (6.3-8.2) g/dL Albumin 2.4 L (3.5-5.0) g/dL Lipase 4222 H (23-300) U/L 10/18/19 Range/Units 10:58 RBC (4.30-5.90) m/uL Hgb (13.0-17.5) gm/dL Hct (39.0-53.0) % MCHC (31.0-37.0) g/dL Lymphocytes # (Manual) (1.0-4.8) k/uL Sodium (137-145) mmol/L Potassium (3.5-5.1) mmol/L Carbon Dioxide (22-30) mmol/L BUN (9-20) mg/dL Creatinine (0.66-1.25) mg/dL Glucose (74-99) mg/dL POC Glucose (mg/dL) 162 H (75-99) mg/dL Calcium (8.4-10.2) mg/dL Total Bilirubin (0.2-1.3) mg/dL Total Protein (6.3-8.2) g/dL Albumin (3.5-5.0) g/dL Lipase (23-300) U/L
[2019-10-18 17:18] LABS: Glucose,Whole Blood 164 mg/dL (75-99)
--- NOTE | 2019-10-18 17:55 | PN ---
PROGRESS NOTE Patient is seen for followup for acute kidney injury, mostly ATN, currently improved. Patient received a dose of IV Lasix yesterday and he was also placed on midodrine for low blood pressures. His urine output has picked up significantly. His 24-hour urine output was 845 mL yesterday. Overall abdominal pain is also slightly better. Intraabdominal pressures were not elevated. They were mostly 11 to 13. On examination today, blood pressure was 110/70, heart rate 115 per minute. Patient is afebrile. EXAMINATION OF THE HEART: S1 and S2. EXAMINATION OF LUNGS: Bilateral breath sounds are heard. ABDOMEN: Soft, non-tender. Distended. Examination of lower extremities shows no significant edema. MENDING CARRIER exam is grossly intact. Labs show sodium 135, potassium 4.9, chloride 106, BUN 77, creatinine 2.86, hemoglobin 11.5 g/dL. ASSESSMENT: 1. Acute kidney injury, acute tubular necrosis, currently improved. May continue with the IV fluids for now. 2. Metabolic acidosis, mostly non-gap, maintained on IV bicarb, which I will continue. 3. Acute pancreatitis, slowly improving. Small calcified gallstones noted in the gallbladder. 4. Hyperkalemia associated with acute kidney injury, now improved. PLAN: May continue with IV fluids. Repeat labs in a.m. Continue to avoid nephrotoxic agents. Maintain Hardwick catheter. MMODL / IJN: [id number] /
--- NOTE | 2019-10-18 21:46 | PN ---
PROGRESS NOTE DATE OF SERVICE: 10/18/2019 Patient is a 63-year-old pleasant white male admitted to the hospital with acute pancreatitis. He has a small bowel ileus and has an NG tube in place and Dr. Benavidez is following the patient closely. NG tube continues to remain in place because of persistent abdominal distention. He continues to have abdominal pain. No fever, chills, or night sweats. PHYSICAL EXAMINATION: Appears comfortable. VITAL SIGNS: Stable. Blood pressure 110/72, pulse rate 112, temperature 97.5. HEENT: Examination unremarkable. Conjunctivae are pink. Sclerae anicteric. Oral cavity no lesions. Neck no JVD or lymph node enlargement. CHEST: Clear to auscultation. HEART: Regular rate and rhythm. ABDOMEN: Slightly distended. There was tenderness in the epigastric area. The rest of the abdomen was benign. Bowel sounds are positive. EXTREMITIES: No pedal edema. NEURO: He is alert and oriented x3. No focal deficits. LABS: WBC 4.4, hemoglobin 11.5, platelets normal. Basic metabolic panel is within normal limits. Lipase is 4222. Albumin 2.2. ALT and AST normal. T bilirubin is 1.7. IMPRESSION: 1. Acute pancreatitis with small bowel ileus. The patient has an NG tube in place. He continues to have persistent pain. Surgery is following the patient closely. 2. Acute kidney injury with creatinine gradually improving. 3. Electrolyte abnormalities secondary to kidney injury. 4. History of alcohol abuse. RECOMMENDATION: 1. Continue NG tube for suction. 2. Pain medications. 3. Symptomatic and supportive care. 4. IV PPIs. 5. Repeat labs in the morning and will follow with you closely. Thank you for this consultation. MMODL / IJN: [id number] /
[2019-10-18 23:49] LABS: Glucose,Whole Blood 174 mg/dL (75-99)
[2019-10-19] MEDS: INSULIN ASPART (NovoLOG) 100 UNIT/ML VIAL SQ SCH ×4 (00:06→17:50)
[2019-10-19] MEDS: HYDROmorphone 1 MG/ML 1 ML SYRINGE IVP PRN ×7 (02:30→23:10)
[2019-10-19 05:56] LABS: Glucose,Whole Blood 138 mg/dL (75-99)
--- NOTE | 2019-10-19 07:30 | XR ---
EXAMINATION TYPE: XR abdomen 2V DATE OF EXAM: 10/19/2019 COMPARISON: 10/17/2019 INDICATION: Small bowel obstruction TECHNIQUE: Single view abdomen upright view. Supine views were also obtained FINDINGS: There is a nonspecific bowel gas pattern. Air is present within small bowel loops as well as the colo n. There is a differential air-fluid level within the left upper quadrant small bowel loops can be co mpatible with partial obstruction. Nasogastric tube is present with tip in the proximal left upper qu adrant of the abdomen. This could be advanced. Psoas margins are normal. No organomegaly is present. No free air is identified. No mass effect is evident. IMPRESSION: 1. Findings can be compatible with a partial small bowel obstruction. Air is within the colon. 2. Nasogastric tube advanced for more typical positioning.
[2019-10-19 07:36] LABS: Albumin 2.4 g/dL (3.5-5.0); Calcium 8.5 mg/dL (8.4-10.2); Potassium 5.1 mmol/L (3.5-5.1); Total Protein 4.9 g/dL (6.3-8.2)
[2019-10-19 07:45] LABS: Basophils % (A) 0 %; Eosinophils # (A) 0.3 k/uL (0-0.7); Eosinophils % (A) 6 %; HCT 39.9 % (39.0-53.0); HGB 12.2 gm/dL (13.0-17.5); Hypochromasia Slight; Lymphocytes # (A) 0.8 k/uL (1.0-4.8); Lymphocytes % (A) 14 %; MCH 29.6 pg (25.0-35.0); MCHC 30.6 g/dL (31.0-37.0); MCV 96.9 fL (80.0-100.0); Mean Platelet Volume 8.6; Monocytes # (A) 1.1 k/uL (0-1.0); Monocytes % (A) 20 %; Neutrophils # (A) 3.2 k/uL (1.3-7.7); Neutrophils % (A) 57 %; Platelet Count 324 k/uL (150-450); RBC 4.11 m/uL (4.30-5.90); RDW 12.8 % (11.5-15.5); WBC 5.7 k/uL (3.8-10.6)
[2019-10-19] MEDS: FENOFIBRATE 160 MG TAB PO SCH (08:26)
[2019-10-19] MEDS: MIDODRINE 5 MG TAB PO SCH ×3 (08:26→17:50)
[2019-10-19] MEDS: TAMSULOSIN 0.4 MG CAP.ER.24H PO SCH (08:26)
[2019-10-19] MEDS: PANTOPRAZOLE 40 MG/10 ML VIAL IV SCH (08:26)
[2019-10-19] MEDS: METOCLOPRAMIDE 5 MG/ML 2 ML VIAL IVP SCH ×3 (08:34→17:50)
[2019-10-19] MEDS: bisacodyL 10 MG SUPP RECTAL SCH ×2 (08:34→20:44)
[2019-10-19] MEDS: DEXTROSE 5% IN WATER 1,000 ML with SODIUM BICARB (1 MEQ/ML) 150 ML IV SCH (10:44)
[2019-10-19 11:09] LABS: Glucose,Whole Blood 149 mg/dL (75-99)
--- NOTE | 2019-10-19 11:16 | P.PN ---
Subjective Progress Note Date: 10/19/19 Progress Note Date: 10/18/19 This is a 63-year-old male patient of Dr. Garcia who presented to the emergency room with severe abdominal pain with a history of pancreatitis secondary to alcohol abuse. Patient's past medical history significant for hypertension, acid reflux, hyperlipidemia. Patient states he has a history of issues with his gallbladder previous ultrasound showed sludge and polyps. Patient states about a week ago he started to have nausea and stomach discomfort and diarrhea. After a few days the symptoms went away and he was starting to feel much better. Mariaelena dixon was able to eat and tolerate his diet. At that time he began to eat foods and they began to develop increased abdominal pain and nausea. He was seen by Dr. Boothe on Thursday and was given [place] for pain. The pain increasingly got worse and the pain analgesics did not help. Patient then came to the emergency room. Patient's last alcohol consumption was 1 month ago where he had half a pint of vodka. He has not had any beer or other alcohol beverages since then. Patient denies any fever or chills at this time. Patient had any recent travel no lightheadedness or dizziness. Patient is a nonsmoker. For the last 2 days patient has been unable to eat he does feel a bit shaky due to not eating. Patient continues to have severe abdominal pain and nausea at this time. 10/16: Patient had a renal ultrasound that showed no hydronephrosis bilaterally. Patient continues complaining of abdominal pain. Repeat lab work revealed WBC 3.6, hemoglobin 11.5. Sodium 135, potassium 6.0, chloride 107, CO2 16, BUN 74, creatinine 4.34. Blood sugars running between 117 134. Total bilirubin 1.6, AST 34, ALT 14, alkaline phosphates 36, lipase 6793. Nephrology and surgery are following the patient. Nursing soon to place Hardwick catheter. 10/17: Patient was seen this morning resting in bed, voiced discomfort of NG tube. Abdominal pain has slightly improved today. Labs were reviewed, WBCs were 4.4, hemoglobin 11.5, sodium 135 BUN 77, creatinine 2.86, lipase improving at 4222. Blood sugars are stable. Nephrology gastro-and surgery remain on the case. NG tube and Hardwick catheter in place. We well repeat Two-view of the abdomen in the morning along with repeat CBC and CMP with lipase daily. 10/18: Patient seen and examined this morning, abdomen appears to be less distended today. NG remains in place with ice chips only. Abdominal x-ray showed findings compatible with partial small bowel obstruction air is within the colon. We'll do Dulcolax suppository today and added Reglan IV every 6 hours. Labs were reviewed sodium was 135, BUN 79, creatinine 2.05, blood sugar averaging 1:30 to 150s lipase down to 3196 today. We'll repeat labs tomorrow morning. Review Of Systems: Constitutional: No fever, no chills, no night sweats. No weight change. EENT: No headache. No blurred vision or double vision, no loss of vision. No loss of Hearing, no ringing in the ears, no dizziness. sore throat related to NG placement Lungs: No shortness of breath, cough, no sputum production. No wheezing. Cardiovascular: No chest pain, no lower extremity edema. No palpitations. No paroxysmal nocturnal dyspnea. No orthopnea. No lightheadedness or dizziness. No syncopal episodes. Abdominal: Reports abdominal pain. Report nausea, denies vomiting. No constipation. No bloody or tarry stools. Report loss of appetite. Genitourinary: No dysuria, increased frequency, urgency. No urinary retention. Musculoskeletal: No myalgias. No muscle weakness, no gait dysfunction, no frequent falls. No back pain. No neck pain. Integumentary: No wounds, no lesions. No rash or pruritus. No unusual bruising. No change in hair or nails. Neurologic: No aphasia. No facial droop. No change in mentation. No head injury. No headache. No paralysis. No paresthesia. Psychiatric: No depression. No anxiety. No mood swings. Endocrine: No abnormal blood sugars. No weight change. No excessive sweating or thirst. Physical examination General Appearance: Awake ,Alert, cooperative, no distress, appears stated age. Neck HEENT: Supple, no lymphadenopathy, no thyroid enlargement, no carotid bruits. Lungs: Clear to auscultation without crackles or wheezes no rhonchi, no deformity. Chest Wall: Chest wall normal expansion with deep inspiration no tenderness and no deformity was found on exam, no costochondral pain or discomfort. Heart: Regular rate and rhythm, S1, S2 normal, no murmur, rub or gallop. Back: Symmetric, no curvature, ROM normal, no CVA tenderness. Abdomen: Bowel sounds hypoactive , Epigastric and lower quadrant tenderness, Soft, no rebound or rigidity, no hepatosplenomegaly. Extremities: Extremities normal, atraumatic, no cyanosis or edema. Pulses: 2+ and symmetric. Skin: Skin color, texture, tugor normal, no rashes or lesions. Neurologic: Alert oriented x3 cranial nerves II through XII intact, no motor deficit, no abnormal balance or gait Assessment and plan 1. Acute pancreatitis. Remain nothing by mouth at this time. Repeat lipase and CMP in the morning. Continue with pain management including Dilaudid 1 mg IV past 2-3 hours. Continue his Zofran 4 mg IV push every 8 hours as needed. Reglan IV every 6 hours. 2. Acute kidney injury secondary to dehydration with metabolic acidosis. Continue to monitor kidney function and nephrology on the case 3. Viral gastroenteritis, resolved. 4. Hyperkalemia, repeat CMP in the morning. Hydration. 5. Diabetes mellitus 2 NovoLog sliding scale, hold Janumet 6. GERD. Protonix 40 mg 7. Hyperlipidemia, hold Vytorin, fenofibrate 160 mg by mouth daily 8. Hypertension hold metoprolol, Cozaar, 9. Alcoholism, patient has not had EtOH consumption for 1 month. No need for CIWA at this time. 10. DVT prophylaxis pneumatic compression stockings. 11. GI prophylaxis Protonix 40 mg IV daily. 12. Covid 19 not detected Discharge plan: home CODE STATUS: Full code Impression and plan of care have been directed as dictated by the signing physician. Negin Estrella nurse practitioner acting as scribe for signing physician. Objective - Vital Signs Vital signs: Vital Signs Temp 98.3 F 10/19/19 04:49 Pulse 98 10/19/19 04:49 Resp 18 10/19/19 04:49 BP 107/68 10/19/19 04:49 Pulse Ox 94 L 10/19/19 04:49 Intake & Output 10/18/19 10/19/19 10/19/19 18:59 06:59 18:59 Output Total 800 400 0 Balance -800 -400 0 Output: Gastric Drainage 100 Urine 700 400 Stool 0 0 Other: Voiding Method Indwelling Catheter Indwelling Catheter Indwelling Catheter - Labs CBC & Chem 7: 10/19/19 06:48 10/19/19 06:48 Labs: Abnormal Lab Results - Last 24 Hours (Table) 10/18/19 10/18/19 10/19/19 Range/Units 17:13 23:48 05:55 RBC (4.30-5.90) m/uL Hgb (13.0-17.5) gm/dL MCHC (31.0-37.0) g/dL Lymphocytes # (1.0-4.8) k/uL Monocytes # (0-1.0) k/uL Sodium (137-145) mmol/L BUN (9-20) mg/dL Creatinine (0.66-1.25) mg/dL Glucose (74-99) mg/dL POC Glucose (mg/dL) 164 H 174 H 138 H (75-99) mg/dL Total Bilirubin (0.2-1.3) mg/dL Total Protein (6.3-8.2) g/dL Albumin (3.5-5.0) g/dL Lipase (23-300) U/L 10/19/19 10/19/19 10/19/19 Range/Units 06:48 06:48 11:07 RBC 4.11 L (4.30-5.90) m/uL Hgb 12.2 L (13.0-17.5) gm/dL MCHC 30.6 L (31.0-37.0) g/dL Lymphocytes # 0.8 L (1.0-4.8) k/uL Monocytes # 1.1 H (0-1.0) k/uL Sodium 135 L (137-145) mmol/L BUN 79 H (9-20) mg/dL Creatinine 2.05 H (0.66-1.25) mg/dL Glucose 177 H (74-99) mg/dL POC Glucose (mg/dL) 149 H (75-99) mg/dL Total Bilirubin 2.0 H (0.2-1.3) mg/dL Total Protein 4.9 L (6.3-8.2) g/dL Albumin 2.4 L (3.5-5.0) g/dL Lipase 3196 H (23-300) U/L
[2019-10-19] MEDS: SODIUM CHLORIDE 0.9% 1,000 ML IV SCH (15:03)
--- NOTE | 2019-10-19 15:18 | P.PN ---
Subjective Progress Note Date: 10/18/19 Patient is feeling better today no flatus no BM Objective - Vital Signs Vital signs: Vital Signs Temp 98.1 F 10/19/19 11:40 Pulse 93 10/19/19 11:40 Resp 20 10/19/19 11:40 BP 116/71 10/19/19 11:40 Pulse Ox 92 L 10/19/19 11:40 Intake & Output 10/18/19 10/19/19 10/19/19 18:59 06:59 18:59 Output Total 800 400 300 Balance -800 -400 -300 Weight 106.594 kg Output: Gastric Drainage 100 Urine 700 400 300 Stool 0 0 Other: Voiding Method Indwelling Catheter Indwelling Catheter Indwelling Catheter - Constitutional General appearance: Present: cooperative - Cardiovascular Rhythm: regular - Gastrointestinal Gastrointestinal Comment(s): S/NT/mild distention - Labs CBC & Chem 7: 10/19/19 06:48 10/19/19 06:48 Labs: Abnormal Lab Results - Last 24 Hours (Table) 10/18/19 10/18/19 10/19/19 Range/Units 17:13 23:48 05:55 RBC (4.30-5.90) m/uL Hgb (13.0-17.5) gm/dL MCHC (31.0-37.0) g/dL Lymphocytes # (1.0-4.8) k/uL Monocytes # (0-1.0) k/uL Sodium (137-145) mmol/L BUN (9-20) mg/dL Creatinine (0.66-1.25) mg/dL Glucose (74-99) mg/dL POC Glucose (mg/dL) 164 H 174 H 138 H (75-99) mg/dL Total Bilirubin (0.2-1.3) mg/dL Total Protein (6.3-8.2) g/dL Albumin (3.5-5.0) g/dL Lipase (23-300) U/L 10/19/19 10/19/19 10/19/19 Range/Units 06:48 06:48 11:07 RBC 4.11 L (4.30-5.90) m/uL Hgb 12.2 L (13.0-17.5) gm/dL MCHC 30.6 L (31.0-37.0) g/dL Lymphocytes # 0.8 L (1.0-4.8) k/uL Monocytes # 1.1 H (0-1.0) k/uL Sodium 135 L (137-145) mmol/L BUN 79 H (9-20) mg/dL Creatinine 2.05 H (0.66-1.25) mg/dL Glucose 177 H (74-99) mg/dL POC Glucose (mg/dL) 149 H (75-99) mg/dL Total Bilirubin 2.0 H (0.2-1.3) mg/dL Total Protein 4.9 L (6.3-8.2) g/dL Albumin 2.4 L (3.5-5.0) g/dL Lipase 3196 H (23-300) U/L Assessment and Plan Assessment: Acute pancreatitis, ileus, acute renal failure, history of alcohol abuse, large amount of ascites Plan: Continue NGT until bowel function returns. No plans for surgical intervention during this hospital stay. I agree with GI patient did not have increase in liver enzymes and this is likely not secondary to passed stone. It is more likely secondary to chronic pancreatitis and alcohol use
--- NOTE | 2019-10-19 15:19 | P.PN ---
Subjective Progress Note Date: 10/19/19 Patient is feeling better today no flatus no BM Objective - Vital Signs Vital signs: Vital Signs Temp 98.1 F 10/19/19 11:40 Pulse 93 10/19/19 11:40 Resp 20 10/19/19 11:40 BP 116/71 10/19/19 11:40 Pulse Ox 92 L 10/19/19 11:40 Intake & Output 10/18/19 10/19/19 10/19/19 18:59 06:59 18:59 Output Total 800 400 300 Balance -800 -400 -300 Weight 106.594 kg Output: Gastric Drainage 100 Urine 700 400 300 Stool 0 0 Other: Voiding Method Indwelling Catheter Indwelling Catheter Indwelling Catheter - Constitutional General appearance: Present: cooperative - Cardiovascular Rhythm: regular - Gastrointestinal Gastrointestinal Comment(s): S.NT.mild distention - Psychiatric Psychiatric: Present: A&O x's 3 - Labs CBC & Chem 7: 10/19/19 06:48 10/19/19 06:48 Labs: Abnormal Lab Results - Last 24 Hours (Table) 10/18/19 10/18/19 10/19/19 Range/Units 17:13 23:48 05:55 RBC (4.30-5.90) m/uL Hgb (13.0-17.5) gm/dL MCHC (31.0-37.0) g/dL Lymphocytes # (1.0-4.8) k/uL Monocytes # (0-1.0) k/uL Sodium (137-145) mmol/L BUN (9-20) mg/dL Creatinine (0.66-1.25) mg/dL Glucose (74-99) mg/dL POC Glucose (mg/dL) 164 H 174 H 138 H (75-99) mg/dL Total Bilirubin (0.2-1.3) mg/dL Total Protein (6.3-8.2) g/dL Albumin (3.5-5.0) g/dL Lipase (23-300) U/L 10/19/19 10/19/19 10/19/19 Range/Units 06:48 06:48 11:07 RBC 4.11 L (4.30-5.90) m/uL Hgb 12.2 L (13.0-17.5) gm/dL MCHC 30.6 L (31.0-37.0) g/dL Lymphocytes # 0.8 L (1.0-4.8) k/uL Monocytes # 1.1 H (0-1.0) k/uL Sodium 135 L (137-145) mmol/L BUN 79 H (9-20) mg/dL Creatinine 2.05 H (0.66-1.25) mg/dL Glucose 177 H (74-99) mg/dL POC Glucose (mg/dL) 149 H (75-99) mg/dL Total Bilirubin 2.0 H (0.2-1.3) mg/dL Total Protein 4.9 L (6.3-8.2) g/dL Albumin 2.4 L (3.5-5.0) g/dL Lipase 3196 H (23-300) U/L Assessment and Plan Assessment: Acute pancreatitis, ileus, acute renal failure, history of alcohol abuse, large amount of ascites Plan: Continue NGT until bowel function returns.
--- NOTE | 2019-10-19 16:24 | PN ---
PROGRESS NOTE Patient is seen for followup for acute kidney injury. His renal function continues to improve. Patient is maintained on IV fluids. He has an indwelling Hardwick catheter; 24- hour urine output at about 1200 mL. PHYSICAL EXAMINATION: On examination, patient is comfortable. Abdominal pain has improved. Blood pressure is 107/68, heart rate 98 per minute. He is afebrile. EXAMINATION OF THE HEART: S1 and S2. EXAMINATION OF LUNGS: Bilateral breath sounds are heard. ABDOMEN: Soft, distended, non-tender. Examination of lower extremities shows no significant edema. INTERACTIVE MEDIA MARKETING DIRECTOR exam is grossly intact. LABS: Labs show sodium 135, potassium 5.1, BUN 79, creatinine 2.09. ASSESSMENT: 1. Acute kidney injury, acute tubular necrosis, currently improving. Continue with IV fluids. 2. Acute pancreatitis, mostly ETOH-related, slowly improving. 3. Metabolic acidosis, mostly non-gap, maintained on IV bicarb. 4. Hyperkalemia associated with acute kidney injury, now improved. PLAN: Discontinue IV bicarb. Switch to normal saline. Repeat labs in a.m. Continue to avoid nephrotoxic agents. Continue with the midodrine for now. MMODL / IJN: [id number] /
[2019-10-19 17:13] LABS: Glucose,Whole Blood 144 mg/dL (75-99)
[2019-10-19] MEDS: METOPROLOL SUCCINATE (ER) 100 MG TAB.ER.24H PO SCH (20:43)
--- NOTE | 2019-10-19 22:06 | PN ---
PROGRESS NOTE DATE OF SERVICE: 10/19/2019 Patient is a 63-year-old pleasant white male admitted to the hospital with acute pancreatitis and small bowel ileus. He has an NG tube in place. He continues to stay the same. He continues to have abdominal distention, abdominal pain, not able to pass any flatus. No fever, chills or night sweats. PHYSICAL EXAMINATION: Appears comfortable. VITAL SIGNS: Stable. Blood pressure is 116/71, pulse rate 92, temperature 98.1. HEENT: Examination unremarkable. Conjunctivae are pink. Sclerae anicteric. Oral cavity no lesions. Neck no JVD or lymph node enlargement. CHEST: Clear to auscultation. ABDOMEN: Distended. Tenderness in the epigastric area. Tympanic. EXTREMITIES: No pedal edema. SKIN: No rashes. NEUROLOGIC: Alert and oriented x3. No focal deficits. LABS: WBC 5.7, hemoglobin 12.2, platelets 324. Sodium 132, BUN 79, creatinine 2.05, lipase 3196. AST and ALT normal. T bilirubin 2.0. IMPRESSION: 1. Acute pancreatitis with gradually improving lipase, however, clinically patient remains the same with persistent abdominal pain. 2. Small bowel ileus, most likely secondary to acute severe pancreatitis. Has an NG tube in place and Surgery is following the patient closely. 3. Acute kidney injury. 4. History of alcohol abuse. RECOMMENDATIONS: 1. Continue IV hydration. 2. Keep him n.p.o. 3. Continue with NG tube for suction. 4. Repeat labs in the morning. 5. We will follow with you closely. MMODL / IJN: [id number] /
[2019-10-20 00:34] LABS: Glucose,Whole Blood 145 mg/dL (75-99)
[2019-10-20] MEDS: HYDROmorphone 1 MG/ML 1 ML SYRINGE IVP PRN ×8 (02:09→23:59)
[2019-10-20] MEDS: METOCLOPRAMIDE 5 MG/ML 2 ML VIAL IVP SCH ×5 (02:26→23:58)
[2019-10-20] MEDS: INSULIN ASPART (NovoLOG) 100 UNIT/ML VIAL SQ SCH ×4 (02:28→18:10)
[2019-10-20] MEDS: SODIUM CHLORIDE 0.9% 1,000 ML IV SCH ×2 (04:25→17:30)
[2019-10-20 06:20] LABS: Glucose,Whole Blood 146 mg/dL (75-99)
[2019-10-20 07:11] LABS: Basophils % (A) 1 %; Eosinophils # (A) 0.3 k/uL (0-0.7); Eosinophils % (A) 5 %; HCT 37.1 % (39.0-53.0); HGB 11.4 gm/dL (13.0-17.5); Hypochromasia Slight; Lymphocytes # (A) 0.8 k/uL (1.0-4.8); Lymphocytes % (A) 13 %; MCH 29.4 pg (25.0-35.0); MCHC 30.7 g/dL (31.0-37.0); Mean Platelet Volume 8.2; Monocytes # (A) 0.9 k/uL (0-1.0); Monocytes % (A) 15 %; Neutrophils # (A) 3.9 k/uL (1.3-7.7); Neutrophils % (A) 63 %; Platelet Count 319 k/uL (150-450); RBC 3.86 m/uL (4.30-5.90); WBC 6.2 k/uL (3.8-10.6)
[2019-10-20 07:14] LABS: Albumin 2.2 g/dL (3.5-5.0); Calcium 8.3 mg/dL (8.4-10.2); Potassium 4.7 mmol/L (3.5-5.1); Total Bilirubin 2.5 mg/dL (0.2-1.3); Total Protein 4.7 g/dL (6.3-8.2)
[2019-10-20] MEDS: MIDODRINE 5 MG TAB PO SCH ×3 (08:14→17:06)
[2019-10-20] MEDS: TAMSULOSIN 0.4 MG CAP.ER.24H PO SCH (08:14)
[2019-10-20] MEDS: bisacodyL 10 MG SUPP RECTAL SCH ×2 (08:14→21:14)
[2019-10-20] MEDS: FENOFIBRATE 160 MG TAB PO SCH (08:14)
[2019-10-20] MEDS: PANTOPRAZOLE 40 MG/10 ML VIAL IV SCH (08:14)
[2019-10-20 09:33] LABS: INR 3.3 (<1.2); Prothrombin Time 31.9 sec (9.0-12.0)
--- NOTE | 2019-10-20 10:33 | P.PN ---
Subjective Progress Note Date: 10/20/19 This is a 63-year-old male patient of Dr. Garcia who presented to the emergency room with severe abdominal pain with a history of pancreatitis secondary to alcohol abuse. Patient's past medical history significant for hypertension, acid reflux, hyperlipidemia. Patient states he has a history of issues with his gallbladder previous ultrasound showed sludge and polyps. Patient states about a week ago he started to have nausea and stomach discomfort and diarrhea. After a few days the symptoms went away and he was starting to feel much better. Patient was able to eat and tolerate his diet. At that time he began to eat foods and they began to develop increased abdominal pain and nausea. He was s een by Dr. Boothe on Thursday and was given [place] for pain. The pain increasingly got worse and the pain analgesics did not help. Patient then came to the emergency room. Patient's last alcohol consumption was 1 month ago where he had half a pint of vodka. He has not had any beer or other alcohol beverages since then. Patient denies any fever or chills at this time. Patient had any recent travel no lightheadedness or dizziness. Patient is a nonsmoker. For the last 2 days patient has been unable to eat he does feel a bit shaky due to not eating. Patient continues to have severe abdominal pain and nausea at this time. 10/16: Patient had a renal ultrasound that showed no hydronephrosis bilaterally. Patient continues complaining of abdominal pain. Repeat lab work revealed WBC 3.6, hemoglobin 11.5. Sodium 135, potassium 6.0, chloride 107, CO2 16, BUN 74, creatinine 4.34. Blood sugars running between 117 134. Total bilirubin 1.6, AST 34, ALT 14, alkaline phosphates 36, lipase 6793. Nephrology and surgery are following the patient. Nursing soon to place Hardwick catheter. 10/17: Patient was seen this morning resting in bed, voiced discomfort of NG tube. Abdominal pain has slightly improved today. Labs were reviewed, WBCs were 4.4, hemoglobin 11.5, sodium 135 BUN 77, creatinine 2.86, lipase improving at 4222. Blood sugars are stable. Nephrology gastro-and surgery remain on the case. NG tube and Hardwick catheter in place. We well repeat Two-view of the abdomen in the morning along with repeat CBC and CMP with lipase daily. 8/5: Patient seen and examined this morning, abdomen appears to be less distended today. NG remains in place with ice chips only. Abdominal x-ray showed findings compatible with partial small bowel obstruction air is within the colon. We'll do Dulcolax suppository today and added Reglan IV every 6 hours. Labs were reviewed sodium was 135, BUN 79, creatinine 2.05, blood sugar averaging 1:30 to 150s lipase down to 3196 today. We'll repeat labs tomorrow morning. 10/19: Patient had 2 small bowel movements and passing gas, NG tube was removed last night. There is some concern that urine has been dark. He has been continued on IV fluids at 75 mL per hour. Patient has been afebrile, heart rate 96, blood pressure 105/69, pulse ox 92% on room air. Repeat blood work reveals WBC 6.2, hemoglobin 11.4, platelet count 319. Sodium 134, potassium 4.7, chloride 102, CO2 25, BUN 78 and creatinine 1.83. Total bilirubin 2.5, lipase 3514. We will plan to order MRCP due to continued elevated total bilirubin concern for stone. Also ordered ultrasound of the abdomen for possible paracentesis due to ascites. Review Of Systems: Constitutional: No fever, no chills, no night sweats. EENT: No headache. No blurred vision or double vision, no loss of vision. No loss of Hearing, no ringing in the ears, no dizziness. sore throat related to NG placement Lungs: No shortness of breath, cough, no sputum production. No wheezing. Cardiovascular: No chest pain, no lower extremity edema. No palpitations. No paroxysmal nocturnal dyspnea. No orthopnea. No lightheadedness or dizziness. No syncopal episodes. Abdominal: Reports abdominal pain. Report nausea, denies vomiting. No constipation. No bloody or tarry stools. Report loss of appetite. Genitourinary: No dysuria, increased frequency, urgency. No urinary retention. Musculoskeletal: No myalgias. No muscle weakness, no gait dysfunction, no frequent falls. No back pain. No neck pain. Integumentary: No wounds, no lesions. No rash or pruritus. No unusual bruising. No change in hair or nails. Neurologic: No aphasia. No facial droop. No change in mentation. No head injury. No headache. No paralysis. No paresthesia. Psychiatric: No depression. No anxiety. No mood swings. Endocrine: No abnormal blood sugars. No weight change. No excessive sweating or thirst. Physical examination General Appearance: Awake ,Alert, cooperative, no distress, appears stated age. Neck HEENT: Supple, no lymphadenopathy, no thyroid enlargement, no carotid bruits. Lungs: Clear to auscultation without crackles or wheezes no rhonchi, no deformity. Chest Wall: Chest wall normal expansion with deep inspiration no tenderness and no deformity was found on exam, no costochondral pain or discomfort. Heart: Regular rate and rhythm, S1, S2 normal, no murmur, rub or gallop. Back: Symmetric, no curvature, ROM normal, no CVA tenderness. Abdomen: Bowel sounds present, no tenderness, Soft, no rebound or rigidity, no hepatosplenomegaly. Extremities: Extremities normal, atraumatic, no cyanosis or edema. Pulses: 2+ and symmetric. Skin: Skin color, texture, tugor normal, no rashes or lesions. Neurologic: Alert oriented x3 cranial nerves II through XII intact, no motor deficit, no abnormal balance or gait Assessment and plan 1. Acute pancreatitis. Remain nothing by mouth at this time. Repeat lipase and CMP in the morning. Continue with pain management including Dilaudid 1 mg IV past 2-3 hours. Continue his Zofran 4 mg IV push every 8 hours as needed. Reglan IV every 6 hours. 2. Acute kidney injury secondary to dehydration with metabolic acidosis. Continue to monitor kidney function and nephrology on the case 3. Viral gastroenteritis, resolved. 4. Ileus, small bowel, secondary to severe pancreatitis, resolving. NG tube has been removed. General surgery consult appreciated. 5. Ascites secondary to alcoholic abuse. Ultrasound and possible paracentesis ordered. 6. Elevated total bilirubin. MRCP ordered 7. Hyperkalemia, repeat CMP in the morning. Hydration. 8. Diabetes mellitus 2 NovoLog sliding scale, hold Janumet 9. GERD. Protonix 40 mg 10. Hyperlipidemia, hold Vytorin, fenofibrate 160 mg by mouth daily 11. Hypertension hold metoprolol, Cozaar, 12. Alcoholism, patient has not had EtOH consumption for 1 month. No need for CIWA at this time. 13. DVT prophylaxis pneumatic compression stockings. 14. GI prophylaxis Protonix 40 mg IV daily. 15. Covid 19 infection not present. Discharge plan: home CODE STATUS: Full code Impression and plan of care have been directed as dictated by the signing physician. Dayami Camarena nurse practitioner acting as scribe for signing physician. Objective - Vital Signs Vital signs: Vital Signs Temp 98.2 F 10/20/19 04:23 Pulse 96 10/20/19 04:23 Resp 18 10/20/19 04:23 BP 105/69 10/20/19 04:23 Pulse Ox 92 L 10/20/19 04:23 Intake & Output 10/19/19 10/20/19 10/20/19 18:59 06:59 18:59 Output Total 500 0 Balance -500 0 Weight 106.594 kg Output: Urine 500 Stool 0 0 Other: Voiding Method Indwelling Catheter Indwelling Catheter # Voids 350 # Bowel Movements 1 - Labs CBC & Chem 7: 10/20/19 06:26 10/20/19 06:26 Labs: Abnormal Lab Results - Last 24 Hours (Table) 10/19/19 10/19/19 10/19/19 Range/Units 06:48 11:07 17:10 RBC (4.30-5.90) m/uL Hgb (13.0-17.5) gm/dL Hct (39.0-53.0) % MCHC (31.0-37.0) g/dL Lymphocytes # (1.0-4.8) k/uL Sodium (137-145) mmol/L BUN (9-20) mg/dL Creatinine (0.66-1.25) mg/dL Glucose (74-99) mg/dL POC Glucose (mg/dL) 149 H 144 H (75-99) mg/dL Calcium (8.4-10.2) mg/dL Total Bilirubin (0.2-1.3) mg/dL Total Protein (6.3-8.2) g/dL Albumin (3.5-5.0) g/dL Lipase 3196 H (23-300) U/L 10/20/19 10/20/19 10/20/19 Range/Units 00:33 06:17 06:26 RBC 3.86 L (4.30-5.90) m/uL Hgb 11.4 L (13.0-17.5) gm/dL Hct 37.1 L (39.0-53.0) % MCHC 30.7 L (31.0-37.0) g/dL Lymphocytes # 0.8 L (1.0-4.8) k/uL Sodium (137-145) mmol/L BUN (9-20) mg/dL Creatinine (0.66-1.25) mg/dL Glucose (74-99) mg/dL POC Glucose (mg/dL) 145 H 146 H (75-99) mg/dL Calcium (8.4-10.2) mg/dL Total Bilirubin (0.2-1.3) mg/dL Total Protein (6.3-8.2) g/dL Albumin (3.5-5.0) g/dL Lipase (23-300) U/L 10/20/19 Range/Units 06:26 RBC (4.30-5.90) m/uL Hgb (13.0-17.5) gm/dL Hct (39.0-53.0) % MCHC (31.0-37.0) g/dL Lymphocytes # (1.0-4.8) k/uL Sodium 134 L (137-145) mmol/L BUN 78 H (9-20) mg/dL Creatinine 1.83 H (0.66-1.25) mg/dL Glucose 140 H (74-99) mg/dL POC Glucose (mg/dL) (75-99) mg/dL Calcium 8.3 L (8.4-10.2) mg/dL Total Bilirubin 2.5 H (0.2-1.3) mg/dL Total Protein 4.7 L (6.3-8.2) g/dL Albumin 2.2 L (3.5-5.0) g/dL Lipase 3514 H (23-300) U/L
[2019-10-20 11:56] LABS: Glucose,Whole Blood 128 mg/dL (75-99)
--- NOTE | 2019-10-20 12:56 | PN ---
PROGRESS NOTE Patient is seen for followup for acute kidney injury, mostly acute tubular necrosis, currently improving. He is maintained on IV fluids. Renal function continues to improve with creatinine down to 1.83 today. Patient is scheduled for MRCP today. PHYSICAL EXAMINATION: Blood pressure is 120/79, heart rate 97 per minute, he is afebrile. Examination shows patient is euvolemic. No evidence of edema, bilateral lower extremities. Abdomen is soft. No significant tenderness noted. It is distended. STOVE TENDER exam grossly intact. Patient moving all 4 extremities. LABS: Show sodium 134, potassium 4.7, chloride 102, BUN 78, creatinine 1.83, hemoglobin 11.4 g/dL. ASSESSMENT: 1. Acute kidney injury, ATN currently improving. 2. Acute pancreatitis, mostly ETOH related, scheduled for MRCP, being followed by GI. 3. Hyperkalemia initially currently improved with improving urine output. 4. Metabolic acidosis, status post bicarb drip, currently maintained on normal saline. PLAN: May continue with the midodrine for now. Continue IV fluids. MMODL / IJN: [id number] /
--- NOTE | 2019-10-20 13:07 | US ---
EXAMINATION TYPE: US abdomen limited DATE OF EXAM: 10/20/2019 COMPARISON: CT 4 days ago. CLINICAL HISTORY: ascites. Distention and swelling Moderate amount of fluid seen in all four quadrants IMPRESSION: As above. Findings correlate with CT. Perhaps slight interval progression in amount of a scites based on correlation.
--- NOTE | 2019-10-20 13:58 | P.PN ---
Subjective Progress Note Date: 10/20/19 Patient has NGT out had a small BM and flatus. He states his abdomen is more distended though. Objective - Vital Signs Vital signs: Vital Signs Temp 97.9 F 10/20/19 12:08 Pulse 97 10/20/19 12:08 Resp 18 10/20/19 12:08 BP 120/79 10/20/19 12:08 Pulse Ox 94 L 10/20/19 12:08 Intake & Output 10/19/19 10/20/19 10/20/19 18:59 06:59 18:59 Output Total 500 0 Balance -500 0 Weight 106.594 kg Output: Urine 500 Stool 0 0 Other: Voiding Method Indwelling Catheter Indwelling Catheter Indwelling Catheter # Voids 350 # Bowel Movements 1 - Constitutional General appearance: Present: cooperative - Gastrointestinal Gastrointestinal Comment(s): S/NT/Distended - Labs CBC & Chem 7: 10/20/19 06:26 10/20/19 06:26 Labs: Abnormal Lab Results - Last 24 Hours (Table) 10/19/19 10/20/19 10/20/19 Range/Units 17:10 00:33 06:17 RBC (4.30-5.90) m/uL Hgb (13.0-17.5) gm/dL Hct (39.0-53.0) % MCHC (31.0-37.0) g/dL Lymphocytes # (1.0-4.8) k/uL PT (9.0-12.0) sec INR (<1.2) Sodium (137-145) mmol/L BUN (9-20) mg/dL Creatinine (0.66-1.25) mg/dL Glucose (74-99) mg/dL POC Glucose (mg/dL) 144 H 145 H 146 H (75-99) mg/dL Calcium (8.4-10.2) mg/dL Total Bilirubin (0.2-1.3) mg/dL Total Protein (6.3-8.2) g/dL Albumin (3.5-5.0) g/dL Lipase (23-300) U/L 10/20/19 10/20/19 10/20/19 Range/Units 06:26 06:26 06:26 RBC 3.86 L (4.30-5.90) m/uL Hgb 11.4 L (13.0-17.5) gm/dL Hct 37.1 L (39.0-53.0) % MCHC 30.7 L (31.0-37.0) g/dL Lymphocytes # 0.8 L (1.0-4.8) k/uL PT 31.9 H (9.0-12.0) sec INR 3.3 H (<1.2) Sodium 134 L (137-145) mmol/L BUN 78 H (9-20) mg/dL Creatinine 1.83 H (0.66-1.25) mg/dL Glucose 140 H (74-99) mg/dL POC Glucose (mg/dL) (75-99) mg/dL Calcium 8.3 L (8.4-10.2) mg/dL Total Bilirubin 2.5 H (0.2-1.3) mg/dL Total Protein 4.7 L (6.3-8.2) g/dL Albumin 2.2 L (3.5-5.0) g/dL Lipase 3514 H (23-300) U/L 10/20/19 Range/Units 11:54 RBC (4.30-5.90) m/uL Hgb (13.0-17.5) gm/dL Hct (39.0-53.0) % MCHC (31.0-37.0) g/dL Lymphocytes # (1.0-4.8) k/uL PT (9.0-12.0) sec INR (<1.2) Sodium (137-145) mmol/L BUN (9-20) mg/dL Creatinine (0.66-1.25) mg/dL Glucose (74-99) mg/dL POC Glucose (mg/dL) 128 H (75-99) mg/dL Calcium (8.4-10.2) mg/dL Total Bilirubin (0.2-1.3) mg/dL Total Protein (6.3-8.2) g/dL Albumin (3.5-5.0) g/dL Lipase (23-300) U/L Assessment and Plan Assessment: Acute pancreatitis, ileus, acute renal failure, history of alcohol abuse, large amount of ascites Plan: NGT was DCed as patient had small BM. I do recommend NPO for now due to abdominal distention until further bowel function resumes. The distention is likely secondary to ascities. Patient scheduled for paracentesis today.
[2019-10-20] MEDS ORDERED: PHYTONADIONE ORAL 5 MG/5 ML ORAL.SYRG PO STA (15:17)
--- NOTE | 2019-10-20 15:41 | MR ---
EXAMINATION TYPE: MR MRCP DATE OF EXAM: 10/20/2019 COMPARISON: CT abdomen pelvis 10/16/2019 HISTORY: Elevated Bili Multiplanar, multisequence images of the abdomen were acquired. FINDINGS: Large volume ascites with significant artifact. Due to nondiagnostic examination, MRCP was canceled. IMPRESSION: Canceled nondiagnostic MRCP examination due to significant MRI artifact from large volume ascites.
[2019-10-20 18:09] LABS: Glucose,Whole Blood 136 mg/dL (75-99)
--- NOTE | 2019-10-20 20:50 | PN ---
PROGRESS NOTE DATE OF DICTATION: October 20, 2019 Patient is a 63-year-old pleasant white male admitted to the hospital with acute alcoholic pancreatitis, had an NG tube in place which was removed yesterday. Noted to have small bowel ileus. Also has some abdominal ascites. The patient is feeling much better today. He still has some epigastric discomfort and abdominal distention. PHYSICAL EXAMINATION: Appears comfortable. VITAL SIGNS: Stable. Blood pressure is 120/79, pulse rate 97, temperature 97.9. HEENT examination unremarkable. Conjunctivae pink. Sclerae anicteric. Oral cavity no lesions. NECK no JVD or lymph node enlargement. CHEST was clear to auscultation. HEART: Regular rate and rhythm. ABDOMEN: Soft. Mild tenderness in the epigastric area. Slightly distended. EXTREMITIES: No pedal edema. NEUROLOGIC: Alert and oriented x3. No focal deficits. LABS: From today WBC 6.2, hemoglobin 11.4, platelets normal. Basic metabolic panel is within normal limits. INR is 3.3. IMPRESSION: 1. Acute alcoholic pancreatitis with small bowel ileus, which is gradually improving. 2. Abdominal ascites, the patient scheduled for paracentesis today. 3. Continue with symptomatic and supportive care. 4. Start him on a clear liquid diet. 5. Repeat labs in the morning. 6. We will follow with you closely. Thank you for this consultation. MMLINDSAYL / JENNIFERN: [id number] /
[2019-10-20 21:02] LABS: Glucose,Whole Blood 136 mg/dL (75-99)
[2019-10-20] MEDS: METOPROLOL SUCCINATE (ER) 100 MG TAB.ER.24H PO SCH (23:59)
[2019-10-21 00:21] LABS: Glucose,Whole Blood 120 mg/dL (75-99)
[2019-10-21] MEDS: INSULIN ASPART (NovoLOG) 100 UNIT/ML VIAL SQ SCH ×4 (01:52→17:59)
[2019-10-21] MEDS: HYDROmorphone 1 MG/ML 1 ML SYRINGE IVP PRN ×7 (02:55→20:37)
[2019-10-21] MEDS: SODIUM CHLORIDE 0.9% 1,000 ML IV SCH (04:57)
[2019-10-21 05:56] LABS: Glucose,Whole Blood 132 mg/dL (75-99)
[2019-10-21] MEDS: METOCLOPRAMIDE 5 MG/ML 2 ML VIAL IVP SCH ×3 (07:14→17:47)
[2019-10-21 07:20] LABS: INR 1.6 (<1.2)
[2019-10-21 07:38] LABS: Albumin 2.2 g/dL (3.5-5.0); Calcium 8.2 mg/dL (8.4-10.2); Potassium 4.9 mmol/L (3.5-5.1); Total Protein 4.8 g/dL (6.3-8.2)
[2019-10-21] MEDS: PANTOPRAZOLE 40 MG/10 ML VIAL IV SCH (08:50)
--- NOTE | 2019-10-21 08:52 | P.PN ---
Subjective Progress Note Date: 10/21/19 BM and flatus yesterday. Abdomen is still distended secondary to ascities. MRCP was unable to be done secondary to acsities Objective - Vital Signs Vital signs: Vital Signs Temp 97.6 F 10/21/19 08:37 Pulse 99 10/21/19 08:37 Resp 20 10/21/19 08:37 BP 117/78 10/21/19 08:37 Pulse Ox 92 L 10/21/19 08:37 Intake & Output 10/20/19 10/21/19 10/21/19 18:59 06:59 18:59 Output Total 600 0 Balance -600 0 Weight 112.1 kg 113 kg Output: Urine 600 Stool 0 Other: Voiding Method Indwelling Catheter Indwelling Catheter Indwelling Catheter - Constitutional General appearance: Present: cooperative - Gastrointestinal Gastrointestinal Comment(s): S/distended, nontender - Labs CBC & Chem 7: 10/20/19 06:26 10/21/19 06:55 Labs: Abnormal Lab Results - Last 24 Hours (Table) 10/20/19 10/20/19 10/20/19 Range/Units 06:26 11:54 18:08 PT 31.9 H (9.0-12.0) sec INR 3.3 H (<1.2) Sodium (137-145) mmol/L BUN (9-20) mg/dL Creatinine (0.66-1.25) mg/dL Glucose (74-99) mg/dL POC Glucose (mg/dL) 128 H 136 H (75-99) mg/dL Calcium (8.4-10.2) mg/dL Total Bilirubin (0.2-1.3) mg/dL Total Protein (6.3-8.2) g/dL Albumin (3.5-5.0) g/dL Lipase (23-300) U/L 10/20/19 10/21/19 10/21/19 Range/Units 21:00 00:17 05:54 PT (9.0-12.0) sec INR (<1.2) Sodium (137-145) mmol/L BUN (9-20) mg/dL Creatinine (0.66-1.25) mg/dL Glucose (74-99) mg/dL POC Glucose (mg/dL) 136 H 120 H 132 H (75-99) mg/dL Calcium (8.4-10.2) mg/dL Total Bilirubin (0.2-1.3) mg/dL Total Protein (6.3-8.2) g/dL Albumin (3.5-5.0) g/dL Lipase (23-300) U/L 10/21/19 10/21/19 Range/Units 06:55 06:55 PT 16.0 H (9.0-12.0) sec INR 1.6 H (<1.2) Sodium 132 L (137-145) mmol/L BUN 84 H (9-20) mg/dL Creatinine 1.72 H (0.66-1.25) mg/dL Glucose 149 H (74-99) mg/dL POC Glucose (mg/dL) (75-99) mg/dL Calcium 8.2 L (8.4-10.2) mg/dL Total Bilirubin 3.0 H (0.2-1.3) mg/dL Total Protein 4.8 L (6.3-8.2) g/dL Albumin 2.2 L (3.5-5.0) g/dL Lipase 3572 H (23-300) U/L Assessment and Plan Assessment: Acute pancreatitis, ileus, acute renal failure, history of alcohol abuse, large amount of ascites Plan: Clears as tolerated. No plans for surgical intervention. Follow up GI recs
[2019-10-21] MEDS: bisacodyL 10 MG SUPP RECTAL SCH ×3 (08:53→20:40)
[2019-10-21] MEDS: MIDODRINE 5 MG TAB PO SCH ×3 (08:54→17:47)
[2019-10-21] MEDS: TAMSULOSIN 0.4 MG CAP.ER.24H PO SCH (08:56)
[2019-10-21] MEDS: FENOFIBRATE 160 MG TAB PO SCH (08:56)
--- NOTE | 2019-10-21 09:39 | P.PN ---
Subjective Progress Note Date: 10/21/19 This is a 63-year-old male patient of Dr. Garcia who presented to the emergency room with severe abdominal pain with a history of pancreatitis secondary to alcohol abuse. Patient's past medical history significant for hypertension, acid reflux, hyperlipidemia. Patient states he has a history of issues with his gallbladder previous ultrasound showed sludge and polyps. Patient states about a week ago he started to have nausea and stomach discomfort and diarrhea. After a few days the symptoms went away and he was starting to feel much better. Patient was able to eat and tolerate his diet. At that time he began to eat foods and they began to develop increased abdominal pain and nausea. He was s een by Dr. Boothe on Thursday and was given [place] for pain. The pain increasingly got worse and the pain analgesics did not help. Patient then came to the emergency room. Patient's last alcohol consumption was 1 month ago where he had half a pint of vodka. He has not had any beer or other alcohol beverages since then. Patient denies any fever or chills at this time. Patient had any recent travel no lightheadedness or dizziness. Patient is a nonsmoker. For the last 2 days patient has been unable to eat he does feel a bit shaky due to not eating. Patient continues to have severe abdominal pain and nausea at this time. 10/16: Patient had a renal ultrasound that showed no hydronephrosis bilaterally. Patient continues complaining of abdominal pain. Repeat lab work revealed WBC 3.6, hemoglobin 11.5. Sodium 135, potassium 6.0, chloride 107, CO2 16, BUN 74, creatinine 4.34. Blood sugars running between 117 134. Total bilirubin 1.6, AST 34, ALT 14, alkaline phosphates 36, lipase 6793. Nephrology and surgery are following the patient. Nursing soon to place Hardwick catheter. 10/17: Patient was seen this morning resting in bed, voiced discomfort of NG tube. Abdominal pain has slightly improved today. Labs were reviewed, WBCs were 4.4, hemoglobin 11.5, sodium 135 BUN 77, creatinine 2.86, lipase improving at 4222. Blood sugars are stable. Nephrology gastro-and surgery remain on the case. NG tube and Hardwick catheter in place. We well repeat Two-view of the abdomen in the morning along with repeat CBC and CMP with lipase daily. 8/5: Patient seen and examined this morning, abdomen appears to be less distended today. NG remains in place with ice chips only. Abdominal x-ray showed findings compatible with partial small bowel obstruction air is within the colon. We'll do Dulcolax suppository today and added Reglan IV every 6 hours. Labs were reviewed sodium was 135, BUN 79, creatinine 2.05, blood sugar averaging 1:30 to 150s lipase down to 3196 today. We'll repeat labs tomorrow morning. 10/19: Patient had 2 small bowel movements and passing gas, NG tube was removed last night. There is some concern that urine has been dark. He has been continued on IV fluids at 75 mL per hour. Patient has been afebrile, heart rate 96, blood pressure 105/69, pulse ox 92% on room air. Repeat blood work reveals WBC 6.2, hemoglobin 11.4, platelet count 319. Sodium 134, potassium 4.7, chloride 102, CO2 25, BUN 78 and creatinine 1.83. Total bilirubin 2.5, lipase 3514. We will plan to order MRCP due to continued elevated total bilirubin concern for stone. Also ordered ultrasound of the abdomen for possible paracentesis due to ascites. 10/20: Patient was unable to undergo paracentesis yesterday due to elevated INR. He is status post vitamin K and INR this morning is at 1.6. Other lab work reveals BUN 84 and creatinine 1.72. Blood sugar 149. Lipase 3572. Total bi lirubin is 3. Liver function tests normal. MRCP was unable to be done due to ascites. Both paracentesis and MRCP are expected to be done today. The patient has been cleared to start clear liquid diet by both GI and general surgery which will plan to do once imaging studies are completed. Patient has been afebrile, heart rate 99, blood pressure 117/70, pulse ox 92% on room air. IV fluids decr eased to KVO until after paracentesis. IV Dilaudid changed every 2 hours. Review Of Systems: Constitutional: No fever, no chills, no night sweats. EENT: No headache. No blurred vision or double vision, no loss of vision. No loss of Hearing, no ringing in the ears, no dizziness. sore throat related to NG placement Lungs: No shortness of breath, cough, no sputum production. No wheezing. Cardiovascular: No chest pain, no lower extremity edema. No palpitations. No paroxysmal nocturnal dyspnea. No orthopnea. No lightheadedness or dizziness. No syncopal episodes. Abdominal: Reports abdominal pain worsening. Reports abdominal distention. Denies nausea, denies vomiting. No constipation. No bloody or tarry stools. Report loss of appetite. Genitourinary: No dysuria, increased frequency, urgency. No urinary retention. Musculoskeletal: No myalgias. No muscle weakness, no gait dysfunction, no frequent falls. No back pain. No neck pain. Integumentary: No wounds, no lesions. No rash or pruritus. No unusual bruising. No change in hair or nails. Neurologic: No aphasia. No facial droop. No change in mentation. No head injury. No headache. No paralysis. No paresthesia. Psychiatric: No depression. No anxiety. No mood swings. Endocrine: No abnormal blood sugars. No weight change. No excessive sweating or thirst. Physical examination General Appearance: Awake ,Alert, cooperative, no distress, appears stated age. Neck HEENT: Supple, no lymphadenopathy, no thyroid enlargement, no carotid bruits. Lungs: Clear to auscultation without crackles or wheezes no rhonchi, no deformi ty. Chest Wall: Chest wall normal expansion with deep inspiration no tenderness and no deformity was found on exam, no costochondral pain or discomfort. Heart: Regular rate and rhythm, S1, S2 normal, no murmur, rub or gallop. Back: Symmetric, no curvature, ROM normal, no CVA tenderness. Abdomen: Bowel sounds present, no tenderness, distended with ascites, no hepatosplenomegaly. Extremities: Extremities normal, atraumatic, no cyanosis or edema. Pulses: 2+ and symmetric. Skin: Skin color, texture, tugor normal, no rashes or lesions. Neurologic: Alert oriented x3 cranial nerves II through XII intact, no motor deficit, no abnormal balance or gait Assessment and plan 1. Acute pancreatitis. Start clear liquid diet. Repeat lipase and CMP in the morning. Continue with pain management including Dilaudid 1 mg IV past 2 hours. Continue his Zofran 4 mg IV push every 8 hours as needed. Reglan IV every 6 hours. 2. Acute kidney injury secondary to dehydration with metabolic acidosis, chronic kidney disease stage II. Continue to monitor kidney function and nephrology on the case 3. Viral gastroenteritis, resolved. 4. Ileus, small bowel, secondary to severe pancreatitis, resolving. NG tube has been removed. General surgery consult appreciated. 5. Ascites secondary to alcoholic abuse. Paracentesis scheduled for today. 6. Elevated total bilirubin. MRCP ordered 7. Hyperkalemia, repeat CMP in the morning. Hydration. 8. Diabetes mellitus 2 NovoLog sliding scale, hold Janumet 9. GERD. Protonix 40 mg 10. Hyperlipidemia, hold Vytorin, fenofibrate 160 mg by mouth daily 11. Hypertension hold metoprolol, Cozaar, 12. Alcoholism, patient has not had EtOH consumption for 1 month. No need for CIWA at this time. 13. DVT prophylaxis pneumatic compression stockings. 14. GI prophylaxis Protonix 40 mg IV daily. 15. Covid 19 infection not present. Discharge plan: home CODE STATUS: Full code Impression and plan of care have been directed as dictated by the signing physician. Dayami Camarena nurse practitioner acting as scribe for signing physician. Objective - Vital Signs Vital signs: Vital Signs Temp 97.9 F 10/21/19 05:00 Pulse 90 10/21/19 05:00 Resp 16 10/21/19 05:00 BP 99/60 10/21/19 05:00 Pulse Ox 94 L 10/21/19 05:00 Intake & Output 10/20/19 10/21/19 10/21/19 18:59 06:59 18:59 Output Total 600 0 Balance -600 0 Weight 112.1 kg 113 kg Output: Urine 600 Stool 0 Other: Voiding Method Indwelling Catheter Indwelling Catheter Indwelling Catheter - Labs CBC & Chem 7: 10/20/19 06:26 10/21/19 06:55 Labs: Abnormal Lab Results - Last 24 Hours (Table) 10/20/19 10/20/19 10/20/19 Range/Units 06:26 11:54 18:08 PT 31.9 H (9.0-12.0) sec INR 3.3 H (<1.2) Sodium (137-145) mmol/L BUN (9-20) mg/dL Creatinine (0.66-1.25) mg/dL Glucose (74-99) mg/dL POC Glucose (mg/dL) 128 H 136 H (75-99) mg/dL Calcium (8.4-10.2) mg/dL Total Bilirubin (0.2-1.3) mg/dL Total Protein (6.3-8.2) g/dL Albumin (3.5-5.0) g/dL Lipase (23-300) U/L 10/20/19 10/21/19 10/21/19 Range/Units 21:00 00:17 05:54 PT (9.0-12.0) sec INR (<1.2) Sodium (137-145) mmol/L BUN (9-20) mg/dL Creatinine (0.66-1.25) mg/dL Glucose (74-99) mg/dL POC Glucose (mg/dL) 136 H 120 H 132 H (75-99) mg/dL Calcium (8.4-10.2) mg/dL Total Bilirubin (0.2-1.3) mg/dL Total Protein (6.3-8.2) g/dL Albumin (3.5-5.0) g/dL Lipase (23-300) U/L 10/21/19 10/21/19 Range/Units 06:55 06:55 PT 16.0 H (9.0-12.0) sec INR 1.6 H (<1.2) Sodium 132 L (137-145) mmol/L BUN 84 H (9-20) mg/dL Creatinine 1.72 H (0.66-1.25) mg/dL Glucose 149 H (74-99) mg/dL POC Glucose (mg/dL) (75-99) mg/dL Calcium 8.2 L (8.4-10.2) mg/dL Total Bilirubin 3.0 H (0.2-1.3) mg/dL Total Protein 4.8 L (6.3-8.2) g/dL Albumin 2.2 L (3.5-5.0) g/dL Lipase 3572 H (23-300) U/L
[2019-10-21] MEDS: SODIUM CHLORIDE 0.9% 500 ML 500 ML IV SCH (11:15)
--- NOTE | 2019-10-21 11:56 | PN ---
PROGRESS NOTE Patient is seen for followup for acute kidney injury, mostly ATN, currently nonoliguric and improving renal function. He has been maintained on IV fluids. However, his ascites is increased and patient could not have the MRCP done yesterday due to his abdominal distention. IV fluids have been decreased. He continues to have good urine output. Patient has an indwelling Hardwick catheter. PHYSICAL EXAMINATION: Today he is comfortable, awake, not in any acute distress. Blood pressure was 117/78, heart rate 99 per minute, he is afebrile. Examination of the heart S1, S2. Examination of the lungs, decreased breath sounds at bases. Abdomen is soft, nontender. Examination of the lower extremities shows trace edema bilaterally. FACILITIES LOCATOR exam grossly intact. LABS: Show sodium of 132, potassium 4.9, chloride 101, BUN 84, creatinine 1.72. Lipase 3572. ASSESSMENT: 1. Acute kidney injury, ATN currently improving. The patient's blood pressure had been on the lower side. Now, it is improved. He is maintained on midodrine. He had been maintained on IV fluids: however, the fluids have been decreased secondary to worsening ascites. At this point. His renal function has been improving. Therefore, we can maintain him off of IV fluids. 2. Acute pancreatitis, ETOH related. MRCP could not be performed yesterday. Patient is scheduled for paracentesis today as his ascites seems to have worsened. 3. Metabolic acidosis associated with renal failure, currently improved. 4. Hyperkalemia initially, currently improved. PLAN: Continue to maintain off nephrotoxic agents. Continue with midodrine. Okay to KVO the IV fluids. Repeat labs in a.m. MMODL / IJN: [id number] /
--- NOTE | 2019-10-21 15:33 | US ---
Ultrasound-guided paracentesis. DATE OF EXAM: 10/21/2019 CLINICAL HISTORY: Ascites The procedure was discussed with the patient. The risks, complications, benefits, and alternatives we re discussed and any questions were answered. Informed consent was obtained. The patient was placed s upine on the ultrasound table and prepped and draped in the usual sterile fashion. All elements of maximal barrier technique were utilized. Under ultrasound guidance, access into the right lower quadrant was obtained, via the paracentesis catheter system and direct ultrasound guidanc e. Approximately 9.8 liters of serous fluid was removed. The patient was stable throughout the procedure and remained stable upon discharge from Department of Radiology. IMPRESSION: Successful paracentesis under ultrasound guidance.
[2019-10-21] MEDS: ALBUMIN HUMAN 25% 50 ML in EMPTY BAG 1 BAG IVPB SCH ×2 (15:37→16:34)
[2019-10-21 16:59] LABS: Glucose,Whole Blood 151 mg/dL (75-99)
[2019-10-21] MEDS: ONDANSETRON 4 MG/2 ML VIAL IVP PRN (19:54)
[2019-10-21] MEDS: METOPROLOL SUCCINATE (ER) 100 MG TAB.ER.24H PO SCH (20:36)
[2019-10-22] MEDS: INSULIN ASPART (NovoLOG) 100 UNIT/ML VIAL SQ SCH ×5 (00:10→23:58)
[2019-10-22 00:14] LABS: Glucose,Whole Blood 137 mg/dL (75-99)
[2019-10-22] MEDS: METOCLOPRAMIDE 5 MG/ML 2 ML VIAL IVP SCH ×5 (00:14→23:14)
[2019-10-22] MEDS: HYDROmorphone 1 MG/ML 1 ML SYRINGE IVP PRN ×5 (01:41→23:11)
[2019-10-22 04:07] LABS: Albumin, Fluid Source Paracentesis Fluid; Amylase, Fluid Source Paracentesis Fluid; LDH, Body Fluid Source Paracentesis Fluid
[2019-10-22 05:43] LABS: Glucose,Whole Blood 143 mg/dL (75-99)
[2019-10-22 08:12] LABS: INR 1.7 (<1.2); Prothrombin Time 16.7 sec (9.0-12.0)
[2019-10-22] MEDS: MIDODRINE 5 MG TAB PO SCH ×3 (08:51→17:55)
[2019-10-22] MEDS: TAMSULOSIN 0.4 MG CAP.ER.24H PO SCH (08:51)
[2019-10-22] MEDS: FENOFIBRATE 160 MG TAB PO SCH (08:52)
[2019-10-22] MEDS: PANTOPRAZOLE 40 MG/10 ML VIAL IV SCH (08:53)
[2019-10-22] MEDS: bisacodyL 10 MG SUPP RECTAL SCH ×2 (08:54→20:25)
--- NOTE | 2019-10-22 09:02 | P.PN ---
Subjective Progress Note Date: 10/22/19 Patient seen and examined at bedside. Did have one emesis episode this morning. States he believes he drank liquids to quickly. He states his abdominal feels much less distended and much better after paracentesis yesterday. States he is passing a significant amount of flatus and having small bowel movements. Objective - Vital Signs Vital signs: Vital Signs Temp 98.5 F 10/22/19 04:20 Pulse 94 10/22/19 04:20 Resp 17 10/22/19 04:20 BP 100/61 10/22/19 04:20 Pulse Ox 92 L 10/22/19 04:20 Intake & Output 10/21/19 10/22/19 10/22/19 18:59 06:59 18:59 Output Total 1500 Balance -1500 Weight 113 kg 108 kg Output: Urine 1500 Other: Voiding Method Indwelling Catheter Indwelling Catheter - Constitutional General appearance: Present: cooperative, no acute distress - Respiratory Details: No difficulty with respiration - Gastrointestinal Gastrointestinal Comment(s): Soft, nontender, mild distention, no rebound, no guarding - Musculoskeletal Musculoskeletal: Present: generalized weakness - Psychiatric Psychiatric: Present: A&O x's 3 - Labs CBC & Chem 7: 10/20/19 06:26 10/21/19 06:55 Labs: Abnormal Lab Results - Last 24 Hours (Table) 10/21/19 10/22/19 10/22/19 Range/Units 16:56 00:05 05:41 PT (9.0-12.0) sec INR (<1.2) POC Glucose (mg/dL) 151 H 137 H 143 H (75-99) mg/dL 10/22/19 Range/Units 07:01 PT 16.7 H (9.0-12.0) sec INR 1.7 H (<1.2) POC Glucose (mg/dL) (75-99) mg/dL Microbiology - Last 24 Hours (Table) 10/21/19 14:30 Gram Stain - Preliminary Ascites Fluid Body Fluid Culture - Preliminary Assessment and Plan (1) Abdominal pain Narrative/Plan: Ileus appears to be improving as the patient is continuing to have flatus and bowel movements. Abdominal distention much improved after paracentesis. Recommended moving slow on diet as he did have one emesis episode. Continue to follow. No plans for acute surgical intervention. Current Visit: Yes Status: Acute Code(s): R10.9 - UNSPECIFIED ABDOMINAL PAIN SNOMED Code(s): 44950031
[2019-10-22 09:11] LABS: Albumin 2.1 g/dL (3.5-5.0); Calcium 8.5 mg/dL (8.4-10.2); Potassium 5.1 mmol/L (3.5-5.1); Total Bilirubin 2.7 mg/dL (0.2-1.3); Total Protein 4.2 g/dL (6.3-8.2)
[2019-10-22] MEDS ORDERED: FUROSEMIDE 10 MG/ML 4 ML VIAL IV STA (09:29)
--- NOTE | 2019-10-22 09:30 | P.PN ---
Subjective Patient is seen in follow-up for acute kidney injury. Renal function improving. Underwent paracentesis on October 20 with 9.8 L drained. Feels better today. No vomiting or diarrhea. Vital signs are stable. General: The patient appeared well nourished and normally developed. HEENT: Head exam is unremarkable. Neck is without jugular venous distension. LUNGS: Lungs are clear to auscultation and percussion. Breath sounds decreased. HEART: Rate and Rhythm are regular. ABDOMEN: Soft, nontender. EXTREMITITES: 1+ edema. Objective - Vital Signs Vital signs: Vital Signs Temp 98.5 F 10/22/19 04:20 Pulse 94 10/22/19 04:20 Resp 17 10/22/19 04:20 BP 100/61 10/22/19 04:20 Pulse Ox 92 L 10/22/19 04:20 Intake & Output 10/21/19 10/22/19 10/22/19 18:59 06:59 18:59 Output Total 1500 Balance -1500 Weight 113 kg 108 kg Output: Urine 1500 Other: Voiding Method Indwelling Catheter Indwelling Catheter - Labs CBC & Chem 7: 10/20/19 06:26 10/22/19 07:01 Labs: Abnormal Lab Results - Last 24 Hours (Table) 10/21/19 10/22/19 10/22/19 Range/Units 16:56 00:05 05:41 PT (9.0-12.0) sec INR (<1.2) Sodium (137-145) mmol/L BUN (9-20) mg/dL Creatinine (0.66-1.25) mg/dL Glucose (74-99) mg/dL POC Glucose (mg/dL) 151 H 137 H 143 H (75-99) mg/dL Total Bilirubin (0.2-1.3) mg/dL Total Protein (6.3-8.2) g/dL Albumin (3.5-5.0) g/dL Lipase (23-300) U/L 10/22/19 10/22/19 Range/Units 07:01 07:01 PT 16.7 H (9.0-12.0) sec INR 1.7 H (<1.2) Sodium 128 L (137-145) mmol/L BUN 73 H (9-20) mg/dL Creatinine 1.50 H (0.66-1.25) mg/dL Glucose 150 H (74-99) mg/dL POC Glucose (mg/dL) (75-99) mg/dL Total Bilirubin 2.7 H (0.2-1.3) mg/dL Total Protein 4.2 L (6.3-8.2) g/dL Albumin 2.1 L (3.5-5.0) g/dL Lipase 4666 H (23-300) U/L Microbiology - Last 24 Hours (Table) 10/21/19 14:30 Gram Stain - Preliminary Ascites Fluid Body Fluid Culture - Preliminary Assessment and Plan Plan: Assessment: 1. Acute kidney injury secondary to ATN secondary to hypotension. Renal function improving. Creatinine 1.5 today. 2. Alcohol induced acute pancreatitis. 3. Volume overload. 4. Ascites status post paracentesis with 9.8 L drained on October 20. 5. Hypotension maintained on midodrine. 6. Hypervolemic hyponatremia. 7. Hyperkalemia secondary to acute kidney injury and metabolic acidosis. Improved. Plan: Lasix 40 mg IV once today. Remains off IV fluids. Continue to monitor renal function and urine output.
[2019-10-22 11:47] LABS: Glucose,Whole Blood 159 mg/dL (75-99)
[2019-10-22] MEDS: ONDANSETRON 4 MG/2 ML VIAL IVP PRN (13:16)
--- NOTE | 2019-10-22 14:27 | P.PN ---
Subjective Progress Note Date: 10/21/19 Principal diagnosis: Ascites, pancreatitis Attempted to see the patient, however not on his room as he was undergoing paracentesis, will follow up tomorrow. Objective - Vital Signs Vital signs: Vital Signs Temp 98.1 F 10/21/19 15:30 Pulse 99 10/21/19 16:45 Resp 19 10/21/19 15:30 BP 132/67 10/21/19 17:15 Pulse Ox 93 L 10/21/19 16:15 Intake & Output 10/20/19 10/21/19 10/21/19 18:59 06:59 18:59 Output Total 600 0 Balance -600 0 Weight 112.1 kg 113 kg 113 kg Output: Urine 600 Stool 0 Other: Voiding Method Indwelling Catheter Indwelling Catheter Indwelling Catheter - Labs CBC & Chem 7: 10/20/19 06:26 10/22/19 07:01 Labs: Abnormal Lab Results - Last 24 Hours (Table) 10/20/19 10/21/19 10/21/19 Range/Units 21:00 00:17 05:54 PT (9.0-12.0) sec INR (<1.2) Sodium (137-145) mmol/L BUN (9-20) mg/dL Creatinine (0.66-1.25) mg/dL Glucose (74-99) mg/dL POC Glucose (mg/dL) 136 H 120 H 132 H (75-99) mg/dL Calcium (8.4-10.2) mg/dL Total Bilirubin (0.2-1.3) mg/dL Total Protein (6.3-8.2) g/dL Albumin (3.5-5.0) g/dL Lipase (23-300) U/L 10/21/19 10/21/19 10/21/19 Range/Units 06:55 06:55 16:56 PT 16.0 H (9.0-12.0) sec INR 1.6 H (<1.2) Sodium 132 L (137-145) mmol/L BUN 84 H (9-20) mg/dL Creatinine 1.72 H (0.66-1.25) mg/dL Glucose 149 H (74-99) mg/dL POC Glucose (mg/dL) 151 H (75-99) mg/dL Calcium 8.2 L (8.4-10.2) mg/dL Total Bilirubin 3.0 H (0.2-1.3) mg/dL Total Protein 4.8 L (6.3-8.2) g/dL Albumin 2.2 L (3.5-5.0) g/dL Lipase 3572 H (23-300) U/L
--- NOTE | 2019-10-22 17:13 | P.PN ---
Subjective Progress Note Date: 10/22/19 This is a 63-year-old male patient of Dr. Garcia who presented to the emergency room with severe abdominal pain with a history of pancreatitis secondary to alcohol abuse. Patient's past medical history significant for hypertension, acid reflux, hyperlipidemia. Patient states he has a history of issues with his gallbladder previous ultrasound showed sludge and polyps. Patient states about a week ago he started to have nausea and stomach discomfort and diarrhea. After a few days the symptoms went away and he was starting to feel much better. Patient was able to eat and tolerate his diet. At that time he began to eat foods and they began to develop increased abdominal pain and nausea. He was seen by Dr. Boothe on Thursday and was given [place] for pain. The pain increasingly got worse and the pain analgesics did not help. Patient then came to the emergency room. Patient's last alcohol consumption was 1 month ago where he had half a pint of vodka. He has not had any beer or other alcohol beverages since then. Patient denies any fever or chills at this time. Patient had any recent travel no lightheadedness or dizziness. Patient is a nonsmoker. For the last 2 days patient has been unable to eat he does feel a bit shaky due to not eating. Patient continues to have severe abdominal pain and nausea at this time. 10/16: Patient had a renal ultrasound that showed no hydronephrosis bilaterally. Patient continues complaining of abdominal pain. Repeat lab work revealed WBC 3.6, hemoglobin 11.5. Sodium 135, potassium 6.0, chloride 107, CO2 16, BUN 74, creatinine 4.34. Blood sugars running between 117 134. Total bilirubin 1.6, AST 34, ALT 14, alkaline phosphates 36, lipase 6793. Nephrology and surgery are following the patient. Nursing soon to place Hardwick catheter. 10/17: Patient was seen this morning resting in bed, voiced discomfort of NG tube. Abdominal pain has slightly improved today. Labs were reviewed, WBCs were 4.4, hemoglobin 11.5, sodium 135 BUN 77, creatinine 2.86, lipase improving at 4222. Blood sugars are stable. Nephrology gastro-and surgery remain on the case. NG tube and Hardwick catheter in place. We well repeat Two-view of the abdomen in the morning along with repeat CBC and CMP with lipase daily. 10/18: Patient seen and examined this morning, abdomen appears to be less distended today. NG remains in place with ice chips only. Abdominal x-ray showed findings compatible with partial small bowel obstruction air is within the colon. We'll do Dulcolax suppository today and added Reglan IV every 6 hours. Labs were reviewed sodium was 135, BUN 79, creatinine 2.05, blood sugar averaging 1:30 to 150s lipase down to 3196 today. We'll repeat labs tomorrow morning. 10/19: Patient had 2 small bowel movements and passing gas, NG tube was removed last night. There is some concern that urine has been dark. He has been continued on IV fluids at 75 mL per hour. Patient has been afebrile, heart rate 96, blood pressure 105/69, pulse ox 92% on room air. Repeat blood work reveals WBC 6.2, hemoglobin 11.4, platelet count 319. Sodium 134, potassium 4.7, chloride 102, CO2 25, BUN 78 and creatinine 1.83. Total bilirubin 2.5, lipase 3514. We will plan to order MRCP due to continued elevated total bilirubin concern for stone. Also ordered ultrasound of the abdomen for possible paracentesis due to ascites. 10/20: Patient was unable to undergo paracentesis yesterday due to elevated INR. He is status post vitamin K and INR this morning is at 1.6. Other lab work reveals BUN 84 and creatinine 1.72. Blood sugar 149. Lipase 3572. Total b ilirubin is 3. Liver function tests normal. MRCP was unable to be done due to ascites. Both paracentesis and MRCP are expected to be done today. The patient has been cleared to start clear liquid diet by both GI and general surgery which will plan to do once imaging studies are completed. Patient has been afebrile, heart rate 99, blood pressure 117/70, pulse ox 92% on room air. IV fluids dec reased to KVO until after paracentesis. IV Dilaudid changed every 2 hours. 10/21 patient had loose stools a large amount today, however he feels less bloated, less distention, especially after paracentesis which took out approximately 9.8 L of serous fluid,, patient only had ice tea, still on clear liquid diet, will request a dictation for low-fat pancreatic diet, patient has history of off and on diarrhea from absorption, and lipase still elevated around 4600 still with left-sided abdominal pain, no fever no chills, has trace edema however patient mentions that this is better than yesterday creatinine 1.5, INR 1.7, BUN of 77 however her creatinine is trending downward, bilirubin at 2.7-3.0 Review Of Systems: Constitutional: No fever, no chills, no night sweats. EENT: No headache. No blurred vision or double vision, no loss of vision. No loss of Hearing, no ringing in the ears, no dizziness. sore throat related to NG placement Lungs: No shortness of breath, cough, no sputum production. No wheezing. Cardiovascular: No chest pain, no lower extremity edema. No palpitations. No paroxysmal nocturnal dyspnea. No orthopnea. No lightheadedness or dizziness. No syncopal episodes. Abdominal: Reports abdominal pain worsening. Reports abdominal distention. Denies nausea, denies vomiting. No constipation. No bloody or tarry stools. Report loss of appetite. Genitourinary: No dysuria, increased frequency, urgency. No urinary retention. Musculoskeletal: No myalgias. No muscle weakness, no gait dysfunction, no frequent falls. No back pain. No neck pain. Integumentary: No wounds, no lesions. No rash or pruritus. No unusual bruisi ng. No change in hair or nails. Neurologic: No aphasia. No facial droop. No change in mentation. No head injury. No headache. No paralysis. No paresthesia. Psychiatric: No depression. No anxiety. No mood swings. Endocrine: No abnormal blood sugars. No weight change. No excessive sweating or thirst. Objective - Vital Signs Vital signs: Vital Signs Temp 98.5 F 10/22/19 04:20 Pulse 90 10/22/19 11:25 Resp 16 10/22/19 11:25 BP 127/74 10/22/19 11:25 Pulse Ox 96 10/22/19 11:25 Intake & Output 10/21/19 10/22/19 10/22/19 18:59 06:59 18:59 Output Total 1500 1550 Balance -1500 -1550 Weight 113 kg 108 kg Output: Urine 1500 1550 Other: Voiding Method Indwelling Catheter Indwelling Catheter Indwelling Catheter - Constitutional General appearance: Present: cooperative, no acute distress - EENT Eyes: Present: anicteric sclerae, PERRLA, dentition normal, normal appearance ENT: Present: hard of hearing, NA/AT, normal oropharynx - Neck Neck: Present: normal ROM - Respiratory Respiratory: bilateral: CTA, negative: diminished - Cardiovascular Rhythm: regular Heart sounds: normal: S1, S2 Abnormal Heart Sounds: Absent: systolic murmur, diastolic murmur, rub, S3 Ga llop, S4 Gallop, click, other - Gastrointestinal General gastrointestinal: Present: normal bowel sounds, soft - Integumentary Integumentary: Present: decreased turgor, normal - Musculoskeletal Musculoskeletal: Present: gait normal, strength equal bilaterally - Psychiatric Psychiatric: Present: A&O x's 3, appropriate affect - Labs CBC & Chem 7: 10/20/19 06:26 10/22/19 07:01 Labs: Abnormal Lab Results - Last 24 Hours (Table) 10/21/19 10/22/19 10/22/19 Range/Units 16:56 00:05 05:41 PT (9.0-12.0) sec INR (<1.2) Sodium (137-145) mmol/L BUN (9-20) mg/dL Creatinine (0.66-1.25) mg/dL Glucose (74-99) mg/dL POC Glucose (mg/dL) 151 H 137 H 143 H (75-99) mg/dL Total Bilirubin (0.2-1.3) mg/dL Total Protein (6.3-8.2) g/dL Albumin (3.5-5.0) g/dL Lipase (23-300) U/L 10/22/19 10/22/19 10/22/19 Range/Units 07:01 07:01 11:27 PT 16.7 H (9.0-12.0) sec INR 1.7 H (<1.2) Sodium 128 L (137-145) mmol/L BUN 73 H (9-20) mg/dL Creatinine 1.50 H (0.66-1.25) mg/dL Glucose 150 H (74-99) mg/dL POC Glucose (mg/dL) 159 H (75-99) mg/dL Total Bilirubin 2.7 H (0.2-1.3) mg/dL Total Protein 4.2 L (6.3-8.2) g/dL Albumin 2.1 L (3.5-5.0) g/dL Lipase 4666 H (23-300) U/L Microbiology - Last 24 Hours (Table) 10/21/19 14:30 Gram Stain - Preliminary Ascites Fluid Body Fluid Culture - Preliminary Assessment and Plan Plan: Assessment and plan 1. Acute pancreatitis. Patient has Start clear liquid diet. 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 Continue with pain management including Dilaudid 1 mg IV past 2 hours. Continue his Zofran 4 mg IV push every 8 hours as needed. Reglan IV every 6 hours. Daily lipase is still persistently high, however alkaline phosphatase remains to be normal, with mild obstruction prior persist, and increasing abdominal pain, patient might benefit from pancreatic enzyme replacements each meal 2. Acute kidney injury secondary to dehydration with metabolic acidosis, chronic kidney disease stage II. Continue to monitor kidney function and nephrology on the case 3. Viral gastroenteritis, resolved. 4. Ileus, small bowel, secondary to severe pancreatitis, resolving. NG tube has been removed. General surgery consult appreciated. 5. Ascites secondary to alcoholic abuse. Paracentesis scheduled for today. 6. Transaminitis secondary to alcoholic liver disease Elevated total bilirubin. MRCP ordered canceled secondary to severe paracentesis GI following 7. Hyperkalemia, repeat CMP in the morning. Hydration. 8. Diabetes mellitus 2 NovoLog sliding scale, hold Janumet 9. GERD. Protonix 40 mg 10. Hyperlipidemia, hold Vytorin, fenofibrate 160 mg by mouth daily 11. Hypertension hold metoprolol, Cozaar, 12. Alcoholism, patient has not had EtOH consumption for 1 month. No need for CIWA at this time. 13. DVT prophylaxis pneumatic compression stockings. 14. GI prophylaxis Protonix 40 mg IV daily. 15. Covid 19 infection not present. Discharge plan: home
[2019-10-22 17:22] LABS: Glucose,Whole Blood 177 mg/dL (75-99)
[2019-10-22] MEDS: SODIUM CHLORIDE 0.9% 500 ML 500 ML IV SCH (19:13)
[2019-10-22] MEDS: METOPROLOL SUCCINATE (ER) 100 MG TAB.ER.24H PO SCH (20:46)
--- NOTE | 2019-10-22 22:43 | P.PN ---
Subjective Progress Note Date: 10/22/19 Principal diagnosis: Ascites, pancreatitis The patient is seen lying in bed reporting less abdominal pain and distention after paracentesis. Tolerating liquids. Still reporting some loose bowel movements. Objective - Vital Signs Vital signs: Vital Signs Temp 98.5 F 10/22/19 04:20 Pulse 90 10/22/19 11:25 Resp 16 10/22/19 11:25 BP 127/74 10/22/19 11:25 Pulse Ox 96 10/22/19 11:25 Intake & Output 10/21/19 10/22/19 10/22/19 18:59 06:59 18:59 Output Total 1500 1550 Balance -1500 -1550 Weight 113 kg 108 kg Output: Urine 1500 1550 Other: Voiding Method Indwelling Catheter Indwelling Catheter Indwelling Catheter - Exam On physical examination, patient appears comfortable in no apparent distress. HEAD: Normocephalic, atraumatic. EYES: No scleral icterus. No conjunctival injection. MOUTH: No lesions, tongue midline. NECK: Trachea midline, no gross abnormalities. ABDOMEN: Soft, mildly tender to palpation. Bowel sounds are positive. No organomegaly. No guarding or rigidity. EXTREMITIES: No pedal edema. SKIN: No rashes, no jaundice. NEUROLOGIC: Alert and oriented x3. No focal deficits. - Labs CBC & Chem 7: 10/20/19 06:26 10/22/19 07:01 Labs: Abnormal Lab Results - Last 24 Hours (Table) 10/21/19 10/22/19 10/22/19 Range/Units 16:56 00:05 05:41 PT (9.0-12.0) sec INR (<1.2) Sodium (137-145) mmol/L BUN (9-20) mg/dL Creatinine (0.66-1.25) mg/dL Glucose (74-99) mg/dL POC Glucose (mg/dL) 151 H 137 H 143 H (75-99) mg/dL Total Bilirubin (0.2-1.3) mg/dL Total Protein (6.3-8.2) g/dL Albumin (3.5-5.0) g/dL Lipase (23-300) U/L 10/22/19 10/22/19 10/22/19 Range/Units 07:01 07:01 11:27 PT 16.7 H (9.0-12.0) sec INR 1.7 H (<1.2) Sodium 128 L (137-145) mmol/L BUN 73 H (9-20) mg/dL Creatinine 1.50 H (0.66-1.25) mg/dL Glucose 150 H (74-99) mg/dL POC Glucose (mg/dL) 159 H (75-99) mg/dL Total Bilirubin 2.7 H (0.2-1.3) mg/dL Total Protein 4.2 L (6.3-8.2) g/dL Albumin 2.1 L (3.5-5.0) g/dL Lipase 4666 H (23-300) U/L Microbiology - Last 24 Hours (Table) 10/21/19 14:30 Gram Stain - Preliminary Ascites Fluid Body Fluid Culture - Preliminary Assessment and Plan (1) Acute pancreatitis Narrative/Plan: 63-year-old male presenting to the hospital with abdominal pain and being neftali david for acute alcoholic pancreatitis. Patient feeling better today and tolerating liquids. Current Visit: Yes Status: Acute Code(s): K85.90 - ACUTE PANCREATITIS WITHOUT NECROSIS OR INFECTION, UNSP SNOMED Code(s): 710992893 (2) Abdominal pain Current Visit: Yes Status: Acute Code(s): R10.9 - UNSPECIFIED ABDOMINAL PAIN SNOMED Code(s): 65817991 Plan: Supportive care Diet advanced to low-fat by primary team Continue to monitor clinically Continue monitor CBC, BMP, LFTs Alcohol abstinence Patient is status post paracentesis Thank you for allowing us to participate in the care of the patient
[2019-10-22 23:17] LABS: Glucose,Whole Blood 123 mg/dL (75-99)
[2019-10-23] MEDS: HYDROmorphone 1 MG/ML 1 ML SYRINGE IVP PRN ×8 (03:40→23:48)
[2019-10-23] MEDS: METOCLOPRAMIDE 5 MG/ML 2 ML VIAL IVP SCH ×4 (05:42→23:47)
[2019-10-23] MEDS: INSULIN ASPART (NovoLOG) 100 UNIT/ML VIAL SQ SCH ×4 (05:59→23:53)
[2019-10-23 06:02] LABS: Glucose,Whole Blood 127 mg/dL (75-99)
[2019-10-23 07:52] LABS: Calcium 8.2 mg/dL (8.4-10.2); Magnesium 1.7 mg/dL (1.6-2.3); Potassium 4.5 mmol/L (3.5-5.1)
--- NOTE | 2019-10-23 08:32 | P.PN ---
Subjective Progress Note Date: 10/23/19 Patient seen and examined at bedside. States he continues to feel better. Denies nausea or vomiting. Tolerating full liquid diet. States he is having flatus and liquid stool. Objective - Vital Signs Vital signs: Vital Signs Temp 98.1 F 10/23/19 04:44 Pulse 77 10/23/19 04:44 Resp 17 10/23/19 04:44 BP 105/64 10/23/19 04:44 Pulse Ox 96 10/23/19 04:44 Intake & Output 10/22/19 10/23/19 10/23/19 18:59 06:59 18:59 Intake Total 1290 Output Total 2150 1000 Balance -2150 290 Weight 107 kg Intake: Oral 1290 Output: Urine 2150 1000 Other: Voiding Method Indwelling Catheter Indwelling Catheter - Constitutional General appearance: Present: cooperative, no acute distress - Gastrointestinal Gastrointestinal Comment(s): Soft, nontender, mild distention no rebound, no guarding - Musculoskeletal Musculoskeletal: Present: generalized weakness - Psychiatric Psychiatric: Present: A&O x's 3 - Labs CBC & Chem 7: 10/20/19 06:26 10/23/19 07:05 Labs: Abnormal Lab Results - Last 24 Hours (Table) 10/22/19 10/22/19 10/22/19 Range/Units 07:01 11:27 17:19 Sodium 128 L (137-145) mmol/L Chloride (98-107) mmol/L BUN 73 H (9-20) mg/dL Creatinine 1.50 H (0.66-1.25) mg/dL Glucose 150 H (74-99) mg/dL POC Glucose (mg/dL) 159 H 177 H (75-99) mg/dL Calcium (8.4-10.2) mg/dL Total Bilirubin 2.7 H (0.2-1.3) mg/dL Total Protein 4.2 L (6.3-8.2) g/dL Albumin 2.1 L (3.5-5.0) g/dL Lipase 4666 H (23-300) U/L 10/22/19 10/23/19 10/23/19 Range/Units 23:17 05:58 07:05 Sodium 126 L (137-145) mmol/L Chloride 97 L (98-107) mmol/L BUN 50 H (9-20) mg/dL Creatinine (0.66-1.25) mg/dL Glucose 126 H (74-99) mg/dL POC Glucose (mg/dL) 123 H 127 H (75-99) mg/dL Calcium 8.2 L (8.4-10.2) mg/dL Total Bilirubin (0.2-1.3) mg/dL Total Protein (6.3-8.2) g/dL Albumin (3.5-5.0) g/dL Lipase (23-300) U/L Microbiology - Last 24 Hours (Table) 10/21/19 14:30 Gram Stain - Preliminary Ascites Fluid Body Fluid Culture - Preliminary Assessment and Plan (1) Abdominal pain Current Visit: Yes Status: Acute Code(s): R10.9 - UNSPECIFIED ABDOMINAL PAIN SNOMED Code(s): 65487633
--- NOTE | 2019-10-23 08:46 | P.PN ---
Subjective Patient is seen in follow-up for acute kidney injury. Renal function improving. Underwent paracentesis on October 20 with 9.8 L drained. Feels better today. No vomiting or diarrhea. Edema improved. Sodium level 126 today. Vital signs are stable. General: The patient appeared well nourished and normally developed. HEENT: Head exam is unremarkable. Neck is without jugular venous distension. LUNGS: Lungs are clear to auscultation and percussion. Breath sounds decreased. HEART: Rate and Rhythm are regular. ABDOMEN: Soft, nontender. EXTREMITITES: 1+ edema. Objective - Vital Signs Vital signs: Vital Signs Temp 98.1 F 10/23/19 04:44 Pulse 77 10/23/19 04:44 Resp 17 10/23/19 04:44 BP 105/64 10/23/19 04:44 Pulse Ox 96 10/23/19 04:44 Intake & Output 10/22/19 10/23/19 10/23/19 18:59 06:59 18:59 Intake Total 1290 Output Total 2150 1000 Balance -2150 290 Weight 107 kg Intake: Oral 1290 Output: Urine 2150 1000 Other: Voiding Method Indwelling Catheter Indwelling Catheter - Labs CBC & Chem 7: 10/20/19 06:26 10/23/19 07:05 Labs: Abnormal Lab Results - Last 24 Hours (Table) 10/22/19 10/22/19 10/22/19 Range/Units 07:01 11:27 17:19 Sodium 128 L (137-145) mmol/L Chloride (98-107) mmol/L BUN 73 H (9-20) mg/dL Creatinine 1.50 H (0.66-1.25) mg/dL Glucose 150 H (74-99) mg/dL POC Glucose (mg/dL) 159 H 177 H (75-99) mg/dL Calcium (8.4-10.2) mg/dL Total Bilirubin 2.7 H (0.2-1.3) mg/dL Total Protein 4.2 L (6.3-8.2) g/dL Albumin 2.1 L (3.5-5.0) g/dL Lipase 4666 H (23-300) U/L 10/22/19 10/23/19 10/23/19 Range/Units 23:17 05:58 07:05 Sodium 126 L (137-145) mmol/L Chloride 97 L (98-107) mmol/L BUN 50 H (9-20) mg/dL Creatinine (0.66-1.25) mg/dL Glucose 126 H (74-99) mg/dL POC Glucose (mg/dL) 123 H 127 H (75-99) mg/dL Calcium 8.2 L (8.4-10.2) mg/dL Total Bilirubin (0.2-1.3) mg/dL Total Protein (6.3-8.2) g/dL Albumin (3.5-5.0) g/dL Lipase (23-300) U/L Microbiology - Last 24 Hours (Table) 10/21/19 14:30 Gram Stain - Preliminary Ascites Fluid Body Fluid Culture - Preliminary Assessment and Plan Plan: Assessment: 1. Acute kidney injury secondary to ATN secondary to hypotension. Renal function improving. Creatinine 1.17 today. 2. Alcohol induced acute pancreatitis. 3. Volume overload. 4. Ascites status post paracentesis with 9.8 L drained on October 20. 5. Hypotension maintained on midodrine. 6. Hypervolemic hyponatremia. 7. Hyperkalemia secondary to acute kidney injury and metabolic acidosis. Improved. Plan: 25 g IV albumin 2 doses today. Samsca 15 mg once today. Repeat sodium level at 5 PM today. Remains off IV fluids. Continue to monitor renal function and urine output.
[2019-10-23] MEDS: FENOFIBRATE 160 MG TAB PO SCH (08:52)
[2019-10-23] MEDS: TAMSULOSIN 0.4 MG CAP.ER.24H PO SCH (08:52)
[2019-10-23] MEDS: MIDODRINE 5 MG TAB PO SCH ×3 (08:52→17:58)
[2019-10-23] MEDS: PANTOPRAZOLE 40 MG/10 ML VIAL IV SCH (08:52)
[2019-10-23] MEDS ORDERED: TOLVAPTAN 15 MG 1/2 TABLET PO ONE (09:15)
[2019-10-23] MEDS: ALBUMIN HUMAN 25% 50 ML in EMPTY BAG 1 BAG IVPB SCH ×2 (09:52→20:20)
[2019-10-23] MEDS: bisacodyL 10 MG SUPP RECTAL SCH ×2 (09:55→19:44)
[2019-10-23 11:44] LABS: Glucose,Whole Blood 139 mg/dL (75-99)
[2019-10-23 17:03] LABS: Glucose,Whole Blood 149 mg/dL (75-99)
[2019-10-23] MEDS ORDERED: SODIUM CHLORIDE 0.9% 1,000 ML IV SCH (18:45)
[2019-10-23] MEDS: METOPROLOL SUCCINATE (ER) 100 MG TAB.ER.24H PO SCH (20:24)
[2019-10-23 23:53] LABS: Glucose,Whole Blood 179 mg/dL (75-99)
[2019-10-24 00:04] LABS: Glucose,Whole Blood 171 mg/dL (75-99)
[2019-10-24] MEDS: HYDROmorphone 1 MG/ML 1 ML SYRINGE IVP PRN ×10 (01:49→23:46)
[2019-10-24] MEDS: METOCLOPRAMIDE 5 MG/ML 2 ML VIAL IVP SCH ×4 (05:17→23:46)
[2019-10-24] MEDS: INSULIN ASPART (NovoLOG) 100 UNIT/ML VIAL SQ SCH ×3 (05:21→18:06)
[2019-10-24 05:23] LABS: Glucose,Whole Blood 192 mg/dL (75-99)
[2019-10-24] MEDS ORDERED: FUROSEMIDE 10 MG/ML 4 ML VIAL IV STA (05:46)
[2019-10-24] MEDS: PANTOPRAZOLE 40 MG/10 ML VIAL IV SCH (08:06)
[2019-10-24] MEDS: FENOFIBRATE 160 MG TAB PO SCH (08:07)
[2019-10-24] MEDS: MIDODRINE 5 MG TAB PO SCH ×3 (08:07→18:07)
[2019-10-24] MEDS: bisacodyL 10 MG SUPP RECTAL SCH ×2 (08:07→21:51)
[2019-10-24] MEDS: TAMSULOSIN 0.4 MG CAP.ER.24H PO SCH (08:07)
[2019-10-24 08:55] LABS: Albumin 2.1 g/dL (3.5-5.0); Calcium 8.1 mg/dL (8.4-10.2); Magnesium 1.6 mg/dL (1.6-2.3); Potassium 4.8 mmol/L (3.5-5.1); Total Bilirubin 2.7 mg/dL (0.2-1.3); Total Protein 4.5 g/dL (6.3-8.2)
--- NOTE | 2019-10-24 09:59 | P.PN ---
Subjective Patient is seen in follow-up for acute kidney injury. Renal function worse today. [place] short of breath this morning and was given a dose of Lasix 40 mg IV. Underwent paracentesis on October 20 with 9.8 L drained. No vomiting or diarrhea. Sodium level 124 today. Vital signs are stable. General: The patient appeared well nourished and normally developed. HEENT: Head exam is unremarkable. Neck is without jugular venous distension. LUNGS: Lungs are clear to auscultation and percussion. Breath sounds decreased. HEART: Rate and Rhythm are regular. ABDOMEN: Soft, nontender. EXTREMITITES: 2+ edema. Objective - Vital Signs Vital signs: Vital Signs Temp 97.8 F 10/24/19 05:00 Pulse 96 10/24/19 05:00 Resp 18 10/24/19 05:00 BP 108/68 10/24/19 05:00 Pulse Ox 95 10/24/19 05:00 Intake & Output 10/23/19 10/24/19 10/24/19 18:59 06:59 18:59 Intake Total 1690 Output Total 2400 300 Balance -2400 1390 Weight 107 kg 108.5 kg Intake: Intake, IV Titration 650 Amount Albumin Human 25% 50 ml 50 In Empty Bag 1 bag @ 50 mls/hr IVPB BID MELISSA Rx#: [id number] Sodium Chloride 0.9% 1, 600 000 ml @ 50 mls/hr IV . Q20H MELISSA Rx#:[id number] Oral 1040 Output: Urine 2400 300 Other: Voiding Method Indwelling Catheter Indwelling Catheter Indwelling Catheter - Labs CBC & Chem 7: 10/20/19 06:26 10/24/19 08:20 Labs: Abnormal Lab Results - Last 24 Hours (Table) 10/23/19 10/23/19 10/23/19 Range/Units 11:35 16:58 17:27 Sodium 126 L (137-145) mmol/L Chloride (98-107) mmol/L BUN (9-20) mg/dL Creatinine (0.66-1.25) mg/dL Glucose (74-99) mg/dL POC Glucose (mg/dL) 139 H 149 H (75-99) mg/dL Calcium (8.4-10.2) mg/dL Total Bilirubin (0.2-1.3) mg/dL Total Protein (6.3-8.2) g/dL Albumin (3.5-5.0) g/dL Lipase (23-300) U/L 10/23/19 10/24/19 10/24/19 Range/Units 23:51 00:01 05:13 Sodium (137-145) mmol/L Chloride (98-107) mmol/L BUN (9-20) mg/dL Creatinine (0.66-1.25) mg/dL Glucose (74-99) mg/dL POC Glucose (mg/dL) 179 H 171 H 192 H (75-99) mg/dL Calcium (8.4-10.2) mg/dL Total Bilirubin (0.2-1.3) mg/dL Total Protein (6.3-8.2) g/dL Albumin (3.5-5.0) g/dL Lipase (23-300) U/L 10/24/19 Range/Units 08:20 Sodium 124 L (137-145) mmol/L Chloride 95 L (98-107) mmol/L BUN 47 H (9-20) mg/dL Creatinine 1.62 H (0.66-1.25) mg/dL Glucose 157 H (74-99) mg/dL POC Glucose (mg/dL) (75-99) mg/dL Calcium 8.1 L (8.4-10.2) mg/dL Total Bilirubin 2.7 H (0.2-1.3) mg/dL Total Protein 4.5 L (6.3-8.2) g/dL Albumin 2.1 L (3.5-5.0) g/dL Lipase 4221 H (23-300) U/L Microbiology - Last 24 Hours (Table) 10/21/19 14:30 Gram Stain - Preliminary Ascites Fluid Body Fluid Culture - Preliminary Assessment and Plan Plan: Assessment: 1. Acute kidney injury secondary to ATN secondary to hypotension and diuresis. Renal function worse - cr 1.62 today. 2. Alcohol induced acute pancreatitis. 3. Volume overload. 4. Ascites status post paracentesis with 9.8 L drained on October 20. 5. Hypotension maintained on midodrine. 6. Hypervolemic hyponatremia. 7. Hyperkalemia secondary to acute kidney injury and metabolic acidosis. Improved. Plan: s/p 25 g IV albumin 2 doses 10/23/2019. s/p IV lasix this AM. Repeat Samsca 15 mg once today. Add aldactone 25 mg bid. 1200 cc fluid restriction. Repeat sodium level at 5 PM today. Heplock IVFs. Continue to monitor renal function and urine output. Check abdominal uls - may need another paracentesis.
--- NOTE | 2019-10-24 10:41 | US ---
EXAMINATION TYPE: US abdomen limited DATE OF EXAM: 10/24/2019 COMPARISON: MRI/MRCP 4 days ago. CLINICAL HISTORY: ascites. Ascites check, hx swelling and recurrent ascites. History of paracentesis 3 days ago. All four quadrants of the abdomen scanned. Trace amount of fluid seen in left abdomen. Ascites pock et seen in right abdomen. IMPRESSION: Confirmation of recurrent moderate amount of ascites in the right upper and lower quadra nts
[2019-10-24] MEDS ORDERED: TOLVAPTAN 15 MG 1/2 TABLET PO ONE (11:00)
[2019-10-24] MEDS: SPIRONOLACTONE 25 MG TAB PO SCH ×2 (11:06→21:39)
[2019-10-24 11:58] LABS: Glucose,Whole Blood 213 mg/dL (75-99)
--- NOTE | 2019-10-24 13:07 | P.PN ---
Subjective Progress Note Date: 10/23/19 Principal diagnosis: Ascites, pancreatitis The patient is seen lying in bed reporting that her abdominal pain was much improved. He stated he is tolerating his diet. However was contacted by the nurse later in the day reporting that he was requiring pain medications and reporting abdominal pain and at that time nurse was instructed to change the patient down to a liquid diet. Objective - Vital Signs Vital signs: Vital Signs Temp 98.1 F 10/23/19 04:44 Pulse 77 10/23/19 04:44 Resp 17 10/23/19 04:44 BP 105/64 10/23/19 04:44 Pulse Ox 96 10/23/19 04:44 Intake & Output 10/22/19 10/23/19 10/23/19 18:59 06:59 18:59 Intake Total 1290 Output Total 2150 1000 Balance -2150 290 Weight 107 kg 107 kg Intake: Oral 1290 Output: Urine 2150 1000 Other: Voiding Method Indwelling Catheter Indwelling Catheter Indwelling Catheter - Exam On physical examination, patient appears comfortable in no apparent distress. HEAD: Normocephalic, atraumatic. EYES: No scleral icterus. No conjunctival injection. MOUTH: No lesions, tongue midline. NECK: Trachea midline, no gross abnormalities. ABDOMEN: Soft, mildly tender to palpation. Bowel sounds are positive. No organomegaly. No guarding or rigidity. EXTREMITIES: No pedal edema. SKIN: No rashes, no jaundice. NEUROLOGIC: Alert and oriented x3. No focal deficits. - Labs CBC & Chem 7: 10/20/19 06:26 10/24/19 08:20 Labs: Abnormal Lab Results - Last 24 Hours (Table) 10/22/19 10/22/19 10/22/19 Range/Units 11:27 17:19 23:17 Sodium (137-145) mmol/L Chloride (98-107) mmol/L BUN (9-20) mg/dL Glucose (74-99) mg/dL POC Glucose (mg/dL) 159 H 177 H 123 H (75-99) mg/dL Calcium (8.4-10.2) mg/dL Lipase (23-300) U/L 10/23/19 10/23/19 Range/Units 05:58 07:05 Sodium 126 L (137-145) mmol/L Chloride 97 L (98-107) mmol/L BUN 50 H (9-20) mg/dL Glucose 126 H (74-99) mg/dL POC Glucose (mg/dL) 127 H (75-99) mg/dL Calcium 8.2 L (8.4-10.2) mg/dL Lipase 6713 H (23-300) U/L Microbiology - Last 24 Hours (Table) 10/21/19 14:30 Gram Stain - Preliminary Ascites Fluid Body Fluid Culture - Preliminary Assessment and Plan (1) Acute pancreatitis Narrative/Plan: 63-year-old male presenting to the hospital with abdominal pain and being treated for acute alcoholic pancreatitis. Patient feeling better today and tolerating regular diet, however was complaining of worsening pain yesterday and diet was changed back to liquid. Current Visit: Yes Status: Acute Code(s): K85.90 - ACUTE PANCREATITIS WITHOUT NECROSIS OR INFECTION, UNSP SNOMED Code(s): 484131831 (2) Abdominal pain Current Visit: Yes Status: Acute Code(s): R10.9 - UNSPECIFIED ABDOMINAL PAIN SNOMED Code(s): 03820370 Plan: Supportive care Liquid diet Judicious use of narcotics, patient should be instructed to spread out pain medications as tolerated Continue to monitor clinically Continue monitor CBC, BMP, LFTs Alcohol abstinence Patient is status post paracentesis Thank you for allowing us to participate in the care of the patient
--- NOTE | 2019-10-24 13:14 | P.PN ---
Subjective Progress Note Date: 10/24/19 This is a 63-year-old male patient of Dr. Garcia who presented to the emergency room with severe abdominal pain with a history of pancreatitis secondary to alcohol abuse. Patient's past medical history significant for hypertension, acid reflux, hyperlipidemia. Patient states he has a history of issues with his gallbladder previous ultrasound showed sludge and polyps. Patient states about a week ago he started to have nausea and stomach discomfort and diarrhea. After a few days the symptoms went away and he was starting to feel much better. Patient was able to eat and tolerate his diet. At that time he began to eat foods and they began to develop increased abdominal pain and nausea. He was s een by Dr. Boothe on Thursday and was given [place] for pain. The pain increasingly got worse and the pain analgesics did not help. Patient then came to the emergency room. Patient's last alcohol consumption was 1 month ago where he had half a pint of vodka. He has not had any beer or other alcohol beverages since then. Patient denies any fever or chills at this time. Patient had any recent travel no lightheadedness or dizziness. Patient is a nonsmoker. For the last 2 days patient has been unable to eat he does feel a bit shaky due to not eating. Patient continues to have severe abdominal pain and nausea at this time. 10/16: Patient had a renal ultrasound that showed no hydronephrosis bilaterally. Patient continues complaining of abdominal pain. Repeat lab work revealed WBC 3.6, hemoglobin 11.5. Sodium 135, potassium 6.0, chloride 107, CO2 16, BUN 74, creatinine 4.34. Blood sugars running between 117 134. Total bilirubin 1.6, AST 34, ALT 14, alkaline phosphates 36, lipase 6793. Nephrology and surgery are following the patient. Nursing soon to place Hardwick catheter. 10/17: Patient was seen this morning resting in bed, voiced discomfort of NG tube. Abdominal pain has slightly improved today. Labs were reviewed, WBCs were 4.4, hemoglobin 11.5, sodium 135 BUN 77, creatinine 2.86, lipase improving at 4222. Blood sugars are stable. Nephrology gastro-and surgery remain on the case. NG tube and Hardwick catheter in place. We well repeat Two-view of the abdomen in the morning along with repeat CBC and CMP with lipase daily. 8/5: Patient seen and examined this morning, abdomen appears to be less distended today. NG remains in place with ice chips only. Abdominal x-ray showed findings compatible with partial small bowel obstruction air is within the colon. We'll do Dulcolax suppository today and added Reglan IV every 6 hours. Labs were reviewed sodium was 135, BUN 79, creatinine 2.05, blood sugar averaging 1:30 to 150s lipase down to 3196 today. We'll repeat labs tomorrow morning. 10/19: Patient had 2 small bowel movements and passing gas, NG tube was removed last night. There is some concern that urine has been dark. He has been continued on IV fluids at 75 mL per hour. Patient has been afebrile, heart rate 96, blood pressure 105/69, pulse ox 92% on room air. Repeat blood work reveals WBC 6.2, hemoglobin 11.4, platelet count 319. Sodium 134, potassium 4.7, chloride 102, CO2 25, BUN 78 and creatinine 1.83. Total bilirubin 2.5, lipase 3514. We will plan to order MRCP due to continued elevated total bilirubin concern for stone. Also ordered ultrasound of the abdomen for possible paracentesis due to ascites. 10/20: Patient was unable to undergo paracentesis yesterday due to elevated INR. He is status post vitamin K and INR this morning is at 1.6. Other lab work reveals BUN 84 and creatinine 1.72. Blood sugar 149. Lipase 3572. Total bi lirubin is 3. Liver function tests normal. MRCP was unable to be done due to ascites. Both paracentesis and MRCP are expected to be done today. The patient has been cleared to start clear liquid diet by both GI and general surgery which will plan to do once imaging studies are completed. Patient has been afebrile, heart rate 99, blood pressure 117/70, pulse ox 92% on room air. IV fluids decr eased to KVO until after paracentesis. IV Dilaudid changed every 2 hours. 10/21 patient had loose stools a large amount today, however he feels less bloated, less distention, especially after paracentesis which took out approximately 9.8 L of serous fluid,, patient only had ice tea, still on clear l iquid diet, will request a dictation for low-fat pancreatic diet, patient has history of off and on diarrhea from absorption, and lipase still elevated around 4600 still with left-sided abdominal pain, no fever no chills, has trace edema however patient mentions that this is better than yesterday creatinine 1.5, INR 1.7, BUN of 77 however her creatinine is trending downward, bilirubin at 2.7-3.0 10/23: Patient is still waiting for MRCP. He complains of increasing abdominal distention and abdominal pain. He has bilateral lower extremity edema. Hardwick catheter in place with good urine output. Repeat abdominal ultrasound reveals confirmation of recurrent moderate amount of ascites in the right upper and lower quadrants. Patient has been afebrile, heart rate 96, blood pressure 108/68, pulse ox 95% on room air. Sodium 124, potassium 4.8, chloride 95, CO2 24, BUN 47 creatinine 1.62. Blood sugars running between 157 and 213. Lipase remains elevated at 4221. Patient received 2 doses of IV albumin yesterday as well as IV Lasix. Repeat dose of Samsca 15 mg or hurt for today and Aldactone added by Dr. Rodriguez. Patient is on a 1200 mL fluid restriction. Repeat sodium is at 5 PM today. Review Of Systems: Constitutional: No fever, no chills, no night sweats. EENT: No headache. No blurred vision or double vision, no loss of vision. No loss of Hearing, no ringing in the ears, no dizziness. sore throat related to NG placement Lungs: No shortness of breath, cough, no sputum production. No wheezing. Cardiovascular: No chest pain, no lower extremity edema. No palpitations. No paroxysmal nocturnal dyspnea. No orthopnea. No lightheadedness or dizziness. No syncopal episodes. Abdominal: Reports abdominal pain worsening. Reports abdominal distention. Denies nausea, denies vomiting. No constipation. No bloody or tarry stools. Report loss of appetite. Genitourinary: No dysuria, increased frequency, urgency. No urinary retention. Musculoskeletal: No myalgias. No muscle weakness, no gait dysfunction, no frequent falls. No back pain. No neck pain. Integumentary: No wounds, no lesions. No rash or pruritus. No unusual bruis ing. No change in hair or nails. Neurologic: No aphasia. No facial droop. No change in mentation. No head injury. No headache. No paralysis. No paresthesia. Psychiatric: No depression. No anxiety. No mood swings. Endocrine: No abnormal blood sugars. No weight change. No excessive sweating or thirst. Physical examination General Appearance: Awake ,Alert, cooperative, no distress, appears stated age. Neck HEENT: Supple, no lymphadenopathy, no thyroid enlargement, no carotid bruits. Lungs: Clear to auscultation without crackles or wheezes no rhonchi, no deformity. Chest Wall: Chest wall normal expansion with deep inspiration no tenderness and no deformity was found on exam, no costochondral pain or discomfort. Heart: Regular rate and rhythm, S1, S2 normal, no murmur, rub or gallop. Back: Symmetric, no curvature, ROM normal, no CVA tenderness. Abdomen: Bowel sounds present, mild generalized tenderness, distended with ascites, no hepatosplenomegaly. Extremities: 2+ pedal edema bilateral, atraumatic, no cyanosis. Pulses: 2+ and symmetric. Skin: Skin color, texture, tugor normal, no rashes or lesions. Neurologic: Alert oriented x3 cranial nerves II through XII intact, no motor deficit, no abnormal balance or gait Assessment and plan 1. Acute alcoholic pancreatitis. Start clear liquid diet. Repeat lipase and CMP in the morning. Continue with pain management including Dilaudid 1 mg IV past 2 hours. Continue his Zofran 4 mg IV push every 8 hours as needed. Reglan IV every 6 hours. Daily lipase is still persistently high, however alkaline phosphatase remains to be normal, with mild obstruction prior persist, and increasing abdominal pain, patient might benefit from pancreatic enzyme repla cements each meal 2. Acute kidney injury secondary to dehydration with metabolic acidosis, chronic kidney disease stage II. Continue to monitor kidney function and nephrology on the case 3. Viral gastroenteritis, resolved. 4. Ileus, small bowel, secondary to severe pancreatitis, resolving. NG tube has been removed. General surgery consult appreciated. 5. Ascites secondary to alcoholic abuse and alcoholic liver disease, possible cirrhosis of the liver. Status post paracentesis on October 20. Patient may require repeat paracentesis.. 6. Elevated total bilirubin. MRCP ordered 7. Hyperkalemia, repeat CMP in the morning. Hydration. 8. Diabetes mellitus 2 NovoLog sliding scale, hold Janumet 9. GERD. Protonix 40 mg 10. Hyperlipidemia, hold Vytorin, fenofibrate 160 mg by mouth daily 11. Hypertension hold metoprolol, Cozaar, 12. Alcoholism, patient has not had EtOH consumption for 1 month. No need for CIWA at this time. 13. DVT prophylaxis pneumatic compression stockings. 14. GI prophylaxis Protonix 40 mg IV daily. 15. Covid 19 infection not present. Discharge plan: home CODE STATUS: Full code Impression and plan of care have been directed as dictated by the signing physician. Dayami Camarena nurse practitioner acting as scribe for signing physician. Objective - Vital Signs Vital signs: Vital Signs Temp 97.8 F 10/24/19 05:00 Pulse 96 10/24/19 05:00 Resp 18 10/24/19 05:00 BP 108/68 10/24/19 05:00 Pulse Ox 95 10/24/19 05:00 Intake & Output 10/23/19 10/24/19 10/24/19 18:59 06:59 18:59 Intake Total 1690 Output Total 2400 300 Balance -2400 1390 Weight 107 kg 108.5 kg Intake: Intake, IV Titration 650 Amount Albumin Human 25% 50 ml 50 In Empty Bag 1 bag @ 50 mls/hr IVPB BID MELISSA Rx#: [id number] Sodium Chloride 0.9% 1, 600 000 ml @ 50 mls/hr IV . Q20H MELISSA Rx#:[id number] Oral 1040 Output: Urine 2400 300 Other: Voiding Method Indwelling Catheter Indwelling Catheter - Labs CBC & Chem 7: 10/20/19 06:26 10/24/19 08:20 Labs: Abnormal Lab Results - Last 24 Hours (Table) 10/23/19 10/23/19 10/23/19 Range/Units 11:35 16:58 17:27 Sodium 126 L (137-145) mmol/L POC Glucose (mg/dL) 139 H 149 H (75-99) mg/dL 10/23/19 10/24/19 10/24/19 Range/Units 23:51 00:01 05:13 Sodium (137-145) mmol/L POC Glucose (mg/dL) 179 H 171 H 192 H (75-99) mg/dL Microbiology - Last 24 Hours (Table) 10/21/19 14:30 Gram Stain - Preliminary Ascites Fluid Body Fluid Culture - Preliminary
--- NOTE | 2019-10-24 14:09 | P.PN ---
Subjective Progress Note Date: 10/23/19 This is a 63-year-old male patient of Dr. Garcia who presented to the emergency room with severe abdominal pain with a history of pancreatitis secondary to alcohol abuse. Patient's past medical history significant for hypertension, acid reflux, hyperlipidemia. Patient states he has a history of issues with his gallbladder previous ultrasound showed sludge and polyps. Patient states about a week ago he started to have nausea and stomach discomfort and diarrhea. After a few days the symptoms went away and he was starting to feel much better. Patient was able to eat and tolerate his diet. At that time he began to eat foods and they began to develop increased abdominal pain and nausea. He was seen by Dr. Boothe on Thursday and was given Lyons for pain. The pain increasingly got worse and the pain analgesics did not help. Patient then came to the emergency room. Patient's last alcohol consumption was 1 month ago where he had half a pint of vodka. He has not had any beer or other alcohol beverages since then. Patient denies any fever or chills at this time. Patient had any recent travel no lightheadedness or dizziness. Patient is a nonsmoker. For the last 2 days patient has been unable to eat he does feel a bit shaky due to not eating. Patient continues to have severe abdominal pain and nausea at this time. 10/16: Patient had a renal ultrasound that showed no hydronephrosis bilaterally. Patient continues complaining of abdominal pain. Repeat lab work revealed WBC 3.6, hemoglobin 11.5. Sodium 135, potassium 6.0, chloride 107, CO2 16, BUN 74, creatinine 4.34. Blood sugars running between 117 134. Total bilirubin 1.6, AST 34, ALT 14, alkaline phosphates 36, lipase 6793. Nephrology and surgery are following the patient. Nursing soon to place Hardwick catheter. 10/17: Patient was seen this morning resting in bed, voiced discomfort of NG tube. Abdominal pain has slightly improved today. Labs were reviewed, WBCs were 4.4, hemoglobin 11.5, sodium 135 BUN 77, creatinine 2.86, lipase improving at 4222. Blood sugars are stable. Nephrology gastro-and surgery remain on the case. NG tube and Hardwick catheter in place. We well repeat Two-view of the abdomen in the morning along with repeat CBC and CMP with lipase daily. 10/18: Patient seen and examined this morning, abdomen appears to be less distended today. NG remains in place with ice chips only. Abdominal x-ray showed findings compatible with partial small bowel obstruction air is within the colon. We'll do Dulcolax suppository today and added Reglan IV every 6 hours. Labs were reviewed sodium was 135, BUN 79, creatinine 2.05, blood sugar averaging 1:30 to 150s lipase down to 3196 today. We'll repeat labs tomorrow morning. 10/19: Patient had 2 small bowel movements and passing gas, NG tube was removed last night. There is some concern that urine has been dark. He has been continued on IV fluids at 75 mL per hour. Patient has been afebrile, heart rate 96, blood pressure 105/69, pulse ox 92% on room air. Repeat blood work reveals WBC 6.2, hemoglobin 11.4, platelet count 319. Sodium 134, potassium 4.7, chloride 102, CO2 25, BUN 78 and creatinine 1.83. Total bilirubin 2.5, lipase 3514. We will plan to order MRCP due to continued elevated total bilirubin concern for stone. Also ordered ultrasound of the abdomen for possible paracentesis due to ascites. 10/20: Patient was unable to undergo paracentesis yesterday due to elevated INR. He is status post vitamin K and INR this morning is at 1.6. Other lab work reveals BUN 84 and creatinine 1.72. Blood sugar 149. Lipase 3572. Total b ilirubin is 3. Liver function tests normal. MRCP was unable to be done due to ascites. Both paracentesis and MRCP are expected to be done today. The patient has been cleared to start clear liquid diet by both GI and general surgery which will plan to do once imaging studies are completed. Patient has been afebrile, heart rate 99, blood pressure 117/70, pulse ox 92% on room air. IV fluids dec reased to KVO until after paracentesis. IV Dilaudid changed every 2 hours. 10/21 patient had loose stools a large amount today, however he feels less bloated, less distention, especially after paracentesis which took out approximately 9.8 L of serous fluid,, patient only had ice tea, still on clear liquid diet, will request a dictation for low-fat pancreatic diet, patient has history of off and on diarrhea from absorption, and lipase still elevated around 4600 still with left-sided abdominal pain, no fever no chills, has trace edema however patient mentions that this is better than yesterday creatinine 1.5, INR 1.7, BUN of 77 however her creatinine is trending downward, bilirubin at 2.7-3.0 8/9 had low fat diet today abdomen has left abdominal pain, still slightly distended mrcp to be resched, lipase higher 6000. check ca19-9 , cont low fat diet health tech has seen patient for counceling Review Of Systems: Constitutional: No fever, no chills, no night sweats. EENT: No headache. No blurred vision or double vision, no loss of vision. No loss of Hearing, no ringing in the ears, no dizziness. sore throat related to NG placement Lungs: No shortness of breath, cough, no sputum production. No wheezing. Cardiovascular: No chest pain, no lower extremity edema. No palpitations. No paroxysmal nocturnal dyspnea. No orthopnea. No lightheadedness or dizziness. No syncopal episodes. Abdominal: Reports abdominal pain worsening. Reports abdominal distention. Denies nausea, denies vomiting. No constipation. No bloody or tarry stools. Report loss of appetite. Genitourinary: No dysuria, increased frequency, urgency. No urinary retention. Musculoskeletal: No myalgias. No muscle weakness, no gait dysfunction, no frequent falls. No back pain. No neck pain. Integumentary: No wounds, no lesions. No rash or pruritus. No unusual bruising. No change in hair or nails. Neurologic: No aphasia. No facial droop. No change in mentation. No head injury. No headache. No paralysis. No paresthesia. Psychiatric: No depression. No anxiety. No mood swings. Endocrine: No abnormal blood sugars. No weight change. No excessive sweating or thirst. Objective - Vital Signs Vital signs: Vital Signs Temp 97.6 F 10/24/19 11:40 Pulse 92 10/24/19 11:40 Resp 18 10/24/19 11:40 BP 113/72 10/24/19 11:40 Pulse Ox 94 L 10/24/19 11:40 Intake & Output 10/23/19 10/24/19 10/24/19 18:59 06:59 18:59 Intake Total 1690 240 Output Total 2400 300 Balance -2400 1390 240 Weight 107 kg 108.5 kg Intake: Intake, IV Titration 650 Amount Albumin Human 25% 50 ml 50 In Empty Bag 1 bag @ 50 mls/hr IVPB BID MELISSA Rx#: [id number] Sodium Chloride 0.9% 1, 600 000 ml @ 50 mls/hr IV . Q20H MELISSA Rx#:[id number] Oral 1040 240 Output: Urine 2400 300 Other: Voiding Method Indwelling Catheter Indwelling Catheter Indwelling Catheter - Constitutional General appearance: Present: cooperative, no acute distress - EENT Eyes: Present: anicteric sclerae, EOMI, PERRLA, dentition normal, normal appearance ENT: Present: NA/AT, normal oropharynx - Respiratory Respiratory: bilateral: CTA, negative: diminished, dullness, rales, rhonchi - Cardiovascular Rhythm: regular Heart sounds: normal: S1, S2 Abnormal Heart Sounds: Absent: systolic murmur, diastolic murmur, rub, S3 Gallop, S4 Gallop, click, other - Gastrointestinal General gastrointestinal: Present: distended, hyperactive bowel sounds - Integumentary Integumentary: Present: normal, normal turgor - Neurologic Neurologic: Present: CNII-XII intact - Musculoskeletal Musculoskeletal: Present: gait normal - Psychiatric Psychiatric: Present: A&O x's 3, appropriate affect, intact judgment & insight - Labs CBC & Chem 7: 10/20/19 06:26 10/24/19 08:20 Labs: Abnormal Lab Results - Last 24 Hours (Table) 10/23/19 10/23/19 10/23/19 Range/Units 16:58 17:27 23:51 Sodium 126 L (137-145) mmol/L Chloride (98-107) mmol/L BUN (9-20) mg/dL Creatinine (0.66-1.25) mg/dL Glucose (74-99) mg/dL POC Glucose (mg/dL) 149 H 179 H (75-99) mg/dL Calcium (8.4-10.2) mg/dL Total Bilirubin (0.2-1.3) mg/dL Total Protein (6.3-8.2) g/dL Albumin (3.5-5.0) g/dL Lipase (23-300) U/L 08/01/0210/24/19 10/24/19 Range/Units 00:01 05:13 08:20 Sodium 124 L (137-145) mmol/L Chloride 95 L (98-107) mmol/L BUN 47 H (9-20) mg/dL Creatinine 1.62 H (0.66-1.25) mg/dL Glucose 157 H (74-99) mg/dL POC Glucose (mg/dL) 171 H 192 H (75-99) mg/dL Calcium 8.1 L (8.4-10.2) mg/dL Total Bilirubin 2.7 H (0.2-1.3) mg/dL Total Protein 4.5 L (6.3-8.2) g/dL Albumin 2.1 L (3.5-5.0) g/dL Lipase 4221 H (23-300) U/L 10/24/19 Range/Units 11:37 Sodium (137-145) mmol/L Chloride (98-107) mmol/L BUN (9-20) mg/dL Creatinine (0.66-1.25) mg/dL Glucose (74-99) mg/dL POC Glucose (mg/dL) 213 H (75-99) mg/dL Calcium (8.4-10.2) mg/dL Total Bilirubin (0.2-1.3) mg/dL Total Protein (6.3-8.2) g/dL Albumin (3.5-5.0) g/dL Lipase (23-300) U/L Microbiology - Last 24 Hours (Table) 10/21/19 14:30 Gram Stain - Preliminary Ascites Fluid Body Fluid Culture - Preliminary Assessment and Plan Plan: Assessment and plan 1. Acute pancreatitis. Patient has Start clear liquid diet. 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 Continue with pain management including Dilaudid 1 mg IV past 2 hours. Continue his Zofran 4 mg IV push every 8 hours as needed. Reglan IV every 6 hours. Daily lipase is still persistently high, however alkaline phosphatase remains to be normal, with mild obstruction prior persist, and increasing abdominal pain, patient might benefit from pancreatic enzyme replacements each meal. check ca19- 9. resched mrcp 2. Acute kidney injury secondary to dehydration with metabolic acidosis, chronic kidney disease stage II. Continue to monitor kidney function and nephrology on the case 3. Viral gastroenteritis, resolved. 4. Ileus, small bowel, secondary to severe pancreatitis, resolving. NG tube has been removed. General surgery consult appreciated. 5. Ascites secondary to alcoholic abuse. Paracentesis scheduled for today. 6. Transaminitis secondary to alcoholic liver disease Elevated total bilirubin. MRCP ordered canceled secondary to severe paracentesis GI following 7. Hyperkalemia, repeat CMP in the morning. Hydration. 8. Diabetes mellitus 2 NovoLog sliding scale, hold Janumet 9. GERD. Protonix 40 mg 10. Hyperlipidemia, hold Vytorin, fenofibrate 160 mg by mouth daily 11. Hypertension hold metoprolol, Cozaar, 12. Alcoholism, patient has not had EtOH consumption for 1 month. No need for CIWA at this time. 13. DVT prophylaxis pneumatic compression stockings. 14. GI prophylaxis Protonix 40 mg IV daily. 15. Covid 19 infection not present. Discharge plan: home
[2019-10-24 17:14] LABS: Glucose,Whole Blood 192 mg/dL (75-99)
[2019-10-24] MEDS ORDERED: SODIUM CHLORIDE TAB 1 GM TAB PO STA (18:10)
--- NOTE | 2019-10-24 19:42 | MR ---
EXAMINATION TYPE: MR MRCP DATE OF EXAM: 10/24/2019 COMPARISON: MRCP study [address] abdomen and pelvis 8 days ago. HISTORY: elevated lipase. Standard multiplanar, multisequence MRI departmental protocol Multiplanar, multisequence images of the abdomen were acquired. Thin and thick slice MRCP imaging per formed on MRI scanner. FINDINGS: Exam is once again suboptimal as there is inhomogeneous fat saturation along with significa nt artifact perhaps related to body habitus, ascites, and some underlying patient motion Liver/gallbladder/pancreas/biliary system: Somewhat small size liver remains present with small to mo derate amount of abdominal ascites bilaterally. Some lobulated contour to the liver remains present. Gallbladder is seen without definitive intraluminal gallstone. No gross intrahepatic or extra hepatic biliary dilatation. No concerning intrahepatic mass clearly identified. Suboptimal visualization of pancreas and pancreatic duct on MRI. Pancreas appeared within normal limits in recent CT. MRCP imagin g essentially nondiagnostic. Other: Small left greater than right pleural effusions redemonstrated with associated compressive ate lectasis. No new biliary dilatation. No new gross hydronephrosis. IMPRESSION: Markedly suboptimal study with recurrent small to moderate-sized abdominal ascites. Somew hat small size lobulated liver consistent with underlying cirrhosis. No obvious biliary dilatation. N o obvious concerning intrahepatic mass.
[2019-10-24] MEDS: METOPROLOL SUCCINATE (ER) 100 MG TAB.ER.24H PO SCH (21:39)
[2019-10-25 00:05] LABS: Glucose,Whole Blood 177 mg/dL (75-99)
[2019-10-25] MEDS: INSULIN ASPART (NovoLOG) 100 UNIT/ML VIAL SQ SCH ×5 (00:12→23:23)
[2019-10-25] MEDS: HYDROmorphone 1 MG/ML 1 ML SYRINGE IVP PRN ×10 (02:50→23:24)
[2019-10-25] MEDS: METOCLOPRAMIDE 5 MG/ML 2 ML VIAL IVP SCH ×4 (05:00→23:23)
[2019-10-25 05:46] LABS: Glucose,Whole Blood 189 mg/dL (75-99)
[2019-10-25] MEDS: PANTOPRAZOLE 40 MG/10 ML VIAL IV SCH (08:01)
[2019-10-25] MEDS: FENOFIBRATE 160 MG TAB PO SCH (08:02)
[2019-10-25] MEDS: MIDODRINE 5 MG TAB PO SCH ×3 (08:02→17:15)
[2019-10-25] MEDS: TAMSULOSIN 0.4 MG CAP.ER.24H PO SCH (08:03)
[2019-10-25] MEDS: SPIRONOLACTONE 25 MG TAB PO SCH ×2 (08:03→21:22)
[2019-10-25 08:32] LABS: Albumin 2.1 g/dL (3.5-5.0); Calcium 8.4 mg/dL (8.4-10.2); Magnesium 1.7 mg/dL (1.6-2.3); Potassium 5.2 mmol/L (3.5-5.1); Total Bilirubin 2.8 mg/dL (0.2-1.3); Total Protein 4.7 g/dL (6.3-8.2)
[2019-10-25] MEDS: RIFAXIMIN 550 MG TABLET PO SCH ×2 (09:02→21:22)
[2019-10-25] MEDS: bisacodyL 10 MG SUPP RECTAL SCH ×2 (09:03→21:22)
[2019-10-25] MEDS: ALBUMIN HUMAN 25% 50 ML in EMPTY BAG 1 BAG IVPB SCH ×4 (09:05→14:04)
--- NOTE | 2019-10-25 10:09 | P.PN ---
Subjective Progress Note Date: 10/24/19 Principal diagnosis: Ascites, pancreatitis The patient is seen lying in bed reporting that his abdominal pain is stable. He was requiring increased doses of pain meds yesterday and was switched back to liquid diet. Objective - Vital Signs Vital signs: Vital Signs Temp 97.6 F 10/24/19 11:40 Pulse 92 10/24/19 11:40 Resp 18 10/24/19 11:40 BP 113/72 10/24/19 11:40 Pulse Ox 94 L 10/24/19 11:40 Intake & Output 10/23/19 10/24/19 10/24/19 18:59 06:59 18:59 Intake Total 1690 240 Output Total 2400 300 Balance -2400 1390 240 Weight 107 kg 108.5 kg Intake: Intake, IV Titration 650 Amount Albumin Human 25% 50 ml 50 In Empty Bag 1 bag @ 50 mls/hr IVPB BID MELISSA Rx#: [id number] Sodium Chloride 0.9% 1, 600 000 ml @ 50 mls/hr IV . Q20H MELISSA Rx#:[id number] Oral 1040 240 Output: Urine 2400 300 Other: Voiding Method Indwelling Catheter Indwelling Catheter Indwelling Catheter - Exam On physical examination, patient appears comfortable in no apparent distress. HEAD: Normocephalic, atraumatic. EYES: No scleral icterus. No conjunctival injection. MOUTH: No lesions, tongue midline. NECK: Trachea midline, no gross abnormalities. ABDOMEN: Soft, mildly tender to palpation. Bowel sounds are positive. No organomegaly. No guarding or rigidity. EXTREMITIES: No pedal edema. SKIN: No rashes, no jaundice. NEUROLOGIC: Alert and oriented x3. No focal deficits. - Labs CBC & Chem 7: 10/20/19 06:26 10/25/19 07:31 Labs: Abnormal Lab Results - Last 24 Hours (Table) 10/23/19 10/23/19 10/23/19 Range/Units 16:58 17:27 23:51 Sodium 126 L (137-145) mmol/L Chloride (98-107) mmol/L BUN (9-20) mg/dL Creatinine (0.66-1.25) mg/dL Glucose (74-99) mg/dL POC Glucose (mg/dL) 149 H 179 H (75-99) mg/dL Calcium (8.4-10.2) mg/dL Total Bilirubin (0.2-1.3) mg/dL Total Protein (6.3-8.2) g/dL Albumin (3.5-5.0) g/dL Lipase (23-300) U/L 10/24/19 10/24/19 10/24/19 Range/Units 00:01 05:13 08:20 Sodium 124 L (137-145) mmol/L Chloride 95 L (98-107) mmol/L BUN 47 H (9-20) mg/dL Creatinine 1.62 H (0.66-1.25) mg/dL Glucose 157 H (74-99) mg/dL POC Glucose (mg/dL) 171 H 192 H (75-99) mg/dL Calcium 8.1 L (8.4-10.2) mg/dL Total Bilirubin 2.7 H (0.2-1.3) mg/dL Total Protein 4.5 L (6.3-8.2) g/dL Albumin 2.1 L (3.5-5.0) g/dL Lipase 4221 H (23-300) U/L 10/24/19 Range/Units 11:37 Sodium (137-145) mmol/L Chloride (98-107) mmol/L BUN (9-20) mg/dL Creatinine (0.66-1.25) mg/dL Glucose (74-99) mg/dL POC Glucose (mg/dL) 213 H (75-99) mg/dL Calcium (8.4-10.2) mg/dL Total Bilirubin (0.2-1.3) mg/dL Total Protein (6.3-8.2) g/dL Albumin (3.5-5.0) g/dL Lipase (23-300) U/L Microbiology - Last 24 Hours (Table) 10/21/19 14:30 Gram Stain - Preliminary Ascites Fluid Body Fluid Culture - Preliminary Assessment and Plan (1) Acute pancreatitis Narrative/Plan: 63-year-old male presenting to the hospital with abdominal pain and being treated for acute alcoholic pancreatitis. Current Visit: Yes Status: Acute Code(s): K85.90 - ACUTE PANCREATITIS WITHOUT NECROSIS OR INFECTION, UNSP SNOMED Code(s): 693715730 (2) Abdominal pain Current Visit: Yes Status: Acute Code(s): R10.9 - UNSPECIFIED ABDOMINAL PAIN SNOMED Code(s): 35456684 (3) Ascites Current Visit: Yes Status: Acute Code(s): R18.8 - OTHER ASCITES SNOMED Code(s): 926352571 Plan: Supportive care Diet as tolerated Judicious use of narcotics, patient should be instructed to spread out pain medications as tolerated Continue to monitor clinically Continue monitor CBC, BMP, LFTs Alcohol abstinence MRCP performed and limited, recurrent ascites, no biliary or pancreatic pathology noted Aldactone 25 mg twice daily was added by nephrology service for diuresis Thank you for allowing us to participate in the care of the patient
--- NOTE | 2019-10-25 10:48 | P.PN ---
Subjective Patient is seen in follow-up for acute kidney injury. Renal function continues to worsen. Remains edematous. Sodium level stable at 122. Has a Hardwick catheter. Urine output on the lower side despite IV Lasix yesterday. Underwent paracentesis on October 20 with 9.8 L drained. No vomiting or diarrhea. Vital signs are stable. General: The patient appeared well nourished and normally developed. HEENT: Head exam is unremarkable. Neck is without jugular venous distension. LUNGS: Breath sounds decreased. HEART: Rate and Rhythm are regular. ABDOMEN: Soft, nontender. Distention noted. EXTREMITITES: 2+ edema. Objective - Vital Signs Vital signs: Vital Signs Temp 98.0 F 10/25/19 05:00 Pulse 94 10/25/19 08:00 Resp 18 10/25/19 08:00 BP 93/61 10/25/19 05:00 Pulse Ox 94 L 10/25/19 05:00 Intake & Output 10/24/19 10/25/19 10/25/19 18:59 06:59 18:59 Intake Total 720 240 Output Total 0 Balance 720 240 0 Weight 111.5 kg Intake: Oral 720 240 Output: Stool 0 Other: Voiding Method Indwelling Catheter Indwelling Catheter Indwelling Catheter - Labs CBC & Chem 7: 10/20/19 06:26 10/25/19 07:31 Labs: Abnormal Lab Results - Last 24 Hours (Table) 10/24/19 10/24/19 10/24/19 Range/Units 11:37 16:00 17:12 PT (9.0-12.0) sec INR (<1.2) Sodium 122 L (137-145) mmol/L Potassium (3.5-5.1) mmol/L Chloride (98-107) mmol/L Carbon Dioxide (22-30) mmol/L BUN (9-20) mg/dL Creatinine (0.66-1.25) mg/dL Glucose (74-99) mg/dL POC Glucose (mg/dL) 213 H 192 H (75-99) mg/dL Total Bilirubin (0.2-1.3) mg/dL Total Protein (6.3-8.2) g/dL Albumin (3.5-5.0) g/dL 10/25/19 10/25/19 10/25/19 Range/Units 00:01 05:42 07:31 PT (9.0-12.0) sec INR (<1.2) Sodium 122 L (137-145) mmol/L Potassium 5.2 H (3.5-5.1) mmol/L Chloride 90 L (98-107) mmol/L Carbon Dioxide 20 L (22-30) mmol/L BUN 58 H (9-20) mg/dL Creatinine 2.68 H (0.66-1.25) mg/dL Glucose 149 H (74-99) mg/dL POC Glucose (mg/dL) 177 H 189 H (75-99) mg/dL Total Bilirubin 2.8 H (0.2-1.3) mg/dL Total Protein 4.7 L (6.3-8.2) g/dL Albumin 2.1 L (3.5-5.0) g/dL 10/25/19 Range/Units 07:31 PT 29.0 H (9.0-12.0) sec INR 3.0 H (<1.2) Sodium (137-145) mmol/L Potassium (3.5-5.1) mmol/L Chloride (98-107) mmol/L Carbon Dioxide (22-30) mmol/L BUN (9-20) mg/dL Creatinine (0.66-1.25) mg/dL Glucose (74-99) mg/dL POC Glucose (mg/dL) (75-99) mg/dL Total Bilirubin (0.2-1.3) mg/dL Total Protein (6.3-8.2) g/dL Albumin (3.5-5.0) g/dL Microbiology - Last 24 Hours (Table) 10/21/19 14:30 Gram Stain - Preliminary Ascites Fluid Body Fluid Culture - Preliminary Assessment and Plan Plan: Assessment: 1. Acute kidney injury secondary to ATN secondary to hypotension. Now appears to have developed hepatorenal syndrome. Renal function worse - cr 2.68 today. 2. Alcohol induced acute pancreatitis. 3. Volume overload. 4. Ascites status post paracentesis with 9.8 L drained on October 20. 5. Hypotension maintained on midodrine. 6. Hypervolemic hyponatremia. 7. Hyperkalemia secondary to acute kidney injury and metabolic acidosis. Stable. Plan: Currently receiving IV albumin and scheduled to receive another dose post paracentesis. Lasix 80 mg IV once today. Status post 2 doses of Samsca. Maintain spironolactone 25 mg twice daily. 1200 cc fluid restriction. Repeat sodium level at 5 PM today. Remains off IV fluids. Continue to monitor renal function and urine output. Patient has a family meeting tomorrow. I have also discussed with him the potential need for renal replacement therapy due to worsening renal function and volume overload. Patient states he will think about it and let me know tomorrow.
[2019-10-25 11:08] LABS: Glucose,Whole Blood 219 mg/dL (75-99)
[2019-10-25] MEDS: FUROSEMIDE 10 MG/ML 10 ML VIAL IV SCH (12:21)
--- NOTE | 2019-10-25 13:57 | P.PN ---
Subjective Progress Note Date: 10/25/19 This is a 63-year-old male patient of Dr. Garcia who presented to the emergency room with severe abdominal pain with a history of pancreatitis secondary to alcohol abuse. Patient's past medical history significant for hypertension, acid reflux, hyperlipidemia. Patient states he has a history of issues with his gallbladder previous ultrasound showed sludge and polyps. Patient states about a week ago he started to have nausea and stomach discomfort and diarrhea. After a few days the symptoms went away and he was starting to feel much better. Patient was able to eat and tolerate his diet. At that time he began to eat foods and they began to develop increased abdominal pain and nausea. He was s een by Dr. Boothe on Thursday and was given Mobile for pain. The pain increasingly got worse and the pain analgesics did not help. Patient then came to the emergency room. Patient's last alcohol consumption was 1 month ago where he had half a pint of vodka. He has not had any beer or other alcohol beverages since then. Patient denies any fever or chills at this time. Patient had any recent travel no lightheadedness or dizziness. Patient is a nonsmoker. For the last 2 days patient has been unable to eat he does feel a bit shaky due to not eating. Patient continues to have severe abdominal pain and nausea at this time. 10/16: Patient had a renal ultrasound that showed no hydronephrosis bilaterally. Patient continues complaining of abdominal pain. Repeat lab work revealed WBC 3.6, hemoglobin 11.5. Sodium 135, potassium 6.0, chloride 107, CO2 16, BUN 74, creatinine 4.34. Blood sugars running between 117 134. Total bilirubin 1.6, AST 34, ALT 14, alkaline phosphates 36, lipase 6793. Nephrology and surgery are following the patient. Nursing soon to place Hardwick catheter. 10/17: Patient was seen this morning resting in bed, voiced discomfort of NG tube. Abdominal pain has slightly improved today. Labs were reviewed, WBCs were 4.4, hemoglobin 11.5, sodium 135 BUN 77, creatinine 2.86, lipase improving at 4222. Blood sugars are stable. Nephrology gastro-and surgery remain on the case. NG tube and Hardwick catheter in place. We well repeat Two-view of the abdomen in the morning along with repeat CBC and CMP with lipase daily. 8/5: Patient seen and examined this morning, abdomen appears to be less distended today. NG remains in place with ice chips only. Abdominal x-ray showed findings compatible with partial small bowel obstruction air is within the colon. We'll do Dulcolax suppository today and added Reglan IV every 6 hours. Labs were reviewed sodium was 135, BUN 79, creatinine 2.05, blood sugar averaging 1:30 to 150s lipase down to 3196 today. We'll repeat labs tomorrow morning. 10/19: Patient had 2 small bowel movements and passing gas, NG tube was removed last night. There is some concern that urine has been dark. He has been continued on IV fluids at 75 mL per hour. Patient has been afebrile, heart rate 96, blood pressure 105/69, pulse ox 92% on room air. Repeat blood work reveals WBC 6.2, hemoglobin 11.4, platelet count 319. Sodium 134, potassium 4.7, chloride 102, CO2 25, BUN 78 and creatinine 1.83. Total bilirubin 2.5, lipase 3514. We will plan to order MRCP due to continued elevated total bilirubin concern for stone. Also ordered ultrasound of the abdomen for possible paracentesis due to ascites. 10/20: Patient was unable to undergo paracentesis yesterday due to elevated INR. He is status post vitamin K and INR this morning is at 1.6. Other lab work reveals BUN 84 and creatinine 1.72. Blood sugar 149. Lipase 3572. Total bi lirubin is 3. Liver function tests normal. MRCP was unable to be done due to ascites. Both paracentesis and MRCP are expected to be done today. The patient has been cleared to start clear liquid diet by both GI and general surgery which will plan to do once imaging studies are completed. Patient has been afebrile, heart rate 99, blood pressure 117/70, pulse ox 92% on room air. IV fluids decr eased to KVO until after paracentesis. IV Dilaudid changed every 2 hours. 10/21 patient had loose stools a large amount today, however he feels less bloated, less distention, especially after paracentesis which took out approximately 9.8 L of serous fluid,, patient only had ice tea, still on clear l iquid diet, will request a dictation for low-fat pancreatic diet, patient has history of off and on diarrhea from absorption, and lipase still elevated around 4600 still with left-sided abdominal pain, no fever no chills, has trace edema however patient mentions that this is better than yesterday creatinine 1.5, INR 1.7, BUN of 77 however her creatinine is trending downward, bilirubin at 2.7-3.0 10/23: Patient is still waiting for MRCP. He complains of increasing abdominal distention and abdominal pain. He has bilateral lower extremity edema. Hardwick catheter in place with good urine output. Repeat abdominal ultrasound reveals confirmation of recurrent moderate amount of ascites in the right upper and lower quadrants. Patient has been afebrile, heart rate 96, blood pressure 108/68, pulse ox 95% on room air. Sodium 124, potassium 4.8, chloride 95, CO2 24, BUN 47 creatinine 1.62. Blood sugars running between 157 and 213. Lipase remains elevated at 4221. Patient received 2 doses of IV albumin yesterday as well as IV Lasix. Repeat dose of Samsca 15 mg or hurt for today and Aldactone added by Dr. Rodriguez. Patient is on a 1200 mL fluid restriction. Repeat sodium is at 5 PM today. 10/24: Patient continues to have ascites and abdominal discomfort. A repeat paracentesis has been ordered. Patient is currently on Lasix 1 dose of 40 mg IV given yesterday and now on 80 mg IV daily, Aldactone 25 mg twice daily, Xifaxan added. Albumin ordered for today and tomorrow. He is on a fluid restriction of 1200 ML's. Patient has been afebrile, heart rate 94, blood pressure 93/61, puls e ox 94% on room air. Patient is continued on Dilaudid 1 mg every 2 hours. MRCP revealed suboptimal study with recurrent small to moderate size abdominal ascites. Somewhat small sized lobulated liver consistent with underlying cirrhosis. No obvious biliary dilatation. No obvious concerning intrahepatic mass. Repeat blood work reveals INR of 3. Sodium 122, potassium 5.2, chloride 90, CO2 20, BUN 15 creatinine 2.68. Blood sugars running between 149 and 219. Total bilirubin 2.8. CA 199 normal at 30. Review Of Systems: Constitutional: No fever, no chills, no night sweats. EENT: No headache. No blurred vision or double vision, no loss of vision. No loss of Hearing, no ringing in the ears, no dizziness. sore throat related to NG placement Lungs: No shortness of breath, cough, no sputum production. No wheezing. Cardiovascular: No chest pain, no lower extremity edema. No palpitations. No paroxysmal nocturnal dyspnea. No orthopnea. No lightheadedness or dizziness. No syncopal episodes. Abdominal: Reports abdominal pain worsening. Reports abdominal distention. Denies nausea, denies vomiting. No constipation. No bloody or tarry stools. Report loss of appetite. Genitourinary: No dysuria, increased frequency, urgency. Reports urinary retention. Musculoskeletal: No myalgias. No muscle weakness, no gait dysfunction, no frequent falls. No back pain. No neck pain. Integumentary: No wounds, no lesions. No rash or pruritus. No unusual bruising. No change in hair or nails. Neurologic: No aphasia. No facial droop. No change in mentation. No head injury. No headache. No paralysis. No paresthesia. Psychiatric: No depression. No anxiety. No mood swings. Endocrine: No abnormal blood sugars. No weight change. No excessive sweating or thirst. Physical examination General Appearance: Awake ,Alert, cooperative, no distress, appears stated age. Neck HEENT: Supple, no lymphadenopathy, no thyroid enlargement, no carotid bruits. Lungs: Clear to auscultation without crackles or wheezes no rhonchi, no deformity. Chest Wall: Chest wall normal expansion with deep inspiration no tenderness and no deformity was found on exam, no costochondral pain or discomfort. Heart: Regular rate and rhythm, S1, S2 normal, no murmur, rub or gallop. Back: Symmetric, no curvature, ROM normal, no CVA tenderness. Abdomen: Bowel sounds present, mild generalized tenderness, distended with ascites, no hepatosplenomegaly. Hardwick catheter draining dark elvis urine. Extremities: 2+ pedal edema bilateral, atraumatic, no cyanosis. Pulses: 2+ and symmetric. Skin: Skin color, texture, tugor normal, no rashes or lesions. Neurologic: Alert oriented x3 cranial nerves II through XII intact, no motor deficit, no abnormal balance or gait Assessment and plan 1. Acute alcoholic pancreatitis. Start clear liquid diet/for liquid diet. Monitor lipase, CMP in the morning. Continue with pain management including Dilaudid 1 mg IV past 2 hours. Continue his Zofran 4 mg IV push every 8 hours as needed. Reglan IV every 6 hours. 2. Acute kidney injury secondary to dehydration with metabolic acidosis, chronic kidney disease stage II. Continue to monitor kidney function and nephrology on the case 3. Viral gastroenteritis, resolved. 4. Ileus, small bowel, secondary to severe pancreatitis, resolving. NG tube has been removed. General surgery consult appreciated. 5. Ascites secondary to alcoholic abuse and alcoholic liver disease, cirrhosis of the liver. Status post paracentesis on October 20. Repeat paracentesis ordered. Repeat ammonia level, PT INR, CMP 6. Elevated total bilirubin. MRCP ordered/as above 7. Hyperkalemia, repeat CMP in the morning. Hydration. 8. Diabetes mellitus 2 NovoLog sliding scale, hold Janumet 9. GERD. Protonix 40 mg 10. Hyperlipidemia, hold Vytorin, fenofibrate 160 mg by mouth daily 11. Hypertension hold metoprolol, Cozaar, 12. Alcoholism, patient has not had EtOH consumption for 1 month. No need for CIWA at this time. 13. Electrolyte abnormalities with hyponatremia, hyperkalemia, hypo-chloremia. Nephrology consult appreciated. 14. GI prophylaxis Protonix 40 mg IV daily. 15. DVT prophylaxis pneumatic compression stockings. 16. Covid 19 infection not present. Discharge plan: home CODE STATUS: Full code Impression and plan of care have been directed as dictated by the signing physician. Dayami Camarena nurse practitioner acting as scribe for signing physician. Objective - Vital Signs Vital signs: Vital Signs Temp 98.0 F 10/25/19 05:00 Pulse 94 10/25/19 05:00 Resp 18 10/25/19 05:00 BP 93/61 10/25/19 05:00 Pulse Ox 94 L 10/25/19 05:00 Intake & Output 10/24/19 10/25/19 10/25/19 18:59 06:59 18:59 Intake Total 720 240 Balance 720 240 Weight 111.5 kg Intake: Oral 720 240 Other: Voiding Method Indwelling Catheter Indwelling Catheter - Labs CBC & Chem 7: 10/20/19 06:26 10/25/19 07:31 Labs: Abnormal Lab Results - Last 24 Hours (Table) 10/24/19 10/24/19 10/24/19 Range/Units 08:20 11:37 16:00 Sodium 124 L 122 L (137-145) mmol/L Chloride 95 L (98-107) mmol/L BUN 47 H (9-20) mg/dL Creatinine 1.62 H (0.66-1.25) mg/dL Glucose 157 H (74-99) mg/dL POC Glucose (mg/dL) 213 H (75-99) mg/dL Calcium 8.1 L (8.4-10.2) mg/dL Total Bilirubin 2.7 H (0.2-1.3) mg/dL Total Protein 4.5 L (6.3-8.2) g/dL Albumin 2.1 L (3.5-5.0) g/dL Lipase 4221 H (23-300) U/L 10/24/19 10/25/19 10/25/19 Range/Units 17:12 00:01 05:42 Sodium (137-145) mmol/L Chloride (98-107) mmol/L BUN (9-20) mg/dL Creatinine (0.66-1.25) mg/dL Glucose (74-99) mg/dL POC Glucose (mg/dL) 192 H 177 H 189 H (75-99) mg/dL Calcium (8.4-10.2) mg/dL Total Bilirubin (0.2-1.3) mg/dL Total Protein (6.3-8.2) g/dL Albumin (3.5-5.0) g/dL Lipase (23-300) U/L Microbiology - Last 24 Hours (Table) 10/21/19 14:30 Gram Stain - Preliminary Ascites Fluid Body Fluid Culture - Preliminary
[2019-10-25] MEDS ORDERED: PHYTONADIONE ORAL 5 MG/5 ML ORAL.SYRG PO STA (14:10)
[2019-10-25 16:56] LABS: Glucose,Whole Blood 155 mg/dL (75-99)
[2019-10-25] MEDS: METOPROLOL SUCCINATE (ER) 100 MG TAB.ER.24H PO SCH (21:22)
[2019-10-25 23:04] LABS: Glucose,Whole Blood 141 mg/dL (75-99)
[2019-10-26] MEDS: HYDROmorphone 1 MG/ML 1 ML SYRINGE IVP PRN ×11 (01:15→22:20)
--- NOTE | 2019-10-26 01:51 | P.PN ---
Subjective Progress Note Date: 10/25/19 Principal diagnosis: Ascites, pancreatitis The patient is seen lying in bed reporting that his abdominal pain is stable. No nausea or vomiting. Nephrology is instituted in the fluid restriction. Objective - Vital Signs Vital signs: Vital Signs Temp 98.2 F 10/25/19 11:34 Pulse 93 10/25/19 11:34 Resp 18 10/25/19 11:34 BP 113/69 10/25/19 11:34 Pulse Ox 94 L 10/25/19 11:34 Intake & Output 10/24/19 10/25/19 10/25/19 18:59 06:59 18:59 Intake Total 720 240 120 Output Total 0 Balance 720 240 120 Weight 111.5 kg Intake: Oral 720 240 120 Output: Stool 0 Other: Voiding Method Indwelling Catheter Indwelling Catheter Indwelling Catheter - Exam On physical examination, patient appears comfortable in no apparent distress. HEAD: Normocephalic, atraumatic. EYES: No scleral icterus. No conjunctival injection. MOUTH: No lesions, tongue midline. NECK: Trachea midline, no gross abnormalities. ABDOMEN: Soft, mildly tender to palpation. Bowel sounds are positive. No organomegaly. No guarding or rigidity. EXTREMITIES: No pedal edema. SKIN: No rashes, no jaundice. NEUROLOGIC: Alert and oriented x3. No focal deficits. - Labs CBC & Chem 7: 10/20/19 06:26 10/25/19 17:35 Labs: Abnormal Lab Results - Last 24 Hours (Table) 10/24/19 10/24/19 10/25/19 Range/Units 16:00 17:12 00:01 PT (9.0-12.0) sec INR (<1.2) Sodium 122 L (137-145) mmol/L Potassium (3.5-5.1) mmol/L Chloride (98-107) mmol/L Carbon Dioxide (22-30) mmol/L BUN (9-20) mg/dL Creatinine (0.66-1.25) mg/dL Glucose (74-99) mg/dL POC Glucose (mg/dL) 192 H 177 H (75-99) mg/dL Total Bilirubin (0.2-1.3) mg/dL Total Protein (6.3-8.2) g/dL Albumin (3.5-5.0) g/dL 10/25/19 10/25/19 10/25/19 Range/Units 05:42 07:31 07:31 PT 29.0 H (9.0-12.0) sec INR 3.0 H (<1.2) Sodium 122 L (137-145) mmol/L Potassium 5.2 H (3.5-5.1) mmol/L Chloride 90 L (98-107) mmol/L Carbon Dioxide 20 L (22-30) mmol/L BUN 58 H (9-20) mg/dL Creatinine 2.68 H (0.66-1.25) mg/dL Glucose 149 H (74-99) mg/dL POC Glucose (mg/dL) 189 H (75-99) mg/dL Total Bilirubin 2.8 H (0.2-1.3) mg/dL Total Protein 4.7 L (6.3-8.2) g/dL Albumin 2.1 L (3.5-5.0) g/dL 10/25/19 Range/Units 11:06 PT (9.0-12.0) sec INR (<1.2) Sodium (137-145) mmol/L Potassium (3.5-5.1) mmol/L Chloride (98-107) mmol/L Carbon Dioxide (22-30) mmol/L BUN (9-20) mg/dL Creatinine (0.66-1.25) mg/dL Glucose (74-99) mg/dL POC Glucose (mg/dL) 219 H (75-99) mg/dL Total Bilirubin (0.2-1.3) mg/dL Total Protein (6.3-8.2) g/dL Albumin (3.5-5.0) g/dL Microbiology - Last 24 Hours (Table) 10/21/19 14:30 Gram Stain - Preliminary Ascites Fluid Body Fluid Culture - Preliminary Assessment and Plan (1) Acute pancreatitis Narrative/Plan: 63-year-old male presenting to the hospital with abdominal pain and being treated for acute alcoholic pancreatitis. Current Visit: Yes Status: Acute Code(s): K85.90 - ACUTE PANCREATITIS WITHOUT NECROSIS OR INFECTION, UNSP SNOMED Code(s): 203522967 (2) Abdominal pain Current Visit: Yes Status: Acute Code(s): R10.9 - UNSPECIFIED ABDOMINAL PAIN SNOMED Code(s): 82300430 (3) Ascites Current Visit: Yes Status: Acute Code(s): R18.8 - OTHER ASCITES SNOMED Code(s): 989778344 Plan: Supportive care Diet as tolerated Judicious use of narcotics, patient should be instructed to spread out pain medications as tolerated Continue to monitor clinically Continue monitor CBC, BMP, LFTs Alcohol abstinence MRCP performed and limited, recurrent ascites, no biliary or pancreatic p athology noted Aldactone 25 mg twice daily Nephrology ordered a dose of Lasix a day and this changed patient to fluid restriction with plan for discussion on possible need for renal replacement therapy going forward Thank you for allowing us to participate in the care of the patient
[2019-10-26] MEDS: METOCLOPRAMIDE 5 MG/ML 2 ML VIAL IVP SCH ×4 (05:17→22:58)
[2019-10-26 05:20] LABS: Glucose,Whole Blood 142 mg/dL (75-99)
[2019-10-26] MEDS: INSULIN ASPART (NovoLOG) 100 UNIT/ML VIAL SQ SCH ×4 (05:24→23:00)
[2019-10-26] MEDS: FUROSEMIDE 10 MG/ML 10 ML VIAL IV SCH (07:31)
[2019-10-26] MEDS: PANTOPRAZOLE 40 MG/10 ML VIAL IV SCH (07:34)
[2019-10-26] MEDS: MIDODRINE 5 MG TAB PO SCH ×3 (07:38→18:33)
[2019-10-26] MEDS: TAMSULOSIN 0.4 MG CAP.ER.24H PO SCH (07:38)
[2019-10-26] MEDS: bisacodyL 10 MG SUPP RECTAL SCH ×2 (07:38→20:00)
[2019-10-26] MEDS: SPIRONOLACTONE 25 MG TAB PO SCH ×2 (07:38→20:00)
[2019-10-26] MEDS: FENOFIBRATE 160 MG TAB PO SCH (07:38)
[2019-10-26] MEDS: RIFAXIMIN 550 MG TABLET PO SCH ×2 (07:39→20:00)
[2019-10-26 08:47] LABS: INR 1.5 (<1.2)
[2019-10-26 08:48] LABS: HCT 36.7 % (39.0-53.0); HGB 11.4 gm/dL (13.0-17.5); MCH 28.7 pg (25.0-35.0); MCHC 31.1 g/dL (31.0-37.0); MCV 92.4 fL (80.0-100.0); Platelet Count 448 k/uL (150-450); RBC 3.97 m/uL (4.30-5.90); RDW 12.8 % (11.5-15.5); WBC 34.4 k/uL (3.8-10.6)
[2019-10-26 09:15] LABS: Albumin 2.4 g/dL (3.5-5.0); Calcium 8.3 mg/dL (8.4-10.2); Total Bilirubin 3.2 mg/dL (0.2-1.3)
[2019-10-26 09:40] LABS: Magnesium 1.6 mg/dL (1.6-2.3); Potassium 4.9 mmol/L (3.5-5.1)
[2019-10-26 10:27] VITALS: BMI 29.7
[2019-10-26 10:50] LABS: Glucose,Whole Blood 204 mg/dL (75-99)
--- NOTE | 2019-10-26 11:05 | P.PN ---
Subjective Patient is seen in follow-up for acute kidney injury. Renal function stable. Remains edematous. Sodium level stable at 122. Has a Hardwick catheter. Urine output on the lower side despite IV Lasix. Underwent paracentesis on October 20 with 9.8 L drained. No vomiting or diarrhea. Remains edematous. Vital signs are stable. General: The patient appeared well nourished and normally developed. HEENT: Head exam is unremarkable. Neck is without jugular venous distension. LUNGS: Breath sounds decreased. HEART: Rate and Rhythm are regular. ABDOMEN: Soft, nontender. Distention noted. EXTREMITITES: 2+ edema. Objective - Vital Signs Vital signs: Vital Signs Temp 97.9 F 10/26/19 04:35 Pulse 93 10/26/19 08:00 Resp 18 10/26/19 08:00 BP 109/69 10/26/19 04:35 Pulse Ox 94 L 10/26/19 04:35 Intake & Output 10/25/19 10/26/19 10/26/19 18:59 06:59 18:59 Intake Total 540 Output Total 200 600 0 Balance 340 -600 0 Weight 108 kg 108 kg Intake: Oral 540 Output: Urine 200 600 Stool 0 0 0 Other: Voiding Method Indwelling Catheter Indwelling Catheter Indwelling Catheter # Voids 350 - Labs CBC & Chem 7: 10/26/19 08:14 10/26/19 08:14 Labs: Abnormal Lab Results - Last 24 Hours (Table) 10/25/19 10/25/19 10/25/19 Range/Units 11:06 16:55 17:35 WBC (3.8-10.6) k/uL RBC (4.30-5.90) m/uL Hgb (13.0-17.5) gm/dL Hct (39.0-53.0) % PT (9.0-12.0) sec INR (<1.2) Sodium 121 L (137-145) mmol/L Chloride (98-107) mmol/L Carbon Dioxide (22-30) mmol/L BUN (9-20) mg/dL Creatinine (0.66-1.25) mg/dL Glucose (74-99) mg/dL POC Glucose (mg/dL) 219 H 155 H (75-99) mg/dL Calcium (8.4-10.2) mg/dL Total Bilirubin (0.2-1.3) mg/dL Total Protein (6.3-8.2) g/dL Albumin (3.5-5.0) g/dL Lipase (23-300) U/L 10/25/19 10/26/19 10/26/19 Range/Units 23:03 05:18 08:14 WBC 34.4 H (3.8-10.6) k/uL RBC 3.97 L (4.30-5.90) m/uL Hgb 11.4 L (13.0-17.5) gm/dL Hct 36.7 L (39.0-53.0) % PT (9.0-12.0) sec INR (<1.2) Sodium (137-145) mmol/L Chloride (98-107) mmol/L Carbon Dioxide (22-30) mmol/L BUN (9-20) mg/dL Creatinine (0.66-1.25) mg/dL Glucose (74-99) mg/dL POC Glucose (mg/dL) 141 H 142 H (75-99) mg/dL Calcium (8.4-10.2) mg/dL Total Bilirubin (0.2-1.3) mg/dL Total Protein (6.3-8.2) g/dL Albumin (3.5-5.0) g/dL Lipase (23-300) U/L 10/26/19 10/26/19 10/26/19 Range/Units 08:14 08:14 10:49 WBC (3.8-10.6) k/uL RBC (4.30-5.90) m/uL Hgb (13.0-17.5) gm/dL Hct (39.0-53.0) % PT 15.0 H (9.0-12.0) sec INR 1.5 H (<1.2) Sodium 122 L (137-145) mmol/L Chloride 91 L (98-107) mmol/L Carbon Dioxide 21 L (22-30) mmol/L BUN 64 H (9-20) mg/dL Creatinine 2.70 H (0.66-1.25) mg/dL Glucose 139 H (74-99) mg/dL POC Glucose (mg/dL) 204 H (75-99) mg/dL Calcium 8.3 L (8.4-10.2) mg/dL Total Bilirubin 3.2 H (0.2-1.3) mg/dL Total Protein 5.0 L (6.3-8.2) g/dL Albumin 2.4 L (3.5-5.0) g/dL Lipase 3398 H (23-300) U/L Microbiology - Last 24 Hours (Table) 10/21/19 14:30 Gram Stain - Final Ascites Fluid Body Fluid Culture - Final Assessment and Plan Plan: Assessment: 1. Acute kidney injury secondary to ATN secondary to hypotension. Now appears to have developed hepatorenal syndrome. Renal function worse - cr 2.7 today. 2. Alcohol induced acute pancreatitis. 3. Volume overload. 4. Ascites status post paracentesis with 9.8 L drained on October 20. 5. Hypotension maintained on midodrine. 6. Hypervolemic hyponatremia. 7. Hyperkalemia secondary to acute kidney injury and metabolic acidosis. Stable. Plan: Scheduled for paracentesis today. I will give him 25 g of albumin before and another 25 g post paracentesis. Maintain Lasix 80 mg IV twice daily. Maintain spironolactone 25 mg twice daily. 1200 cc fluid restriction. Continue to monitor renal function and urine output. Again discussed the need for renal replacement therapy due to severe volume overload and worsening renal function. Patient wants to hold off at this time. He will be transferred to [facility] hopefully today.
[2019-10-26] MEDS: ALBUMIN HUMAN 25% 50 ML in EMPTY BAG 1 BAG IVPB SCH ×4 (11:25→19:55)
[2019-10-26] MEDS ORDERED: VANCOMYCIN IV PER PHARMACY 1 EACH MISC MISCELLANE SCH (11:45)
[2019-10-26] MEDS ORDERED: VANCOMYCIN 1,750 MG in SODIUM CHLORIDE 0.9% 500 ML 500 ML IVPB ONE (12:00)
--- NOTE | 2019-10-26 12:47 | XR ---
EXAMINATION TYPE: XR chest 2V DATE OF EXAM: 10/26/2019 COMPARISON: 10/15/2019 HISTORY: 63-year-old male shortness of breath, leukocytosis TECHNIQUE: Frontal and lateral views FINDINGS: Low lung volumes. Patchy bibasilar opacities. Small effusions on the lateral view. Heart appears norm al size but accentuated due to the low lung volumes. Upper lungs are clear. IMPRESSION: Persistent hypoventilatory changes. Small effusions with adjacent atelectasis and/or consolidation, s lightly increased in the interval.
[2019-10-26 13:30] LABS: Appearance,Urine Cloudy (Clear); Bacteria,Urine Few /hpf; Bilirubin,Urine Negative (Negative); Blood,Urine Moderate (Negative); Color,Urine Yellow; Glucose,Urine (UA) Negative (Negative); Hyaline Casts,Urine 21 /lpf (0-2); Ketones,Urine Negative (Negative); Leukocyte Esterase,Urine Negative (Negative); Mucus,Urine Rare /hpf; Nitrite,Urine Negative (Negative); Protein,Urine Trace (Negative); RBC,Urine 59 /hpf (0-5); Specific Gravity,Urine 1.012 (1.001-1.035); Squamous Epithelial Cell,Urine <1 /hpf (0-4); Urobilinogen,Urine <2.0 mg/dL (<2.0); WBC,Urine 5 /hpf (0-5)
[2019-10-26 16:27] VITALS: RESP 18
--- NOTE | 2019-10-26 16:44 | US ---
EXAMINATION TYPE: US paracentesis abd w/image DATE OF EXAM: 10/26/2019 [employer]ONE BANKER: Dr. Marixa Vela DO CLINICAL HISTORY: Ascites Preliminary ultrasound imaging demonstrates moderate volume ascites bilaterally. The procedure was discussed with the patient. The risks, complications, benefits, and alternatives we re discussed and any questions were answered. Informed consent was obtained. The patient was placed s upine on the ultrasound table and prepped and draped in the usual sterile fashion. All elements of maximal barrier technique were utilized. Under ultrasound guidance, access into the right lower quadrant was obtained with a 7 cm 5 Serbian one-step centesis catheter. The catheter demon strated kinking and slow drainage and was removed. A 10 cm 5 Serbian one-step centesis catheter was in serted at the same site, with good return of ascites. Approximately 3.4 liters of clear serous fluid was removed. Catheter was removed and sterile bandage was applied. The patient was stable throughout the procedure and remained stable upon discharge from Department of Radiology. IMPRESSION: Successful ultrasound-guided diagnostic and therapeutic paracentesis, with removal of 3.4 liters of c lear serous fluid.
[2019-10-26 17:04] LABS: Glucose,Whole Blood 141 mg/dL (75-99)
[2019-10-26] MEDS: METOPROLOL SUCCINATE (ER) 100 MG TAB.ER.24H PO SCH (20:00)
[2019-10-26 20:11] VITALS: BP 97/62; PULSE 123; TEMP 97.3
[2019-10-26 20:34] LABS: Appearance,BF Hazy; Color,BF Orange; Nucleated Cells, Body Fluid 130 /uL; RBC, Body Fluid 5240 /uL
[2019-10-26 20:37] LABS: Mononuclear WBC,Body Fluid 66 %; Polynuclear WBC,Body Fluid 34 %; Total Cells Counted,Body Fluid 100
[2019-10-26] MEDS: LORazepam 2 MG/ML INJ IV PRN (22:54)
[2019-10-26 22:55] LABS: Glucose,Whole Blood 159 mg/dL (75-99)
[2019-10-27 05:03] LABS: Albumin, Fluid Source Paracentesis Fluid; Amylase, Fluid Source Paracentesis Fluid; Glucose, BF Source Paracentesis Fluid; Glucose, Body Fluid 128 mg/dL; Lipase, Body Fluid >3500 U/L; Lipase, Fluid Source Paracentesis Fluid
--- NOTE | 2019-10-27 12:43 | CDI ---
Documentation Clarification Form Date: 10/27/19 From: Tawana Paris Phone: If you have a question about this query, please contact Bryanna Conteh, Process Mold Technician at [phone] between 8am and 5pm. Admit Date: 10/15/19 Discharge Date:10/26/19 Patient Name: Kian Jung Visit Number: [id number] ATTENTION: The Clinical Documentation Specialists (CDI) and [facility] Coding Staff appreciate your assistance in clarifying documentation. Please respond to the clarification below the line at the bottom and electronically sign. The CDI & [facility] Coding staff will review the response and follow-up if needed. Please note: Queries are made part of the Legal Health Record. If you have any questions, please contact the author of this message via ITS. Dear Dr. Boothe Hypotension is documented in the nephrology progress notes on 10/21 - 10/25. History/Risk Factors: Dehydration, ascites, alcoholic cirrhosis Clinical Indicators: low BP Patients B/P: 10/15/19 - 64/61, 115/65, 105/57, 104/61, 97/60. 10/16/19 - 99/62, 10/20 99/60 Labs: Hgb 12.9, Hct 42.6, glucose 132 Treatment: Midodrine p.o. In your professional opinion, can you please specify the etiology of the hypotension if known? xx Iatrogenic Hypotension Idiopathic Hypotension Drug Induced Hypotension Other Condition, please specify Unable to determine MTDD
== END 2019-10-26 23:10 | disposition short-term general hospital (02) | DRG 438 ==
LOC: EC 13:07 → 5NMEDONC 15:33 → 3NCARDOBS 16:20 → 5NMEDONC 16:46
PROVIDERS: ADMIT Internal Medicine; ATTEND Internal Medicine
PROC: 0D9670Z Drainage of Stomach with Drainage Device, Via Natural or Artificial Opening (ICD-10-PCS; 2019-10-17)
PROC: 0W9G3ZZ Drainage of Peritoneal Cavity, Percutaneous Approach (ICD-10-PCS; principal; 2019-10-26)
DX: K85.20 Alcohol induced acute pancreatitis without necrosis or infection (principal); K76.7 Hepatorenal syndrome; N17.0 Acute kidney failure with tubular necrosis; E87.1 Hypo-osmolality and hyponatremia; E87.2 Acidosis; K56.600 Partial intestinal obstruction, unspecified as to cause; K56.7 Ileus, unspecified; J90 Pleural effusion, not elsewhere classified; N13.30 Unspecified hydronephrosis; K70.31 Alcoholic cirrhosis of liver with ascites; K86.0 Alcohol-induced chronic pancreatitis; E11.22 Type 2 diabetes mellitus with diabetic chronic kidney disease; K70.9 Alcoholic liver disease, unspecified; E87.8 Other disorders of electrolyte and fluid balance, not elsewhere classified; F10.20 Alcohol dependence, uncomplicated; Z20.828 Contact with and (suspected) exposure to other viral communicable diseases; A08.4 Viral intestinal infection, unspecified; E78.5 Hyperlipidemia, unspecified; E86.0 Dehydration; E87.5 Hyperkalemia; E87.70 Fluid overload, unspecified; I95.89 Other hypotension; R79.1 Abnormal coagulation profile; I12.9 Hypertensive chronic kidney disease with stage 1 through stage 4 chronic kidney disease, or unspecified chronic kidney disease; K21.9 Gastro-esophageal reflux disease without esophagitis; K80.20 Calculus of gallbladder without cholecystitis without obstruction; N18.2 Chronic kidney disease, stage 2 (mild); Z96.621 Presence of right artificial elbow joint; H40.9 Unspecified glaucoma; M19.90 Unspecified osteoarthritis, unspecified site; H91.90 Unspecified hearing loss, unspecified ear; Z79.84 Long term (current) use of oral hypoglycemic drugs; Z79.899 Other long term (current) drug therapy; Z87.11 Personal history of peptic ulcer disease; Z87.19 Personal history of other diseases of the digestive system; Z87.891 Personal history of nicotine dependence; Z98.42 Cataract extraction status, left eye; Z98.41 Cataract extraction status, right eye; Z96.1 Presence of intraocular lens; Z98.890 Other specified postprocedural states; Z80.8 Family history of malignant neoplasm of other organs or systems; Z83.3 Family history of diabetes mellitus; Z82.0 Family history of epilepsy and other diseases of the nervous system
CPT/HCPCS: 36415; 49083; 71046; 74018; 74019; 74176; 74181; 76705; 76770; 80048; 80053; 80320; 81001; 82042; 82140; 82150; 82550; 82945; 83605; 83615; 83690; 83735; 84157; 84295; 84484; 85025; 85027; 85610; 86301; 87040; 87070; 87075; 87205; 89050; 96361; 96374; 96375; 99285

== ENCOUNTER 2020-12-04 15:43 | Inpatient (IN) | payer OTHER ==
[2020-12-04] MEDS ORDERED: PIPERACILLIN-TAZOBACTAM 3.375 GM in SODIUM CHLORIDE 0.9% 100 ML IVPB STA (16:48)
--- NOTE | 2020-12-04 16:51 | ED ---
General Adult HPI - General Chief complaint: Abdominal Pain Stated complaint: Pancreatitis Time Seen by Provider: 12/04/20 16:35 Source: patient Mode of arrival: ambulatory Limitations: no limitations - History of Present Illness Initial comments: Dictation was produced using [employer] dictation software. please excuse any grammatical, word or spelling errors. Chief Complaint: 64-year-old male sent in from primary care physician's office for abdominal pain concerns pancreatitis History of Present Illness: Patient is a 64-year-old male he has history of angry otitis. Patient has a GI doctor at [facility]. He presents today from [facility] physician's office for concerns of intra-abdominal infection. He had labs performed at PCPs office that showed white count of 19. Patient does feel feverish. He states that he has pain in his epigastric and left upper quadrant. States that his symptoms today are slightly more lateral than his usual pancreatitis symptoms. Patient states that he has no pain when he doesn't move. He has had paracentesis performed in the past. Patient is quit drinking last paracentesis was year ago. Patient has no diarrhea. No nausea. No vomiting. Denies any cough shortness of breath or runny nose. No dysuria. The ROS documented in this emergency department record has been reviewed and confirmed by me. Those systems with pertinent positive or negative responses have been documented in the HPI. All other systems are other negative and/or noncontributory. PHYSICAL EXAM: General Impression: Alert and oriented x3, not in acute distress HEENT: Normocephalic atraumatic, extra-ocular movements intact, pupils equal and reactive to light bilaterally, mucous membranes moist. Cardiovascular: Heart regular rate and rhythm Chest: Able to complete full sentences, no retractions, no tachypnea Abdomen: abdomen soft, epigastric palpatory tenderness, no pain in McBurney's point, left lower quadrant tenderness, no Garcia sign, non-distended, no organomegaly Musculoskeletal: Pulses present and equal in all extremities, no peripheral edema Motor: no focal deficits noted Neurological: CN II-XII grossly intact, no focal motor or sensory deficits noted Skin: Intact with no visualized rashes Psych: Normal affect and mood ED course: 64-year-old male presents to the emergency department for abdominal pain fever signs upon arrival shows temperature 101.2, heart rate of 114, rest of vital signs within acceptable limits. Patient's well-appearing at bedside EKG interpretation: Ventricular rate 110, sinus tachycardia,. 170, QRS 122, QTc 446. No [place] prolongation, no QTC prolongation, no ST or T-wave changes noted. EKG compared to 11/10/2019 showing no changes. Overall, this EKG is unremarkable Laboratory evaluation obtained. Leukocytosis of 21.5. Coag panel is negative. Metabolic panel shows findings within acceptable limits of for magnesium 1.4. Rotavirus is negative. Computed tomography scan of the abdomen and pelvis shows heterogeneity to the left hepatic lobe with small hepatic lesions concerning for hepatocellular carcinoma and malignancy. No other intra-abdominal processes noted. Patient evaluated bedside at 7:10 PM found to be stable medical con dition. Patient's temperature improved with antipyretics. Does not appear to be in significant acute distress. There is concern for bacterial infection. Patient started on vancomycin and Zosyn. She is agreeable for admission. Case discussed with Dr. Boothe was went except patient's care with consultation to infectious disease and GI. At this point is not clear what is causing patient's pyrexia. There is no obvious source. Patient does not have any other localizing symptoms. Patient will be admitted. - Related Data Home Medications Medication Instructions Recorded Confirmed sitaGLIPtin PHOS/metFORMIN HCL 1 tab PO BID 12/06/15 12/04/20 [Janumet 50-1,000 mg Tablet] Tamsulosin HCl [Flomax] 0.4 mg PO DAILY 11/10/19 12/04/20 Alive Men's 50+ Multivitamin 1 tab PO DAILY 12/04/20 12/04/20 Cinnamon Bark [Cinnamon] 500 mg PO BID 12/04/20 12/04/20 Furosemide [Lasix] 20 mg PO Q48H 12/04/20 12/04/20 Rosuvastatin Calcium [Crestor] 5 mg PO DAILY 12/04/20 12/04/20 Spironolactone 12.5 mg PO Q48H 12/04/20 12/04/20 Allergies Allergy/AdvReac Type Severity Reaction Status Date / Time No Known Allergies Allergy Verified 12/04/20 18:05 Review of Systems ROS Statement: Those systems with pertinent positive or pertinent negative responses have been documented in the HPI. ROS Other: All systems not noted in ROS Statement are negative. Past Medical History Past Medical History: Diabetes Mellitus, Eye Disorder, GERD/Reflux, Hyperlipidemia, Hypertension, Osteoarthritis (OA) Additional Past Medical History / Comment(s): NIDDM type II, peptic ulcer, alcoholism, benign colon polyp, occasional thoracic back pain (hs of crushed vertebra), arthritis R ankle, glaucoma L eye History of Any Multi-Drug Resistant Organisms: None Reported Past Surgical History: Adenoidectomy, Orthopedic Surgery, Tonsillectomy Additional Past Surgical History / Comment(s): r elbow radial head implant, bilateral carpal tunnel releases, trimalleolar fracture repair on the right with subsequent removal of hardware, benign L vocal cord mass removed, colonoscopy with polypectomy, bilateral cataract removals/lens implants. Past Anesthesia/Blood Transfusion Reactions: No Reported Reaction, Motion Sickness Past Psychological History: No Psychological Hx Reported Smoking Status: Former smoker Past Alcohol Use History: Occasional Past Drug Use History: None Reported - Past Family History Mother Family Medical History: Cancer, Diabetes Mellitus Additional Family Medical History / Comment(s): Skin cancer. Mother at age 85 from dementia. Father Additional Family Medical History / Comment(s): Father had borderline diabetes. He is living. Sister(s) Additional Family Medical History / Comment(s): patient has 3 sisters with no major medical problems. Patient does not have any brothers. Patient has 2 sons and 2 daughters with no major medical problems. General Exam Limitations: no limitations Course Vital Signs 12/04/20 12/04/20 12/04/20 16:21 17:19 19:04 Temperature 101.2 F H 100.4 F H Pulse Rate 114 H 99 88 Respiratory 18 20 20 Rate Blood Pressure 119/73 121/78 139/77 O2 Sat by Pulse 98 97 98 Oximetry Medical Decision Making - Lab Data Result diagrams: 12/04/20 17:06 12/04/20 17:06 Lab Results 12/04/20 12/04/20 12/04/20 Range/Units 16:49 17:06 17:06 WBC 21.5 H (3.8-10.6) k/uL RBC 4.13 L (4.30-5.90) m/uL Hgb 11.6 L (13.0-17.5) gm/dL Hct 35.4 L (39.0-53.0) % MCV 85.7 (80.0-100.0) fL MCH 28.0 (25.0-35.0) pg MCHC 32.7 (31.0-37.0) g/dL RDW 12.1 (11.5-15.5) % Plt Count 156 (150-450) k/uL MPV 9.0 Neutrophils % 89 % Lymphocytes % 4 % Monocytes % 4 % Eosinophils % 2 % Basophils % 0 % Neutrophils # 19.2 H (1.3-7.7) k/uL Lymphocytes # 0.9 L (1.0-4.8) k/uL Monocytes # 0.9 (0-1.0) k/uL Eosinophils # 0.4 (0-0.7) k/uL Basophils # 0.0 (0-0.2) k/uL PT 12.3 H (9.0-12.0) sec INR 1.2 H (<1.2) APTT 25.2 (22.0-30.0) sec Sodium (137-145) mmol/L Potassium (3.5-5.1) mmol/L Chloride (98-107) mmol/L Carbon Dioxide (22-30) mmol/L Anion Gap mmol/L BUN (9-20) mg/dL Creatinine (0.66-1.25) mg/dL Est GFR (CKD-EPI)AfAm (>60 ml/min/1.73 sqM) Est GFR (CKD-EPI)NonAf (>60 ml/min/1.73 sqM) Glucose (74-99) mg/dL Calcium (8.4-10.2) mg/dL Magnesium (1.6-2.3) mg/dL Total Bilirubin (0.2-1.3) mg/dL AST (17-59) U/L ALT (4-49) U/L Alkaline Phosphatase (38-126) U/L Total Protein (6.3-8.2) g/dL Albumin (3.5-5.0) g/dL Lipase (23-300) U/L Coronavirus (PCR) Not Detected (Not Detectd) 12/04/20 Range/Units 17:06 WBC (3.8-10.6) k/uL RBC (4.30-5.90) m/uL Hgb (13.0-17.5) gm/dL Hct (39.0-53.0) % MCV (80.0-100.0) fL MCH (25.0-35.0) pg MCHC (31.0-37.0) g/dL RDW (11.5-15.5) % Plt Count (150-450) k/uL MPV Neutrophils % % Lymphocytes % % Monocytes % % Eosinophils % % Basophils % % Neutrophils # (1.3-7.7) k/uL Lymphocytes # (1.0-4.8) k/uL Monocytes # (0-1.0) k/uL Eosinophils # (0-0.7) k/uL Basophils # (0-0.2) k/uL PT (9.0-12.0) sec INR (<1.2) APTT (22.0-30.0) sec Sodium 132 L (137-145) mmol/L Potassium 5.0 (3.5-5.1) mmol/L Chloride 97 L (98-107) mmol/L Carbon Dioxide 22 (22-30) mmol/L Anion Gap 13 mmol/L BUN 30 H (9-20) mg/dL Creatinine 0.99 (0.66-1.25) mg/dL Est GFR (CKD-EPI)AfAm >90 (>60 ml/min/1.73 sqM) Est GFR (CKD-EPI)NonAf 81 (>60 ml/min/1.73 sqM) Glucose 167 H (74-99) mg/dL Calcium 9.5 (8.4-10.2) mg/dL Magnesium 1.4 L (1.6-2.3) mg/dL Total Bilirubin 0.7 (0.2-1.3) mg/dL AST 47 (17-59) U/L ALT 28 (4-49) U/L Alkaline Phosphatase 127 H (38-126) U/L Total Protein 7.6 (6.3-8.2) g/dL Albumin 4.2 (3.5-5.0) g/dL Lipase 110 (23-300) U/L Coronavirus (PCR) (Not Detectd) Disposition Clinical Impression: SIRS (systemic inflammatory response syndrome), Liver mass Disposition: ADMITTED IP TO THIS [facility] Condition: Fair Referrals: Rashel Boothe MD [Primary Care Provider] - 1-2 days
[2020-12-04 17:14] LABS: Basophils % (A) 0 %; Eosinophils # (A) 0.4 k/uL (0-0.7); Eosinophils % (A) 2 %; HCT 35.4 % (39.0-53.0); HGB 11.6 gm/dL (13.0-17.5); Lymphocytes # (A) 0.9 k/uL (1.0-4.8); Lymphocytes % (A) 4 %; MCHC 32.7 g/dL (31.0-37.0); MCV 85.7 fL (80.0-100.0); Monocytes # (A) 0.9 k/uL (0-1.0); Monocytes % (A) 4 %; Neutrophils # (A) 19.2 k/uL (1.3-7.7); Neutrophils % (A) 89 %; Platelet Count 156 k/uL (150-450); RBC 4.13 m/uL (4.30-5.90); RDW 12.1 % (11.5-15.5); WBC 21.5 k/uL (3.8-10.6)
[2020-12-04 17:24] LABS: ALT 28 U/L (4-49); AST 47 U/L (17-59); African American GFR (CKD) >90 (>60 ml/min/1.73 sqM); Albumin 4.2 g/dL (3.5-5.0); Alkaline Phosphatase 127 U/L (38-126); Blood Urea Nitrogen 30 mg/dL (9-20); Calcium 9.5 mg/dL (8.4-10.2); Carbon Dioxide 22 mmol/L (22-30); Glucose 167 mg/dL (74-99); Lipase 110 U/L (23-300); Magnesium 1.4 mg/dL (1.6-2.3); Non-African American GFR(CKD) 81 (>60 ml/min/1.73 sqM); Total Bilirubin 0.7 mg/dL (0.2-1.3); Total Protein 7.6 g/dL (6.3-8.2)
[2020-12-04 17:27] LABS: INR 1.2 (<1.2); Partial Thromboplastin Time 25.2 sec (22.0-30.0); Prothrombin Time 12.3 sec (9.0-12.0)
[2020-12-04] MEDS ORDERED: SODIUM CHLORIDE 0.9% 1,000 ML IV STA (17:37)
[2020-12-04 17:48] LABS: Anion Gap 13 mmol/L; Chloride 97 mmol/L (98-107); Sodium 132 mmol/L (137-145)
--- NOTE | 2020-12-04 18:14 | CT ---
EXAMINATION TYPE: CT abdomen pelvis w con DATE OF EXAM: 12/04/2020 COMPARISON: Ultrasound 10/24/2019. CT 10/16/2019. HISTORY: Upper Abdominal pain with nausea. History of pancreatitis CT DLP: 1214.5 mGycm Automated exposure control for dose reduction was used. TECHNIQUE: Helical acquisition of images was performed from the lung bases through the pelvis. CONTRAST: Performed without Oral Contrast and with IV Contrast, patient injected with 100 mL of Isovue 300. FINDINGS: LUNG BASES: 5 mm left lower lobe nodule. Otherwise no significant infiltrate or pleural effusion. LIVER/GB: Diffuse heterogeneity of the left hepatic lobe. Also additional scattered several low atten uating focus throughout the liver measuring up to 1.3 cm. No cholelithiasis or acute cholecystitis. PANCREAS: No significant abnormality is seen. SPLEEN: Splenomegaly. ADRENALS: No significant abnormality is seen. KIDNEYS: No significant abnormality is seen. FREE AIR: No free air is visualized. RETROPERITONEAL ADENOPATHY: Multiple upper abdominal periaortic enlarged lymph nodes measuring up to 1.8 cm short axis. REPRODUCTIVE ORGANS: No significant abnormality is seen URINARY BLADDER: No significant abnormality is seen. PELVIC ADENOPATHY: None visualized. OSSEOUS STRUCTURES: No acute abnormality is seen. Chronic moderate L1 compression fracture. BOWEL: No bowel obstruction, free air or fluid is seen. OTHER: None IMPRESSION: INTERVAL DIFFUSE HETEROGENEITY OF THE LEFT HEPATIC LOBE WITH ADDITIONAL SCATTERED SMALL HEPATIC LESIO NS. FINDINGS ARE CONCERNING FOR INFILTRATIVE HCC/MALIGNANCY WITH METASTATIC DISEASE. ASSOCIATED UPPER ABDOMINAL LYMPHADENOPATHY. QUESTIONABLE SOFT TISSUE MASS ADJACENT TO THE PROXIMAL DUODENUM WITH MASS EFFECT. NO BOWEL OBSTRUCTIO N. Also indeterminate small left lower lobe nodule. Recommend appropriate workup.
[2020-12-04] MEDS ORDERED: MAGNESIUM OXIDE 400 MG TAB PO STA (19:05)
[2020-12-04] MEDS ORDERED: VANCOMYCIN IV PER PHARMACY 1 EACH MISC MISCELLANE PRN (19:07)
[2020-12-04] MEDS ORDERED: NALOXONE 0.4 MG/ML 1 ML VIAL IV PRN (19:08)
[2020-12-04] MEDS ORDERED: ACETAMINOPHEN TAB 325 MG TAB PO PRN (19:08)
[2020-12-04] MEDS ORDERED: VANCOMYCIN 1,750 MG in SODIUM CHLORIDE 0.9% 500 ML 500 ML IVPB STA (19:13)
[2020-12-04 19:29] LABS: Appearance,Urine Clear (Clear); Bilirubin,Urine Negative (Negative); Blood,Urine Negative (Negative); Color,Urine Yellow; Glucose,Urine (UA) Negative (Negative); Ketones,Urine Negative (Negative); Leukocyte Esterase,Urine Negative (Negative); Mucus,Urine Rare /hpf; Nitrite,Urine Negative (Negative); PH, Urine 5.5 (5.0-8.0); Protein,Urine 1+ (Negative); RBC,Urine <1 /hpf (0-5); Specific Gravity,Urine 1.042 (1.001-1.035); Urobilinogen,Urine <2.0 mg/dL (<2.0); WBC,Urine 1 /hpf (0-5)
--- NOTE | 2020-12-04 19:54 | XR ---
EXAMINATION TYPE: XR chest 2V DATE OF EXAM: 12/04/2020 COMPARISON: 11/10/2019. HISTORY: Fever TECHNIQUE: Frontal and lateral views of the chest are obtained. FINDINGS: There is no focal air space opacity, pleural effusion, or pneumothorax seen. The cardiac silhouette size is within normal limits. The osseous structures are intact. IMPRESSION: No acute cardiopulmonary process.
[2020-12-04] MEDS: SODIUM CHLORIDE 0.9% 1,000 ML IV SCH (21:25)
--- NOTE | 2020-12-04 22:08 | P.HPIM ---
History of Present Illness H&P Date: 12/04/20 HISTORY OF PRESENT ILLNESS 64-year-old male with past medical history of multiple medical problem known to have history of chronic alcoholic hepatitis, chronic history of alcoholism, history of recurrent pancreatitis, large liver cyst, recurrent ascites, recurrent episode of syncope in the past with known to have history of diabetes hypertension hyperlipidemia. Patient was in the hospital loss in October 2023 syncopal episode and hypomagnesemia the time before was in for acute pancreatitis along with recurrent abdominal pain. Patient otherwise has been doing well. Patient presented to the office today complaining of midsternal significant pain and discomfort with nausea on and up able tolerate any food or fluid down with low-grade temperature mild tachycardia fatigue and tiredness with symptoms become much worse over the last 24 hours with pain become impenetrable ended up coming to the office recently and was seen and evaluated with his recurrent pancreatitis in the past recurrent GI bleed and gastric ulcer patient ended up having CBC showed his hemoglobin still about 15 g but was sent to the emergency department at [facility] with above problem require CAT scan of the abdomen further pain cardiac enzymes to be done fasting. Patient was seen and evaluated [facility] surprisingly his laboratory value came back with significantly elevated white blood cell at 21.5 hemoglobin down to 11.6 his the rest of the blood work showed mild hypomagnesemia and elevated blood sugar. UA didn't show any major abnormality lipase was normal at 110 CT of the abdomen and pelvis shows interval diffuse hypertonicity of the left hepatic lobe with additional scatter small hepatic lesion findings are consistent for infiltrate 8 mL/malignancy with questionable of metastasis. Associated upper abdominal lymphadenopathy was found with a questionable of soft tissue mass of the junk to the proximal due to numb with mass effect with no bowel obstruction. REVIEW OF SYSTEMS Constitutional: Positive fever, no chills, no night sweats. No weight change. Positive weakness and fatigue with lethargy. No daytime sleepiness. EENT: No headache. No blurred vision or double vision, no loss of vision. No loss of Hearing, no ringing in the ears, no dizziness. No nasal drainage or congestion. No epistaxis. No sore throat. Lungs: Decreased breath sound bilaterally without cough, no sputum production. No wheezing. Cardiovascular: No chest pain, no lower extremity edema. No palpitations. No paroxysmal nocturnal dyspnea. No orthopnea. No lightheadedness or dizziness. No syncopal episodes. Abdominal: Significant abdominal discomfort in the midepigastric area and slightly to the left side with lack of appetite no bloody stool or tarry stool still have discomfort day and night but much higher intense last 24 hours. Genitourinary: No dysuria, increased frequency, urgency. No urinary retention. Musculoskeletal: No myalgias. No muscle weakness, no gait dysfunction, no frequent falls. No back pain. No neck pain. Integumentary: No wounds, no lesions. No rash or pruritus. No unusual bruising. No change in hair or nails. Neurologic: No aphasia. No facial droop. No change in mentation. No head injury. No headache. No paralysis. No paresthesia. Psychiatric: No depression. No anxiety. No mood swings. Endocrine: No abnormal blood sugars. No weight change. No excessive sweating or thirst. No cold intolerance. SOCIAL HISTORY Patient smoke from 90 [id number] about half pack a day also drink heavily close appetite of blood, 4 times a week up till May this year has not had any alcoh ol since. He is and lives with his phill from [facility]. FAMILY HISTORY His father is living in his 80s had polymyalgia rheumatica, chronic arthralgia COPD and CHF, mother dying in her 80s from dementia, patient has 3 sister one of them had a chronic lower back pain. Patient has 4 children 2 boys and 2 girls with no major medical problem. PHYSICAL EXAMINATION Gen: This is mildly overweight 64-year-old gentleman still having slight bit pain and abdominal region does not look in any respiratory distress. HEENT: Head is atraumatic, normocephalic. Pupils equal, round. NECK: Supple. No JVD. No lymphadenopathy. No thyromegaly. LUNGS: Decreased breath sound bilaterally thyrocardiac no crackles past mild expected wheezes. HEART: Regular rate and rhythm. Positive one out of 6 murmur. ABDOMEN: Soft. Bowel sounds are present. Significant pain and discomfort in the midepigastric and right upper quadrant area no rebound or rigidity. EXTREMITIES: No pedal edema. No calf tenderness. NEUROLOGICAL: Patient is awake, alert and oriented x3. Cranial nerves 2 through 12 are grossly intact. ASSESSMENT AND PLAN 1. Acute abdominal pain with subacute component with known chronic history of recurrent pancreatitis: Patient be admitted to the hospital continue hydration will be seen gastroenterology and review CAT scan carefully to see any major per Ramon. 2 possible sepsis, and could be liver mass or abscess: Patient will be on antibiotics for now with gram-negative coverage along with Flagyl until his able to see gastroenterology. 3 recurrent pancreatitis: This episode was highly suspicious for pancreatitis which lipase and amylase are normal. 4 recurrent ascites: Secondary to spontaneous peritonitis has been better so far still seen hepatology at [facility]. 5 hyperlipidemia: Patient has been on Vytorin 10/10/40 mg a day along with fenofibrate. 6 type 2 diabetes: Has been on Janumet mg twice a day. 7 hypertension: Remain on as are 50 mg a day along with metoprolol succinate 100 mg daily. 8 possible abscess in the liver area which made the abdominal pain much worse along with significant distention and nausea consult general surgery and gastroenterology for better clearance patient might go for MRCP 9 BPH: Doing well so far with no urinary retention. 10 history of GI bleed along severe gastritis: Has been on omeprazole 20 mg a day. 11 mild arrhythmia: Continue Toprol-XL at 1200 mg daily. 12 GI prophylaxis: Remain on omeprazole 20 mg a day. 13 DVT prophylaxis: Watch for any venous stasis and worsening swelling patient will continue COVID-19 testing was negative. Admit patient to the inpatient service for more than 2 night stay. Past Medical History Past Medical History: Diabetes Mellitus, Eye Disorder, GERD/Reflux, Hyperlipidemia, Hypertension, Osteoarthritis (OA) Additional Past Medical History / Comment(s): NIDDM type II, peptic ulcer, alcoholism, benign colon polyp, occasional thoracic back pain (hs of crushed vertebra), arthritis R ankle, glaucoma L eye History of Any Multi-Drug Resistant Organisms: None Reported Past Surgical History: Adenoidectomy, Orthopedic Surgery, Tonsillectomy Additional Past Surgical History / Comment(s): r elbow radial head implant, bilateral carpal tunnel releases, trimalleolar fracture repair on the right with subsequent removal of hardware, benign L vocal cord mass removed, colonoscopy with polypectomy, bilateral cataract removals/lens implants. Past Anesthesia/Blood Transfusion Reactions: No Reported Reaction, Motion Sic kness Past Psychological History: No Psychological Hx Reported Smoking Status: Former smoker Past Alcohol Use History: Occasional Past Drug Use History: None Reported - Past Family History Mother Family Medical History: Cancer, Diabetes Mellitus Additional Family Medical History / Comment(s): Skin cancer. Mother at age 85 from dementia. Father Additional Family Medical History / Comment(s): Father had borderline diabetes. He is living. Sister(s) Additional Family Medical History / Comment(s): patient has 3 sisters with no major medical problems. Patient does not have any brothers. Patient has 2 sons and 2 daughters with no major medical problems. Medications and Allergies Home Medications Medication Instructions Recorded Confirmed Type sitaGLIPtin PHOS/metFORMIN HCL 1 tab PO BID 12/06/15 12/04/20 History [Janumet 50-1,000 mg Tablet] Tamsulosin HCl [Flomax] 0.4 mg PO DAILY 11/10/19 12/04/20 History Alive Men's 50+ Multivitamin 1 tab PO DAILY 12/04/20 12/04/20 History Cinnamon Bark [Cinnamon] 500 mg PO BID 12/04/20 12/04/20 History Furosemide [Lasix] 20 mg PO Q48H 12/04/20 12/04/20 History Rosuvastatin Calcium [Crestor] 5 mg PO DAILY 12/04/20 12/04/20 History Spironolactone 12.5 mg PO Q48H 12/04/20 12/04/20 History Allergies Allergy/AdvReac Type Severity Reaction Status Date / Time No Known Allergies Allergy Verified 12/04/20 18:05 Physical Exam Vitals: Vital Signs Temp Pulse Resp BP Pulse Ox 12/04/20 21:39 99.1 F 90 20 131/72 99 12/04/20 19:04 100.4 F H 88 20 139/77 98 12/04/20 17:19 99 20 121/78 97 12/04/20 16:21 101.2 F H 114 H 18 119/73 98 Intake and Output 12/04/20 12/04/20 12/04/20 06:59 14:59 22:59 Other: Weight 87.997 kg Results CBC & Chem 7: 12/04/20 17:06 12/04/20 17:06 Labs: Abnormal Lab Results - Last 24 Hours (Table) 12/04/20 12/04/20 12/04/20 Range/Units 17:06 17:06 17:06 WBC 21.5 H (3.8-10.6) k/uL RBC 4.13 L (4.30-5.90) m/uL Hgb 11.6 L (13.0-17.5) gm/dL Hct 35.4 L (39.0-53.0) % Neutrophils # 19.2 H (1.3-7.7) k/uL Lymphocytes # 0.9 L (1.0-4.8) k/uL PT 12.3 H (9.0-12.0) sec INR 1.2 H (<1.2) Sodium 132 L (137-145) mmol/L Chloride 97 L (98-107) mmol/L BUN 30 H (9-20) mg/dL Glucose 167 H (74-99) mg/dL Magnesium 1.4 L (1.6-2.3) mg/dL Alkaline Phosphatase 127 H (38-126) U/L Ur Specific [place] (1.001-1.035) Urine Protein (Negative) Urine Mucus (None) /hpf 12/04/20 Range/Units 19:14 WBC (3.8-10.6) k/uL RBC (4.30-5.90) m/uL Hgb (13.0-17.5) gm/dL Hct (39.0-53.0) % Neutrophils # (1.3-7.7) k/uL Lymphocytes # (1.0-4.8) k/uL PT (9.0-12.0) sec INR (<1.2) Sodium (137-145) mmol/L Chloride (98-107) mmol/L BUN (9-20) mg/dL Glucose (74-99) mg/dL Magnesium (1.6-2.3) mg/dL Alkaline Phosphatase (38-126) U/L Ur Specific [place] 1.042 H (1.001-1.035) Urine Protein 1+ H (Negative) Urine Mucus Rare H (None) /hpf
[2020-12-05] MEDS ORDERED: HYDROmorphone 1 MG/ML 1 ML SYRINGE IVP STA (00:23)
[2020-12-05] MEDS: PIPERACILLIN-TAZOBACTAM 3.375 GM in SODIUM CHLORIDE 0.9% 100 ML IVPB SCH ×3 (00:59→17:10)
[2020-12-05 05:26] LABS: HCT 29.3 % (39.0-53.0); MCH 28.3 pg (25.0-35.0); MCHC 32.5 g/dL (31.0-37.0); Platelet Count 131 k/uL (150-450); RBC 3.36 m/uL (4.30-5.90); RDW 11.9 % (11.5-15.5); WBC 14.5 k/uL (3.8-10.6)
[2020-12-05 05:31] LABS: HGB 9.5 gm/dL (13.0-17.5)
[2020-12-05 07:14] LABS: Glucose,Whole Blood 105 mg/dL (75-99)
[2020-12-05] MEDS: metFORMIN 500 MG TAB PO SCH ×2 (07:30→21:00)
[2020-12-05] MEDS: TAMSULOSIN 0.4 MG CAP.ER.24H PO SCH (07:30)
[2020-12-05] MEDS: VANCOMYCIN 1,750 MG in SODIUM CHLORIDE 0.9% 500 ML 500 ML IVPB SCH ×2 (07:30→20:04)
[2020-12-05] MEDS: ATORVASTATIN 10 MG TAB PO SCH (07:31)
[2020-12-05] MEDS: MULTIVITAMINS, THERA 1 EACH TAB PO SCH (07:31)
[2020-12-05] MEDS: FUROSEMIDE 20 MG TAB PO SCH (07:31)
[2020-12-05] MEDS: LINAGLIPTIN 5 MG TABLET PO SCH (07:36)
[2020-12-05] MEDS ORDERED: NON FORMULARY DRUG (Cinnamon Bark [Cinnamon] 500 MG Capsule) PO SCH (09:00)
[2020-12-05 10:43] LABS: African American GFR (CKD) 92.4 (60.0-200.0); Albumin 3.6 g/dL (3.80-4.90); Albumin/Globulin Ratio 1.64 (1.60-3.17); Anion Gap 7.6 mmol/L (4.00-12.00); Calcium 8.2 mg/dL (8.7-10.3); Carbon Dioxide 24.4 mmol/L (21.6-31.8); Globulin 2.2 g/dL (1.6-3.3); Non-African American GFR(CKD) 79.7 (60.0-200.0); Potassium 4.4 mmol/L (3.5-5.5); Total Bilirubin 0.4 mg/dL (0.3-1.2); Total Protein 5.8 g/dL (6.2-8.2)
[2020-12-05] MEDS: SODIUM CHLORIDE 0.9% 1,000 ML IV SCH (11:19)
[2020-12-05 11:20] VITALS: BMI 24.2
[2020-12-05 12:27] LABS: Glucose,Whole Blood 114 mg/dL (75-99)
--- NOTE | 2020-12-05 15:05 | P.PN ---
Subjective Progress Note Date: 12/05/20 HISTORY OF PRESENT ILLNESS 64-year-old male with past medical history of multiple medical problem known to have history of chronic alcoholic hepatitis, chronic history of alcoholism, history of recurrent pancreatitis, large liver cyst, recurrent ascites, recurrent episode of syncope in the past with known to have history of diabetes hypertension hyperlipidemia. Patient was in the hospital loss in October 2023 syncopal episode and hypomagnesemia the time before was in for acute pancreatitis along with recurrent abdominal pain. Patient otherwise has been doing well. Patient presented to the office today complaining of midsternal significant pain and discomfort with nausea on and up able tolerate any food or fluid down with low-grade temperature mild tachycardia fatigue and tiredness with symptoms become much worse over the last 24 hours with pain become impenetrable ended up coming to the office recently and was seen and evaluated with his recurrent pancreatitis in the past recurrent GI bleed and gastric ulcer patient ended up having CBC showed his hemoglobin still about 15 g but was sent to the emergency department at [facility] with above problem require CAT scan of the abdomen further pain cardiac enzymes to be done fasting. Patient was seen and evaluated [facility] surprisingly his laboratory value came back with significantly elevated white blood cell at 21.5 hemoglobin down to 11.6 his the rest of the blood work showed mild hypomagnesemia and elevated blood sugar. UA didn't show any major abnormality lipase was normal at 110 CT of the abdomen and pelvis shows interval diffuse hypertonicity of the left hepatic lobe with additional scatter small hepatic lesion findings are consistent for infiltrate 8 mL/malignancy with questionable of metastasis. Associated upper abdominal lymphadenopathy was found with a questionable of soft tissue mass of the junk to the proximal due to numb with mass effect with no bowel obstruction. 12/05: Patient's abdomen is softer today from yesterday. Patient has been seen by GI and MRI of the liver, oncology consult added. Tumor marker alpha- fetoprotein and CEA ordered. Consult in place with Dr. Rousseau and patient is currently on IV vancomycin and IV Zosyn. Repeat blood work reveals WBC improved to 14.5, hemoglobin 9.5, platelet count 131. Electrolytes unremarkable. Creatinine 1. Blood sugars are running between 96 and 114. AST 38. Ultrasound of the liver is also been ordered. He is on a heart healthy diet. REVIEW OF SYSTEMS Constitutional: Positive fever, no chills, no night sweats. No weight change. Positive weakness and fatigue with lethargy. No daytime sleepiness. EENT: No headache. No blurred vision or double vision, no loss of vision. No l oss of Hearing, no ringing in the ears, no dizziness. No nasal drainage or congestion. No epistaxis. No sore throat. Lungs: Decreased breath sound bilaterally without cough, no sputum production. No wheezing. Cardiovascular: No chest pain, no lower extremity edema. No palpitations. No paroxysmal nocturnal dyspnea. No orthopnea. No lightheadedness or dizziness. No syncopal episodes. Abdominal: Significant abdominal discomfort in the midepigastric area and slightly to the left side with lack of appetite, no bloody stool or tarry stool. Genitourinary: No dysuria, increased frequency, urgency. No urinary retention. Musculoskeletal: No myalgias. No muscle weakness, no gait dysfunction, no frequent falls. No back pain. No neck pain. Integumentary: No wounds, no lesions. No rash or pruritus. No unusual bruising. No change in hair or nails. Neurologic: No aphasia. No facial droop. No change in mentation. No head injury. No headache. No paralysis. No paresthesia. Psychiatric: No depression. No anxiety. No mood swings. Endocrine: No abnormal blood sugars. No weight change. No excessive sweating or thirst. No cold intolerance. PHYSICAL EXAMINATION Gen: This is mildly overweight 64-year-old gentleman still having slight bit pain and abdominal region does not look in any respiratory distress. HEENT: Head is atraumatic, normocephalic. Pupils equal, round. NECK: Supple. No JVD. No lymphadenopathy. No thyromegaly. LUNGS: Decreased breath sound bilaterally thyrocardiac no crackles past mild expected wheezes. HEART: Regular rate and rhythm. Positive one out of 6 murmur. ABDOMEN: Soft. Bowel sounds are present. pain and discomfort in the midepigastric and right upper quadrant area no rebound or rigidity. EXTREMITIES: No pedal edema. No calf tenderness. Dorsalis pedis palpable bilaterally. NEUROLOGICAL: Patient is awake, alert and oriented x3. Cranial nerves 2 through 12 are grossly intact. ASSESSMENT AND PLAN 1. Acute abdominal pain with subacute component with known chronic history of recurrent pancreatitis: Patient be admitted to the hospital continue hydration will be seen gastroenterology and review CAT scan carefully to see any major per Ramon. 2 possible sepsis, and could be liver mass or abscess. Consult with Dr. Rousseau, continue Zosyn and vancomycin.. 3 recurrent pancreatitis: This episode was highly suspicious for pancreatitis which lipase and amylase are normal. GI consult. 4 recurrent ascites: Secondary to spontaneous peritonitis has been better so far still seen hepatology at [facility]. GI consult. 5 hyperlipidemia: Patient has been on Vytorin 10/10/40 mg a day along with fenofibrate. 6 type 2 diabetes: Has been on Janumet mg twice a day. 7 hypertension: Remain on as are 50 mg a day along with metoprolol succinate 100 mg daily. 8 possible abscess in the liver area which made the abdominal pain much worse along with significant distention and nausea consult general surgery and gastroenterology for better clearance patient might go for MRCP. MRI of the liver, alpha-fetoprotein tumor marker, CEA per GI. 9 BPH: Doing well so far with no urinary retention. 10 history of GI bleed along severe gastritis: Has been on omeprazole 20 mg a d ay. 11 mild arrhythmia: Continue Toprol-XL at 1200 mg daily. 12 GI prophylaxis: Remain on omeprazole 20 mg a day. 13 DVT prophylaxis: Watch for any venous stasis and worsening swelling patient will continue COVID-19 testing was negative. DISCHARGE PLAN Home Impression and plan of care have been directed as dictated by the signing physician. Dayami Camarena nurse practitioner acting as scribe for signing physician. Objective - Vital Signs Vital signs: Vital Signs Temp 98.2 F 12/05/20 05:00 Pulse 77 12/05/20 05:00 Resp 20 12/05/20 05:00 BP 122/71 12/05/20 05:00 Pulse Ox 96 12/05/20 05:00 Intake & Output 12/04/20 12/05/20 12/05/20 18:59 06:59 18:59 Weight 87.997 kg 87.997 kg Other: # Voids 1 - Labs CBC & Chem 7: 12/05/20 05:02 12/05/20 05:02 Labs: Abnormal Lab Results - Last 24 Hours (Table) 12/04/20 12/04/20 12/04/20 Range/Units 17:06 17:06 17:06 WBC 21.5 H (3.8-10.6) k/uL RBC 4.13 L (4.30-5.90) m/uL Hgb 11.6 L (13.0-17.5) gm/dL Hct 35.4 L (39.0-53.0) % Plt Count (150-450) k/uL Neutrophils # 19.2 H (1.3-7.7) k/uL Lymphocytes # 0.9 L (1.0-4.8) k/uL PT 12.3 H (9.0-12.0) sec INR 1.2 H (<1.2) Sodium 132 L (137-145) mmol/L Chloride 97 L (98-107) mmol/L BUN 30 H (9-20) mg/dL Glucose 167 H (74-99) mg/dL POC Glucose (mg/dL) (75-99) mg/dL Magnesium 1.4 L (1.6-2.3) mg/dL Alkaline Phosphatase 127 H (38-126) U/L Ur Specific [place] (1.001-1.035) Urine Protein (Negative) Urine Mucus (None) /hpf 12/04/20 12/05/20 12/05/20 Range/Units 19:14 05:02 07:13 WBC 14.5 H (3.8-10.6) k/uL RBC 3.36 L (4.30-5.90) m/uL Hgb 9.5 L D (13.0-17.5) gm/dL Hct 29.3 L (39.0-53.0) % Plt Count 131 L (150-450) k/uL Neutrophils # (1.3-7.7) k/uL Lymphocytes # (1.0-4.8) k/uL PT (9.0-12.0) sec INR (<1.2) Sodium (137-145) mmol/L Chloride (98-107) mmol/L BUN (9-20) mg/dL Glucose (74-99) mg/dL POC Glucose (mg/dL) 105 H (75-99) mg/dL Magnesium (1.6-2.3) mg/dL Alkaline Phosphatase (38-126) U/L Ur Specific [place] 1.042 H (1.001-1.035) Urine Protein 1+ H (Negative) Urine Mucus Rare H (None) /hpf
--- NOTE | 2020-12-05 16:45 | P.CONS ---
History of Present Illness - Reason for Consult Consult date: 12/05/20 liver mass Requesting physician: Rashel Boothe - Chief Complaint Abdominal pain - History of Present Illness 64-year-old white male with a past medical history of pancreatitis, alcoholic cirrhosis of the liver with ascites, diabetes mellitus, GERD, hyperlipidemia, and hypertension who presented to the emergency department with complaints of epigastric abdominal pain. 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 Patient states he's been having epigastric abd ominal pain for the last 2 weeks but within the last 3 days the pain has become more intense. He denies any nausea or vomiting or diarrhea associated. Patient states he has not had any alcohol in over one year, last episode of pancreatitis was approximately one year ago. He has had multiple paracentesis over the last year however none recently. He currently takes Lasix 20 mg every 48 hours and Aldactone 12.5 mg every 48 hours. He is currently on vancomycin and Zosyn. On admission he had a max temperature of 101. WBC 14.5 hemoglobin 9.5 hematocrit 29 platelet count 131,019 and 1.2 total bilirubin 0.7 AST 47 AST 28 alkaline phosphatase 127 lipase 110. Patient does report weight loss of approximately 10 pounds recently. He is scheduled to see his liver specialist at the end of December. He had a CT of the abdomen and pelvis done in the emergency department that showed interval diffuse heterogeneity of the left hepatic lobe with additional scattered small hepatic lesions. Findings are concerning for infiltrative HCC/malignancy with metastatic disease. Associated upper abdominal lymphadenopathy. Questionable soft tissue mass adjacent to the proximal duodenum with mass effect. No bowel obstruction. Also indeterminate small left lower lobe nodule. Patient's last colonoscopy was in 06/2017 significant for polypectomy. Review of Systems REVIEW OF SYSTEMS: CARDIOPULMONARY: No chest pain or shortness of breath. Gastrointestinal: Epigastric pain.. No nausea or vomiting. No hematemesis, coffee-ground emesis. No rectal bleeding, or melena. GENITOURINARY: No dysuria or hematuria. MUSCULOSKELETAL: Reports normal range of motion., Joint pain. SKIN: No rashes. No jaundice. ENDOCRINE: No chills, fevers. No excessive weight gain or loss. No polydipsia or polyuria. PSYCHIATRIC: Unremarkable. NEUROLOGY: No change in mental status. Denies dizziness, headache. ENT: Vision unremarkable. CONSTITUTIONAL: Approximately 10 pounds of weight loss recently. Fever on admission. Patient denied any chills, night sweats or body aches.. Past Medical History Past Medical History: Diabetes Mellitus, Eye Disorder, GERD/Reflux, Hyperlipidemia, Hypertension, Osteoarthritis (OA) Additional Past Medical History / Comment(s): NIDDM type II, peptic ulcer, alcoholism, benign colon polyp, occasional thoracic back pain (hs of crushed vertebra), arthritis R ankle, glaucoma L eye History of Any Multi-Drug Resistant Organisms: None Reported Past Surgical History: Adenoidectomy, Orthopedic Surgery, Tonsillectomy Additional Past Surgical History / Comment(s): r elbow radial head implant, bilateral carpal tunnel releases, trimalleolar fracture repair on the right with subsequent removal of hardware, benign L vocal cord mass removed, colonoscopy with polypectomy, bilateral cataract removals/lens implants. Past Anesthesia/Blood Transfusion Reactions: No Reported Reaction, Motion Sickness Past Psychological History: No Psychological Hx Reported Smoking Status: Former smoker Past Alcohol Use History: Occasional Past Drug Use History: None Reported - Past Family History Mother Family Medical History: Cancer, Diabetes Mellitus Additional Family Medical History / Comment(s): Skin cancer. Mother at age 85 from dementia. Father Additional Family Medical History / Comment(s): Father had borderline diabetes. He is living. Sister(s) Additional Family Medical History / Comment(s): patient has 3 sisters with no major medical problems. Patient does not have any brothers. Patient has 2 sons and 2 daughters with no major medical problems. Medications and Allergies Home Medications Medication Instructions Recorded Confirmed Type sitaGLIPtin PHOS/metFORMIN HCL 1 tab PO BID 12/06/15 12/04/20 History [Janumet 50-1,000 mg Tablet] Tamsulosin HCl [Flomax] 0.4 mg PO DAILY 11/10/19 12/04/20 History Alive Men's 50+ Multivitamin 1 tab PO DAILY 12/04/20 12/04/20 History Cinnamon Bark [Cinnamon] 500 mg PO BID 12/04/20 12/04/20 History Furosemide [Lasix] 20 mg PO Q48H 12/04/20 12/04/20 History Rosuvastatin Calcium [Crestor] 5 mg PO DAILY 12/04/20 12/04/20 History Spironolactone 12.5 mg PO Q48H 12/04/20 12/04/20 History Allergies Allergy/AdvReac Type Severity Reaction Status Date / Time No Known Allergies Allergy Verified 12/04/20 18:05 Physical Exam Vitals: Vital Signs Temp Pulse Pulse Pulse Resp BP BP 12/05/20 05:00 98.2 F 77 20 122/71 12/04/20 21:55 98.7 F 99 15 12/04/20 21:39 99.1 F 90 20 131/72 12/04/20 19:04 100.4 F H 88 20 139/77 12/04/20 17:19 99 20 121/78 12/04/20 16:21 101.2 F H 114 H 18 119/73 BP Pulse Ox 12/05/20 05:00 96 12/04/20 21:55 133/70 99 12/04/20 21:39 99 12/04/20 19:04 98 12/04/20 17:19 97 12/04/20 16:21 98 Intake and Output 12/04/20 12/05/20 12/05/20 22:59 06:59 14:59 Other: # Voids 1 Weight 87.997 kg General appearance: The patient is alert, oriented, appears in no acute distress. HET: Head is normocephalic and atraumatic. Conjunctiva pink. Sclera anicteric. Neck: Supple without lymphadenopathy. Trachea midline. Heart: S1 S2. Regular rate and rhythm. Lungs: Clear to auscultation. Abdomen: Soft, abdominal tenderness in epigastric and right upper quadrant region with firmness to the right upper quadrant region. Nondistended with bowel sounds. No guarding or rigidity. Skin: No rashes. No jaundice. Extremities: Normal skin color and turgor. No pedal edema. Neurological: No focal deficits. Alert and oriented 3.. Results CBC & Chem 7: 12/05/20 05:02 12/05/20 05:02 Labs: Abnormal Lab Results - Last 24 Hours (Table) 12/04/20 12/04/20 12/04/20 Range/Units 17:06 17:06 17:06 WBC 21.5 H (3.8-10.6) k/uL RBC 4.13 L (4.30-5.90) m/uL Hgb 11.6 L (13.0-17.5) gm/dL Hct 35.4 L (39.0-53.0) % Plt Count (150-450) k/uL Neutrophils # 19.2 H (1.3-7.7) k/uL Lymphocytes # 0.9 L (1.0-4.8) k/uL PT 12.3 H (9.0-12.0) sec INR 1.2 H (<1.2) Sodium 132 L (137-145) mmol/L Chloride 97 L (98-107) mmol/L BUN 30 H (9-20) mg/dL Glucose 167 H (74-99) mg/dL POC Glucose (mg/dL) (75-99) mg/dL Magnesium 1.4 L (1.6-2.3) mg/dL Alkaline Phosphatase 127 H (38-126) U/L Ur Specific [place] (1.001-1.035) Urine Protein (Negative) Urine Mucus (None) /hpf 12/04/20 12/05/20 12/05/20 Range/Units 19:14 05:02 07:13 WBC 14.5 H (3.8-10.6) k/uL RBC 3.36 L (4.30-5.90) m/uL Hgb 9.5 L D (13.0-17.5) gm/dL Hct 29.3 L (39.0-53.0) % Plt Count 131 L (150-450) k/uL Neutrophils # (1.3-7.7) k/uL Lymphocytes # (1.0-4.8) k/uL PT (9.0-12.0) sec INR (<1.2) Sodium (137-145) mmol/L Chloride (98-107) mmol/L BUN (9-20) mg/dL Glucose (74-99) mg/dL POC Glucose (mg/dL) 105 H (75-99) mg/dL Magnesium (1.6-2.3) mg/dL Alkaline Phosphatase (38-126) U/L Ur Specific [place] 1.042 H (1.001-1.035) Urine Protein 1+ H (Negative) Urine Mucus Rare H (None) /hpf Comments: CT of abdomen and pelvis show interval diffuse heterogeneity of the left hepatic lobe with additional scattered small hepatic lesions. Findings are concerning for infiltrative HCC, malignancy with metastatic disease. Associated upper abdominal lymphadenopathy. Questionable soft tissue mass adjacent to the prox imal duodenum with mass effect. No bowel obstruction. Also indeterminate small left lower lobe nodule. Assessment and Plan (1) Epigastric pain Narrative/Plan: 64-year-old male with a past medical history including alcoholic liver disease and alcoholic pancreatitis who now follows with liver specialist of [facility], presented to the emergency department with epigastric pain. Patient states pain has been present for approximately 2 weeks but getting worse over the last 3 days duration. He denies nausea or vomiting. Denies any fevers or chills at home, however did present with a max temperature of 101 in the emergency department. Patient denies any alcohol use for greater than 1 year duration. He does have a history of alcoholic cirrhosis liver disease with ascites. Last paracentesis states was about 1 year ago. Patient has had approximately 10 pound weight loss in the recent 1-2 months. He had a CT of the abdomen and pelvis showing diffuse heterogeneity left hepatic lobe with additional scattered small hepatic lesions. Report states findings are concerning for infiltrative HCC/malignancy with metastatic disease. Also showed associated upper abdominal lymphadenopathy with questionable soft tissue mass adjacent to the proximal duodenum with mass effect. No bowel obstruction. Indeterminate small left lower lobe nodule. Patient states he is scheduled to see his liver specialist the end of December. No significant elevation in patient's LFTs. Will order MRI of the liver, consult oncology, order CEA and alpha-fetoprotein marker. Current Visit: Yes Status: Acute Code(s): R10.13 - EPIGASTRIC PAIN SNOMED Code(s): 63653874 (2) History of alcohol abuse Current Visit: Yes Status: Acute Code(s): F10.11 - ALCOHOL ABUSE, IN REMISSION SNOMED Code(s): 950395057 (3) Alcoholic liver disease Current Visit: No Status: Acute Code(s): K70.9 - ALCOHOLIC LIVER DISEASE, UNSPECIFIED SNOMED Code(s): 89332683 (4) History of pancreatitis Current Visit: No Status: Acute Code(s): Z87.19 - PERSONAL HISTORY OF OTHER DISEASES OF THE DIGESTIVE SYSTEM SNOMED Code(s): 21489678982004 Plan: 1. Continue symptomatic and supportive care 2. Diet as tolerated 3. CEA and AFP ordered 4. MRI of the liver ordered 6. Consult to oncology, appreciate their recommendations 7. Repeat LFTs in the morning 8. Continue alcohol abstinence 9. Further recommendations forthcoming Chief for this consultation, we will continue to follow Dr. Armando Gallegos I agree with the dictator's note, documented as a scribe by Wilda Villafana.
[2020-12-05 17:15] LABS: Glucose,Whole Blood 103 mg/dL (75-99)
[2020-12-05] MEDS: HYDROmorphone 0.5 MG/0.5 ML SYRINGE IVP PRN (21:00)
[2020-12-05 21:04] LABS: Glucose,Whole Blood 115 mg/dL (75-99)
--- NOTE | 2020-12-05 21:05 | US ---
EXAMINATION TYPE: US abdomen limited DATE OF EXAM: 12/05/2020 COMPARISON: CT 2020 CLINICAL HISTORY: 64-year-old male liver abscess. Abdomen pain Technique: Multiple sonographic images of the right upper quadrant are obtained. Exam done portable. FINDINGS: EXAM MEASUREMENTS: Liver Length: 17.9 cm Gallbladder Wall: 0.3 cm CBD: 0.4 cm Right Kidney: 12.8 x 5.8 x 6.0 cm Pancreas: obscured by overlying midline bowel gas Liver: 2 hypoechoic lesions measuring 2.1cm and 1.2cm within right lobe. A 9.9 x 12.8 x 12.2cm heter ogeneous mass appears to be within left lobe of liver Gallbladder: A couple shadowing stones seen at the neck of the gallbladder measuring 7 mm and 8 mm. The gallbladder is not abnormally distended as it measures 3.3 cm wide. Evidence for sonographic Garcia's sign: yes CBD: visualized portions wnl, limited by overlying bowel gas Right Kidney: wnl IMPRESSION: 1. 3 liver masses demonstrated by ultrasound, largest in the left lobe measuring 12.8 cm. 2. A couple shadowing calculi at the gallbladder neck region measuring up to 8 mm. No wall thickening or surrounding fluid at this time. The positive sonographic Garcia's sign could reflect referred pa in. If concern for early acute cholecystitis, follow-up ultrasound or HIDA scan. 3. No biliary ductal dilatation.
--- NOTE | 2020-12-05 22:47 | P.CONS ---
History of Present Illness - Reason for Consult Consult date: 12/05/20 fever Requesting physician: Rashel Boothe - Chief Complaint Abdominal pain 2 week - History of Present Illness Patient is a 64-year-old male with a past medical history significant for an: Looks cirrhosis of the liver history of recurrent pancreatitis as well as recurrent paracentesis however none has been done over the last 1 year and the patient has not been drinking for about a year now and do follow with the adult basic education instructor at [facility] for [facility], patient presented to the hospital with epigastric abdominal pain for the last 2 weeks which has been most of the last 3 days before presentation hospital pain has been mostly in the epigastric area is coming into more of a sharp intensity almost 10 out of 10 and the family present at the hospital he did have some nausea but no vomiting denies having any diarrhea did not recall any fever at home however he did have a fever of 101F on presentation to the hospital patient also have elevated white count of 14.5 kidney function has been normal AST was mildly elevated blood culture has been obtained, patient did have CT of abdominal pelvis, lung bases with 5 mm left lower lobe nodule, patient did have a diffuse heterogenicity of the left hepatic lobe with additional scattered small hepatic lesion concerning for infiltrative versus malignancy, patient was started on vancomycin and Zosyn has been admitted to the hospital infection disease was consulted for further management of antibiotic therapy Review of Systems Positive point has been mentioned in the HPI rest of the systems are negative Past Medical History Past Medical History: Diabetes Mellitus, Eye Disorder, GERD/Reflux, Hyperlipidemia, Hypertension, Osteoarthritis (OA) Additional Past Medical History / Comment(s): NIDDM type II, peptic ulcer, alco holism, benign colon polyp, occasional thoracic back pain (hs of crushed vertebra), arthritis R ankle, glaucoma L eye History of Any Multi-Drug Resistant Organisms: None Reported Past Surgical History: Adenoidectomy, Orthopedic Surgery, Tonsillectomy Additional Past Surgical History / Comment(s): r elbow radial head implant, bilateral carpal tunnel releases, trimalleolar fracture repair on the right with subsequent removal of hardware, benign L vocal cord mass removed, colonoscopy with polypectomy, bilateral cataract removals/lens implants. Past Anesthesia/Blood Transfusion Reactions: No Reported Reaction, Motion Sickness Past Psychological History: No Psychological Hx Reported Smoking Status: Former smoker Past Alcohol Use History: Occasional Past Drug Use History: None Reported - Past Family History Mother Family Medical History: Cancer, Diabetes Mellitus Additional Family Medical History / Comment(s): Skin cancer. Mother at age 85 from dementia. Father Additional Family Medical History / Comment(s): Father had borderline diabetes. He is living. Sister(s) Additional Family Medical History / Comment(s): patient has 3 sisters with no major medical problems. Patient does not have any brothers. Patient has 2 sons and 2 daughters with no major medical problems. Medications and Allergies Home Medications Medication Instructions Recorded Confirmed Type sitaGLIPtin PHOS/metFORMIN HCL 1 tab PO BID 12/06/15 12/04/20 History [Janumet 50-1,000 mg Tablet] Tamsulosin HCl [Flomax] 0.4 mg PO DAILY 11/10/19 12/04/20 History Alive Men's 50+ Multivitamin 1 tab PO DAILY 12/04/20 12/04/20 History Cinnamon Bark [Cinnamon] 500 mg PO BID 12/04/20 12/04/20 History Furosemide [Lasix] 20 mg PO Q48H 12/04/20 12/04/20 History Rosuvastatin Calcium [Crestor] 5 mg PO DAILY 12/04/20 12/04/20 History Spironolactone 12.5 mg PO Q48H 12/04/20 12/04/20 History Allergies Allergy/AdvReac Type Severity Reaction Status Date / Time No Known Allergies Allergy Verified 12/04/20 18:05 Physical Exam Vitals: Vital Signs Temp Pulse Pulse Resp BP BP Pulse Ox 12/05/20 20:38 100.1 F H 86 16 135/73 96 12/05/20 12:11 98.4 F 81 20 126/73 97 12/05/20 08:00 77 99 20 12/05/20 05:00 98.2 F 77 20 122/71 96 12/04/20 21:55 98.7 F 99 15 133/70 99 Intake and Output 12/05/20 12/05/20 12/05/20 06:59 14:59 22:59 Other: Voiding Method Toilet Toilet # Voids 1 2 Weight 87.997 kg GENERAL DESCRIPTION: Middle-aged male lying in bed, no distress. No tachypnea or accessory muscle of respiration use. HEENT: Shows Pallor , no scleral icterus. Oral mucous membrane is dry. No pharyngeal erythema or thrush NECK: Trachea central, no thyromegaly. LUNGS: Unlabored breathing. Clear to auscultation anteriorly. No wheeze or crackle. HEART: S1, S2, regular rate and rhythm. No loud murmur ABDOMEN: Soft, mild epigastric tenderness , no guarding or rigidity, no organomegaly EXTREMITIES: No edema of feet. SKIN: No rash, no masses palpable. NEUROLOGICAL: The patient is awake, alert, oriented x3, mood and affect normal. Results CBC & Chem 7: 12/05/20 05:02 12/05/20 05:02 Labs: Abnormal Lab Results - Last 24 Hours (Table) 12/05/20 12/05/20 12/05/20 Range/Units 05:02 05:02 07:13 WBC 14.5 H (3.8-10.6) k/uL RBC 3.36 L (4.30-5.90) m/uL Hgb 9.5 L D (13.0-17.5) gm/dL Hct 29.3 L (39.0-53.0) % Plt Count 131 L (150-450) k/uL Sodium 134 L (135-145) mmol/L BUN/Creatinine Ratio 25.00 H (12.00-20.00) Ratio POC Glucose (mg/dL) 105 H (75-99) mg/dL Calcium 8.2 L (8.7-10.3) mg/dL AST 38 H (14-35) U/L Total Protein 5.8 L (6.2-8.2) g/dL Albumin 3.60 L (3.80-4.90) g/dL 12/05/20 12/05/20 12/05/20 Range/Units 12:25 17:13 21:02 WBC (3.8-10.6) k/uL RBC (4.30-5.90) m/uL Hgb (13.0-17.5) gm/dL Hct (39.0-53.0) % Plt Count (150-450) k/uL Sodium (135-145) mmol/L BUN/Creatinine Ratio (12.00-20.00) Ratio POC Glucose (mg/dL) 114 H 103 H 115 H (75-99) mg/dL Calcium (8.7-10.3) mg/dL AST (14-35) U/L Total Protein (6.2-8.2) g/dL Albumin (3.80-4.90) g/dL Microbiology - Last 24 Hours (Table) 12/04/20 16:45 Blood Culture - Preliminary Blood No Growth after 24 hours Assessment and Plan Assessment: 1-patient presented to hospital with abdominal pain has been mostly in the epigastric area, in this patient who did have a fever as well as elevated white count with abnormalities seen on the CT of the liver consult for possible abscess not entirely excluded and will need to cover for the enteric gram- negative the likely pathogen and less likely gram-positive bacteria (1) Fever Current Visit: Yes Status: Acute Code(s): R50.9 - FEVER, UNSPECIFIED SNOMED Code(s): 380058146 Plan: 1- we will check inflammatory markers 2-IR consult for possible CT-guided aspirate for biopsy and culture 3-Zosyn to continue however discontinue vancomycin We will follow on clinical condition and cultures to further adjust medication if needed Thank you for this consultation will follow this patient with you Time with Patient: Greater than 30
[2020-12-06] MEDS: PIPERACILLIN-TAZOBACTAM 3.375 GM in SODIUM CHLORIDE 0.9% 100 ML IVPB SCH ×3 (01:38→18:14)
[2020-12-06] MEDS: SODIUM CHLORIDE 0.9% 1,000 ML IV SCH ×2 (01:38→14:34)
[2020-12-06 06:59] LABS: Glucose,Whole Blood 91 mg/dL (75-99)
[2020-12-06] MEDS ORDERED: VANCOMYCIN TROUGH DUE 1 EACH MISC MISCELLANE ONE (07:00)
[2020-12-06 07:03] LABS: HCT 29.3 % (39.0-53.0); HGB 9.7 gm/dL (13.0-17.5); MCH 28.6 pg (25.0-35.0); MCHC 33.1 g/dL (31.0-37.0); MCV 86.4 fL (80.0-100.0); Mean Platelet Volume 8.6; Platelet Count 135 k/uL (150-450); RBC 3.39 m/uL (4.30-5.90); RDW 12.1 % (11.5-15.5); WBC 13.6 k/uL (3.8-10.6)
[2020-12-06 07:25] LABS: ALT 38 U/L (4-49); AST 58 U/L (17-59); African American GFR (CKD) >90 (>60 ml/min/1.73 sqM); Albumin 2.9 g/dL (3.5-5.0); Alkaline Phosphatase 98 U/L (38-126); Anion Gap 8 mmol/L; Blood Urea Nitrogen 15 mg/dL (9-20); Calcium 8.6 mg/dL (8.4-10.2); Carbon Dioxide 22 mmol/L (22-30); Chloride 103 mmol/L (98-107); Globulin 2.9 g/dL; Glucose 93 mg/dL (74-99); Non-African American GFR(CKD) >90 (>60 ml/min/1.73 sqM); Potassium 4.1 mmol/L (3.5-5.1); Sodium 133 mmol/L (137-145); Total Bilirubin 0.5 mg/dL (0.2-1.3); Total Protein 5.8 g/dL (6.3-8.2)
[2020-12-06 07:49] LABS: C Reactive Protein 7.3 mg/dL (<1.0)
[2020-12-06] MEDS: HYDROmorphone 0.5 MG/0.5 ML SYRINGE IVP PRN ×2 (09:53→22:39)
[2020-12-06] MEDS: metFORMIN 500 MG TAB PO SCH ×2 (11:38→20:01)
[2020-12-06] MEDS: LINAGLIPTIN 5 MG TABLET PO SCH (11:38)
--- NOTE | 2020-12-06 12:15 | MR ---
EXAMINATION TYPE: MR liver wo/w con DATE OF EXAM: 12/06/2020 COMPARISON: CT scan 12/04/2020 HISTORY: Abdominal pain, abnormal CT. CONTRAST: Standard multiplanar, multisequence MRI departmental protocol images were obtained without contrast a nd with 9 mL intravenous Gadavist gadolinium contrast. FINDINGS: Exam limited by significant motion artifact. Diffuse heterogeneous enhancement in appearance of the left lobe of liver with multiple additional sa tellite nodules seen adjacent. Additional nodules are seen measuring subcentimeter within the right u pper lobe. There is poor visualization of the left portal vein. Small amount of fluid surrounding the liver. Subsegmental changes involving the lung bases bilaterally. Cannot exclude a nodule involving the late ral margin of the left lung measuring 6 mm. Hypertrophic changes of the spine. Aorta of normal caliber. Assessment of bowel is nondiagnostic due to artifact. Pancreas has a normal appearance. There is soft tissue fullness near the second portion of the duoden um as noted by CT scan which could represent an area of adenopathy. I kidneys have a normal appearance. Adrenal glands have a normal morphology. Spleen homogeneous in si gnal. IMPRESSION: 1. Limited exam demonstrates near complete replacement of the left lobe of liver with heterogeneous a bnormal signal with heterogeneous enhancement. Neoplasm is favored over abscess. There are multiple a dditional satellite lesions seen scattered throughout the liver. PET scan recommended area additional ly, soft tissue fullness remains in the region of the second portion of the duodenum which could repr esent mass or adenopathy. Reticular subpleural left lower lobe pulmonary nodule. 2. Nonvisualization of the left portal vein.
[2020-12-06 12:17] LABS: Glucose,Whole Blood 85 mg/dL (75-99)
--- NOTE | 2020-12-06 12:22 | P.PN ---
Subjective Progress Note Date: 12/06/20 HISTORY OF PRESENT ILLNESS 64-year-old male with past medical history of multiple medical problem known to have history of chronic alcoholic hepatitis, chronic history of alcoholism, history of recurrent pancreatitis, large liver cyst, recurrent ascites, recurrent episode of syncope in the past with known to have history of diabetes hypertension hyperlipidemia. Patient was in the hospital loss in October 2023 syncopal episode and hypomagnesemia the time before was in for acute pancreatitis along with recurrent abdominal pain. Patient otherwise has been doing well. Patient presented to the office today complaining of midsternal significant pain and discomfort with nausea on and up able tolerate any food or fluid down with low-grade temperature mild tachycardia fatigue and tiredness with symptoms become much worse over the last 24 hours with pain become impenetrable ended up coming to the office recently and was seen and evaluated with his recurrent pancreatitis in the past recurrent GI bleed and gastric ulcer patient ended up having CBC showed his hemoglobin still about 15 g but was sent to the emergency department at [facility] with above problem require CAT scan of the abdomen further pain cardiac enzymes to be done fasting. Patient was seen and evaluated [facility] surprisingly his laboratory value came back with significantly elevated white blood cell at 21.5 hemoglobin down to 11.6 his the rest of the blood work showed mild hypomagnesemia and elevated blood sugar. UA didn't show any major abnormality lipase was normal at 110 CT of the abdomen and pelvis shows interval diffuse hypertonicity of the left hepatic lobe with additional scatter small hepatic lesion findings are consistent for infiltrate 8 mL/malignancy with questionable of metastasis. Associated upper abdominal lymphadenopathy was found with a questionable of soft tissue mass of the junk to the proximal due to numb with mass effect with no bowel obstruction. 12/05: Patient's abdomen is softer today from yesterday. Patient has been seen by GI and MRI of the liver, oncology consult added. Tumor marker alpha- fetoprotein and CEA ordered. Consult in place with Dr. Rousseau and patient is currently on IV vancomycin and IV Zosyn. Repeat blood work reveals WBC improved to 14.5, hemoglobin 9.5, platelet count 131. Electrolytes unremarkable. Creatinine 1. Blood sugars are running between 96 and 114. AST 38. Ultrasound of the liver is also been ordered. He is on a heart healthy diet. 12/06: AFP tumor marker and CEA came back normal. Repeat blood work reveals WBC 13.6, hemoglobin 9.7, platelet count 135. Sodium 133 otherwise electrolytes and renal function normal. C-reactive protein 7.3, liver function test normal. Temperature max 100.1 at 8:30 PM. Heart rate in the 70s and 80s, blood pressure 143/75, pulse ox 95% on room air. Renal ultrasound revealed 3 liver masses demonstrated by ultrasound, largest in the left lobe measuring 12.8 cm. A couple shadowing calculi at the gallbladder neck region measuring up to 8 mm. No wall thickening or surrounding fluid. Positive Garcia sign could reflect referred pain. If concern for early acute cholecystitis follow up with HIDA scan. No biliary ductal dilatations. Patient has been seen by GI and liver MRI ordered for today. Patient is also been seen by oncology REVIEW OF SYSTEMS Constitutional: Positive fever, no chills, no night sweats. No weight change. Positive weakness and fatigue with lethargy. No daytime sleepiness. EENT: No headache. No blurred vision or double vision, no loss of vision. No loss of Hearing, no ringing in the ears, no dizziness. No nasal drainage or congestion. No epistaxis. No sore throat. Lungs: Decreased breath sound bilaterally without cough, no sputum production. No wheezing. Cardiovascular: No chest pain, no lower extremity edema. No palpitations. No paroxysmal nocturnal dyspnea. No orthopnea. No lightheadedness or dizziness. No syncopal episodes. Abdominal: abdominal discomfort in the midepigastric area and slightly to the left side with decreased appetite, no bloody stool or tarry stool. Genitourinary: No dysuria, increased frequency, urgency. No urinary retention. Musculoskeletal: No myalgias. No muscle weakness, no gait dysfunction, no frequent falls. No back pain. No neck pain. Integumentary: No wounds, no lesions. No rash or pruritus. No unusual bruising. No change in hair or nails. Neurologic: No aphasia. No facial droop. No change in mentation. No head injury. No headache. No paralysis. No paresthesia. Psychiatric: No depression. No anxiety. No mood swings. Endocrine: No abnormal blood sugars. No weight change. No excessive sweating or thirst. No cold intolerance. PHYSICAL EXAMINATION Gen: This is mildly overweight 64-year-old gentleman still having slight bit pain and abdominal region does not look in any respiratory distress. HEENT: Head is atraumatic, normocephalic. Pupils equal, round. NECK: Supple. No JVD. No lymphadenopathy. No thyromegaly. LUNGS: Decreased breath sound bilaterally thyrocardiac no crackles past mild expected wheezes. HEART: Regular rate and rhythm. Positive 1/6 murmur. ABDOMEN: Soft. Bowel sounds are present. pain and discomfort in the midepigastric and right upper quadrant area no rebound or rigidity. EXTREMITIES: No pedal edema. No calf tenderness. Dorsalis pedis palpable surjit aterally. NEUROLOGICAL: Patient is awake, alert and oriented x3. Cranial nerves 2 through 12 are grossly intact. ASSESSMENT AND PLAN 1. Acute abdominal pain with subacute component with known chronic history of recurrent pancreatitis: Patient be admitted to the hospital continue hydration will be seen gastroenterology and MRI of the liver is scheduled for today. Tumor markers have been negative. Patient is seen by oncology as well. 2 possible sepsis, and could be liver mass or abscess. Consult with Dr. Rousseau, continue Zosyn. 3 recurrent pancreatitis: This episode was highly suspicious for pancreatitis which lipase and amylase are normal. GI consult. 4 recurrent ascites: Secondary to spontaneous peritonitis has been better so far still seen hepatology at [facility]. GI consult. 5 hyperlipidemia: Patient has been on Vytorin 10/10/40 mg a day along with fenofibrate. 6 type 2 diabetes: Has been on Janumet mg twice a day. Will hold on NovoLog scale as blood sugars are well controlled. 7 hypertension. 8 possible abscess in the liver area which made the abdominal pain much worse along with significant distention and nausea consult general surgery and gastroenterology. MRI of the liver. 9 BPH: Continue Flomax 0.4 mg daily. Doing well so far with no urinary retention. 10 history of GI bleed along severe gastritis. Protonix 11 mild arrhythmia 12 GI prophylaxis. Protonix. 13 DVT prophylaxis: SCDs and MO hose COVID-19 testing was negative. DISCHARGE PLAN Home Impression and plan of care have been directed as dictated by the signing physician. Dayami Camarena nurse practitioner acting as scribe for signing physician. Objective - Vital Signs Vital signs: Vital Signs Temp 99.2 F 12/06/20 05:00 Pulse 95 12/06/20 05:00 Resp 16 12/06/20 05:00 BP 143/75 12/06/20 05:00 Pulse Ox 95 12/06/20 05:00 Intake & Output 12/05/20 12/06/20 12/06/20 18:59 06:59 18:59 Intake Total 1914 Balance 191 Weight 87.997 kg Intake: Intake, IV Titration 1325 Amount Piperacillin-Tazobactam 3 100 .375 gm In Sodium Chloride 0.9% 100 ml @ 25 mls/hr IVPB Q8H MELISSA Rx#: [id number] Sodium Chloride 0.9% 1, 725 000 ml @ 75 mls/hr IV . [id number] MELISSA Rx#:[id number] Vancomycin 1,750 mg In 500 Sodium Chloride 0.9% 500 ml 500 ml @ 167 mls/hr IVPB Q12H MELISSA Rx#: [id number] Oral 590 Other: Voiding Method Toilet Toilet # Voids 2 2 - Labs CBC & Chem 7: 12/06/20 06:43 12/06/20 06:43 Labs: Abnormal Lab Results - Last 24 Hours (Table) 12/05/20 12/05/20 12/05/20 Range/Units 05:02 12:25 17:13 WBC (3.8-10.6) k/uL RBC (4.30-5.90) m/uL Hgb (13.0-17.5) gm/dL Hct (39.0-53.0) % Plt Count (150-450) k/uL Sodium 134 L (135-145) mmol/L BUN/Creatinine Ratio 25.00 H (12.00-20.00) Ratio POC Glucose (mg/dL) 114 H 103 H (75-99) mg/dL Calcium 8.2 L (8.7-10.3) mg/dL AST 38 H (14-35) U/L C-Reactive Protein (<1.0) mg/dL Total Protein 5.8 L (6.2-8.2) g/dL Albumin 3.60 L (3.80-4.90) g/dL 12/05/20 12/06/20 12/06/20 Range/Units 21:02 06:43 06:43 WBC 13.6 H (3.8-10.6) k/uL RBC 3.39 L (4.30-5.90) m/uL Hgb 9.7 L (13.0-17.5) gm/dL Hct 29.3 L (39.0-53.0) % Plt Count 135 L (150-450) k/uL Sodium 133 L (135-145) mmol/L BUN/Creatinine Ratio (12.00-20.00) Ratio POC Glucose (mg/dL) 115 H (75-99) mg/dL Calcium (8.7-10.3) mg/dL AST (14-35) U/L C-Reactive Protein 7.3 H (<1.0) mg/dL Total Protein 5.8 L (6.2-8.2) g/dL Albumin 2.9 L (3.80-4.90) g/dL Microbiology - Last 24 Hours (Table) 12/04/20 16:45 Blood Culture - Preliminary Blood No Growth after 24 hours
--- NOTE | 2020-12-06 12:39 | CT ---
EXAMINATION TYPE: CT biopsy liver DATE OF EXAM: 12/06/2020 COMPARISON: NONE HISTORY: Left liver mass CT DLP: [id number] The procedure was explained to the patient. The risks, complications, benefits, and alternatives wer e discussed and any questions were answered. Informed consent was obtained. Patient was placed supi ne on the CT table and prepped and draped in the usual sterile fashion. All elements of maximal barrier and sterile technique utilized. Utilizing CT guidance, an 18 gauge core biopsy needle access into the left lobe of the liver was ach ieved and two18 gauge core sample was obtained. The patient was stable throughout the procedure and remained stable upon discharge. IMPRESSION: 1. Successful 18 gauge core biopsy of the liver.
[2020-12-06] MEDS: MULTIVITAMINS, THERA 1 EACH TAB PO SCH (12:46)
[2020-12-06] MEDS: ATORVASTATIN 10 MG TAB PO SCH (12:46)
[2020-12-06] MEDS: TAMSULOSIN 0.4 MG CAP.ER.24H PO SCH (12:47)
[2020-12-06] MEDS: SPIRONOLACTONE 25 MG TAB PO SCH (12:47)
--- NOTE | 2020-12-06 15:27 | P.PN ---
Subjective Progress Note Date: 12/06/20 Principal diagnosis: Abdominal pain, liver mass 64-year-old white male with a past medical history of pancreatitis, alcoholic cirrhosis of the liver with ascites, diabetes mellitus, GERD, hyperlipidemia, and hypertension who presented to the emergency department with complaints of epigastric abdominal pain. 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 Patient states he's been having epigastric abdominal pain for the last 2 weeks but within the last 3 days the pain has become more intense. He denies any nausea or vomiting or diarrhea associated. Patient states he has not had any alcohol in over one year, last episode of pancreatitis was approximately one year ago. He has had multiple paracentesis over the last year however none recently. He currently takes Lasix 20 mg every 48 hours and Aldactone 12.5 mg every 48 hours. He is currently on vancomycin and Zosyn. On admission he had a max temperature of 101. WBC 14.5 hemoglobin 9.5 hematocrit 29 platelet count 131,019 and 1.2 total bilirubin 0.7 AST 47 AST 28 alkaline phosphatase 127 lipase 110. Patient does report weight loss of approximately 10 pounds recently. He is scheduled to see his liver specialist at the end of December. He had a CT of the abdomen and pelvis done in the emergency department that showed interval diffuse heterogeneity of the left hepatic lobe with additional scattered small hepatic lesions. Findings are concerning for infiltrative HCC/malignancy with metastatic disease. Associated upper abdominal lymphadenopathy. Questionable soft tissue mass adjacent to the proximal duodenum with mass effect. No bowel obstruction. Also indeterminate small left lower lobe nodule. Patient's last colonoscopy was in 06/2017 significant for polypectomy. 12/06/2020: She was initially attempted to be seen but was gone down for his MRI. Patient seen at 1430. Patient was seen and examined lying in bed on his side. He had his MRI of the liver today which showed limited exam demonstrates near complete replacement of the left lobe of liver with heterogeneous abnormal signal with heterogeneous enhancement. Neoplasm is favored over abscess. There are multiple additional satellite lesions seen scattered throughout the liver. PET scan recommended. Additionally, soft tissue fullness remains in the region of the second portion of the duodenum which could represent mass or adenopathy. Reticular subpleural left lower lobe pulmonary nodule. Patient states he still has right upper quadrant and epigastric region discomfort. He had a low-grade temp yesterday evening of 100.1 and then again 99.4. Today he has been afebrile. He denies any nausea or vomiting. He also did undergo a liver biopsy today was ordered by infectious disease. AFP and CEA both negative. Repeat labs today WBC 13.6 hemoglobin 9.7 hematocrit 29 platelet count 135,000 total bilirubin 0.5 AST 58 ALT 38 alkaline phosphatase 98. Objective - Vital Signs Vital signs: Vital Signs Temp 99.2 F 12/06/20 05:00 Pulse 95 12/06/20 05:00 Resp 16 12/06/20 05:00 BP 143/75 12/06/20 05:00 Pulse Ox 95 12/06/20 05:00 Intake & Output 12/05/20 12/06/20 12/06/20 18:59 06:59 18:59 Intake Total 1915 Balance 191 Weight 87.997 kg Intake: Intake, IV Titration 1325 Amount Piperacillin-Tazobactam 3 100 .375 gm In Sodium Chloride 0.9% 100 ml @ 25 mls/hr IVPB Q8H [facility] Rx#: [id number] Sodium Chloride 0.9% 1, 725 000 ml @ 75 mls/hr IV . [id number] [facility] Rx#:[id number] Vancomycin 1,750 mg In 500 Sodium Chloride 0.9% 500 ml 500 ml @ 167 mls/hr IVPB Q12H [facility] Rx#: [id number] Oral 590 Other: Voiding Method Toilet Toilet # Voids 2 2 - Exam General appearance: The patient is alert, oriented, appears in no acute di stress. HET: Head is normocephalic and atraumatic. Conjunctiva pink. Sclera anicteric. Neck: Supple without lymphadenopathy. Abdomen: Soft, right upper quadrant and epigastric area tenderness, with fullness, nondistended with bowel sounds. No guarding or rigidity. Extremities: Normal skin color and turgor. No pedal edema Skin: No rashes, no jaundice Neurological: No focal deficits. Alert and oriented 3. - Labs CBC & Chem 7: 12/06/20 06:43 12/06/20 06:43 Labs: Abnormal Lab Results - Last 24 Hours (Table) 12/05/20 12/05/20 12/05/20 Range/Units 12:25 17:13 21:02 WBC (3.8-10.6) k/uL RBC (4.30-5.90) m/uL Hgb (13.0-17.5) gm/dL Hct (39.0-53.0) % Plt Count (150-450) k/uL Sodium (137-145) mmol/L POC Glucose (mg/dL) 114 H 103 H 115 H (75-99) mg/dL C-Reactive Protein (<1.0) mg/dL Total Protein (6.3-8.2) g/dL Albumin (3.5-5.0) g/dL 12/06/20 12/06/20 Range/Units 06:43 06:43 WBC 13.6 H (3.8-10.6) k/uL RBC 3.39 L (4.30-5.90) m/uL Hgb 9.7 L (13.0-17.5) gm/dL Hct 29.3 L (39.0-53.0) % Plt Count 135 L (150-450) k/uL Sodium 133 L (137-145) mmol/L POC Glucose (mg/dL) (75-99) mg/dL C-Reactive Protein 7.3 H (<1.0) mg/dL Total Protein 5.8 L (6.3-8.2) g/dL Albumin 2.9 L (3.5-5.0) g/dL Microbiology - Last 24 Hours (Table) 12/04/20 16:45 Blood Culture - Preliminary Blood No Growth after 24 hours Assessment and Plan (1) Epigastric pain Narrative/Plan: 64-year-old male with a past medical history including alcoholic liver disease and alcoholic pancreatitis who now follows with liver specialist of [facility], presented to the emergency department with epigastric pain. Patient states pain has been present for approximately 2 weeks but getting worse over the last 3 days duration. He denies nausea or vomiting. Denies any fevers or chills at home, however did present with a max temperature of 101 in the emergency department. Patient denies any alcohol use for greater than 1 year duration. He does have a history of alcoholic cirrhosis liver disease with ascites. Last paracentesis states was about 1 year ago. Patient has had approximately 10 pound weight loss in the recent 1-2 months. He had a CT of the abdomen and pelvis showing diffuse heterogeneity left hepatic lobe with additional scattered small hepatic lesions. Report states findings are concerning for infiltrative HCC/malignancy with metastatic disease. Also showed associated upper abdominal lymphadenopathy with questionable soft tissue mass adjacent to the proximal duodenum with mass effect. No bowel obstruction. Indeterminate small left lower lobe nodule. Patient states he is scheduled to see his liver specialist the end of December. No significant elevation in patient's LFTs. Will order MRI of the liver, consult oncology, order CEA and alpha-fetoprotein marker. CEA and AFP negative. MRI of liver showed limited exam demonstrates near complete replacement of the left lobe of liver with heterogeneous abnormal signal with heterogeneous enhancement. Neoplasm is favored over abscess. There are multiple additional satellite lesions seen scattered throughout the liver. PET scan recommended. Additionally, soft tissue fullness remains in the region of the second portion of the duodenum which could represent mass or adenopathy. Reticular subpleural left lower lobe pulmonary nodule. Infectious disease ordered liver biopsy in patient underwent that this afternoon. Results are pending. Current Visit: Yes Status: Acute Code(s): R10.13 - EPIGASTRIC PAIN SNOMED Code(s): 50845727 (2) History of alcohol abuse Current Visit: Yes Status: Acute Code(s): F10.11 - ALCOHOL ABUSE, IN REMISSION SNOMED Code(s): 744425946 (3) Alcoholic liver disease Current Visit: No Status: Acute Code(s): K70.9 - ALCOHOLIC LIVER DISEASE, UNSPECIFIED SNOMED Code(s): 12238509 (4) History of pancreatitis Current Visit: No Status: Acute Code(s): Z87.19 - PERSONAL HISTORY OF OTHER DISEASES OF THE DIGESTIVE SYSTEM SNOMED Code(s): 79297830424180 Plan: 1. Continue symptomatic and supportive care 2. Diet as tolerated 3. CEA and AFP ordered 4. MRI of the liver ordered and reviewed 6. Consult to oncology, appreciate their recommendations 7. Liver biopsy completed, results pending 8. Continue alcohol abstinence 9. Continue antibiotics as ordered 10. Patient to follow up with his liver specialist through [facility] Chief for this consultation, we will continue to follow Dr. Armando Gallegos I agree with the dictator's note, documented as a scribe by Wilda Villafana.
--- NOTE | 2020-12-06 16:44 | P.CONS ---
History of Present Illness - Reason for Consult Consult date: 12/06/20 liver mass Requesting physician: Wilda Cordova - Chief Complaint abd pain - History of Present Illness Mr. Jung is a very pleasant 64-year-old male patient of Dr. Boothe who is presenting to the hospital after being seen in the office with complaints of midsternal pain, nausea, not able to tolerate food or fluids. He was found to have low-grade temperature, mild tachycardia, fatigue. Symptoms were more progressive in the last 24 hours. He has a history of pancreatitis, GI bleeding gastric ulcer, so, he was sent to ER for evaluation. He was found to have elevated blood sugar, low magnesium level, urinalysis was normal. CT AP Interval diffuse heterogeneity of the left hepatic lobe with additional scattered small hepatic lesions, concerning for an infiltrative process/malignancy. Some upper abdominal wall lymphadenopathy, questionable soft tissue mass adjacent to the proximal duodenum with some mass effect. No bowel obstruction. Oncology has been consulted for the same. Patient denies any known history of cirrhosis, hepatitis B or C, he does admit to previous alcohol abuse, he has had about a 10 pound weight loss in the last month, he does have left upper quadrant/epigastric area pain. He denies fevers, sweats, difficulty swallowing, painful swallowing, nausea, vomiting, jaundice, shortness of breath, cough, chest pain, abdominal distention or bloating, no acute changes in bowel or bladder habits, swelling in the lower extremities or bleeding. Review of Systems 10 point ROS is neg except as stated in HPI Past Medical History Past Medical History: Diabetes Mellitus, Eye Disorder, GERD/Reflux, Hyperlipidemia, Hypertension, Osteoarthritis (OA) Additional Past Medical History / Comment(s): NIDDM type II, peptic ulcer, alcoholism, benign colon polyp, occasional thoracic back pain (hs of crushed vertebra), arthritis R ankle, glaucoma L eye History of Any Multi-Drug Resistant Organisms: None Reported Past Surgical History: Adenoidectomy, Orthopedic Surgery, Tonsillectomy Additional Past Surgical History / Comment(s): r elbow radial head implant, bilateral carpal tunnel releases, trimalleolar fracture repair on the right with subsequent removal of hardware, benign L vocal cord mass removed, colonoscopy with polypectomy, bilateral cataract removals/lens implants. Past Anesthesia/Blood Transfusion Reactions: No Reported Reaction, Motion Sickness Past Psychological History: No Psychological Hx Reported Smoking Status: Former smoker Past Alcohol Use History: Occasional Past Drug Use History: None Reported - Past Family History Mother Family Medical History: Cancer, Diabetes Mellitus Additional Family Medical History / Comment(s): Skin cancer. Mother at age 85 from dementia. Father Additional Family Medical History / Comment(s): Father had borderline diabetes. He is living. Sister(s) Additional Family Medical History / Comment(s): patient has 3 sisters with no major medical problems. Patient does not have any brothers. Patient has 2 sons and 2 daughters with no major medical problems. Medications and Allergies Home Medications Medication Instructions Recorded Confirmed Type sitaGLIPtin PHOS/metFORMIN HCL 1 tab PO BID 12/06/15 12/04/20 History [Janumet 50-1,000 mg Tablet] Tamsulosin HCl [Flomax] 0.4 mg PO DAILY 11/10/19 12/04/20 History Alive Men's 50+ Multivitamin 1 tab PO DAILY 12/04/20 12/04/20 History Cinnamon Bark [Cinnamon] 500 mg PO BID 12/04/20 12/04/20 History Furosemide [Lasix] 20 mg PO Q48H 12/04/20 12/04/20 History Rosuvastatin Calcium [Crestor] 5 mg PO DAILY 12/04/20 12/04/20 History Spironolactone 12.5 mg PO Q48H 12/04/20 12/04/20 History Allergies Allergy/AdvReac Type Severity Reaction Status Date / Time No Known Allergies Allergy Verified 12/04/20 18:05 Physical Exam Vitals: Vital Signs Temp Pulse Pulse Resp BP Pulse Ox 12/06/20 12:17 97.7 F 73 20 153/77 97 12/06/20 11:52 70 16 154/79 98 12/06/20 11:30 77 16 134/65 97 12/06/20 05:00 99.2 F 76 95 16 143/75 95 12/06/20 00:25 99.4 F 12/05/20 20:38 100.1 F H 86 16 135/73 96 Intake and Output 12/05/20 12/06/20 12/06/20 22:59 06:59 14:59 Intake Total 590 1325 Balance 590 1325 Intake: Intake, IV Titration 1325 Amount Piperacillin-Tazobactam 3 100 .375 gm In Sodium Chloride 0.9% 100 ml @ 25 mls/hr IVPB Q8H [facility] Rx#: [id number] Sodium Chloride 0.9% 1, 725 000 ml @ 75 mls/hr IV . [id number] [facility] Rx#:[id number] Vancomycin 1,750 mg In 500 Sodium Chloride 0.9% 500 ml 500 ml @ 167 mls/hr IVPB Q12H [facility] Rx#: [id number] Oral 590 Other: Voiding Method Toilet # Voids 2 2 - Constitutional General appearance: average body habitus, cooperative, no acute distress - EENT Eyes: anicteric sclerae, EOMI ENT: hearing grossly normal, normal oropharynx - Neck Neck: no lymphadenopathy - Respiratory Respiratory: bilateral: CTA - Cardiovascular Rhythm: regular Heart sounds: normal: S1, S2 Abnormal Heart Sounds: no systolic murmur, no diastolic murmur, no rub, no S3 Gallop, no S4 Gallop, no click, no other leg Peripheral Edema: bilateral: None - Gastrointestinal General gastrointestinal: normal bowel sounds, soft, tenderness - Integumentary Integumentary: normal - Neurologic Neurologic: CNII-XII intact - Musculoskeletal Musculoskeletal: strength equal bilaterally - Psychiatric Psychiatric: A&O x's 3, appropriate affect, intact judgment & insight Results CBC & Chem 7: 12/06/20 06:43 12/06/20 06:43 Labs: Abnormal Lab Results - Last 24 Hours (Table) 12/05/20 12/05/20 12/06/20 Range/Units 17:13 21:02 06:43 WBC (3.8-10.6) k/uL RBC (4.30-5.90) m/uL Hgb (13.0-17.5) gm/dL Hct (39.0-53.0) % Plt Count (150-450) k/uL Sodium 133 L (137-145) mmol/L POC Glucose (mg/dL) 103 H 115 H (75-99) mg/dL C-Reactive Protein 7.3 H (<1.0) mg/dL Total Protein 5.8 L (6.3-8.2) g/dL Albumin 2.9 L (3.5-5.0) g/dL 12/06/20 Range/Units 06:43 WBC 13.6 H (3.8-10.6) k/uL RBC 3.39 L (4.30-5.90) m/uL Hgb 9.7 L (13.0-17.5) gm/dL Hct 29.3 L (39.0-53.0) % Plt Count 135 L (150-450) k/uL Sodium (137-145) mmol/L POC Glucose (mg/dL) (75-99) mg/dL C-Reactive Protein (<1.0) mg/dL Total Protein (6.3-8.2) g/dL Albumin (3.5-5.0) g/dL Microbiology - Last 24 Hours (Table) 12/04/20 16:45 Blood Culture - Preliminary Blood No Growth after 24 hours Chest x-ray: report reviewed CT scan - abdomen: report reviewed CT scan - pelvis: report reviewed Assessment and Plan (1) Anemia Narrative/Plan: Anemia workup ordered. Transfuse for hemoglobin of less than 7. Current Visit: Yes Status: Acute Priority: High Code(s): D64.9 - ANEMIA, UNSPECIFIED SNOMED Code(s): 460939601 (2) Liver mass Narrative/Plan: Dr. Mishra discussed the case with GI. Plan is for MRI evaluation. Possible biopsy based on findings. CEA and AFP ordered. Current Visit: Yes Status: Acute Priority: High Code(s): R16.0 - HEPATOME DORINDA, NOT ELSEWHERE CLASSIFIED SNOMED Code(s): 625550377 Plan: Doctor attests: I performed a history and physical examination of this patient, developed impression and plan of care, discussed with dictator. I agree with dictators note, documented as a scribe.
[2020-12-06 17:06] LABS: Glucose,Whole Blood 113 mg/dL (75-99)
[2020-12-06 20:12] LABS: Glucose,Whole Blood 118 mg/dL (75-99)
--- NOTE | 2020-12-06 22:53 | P.PN ---
Progress Note - Text Progress Note Date: 12/06/20 REASON FOR FOLLOWUP: . Fever and possible liver abscess INTERVAL HISTORY: The patient is afebrile today. The patient is feeling better, breathing comfortably. The patient denies chest pain, shortness of breath or cough. The patient epigastric pain has slight decrease intensity denies any nausea vomiting or diarrhea. PHYSICAL EXAMINATION: On examination, blood pressure 110/60 with a pulse of 90, temperature 97.9. he is 97% on room air. GENERAL DESCRIPTION: General description is an middle-age male lying in bed in no distress RESPIRATORY SYSTEM: Unlabored breathing. Decreased breath sounds at the bases. No wheeze. HEART: S1, S2. Regular rate and rhythm. ABDOMEN: Soft. No tenderness. EXTREMITIES: Some chronic swelling. No redness. LABS: White count of 13,000, blood culture negative so far, rest of the labs were reviewed DIAGNOSTIC IMPRESSION AND PLAN: Patient presented to hospital with abdominal pain in this patient who did have fever elevated white count with abnormal CT did have an MRI of the liver with a large left lobe mass in this patient status post core biopsy and cultures, continue with the Zosyn while waiting for the culture to finalize and monitor clinical course closely
[2020-12-07] MEDS: PIPERACILLIN-TAZOBACTAM 3.375 GM in SODIUM CHLORIDE 0.9% 100 ML IVPB SCH ×3 (02:01→16:38)
[2020-12-07] MEDS: SODIUM CHLORIDE 0.9% 1,000 ML IV SCH ×2 (02:03→05:57)
[2020-12-07 07:12] LABS: Glucose,Whole Blood 88 mg/dL (75-99)
[2020-12-07] MEDS: ATORVASTATIN 10 MG TAB PO SCH (08:28)
[2020-12-07] MEDS: LINAGLIPTIN 5 MG TABLET PO SCH (08:28)
[2020-12-07] MEDS: PANTOPRAZOLE 40 MG TABLET PO SCH (08:28)
[2020-12-07] MEDS: TAMSULOSIN 0.4 MG CAP.ER.24H PO SCH (08:28)
[2020-12-07] MEDS: FUROSEMIDE 20 MG TAB PO SCH (08:28)
[2020-12-07] MEDS: metFORMIN 500 MG TAB PO SCH ×2 (08:28→19:05)
[2020-12-07] MEDS: MULTIVITAMINS, THERA 1 EACH TAB PO SCH (08:28)
[2020-12-07] MEDS: SPIRONOLACTONE 25 MG TAB PO SCH (08:28)
[2020-12-07] MEDS ORDERED: traMADol 50 MG TAB PO PRN ×2 (10:20→13:45)
[2020-12-07] MEDS ORDERED: HYDROcodone/APAP 5-325MG 1 EACH TAB PO PRN (10:20)
[2020-12-07 11:40] LABS: Alpha Fetoprotein, Tumor Mkr <2.5 ng/mL (0.0-7.9); Carcinoembryonic Antigen <0.5 ng/mL (0.0-4.9)
[2020-12-07 11:49] LABS: Glucose,Whole Blood 111 mg/dL (75-99)
--- NOTE | 2020-12-07 11:55 | P.PN ---
Subjective Progress Note Date: 12/07/20 Principal diagnosis: Abdominal pain, liver mass 64-year-old white male with a past medical history of pancreatitis, alcoholic cirrhosis of the liver with ascites, diabetes mellitus, GERD, hyperlipidemia, and hypertension who presented to the emergency department with complaints of epigastric abdominal pain. 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 Patient states he's been having epigastric abdominal pain for the last 2 weeks but within the last 3 days the pain has become more intense. He denies any nausea or vomiting or diarrhea associated. Patient states he has not had any alcohol in over one year, last episode of pancreatitis was approximately one year ago. He has had multiple paracentesis over the last year however none recently. He currently takes Lasix 20 mg every 48 hours and Aldactone 12.5 mg every 48 hours. He is currently on vancomycin and Zosyn. On admission he had a max temperature of 101. WBC 14.5 hemoglobin 9.5 hematocrit 29 platelet count 131,019 and 1.2 total bilirubin 0.7 AST 47 AST 28 alkaline phosphatase 127 lipase 110. Patient does report weight loss of approximately 10 pounds recently. He is scheduled to see his liver specialist at the end of December. He had a CT of the abdomen and pelvis done in the emergency department that showed interval diffuse heterogeneity of the left hepatic lobe with additional scattered small hepatic lesions. Findings are concerning for infiltrative HCC/malignancy with metastatic disease. Associated upper abdominal lymphadenopathy. Questionable soft tissue mass adjacent to the proximal duodenum with mass effect. No bowel obstruction. Also indeterminate small left lower lobe nodule. Patient's last colonoscopy was in 06/2017 significant for polypectomy. 12/06/2020: He was initially attempted to be seen but was gone down for his MRI. Patient seen at 1430. Patient was seen and examined lying in bed on his side. He had his MRI of the liver today which showed limited exam demonstrates near complete replacement of the left lobe of liver with heterogeneous abnormal sig nal with heterogeneous enhancement. Neoplasm is favored over abscess. There are multiple additional satellite lesions seen scattered throughout the liver. PET scan recommended. Additionally, soft tissue fullness remains in the region of the second portion of the duodenum which could represent mass or adenopathy. Reticular subpleural left lower lobe pulmonary nodule. Patient states he still has right upper quadrant and epigastric region discomfort. He had a low-grade temp yesterday evening of 100.1 and then again 99.4. Today he has been afebrile. He denies any nausea or vomiting. He also did undergo a liver biopsy today was ordered by infectious disease. AFP and CEA both negative. Repeat labs today WBC 13.6 hemoglobin 9.7 hematocrit 29 platelet count 135,000 total bilirubin 0.5 AST 58 ALT 38 alkaline phosphatase 98. 12/07/2020: Was seen and examined sitting up at the bedside. States he is still having pain in the epigastric/upper abdominal region. Denies any nausea or vomiting. He is tolerating his diet. He did have a low-grade temp again through the night up to 100.0. Objective - Vital Signs Vital signs: Vital Signs Temp 99.6 F 12/07/20 04:12 Pulse 74 12/07/20 04:12 Resp 16 12/07/20 04:12 BP 153/75 12/07/20 04:12 Pulse Ox 96 12/07/20 04:12 Intake & Output 12/06/20 12/07/20 12/07/20 18:59 06:59 18:59 Intake Total 825 Balance 825 Intake: Intake, IV Titration 825 Amount Piperacillin-Tazobactam 3 100 .375 gm In Sodium Chloride 0.9% 100 ml @ 25 mls/hr IVPB Q8H MELISSA Rx#: [id number] Sodium Chloride 0.9% 1, 725 000 ml @ 75 mls/hr IV . [id number] MELISSA Rx#:[id number] Other: # Voids 2 1 - Exam General appearance: The patient is alert, oriented, appears in no acute distress. HET: Head is normocephalic and atraumatic. Conjunctiva pink. Sclera anicteric. Neck: Supple without lymphadenopathy. Abdomen: Soft, right upper quadrant and epigastric area tenderness, with fullness, nondistended with bowel sounds. No guarding or rigidity. Extremities: Normal skin color and turgor. No pedal edema Skin: No rashes, no jaundice Neurological: No focal deficits. Alert and oriented 3. - Labs CBC & Chem 7: 12/06/20 06:43 12/06/20 06:43 Labs: Abnormal Lab Results - Last 24 Hours (Table) 12/06/20 12/06/20 12/06/20 Range/Units 06:43 16:58 20:10 POC Glucose (mg/dL) 113 H 118 H (75-99) mg/dL Procalcitonin 0.20 H (0.02-0.09) ng/mL Microbiology - Last 24 Hours (Table) 12/06/20 11:55 Gram Stain - Preliminary Other - Other Wound Culture - Preliminary 12/06/20 11:55 Anaerobic Culture - Preliminary Other - Other 12/04/20 16:45 Blood Culture - Preliminary Blood No Growth after 48 hours Assessment and Plan (1) Epigastric pain Narrative/Plan: 64-year-old male with a past medical history including alcoholic liver disease and alcoholic pancreatitis who now follows with liver specialist of [facility], presented to the emergency department with epigastric pain. Patient states pain has been present for approximately 2 weeks but getting worse over the last 3 days duration. He denies nausea or vomiting. Denies any fevers or chills at home, however did present with a max temperature of 101 in the emergency department. Patient denies any alcohol use for greater than 1 year duration. He does have a history of alcoholic cirrhosis liver disease with ascites. Last paracentesis states was about 1 year ago. Patient has had approximately 10 pound weight loss in the recent 1-2 months. He had a CT of the abdomen and pelvis showing diffuse heterogeneity left hepatic lobe with additional scattered small hepatic lesions. Report states findings are concerning for infiltrative HCC/malignancy with metastatic disease. Also showed associated upper abdominal lymphadenopathy with questionable soft tissue mass adjacent to the proximal duodenum with mass effect. No bowel obstruction. Indeterminate small left lower lobe nodule. Patient states he is scheduled to see his liver specialist the end of December. No significant elevation in patient's LFTs. Will order MRI of the liver, consult oncology, order CEA and alpha-fetoprotein marker. CEA and AFP negative. MRI of liver showed limited exam demonstrates near complete replacement of the left lobe of liver with heterogeneous abnormal signal with heterogeneous enhancement. Neoplasm is favored over abscess. There are multiple additional satellite lesions seen scattered throughout the liver. PET scan recommended. Additionally, soft tissue fullness remains in the region of the second portion of the duodenum which could represent mass or adenopathy. Reticular subpleural left lower lobe pulmonary nodule. Infectious disease ordered liver biopsy in patient underwent that this afternoon. Results are pending. Current Visit: Yes Status: Acute Code(s): R10.13 - EPIGASTRIC PAIN SNOMED Code(s): 30635153 (2) History of alcohol abuse Current Visit: Yes Status: Acute Code(s): F10.11 - ALCOHOL ABUSE, IN REMISSION SNOMED Code(s): 597478154 (3) Alcoholic liver disease Current Visit: No Status: Acute Code(s): K70.9 - ALCOHOLIC LIVER DISEASE, UNSPECIFIED SNOMED Code(s): 66475419 (4) History of pancreatitis Current Visit: No Status: Acute Code(s): Z87.19 - PERSONAL HISTORY OF OTHER DISEASES OF THE DIGESTIVE SYSTEM SNOMED Code(s): 12573527437419 (5) Fever Narrative/Plan: ID on consult, liver biopsy completed yesterday. Continue IV antibiotics per recommendations from infectious disease. Current Visit: Yes Status: Acute Code(s): R50.9 - FEVER, UNSPECIFIED SNOMED Code(s): 421604102 Plan: 1. Continue symptomatic and supportive care 2. Diet as tolerated 3. CEA and AFP ordered, negative 4. MRI of the liver ordered and reviewed 6. Consult to oncology, appreciate their recommendations 7. Liver biopsy completed, results pending 8. Continue alcohol abstinence 9. Continue antibiotics as ordered 10. Patient to follow up with his liver specialist through [facility] Thank you for allowing us to participate in the care of the patient, the GI se rvice will sign off, gastroenterology will not be available at the hospital this weekend and through next week. If further evaluation by gastroenterology is required the patient will need transfer as per the primary team's discretion. Dr. Armando Gallegos I agree with the dictator's note, documented as a scribe by Wilda Villafana.
--- NOTE | 2020-12-07 13:49 | P.PN ---
Subjective Progress Note Date: 12/07/20 HISTORY OF PRESENT ILLNESS 64-year-old male with past medical history of multiple medical problem known to have history of chronic alcoholic hepatitis, chronic history of alcoholism, history of recurrent pancreatitis, large liver cyst, recurrent ascites, recurrent episode of syncope in the past with known to have history of diabetes hypertension hyperlipidemia. Patient was in the hospital loss in October 2023 syncopal episode and hypomagnesemia the time before was in for acute pancreatitis along with recurrent abdominal pain. Patient otherwise has been doing well. Patient presented to the office today complaining of midsternal significant pain and discomfort with nausea on and up able tolerate any food or fluid down with low-grade temperature mild tachycardia fatigue and tiredness with symptoms become much worse over the last 24 hours with pain become impenetrable ended up coming to the office recently and was seen and evaluated with his recurrent pancreatitis in the past recurrent GI bleed and gastric ulcer patient ended up having CBC showed his hemoglobin still about 15 g but was sent to the emergency department at [facility] with above problem require CAT scan of the abdomen further pain cardiac enzymes to be done fasting. Patient was seen and evaluated [facility] surprisingly his laboratory value came back with significantly elevated white blood cell at 21.5 hemoglobin down to 11.6 his the rest of the blood work showed mild hypomagnesemia and elevated blood sugar. UA didn't show any major abnormality lipase was normal at 110 CT of the abdomen and pelvis shows interval diffuse hypertonicity of the left hepatic lobe with additional scatter small hepatic lesion findings are consistent for infiltrate 8 mL/malignancy with questionable of metastasis. Associated upper abdominal lymphadenopathy was found with a questionable of soft tissue mass of the junk to the proximal due to numb with mass effect with no bowel obstruction. 12/05: Patient's abdomen is softer today from yesterday. Patient has been seen by GI and MRI of the liver, oncology consult added. Tumor marker alpha- fetoprotein and CEA ordered. Consult in place with Dr. Rousseau and patient is currently on IV vancomycin and IV Zosyn. Repeat blood work reveals WBC improved to 14.5, hemoglobin 9.5, platelet count 131. Electrolytes unremarkable. Creatinine 1. Blood sugars are running between 96 and 114. AST 38. Ultrasound of the liver is also been ordered. He is on a heart healthy diet. 12/06: AFP tumor marker and CEA came back normal. Repeat blood work reveals WBC 13.6, hemoglobin 9.7, platelet count 135. Sodium 133 otherwise electrolytes and renal function normal. C-reactive protein 7.3, liver function test normal. Temperature max 100.1 at 8:30 PM. Heart rate in the 70s and 80s, blood pressure 143/75, pulse ox 95% on room air. Renal ultrasound revealed 3 liver masses demonstrated by ultrasound, largest in the left lobe measuring 12.8 cm. A couple shadowing calculi at the gallbladder neck region measuring up to 8 mm. No wall thickening or surrounding fluid. Positive Garcia sign could reflect referred pain. If concern for early acute cholecystitis follow up with HIDA scan. No biliary ductal dilatations. Patient has been seen by GI and liver MRI ordered for today. Patient is also been seen by oncology. 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 Neoplasm is favored over abscess. There are multiple additional satellite lesions seen scattered throughout the liver. Soft tissue fullness remains in the region of the second portion of the duodenum which could represent mass or adenopathy. Reticular subpleural left lower lobe pulmonary nodule. Nonvisualization of the left portal vein. Patient also underwent CT-guided biopsy of the liver and pathology is pending. Temperature max 100.0, heart rate 74, blood pressure 153/75, pulse ox 96% on room air. Capillary blood glucose running between 88 and 118. Blood cultures are no growth 1 at 24 hours and one at 48 hours. Aspirate from liver culture in process. Oncology has ordered repeat AFP tumor marker and repeat CEA. Noted that these were both reported negative yesterday. Patient states that he continues to have the same pain. Attempted to change patient off IV Dilaudid to tramadol but 50 mg did not help at all. Tramadol 100 mg 4 times daily as needed added. IV fluids discontinued. Anticipate probable discharge over the weekend. REVIEW OF SYSTEMS Constitutional: Denies fever, no chills, no night sweats. No weight change. Positive weakness and fatigue with lethargy. No daytime sleepiness. EENT: No headache. No blurred vision or double vision, no loss of vision. No loss of Hearing, no ringing in the ears, no dizziness. No nasal drainage or congestion. No epistaxis. No sore throat. Lungs: Decreased breath sound bilaterally without cough, no sputum production. No wheezing. Cardiovascular: No chest pain, no lower extremity edema. No palpitations. No paroxysmal nocturnal dyspnea. No orthopnea. No lightheadedness or dizziness. No syncopal episodes. Abdominal: Reports abdominal discomfort in the midepigastric area and slightly to the left side with decreased appetite, no bloody stool or tarry stool. Genitourinary: No dysuria, increased frequency, urgency. No urinary retention. Musculoskeletal: No myalgias. No muscle weakness, no gait dysfunction, no frequent falls. No back pain. No neck pain. Integumentary: No wounds, no lesions. No rash or pruritus. No unusual bruising. No change in hair or nails. Neurologic: No aphasia. No facial droop. No change in mentation. No head injury. No headache. No paralysis. No paresthesia. Psychiatric: No depression. No anxiety. No mood swings. Endocrine: No abnormal blood sugars. No weight change. No excessive sweating or thirst. No cold intolerance. PHYSICAL EXAMINATION Gen: This is a 64-year-old male, resting in bed and appears to be in no acute distress. HEENT: Head is atraumatic, normocephalic. Pupils equal, round. NECK: Supple. No JVD. No lymphadenopathy. No thyromegaly. LUNGS: Decreased breath sound bilaterally thyrocardiac no crackles past mild expected wheezes. HEART: Regular rate and rhythm. Positive 1/6 murmur. ABDOMEN: Soft. Bowel sounds are present. pain and discomfort in the midepigastric and right upper quadrant area no rebound or rigidity. EXTREMITIES: No pedal edema. No calf tenderness. Dorsalis pedis palpable bilat erally. NEUROLOGICAL: Patient is awake, alert and oriented x3. Cranial nerves 2 through 12 are grossly intact. ASSESSMENT AND PLAN 1. Acute abdominal pain with subacute component with known chronic history of recurrent pancreatitis, concern for mass on the liver versus abscess. Culture is pending and pathology pending. Patient is continued on IV Zosyn for now, consult with oncology and infectious disease appreciated. 2 possible sepsis, and could be liver mass or abscess. Consult with Dr. Rousseau, continue Zosyn. 3 recurrent pancreatitis, acute pancreatitis ruled out with normal lipase. 4 recurrent ascites: Secondary to spontaneous peritonitis has been better so far still seen hepatology at [facility]. GI consult. 5 hyperlipidemia: Patient has been on Vytorin 10/10/40 mg a day along with fenofibrate. 6 type 2 diabetes: Has been on Janumet mg twice a day. Will hold on NovoLog scale as blood sugars are well controlled. 7 hypertension. 8 possible abscess in the liver area. Consult appreciated with gastroenterology. MRI of the liver as above, status post CT-guided via pharmacy. 9 BPH: Continue Flomax 0.4 mg daily. Doing well so far with no urinary retention. 10 history of GI bleed along severe gastritis. Protonix 11 mild arrhythmia 12 GI prophylaxis. Protonix. 13 DVT prophylaxis: SCDs and OM hose COVID-19 testing was negative. DISCHARGE PLAN Home possibly in the weekend Impression and plan of care have been directed as dictated by the signing physician. Dayami Camarena nurse practitioner acting as scribe for signing physician. Objective - Vital Signs Vital signs: Vital Signs Temp 99.6 F 12/07/20 04:12 Pulse 74 12/07/20 04:12 Resp 16 12/07/20 04:12 BP 153/75 12/07/20 04:12 Pulse Ox 96 12/07/20 04:12 Intake & Output 12/06/20 12/07/20 12/07/20 18:59 06:59 18:59 Intake Total 825 Balance 825 Intake: Intake, IV Titration 825 Amount Piperacillin-Tazobactam 3 100 .375 gm In Sodium Chloride 0.9% 100 ml @ 25 mls/hr IVPB Q8H MELISSA Rx#: [id number] Sodium Chloride 0.9% 1, 725 000 ml @ 75 mls/hr IV . [id number] MELISSA Rx#:[id number] Other: # Voids 2 1 - Labs CBC & Chem 7: 12/06/20 06:43 12/06/20 06:43 Labs: Abnormal Lab Results - Last 24 Hours (Table) 12/06/20 12/06/20 12/06/20 Range/Units 06:43 16:58 20:10 POC Glucose (mg/dL) 113 H 118 H (75-99) mg/dL Procalcitonin 0.20 H (0.02-0.09) ng/mL Microbiology - Last 24 Hours (Table) 12/06/20 11:55 Gram Stain - Preliminary Other - Other Wound Culture - Preliminary 12/06/20 11:55 Anaerobic Culture - Preliminary Other - Other 12/04/20 16:45 Blood Culture - Preliminary Blood No Growth after 48 hours
--- NOTE | 2020-12-07 13:54 | PN ---
PROGRESS NOTE DATE OF SERVICE: 12/07/2020 REASON FOR FOLLOWUP: Abnormal liver, question of a mass versus abscess. INTERVAL HISTORY: The patient is afebrile. The patient is breathing comfortably. Denies having any chest pain, shortness of breath or cough. Abdominal pain is currently controlled. No vomiting or diarrhea. PHYSICAL EXAMINATION: Blood pressure is 135/76, pulse of 79, temperature 98.8. He is 97% on room air. GENERAL DESCRIPTION: General description is a middle-aged male lying in bed in no distress. RESPIRATORY SYSTEM: Unlabored breathing. Clear to auscultation anteriorly. HEART: S1, S2. Regular rate and rhythm. ABDOMEN: Soft. No tenderness. EXTREMITIES: No edema of the feet. LABS: Tumor markers so far negative. Cultures are pending. DIAGNOSTIC IMPRESSION AND PLAN: Patient with abdominal pain and fever in this patient who did have a CT-guided aspirate with biopsies and cultures which are currently pending. The patient is covered with Zosyn. We are waiting for the culture to finalize and monitor clinical course closely. Continue supportive care. MMODL / IJN: [id number] /
--- NOTE | 2020-12-07 15:20 | P.PN ---
Subjective Progress Note Date: 12/07/20 Principal diagnosis: Liver Mass Status Post MRI of the Liver and biopsy CT Guided on 12/06/20. AFP and CEA wnl, CA 19-9 elevated at 100 (however increased amylase may falsely elevate) Objective - Vital Signs Vital signs: Vital Signs Temp 98.8 F 12/07/20 11:13 Pulse 79 12/07/20 11:13 Resp 18 12/07/20 11:13 BP 135/76 12/07/20 11:13 Pulse Ox 97 12/07/20 11:13 Intake & Output 12/06/20 12/07/20 12/07/20 18:59 06:59 18:59 Intake Total 825 Balance 825 Weight 87.997 kg Intake: Intake, IV Titration 825 Amount Piperacillin-Tazobactam 3 100 .375 gm In Sodium Chloride 0.9% 100 ml @ 25 mls/hr IVPB Q8H MELISSA Rx#: [id number] Sodium Chloride 0.9% 1, 725 000 ml @ 75 mls/hr IV . [id number] MELISSA Rx#:[id number] Other: # Voids 2 1 - Exam - Constitutional General appearance: average body habitus, cooperative, no acute distress - EENT Eyes: anicteric sclerae, EOMI ENT: hearing grossly normal, normal oropharynx - Neck Neck: no lymphadenopathy - Respiratory Respiratory: bilateral: CTA - Cardiovascular Rhythm: regular Heart sounds: normal: S1, S2 Abnormal Heart Sounds: no systolic murmur, no diastolic murmur, no rub, no S3 Gallop, no S4 Gallop, no click, no other leg Peripheral Edema: bilateral: None - Gastrointestinal General gastrointestinal: normal bowel sounds, soft, tenderness - Integumentary Integumentary: normal - Neurologic Neurologic: CNII-XII intact - Musculoskeletal Musculoskeletal: strength equal bilaterally - Psychiatric Psychiatric: A&O x's 3, appropriate affect, intact judgment & insight - Labs CBC & Chem 7: 12/06/20 06:43 12/06/20 06:43 Labs: Abnormal Lab Results - Last 24 Hours (Table) 12/06/20 12/06/20 12/06/20 Range/Units 06:43 16:58 20:10 POC Glucose (mg/dL) 113 H 118 H (75-99) mg/dL CA 19-9 Antigen (0.0-34.9) U/mL Procalcitonin 0.20 H (0.02-0.09) ng/mL 12/07/20 12/07/20 Range/Units 04:37 11:44 POC Glucose (mg/dL) 111 H (75-99) mg/dL CA 19-9 Antigen 100.8 H (0.0-34.9) U/mL Procalcitonin (0.02-0.09) ng/mL Microbiology - Last 24 Hours (Table) 12/06/20 06:43 Blood Culture - Preliminary Blood No Growth after 24 hours 12/06/20 11:55 Gram Stain - Preliminary Other - Other Wound Culture - Preliminary 12/06/20 11:55 Anaerobic Culture - Preliminary Other - Other 12/04/20 16:45 Blood Culture - Preliminary Blood No Growth after 48 hours Assessment and Plan Plan: Chest x-ray: report reviewed CT scan - abdomen: report reviewed CT scan - pelvis: report reviewed Assessment and Plan (1) Anemia Narrative/Plan: Anemia workup ordered. Transfuse for hemoglobin of less than 7. Repeat CBC in am Current Visit: Yes Status: Acute Priority: High Code(s): D64.9 - ANEMIA, UNSPECIFIED SNOMED Code(s): 622796432 (2) Liver mass Narrative/Plan: Dr. Mishra discussed the case with GI. CEA and AFP WNL Ca 19-9 = 100 (However non specific in the picture of elevated pancreatic enzymes) Status Post MRI of the Liver and Biopsy on 12/06 (CT Guided) Current Visit: Yes Status: Acute Priority: High Code(s): R16.0 - HEPATOMEGALY, NOT ELSEWHERE CLASSIFIED SNOMED Code(s): 115679052 Plan: - Await pathology - PET scan as out patient Doctor attests: I performed a history and physical examination of this patient, developed impression and plan of care, discussed with dictator. I agree with dictators note, documented as a scribe.
[2020-12-07 17:19] LABS: Glucose,Whole Blood 126 mg/dL (75-99)
[2020-12-07 18:00] LABS: % Iron Saturation 8.13 (15.00-50.00); Ferritin 3192.9 ng/mL (22.0-322.0)
[2020-12-07 20:08] LABS: Glucose,Whole Blood 126 mg/dL (75-99)
[2020-12-08] MEDS: PIPERACILLIN-TAZOBACTAM 3.375 GM in SODIUM CHLORIDE 0.9% 100 ML IVPB SCH ×2 (01:02→07:42)
[2020-12-08 06:45] LABS: Basophils % (A) 0 %; Eosinophils # (A) 0.5 k/uL (0-0.7); Eosinophils % (A) 3 %; HCT 29.2 % (39.0-53.0); HGB 9.5 gm/dL (13.0-17.5); Lymphocytes % (A) 6 %; MCH 27.9 pg (25.0-35.0); MCHC 32.6 g/dL (31.0-37.0); MCV 85.7 fL (80.0-100.0); Monocytes # (A) 0.8 k/uL (0-1.0); Monocytes % (A) 5 %; Neutrophils # (A) 14.9 k/uL (1.3-7.7); Neutrophils % (A) 86 %; Platelet Count 146 k/uL (150-450); RBC 3.41 m/uL (4.30-5.90); RDW 12.1 % (11.5-15.5); WBC 17.4 k/uL (3.8-10.6)
[2020-12-08 07:41] LABS: Glucose,Whole Blood 92 mg/dL (75-99)
[2020-12-08] MEDS: MULTIVITAMINS, THERA 1 EACH TAB PO SCH (07:42)
[2020-12-08] MEDS: ATORVASTATIN 10 MG TAB PO SCH (07:42)
[2020-12-08] MEDS: TAMSULOSIN 0.4 MG CAP.ER.24H PO SCH (07:42)
[2020-12-08] MEDS: LINAGLIPTIN 5 MG TABLET PO SCH (07:42)
[2020-12-08] MEDS: metFORMIN 500 MG TAB PO SCH (07:42)
[2020-12-08] MEDS: PANTOPRAZOLE 40 MG TABLET PO SCH (07:42)
--- NOTE | 2020-12-08 09:04 | P.DS ---
Providers Date of admission: 12/04/20 19:08 Attending physician: Rashel Boothe Consults: 12/04/20 19:09 Consult Physician Routine Consulting Provider: Anh Rousseau Consult Reason/Comments: fever, abdominal pain, no obvious source Do you want consulting provider notified?: Yes Consult Physician Routine Consulting Provider: Nerissa Gallegos Consult Reason/Comments: liver mass Do you want consulting provider notified?: Yes 12/05/20 13:05 Consult Physician Routine Consulting Provider: Jefe Mishra Consult Reason/Comments: Liver mass Do you want consulting provider notified?: Yes Primary care physician: [facility] Course: 64-year-old male with past medical history of multiple medical problem known to have history of chronic alcoholic hepatitis, chronic history of alcoholism, history of recurrent pancreatitis, large liver cyst, recurrent ascites, recurrent episode of syncope in the past with known to have history of diabetes hypertension hyperlipidemia. Patient was in the hospital loss in October 2023 syncopal episode and hypomagnesemia the time before was in for acute pancreatitis along with recurrent abdominal pain. Patient otherwise has been doing well. Patient presented to the office today complaining of midsternal significant pain and discomfort with nausea on and up able tolerate any food or fluid down with low-grade temperature mild tachycardia fatigue and tiredness with symptoms become much worse over the last 24 hours with pain become impenetrable ended up coming to the office recently and was seen and evaluated with his recurrent pancreatitis in the past recurrent GI bleed and gastric ulcer patient ended up having CBC showed his hemoglobin still about 15 g but was sent to the emergency department at [facility] with above problem require CAT scan of the abdomen further pain cardiac enzymes to be done fasting. Patient was seen and evaluated [facility] surprisingly his laboratory value came back with significantly elevated white blood cell at 21.5 hemoglobin down to 11.6 his the rest of the blood work showed mild hypomagnesemia and elevated blood sugar. UA didn't show any major abnormality lipase was normal at 110 CT of the abdomen and pelvis shows interval diffuse hypertonicity of the left hepatic lobe with additional scatter small hepatic lesion findings are consistent for infiltrate 8 mL/malignancy with questionable of metastasis. As sociated upper abdominal lymphadenopathy was found with a questionable of soft tissue mass of the junk to the proximal due to numb with mass effect with no bowel obstruction. 12/05: Patient's abdomen is softer today from yesterday. Patient has been seen by GI and MRI of the liver, oncology consult added. Tumor marker alpha- fetoprotein and CEA ordered. Consult in place with Dr. Rousseau and patient is currently on IV vancomycin and IV Zosyn. Repeat blood work reveals WBC improved to 14.5, hemoglobin 9.5, platelet count 131. Electrolytes unremarkable. Creatinine 1. Blood sugars are running between 96 and 114. AST 38. Ultrasound of the liver is also been ordered. He is on a heart healthy diet. 12/06: AFP tumor marker and CEA came back normal. Repeat blood work reveals WBC 13.6, hemoglobin 9.7, platelet count 135. Sodium 133 otherwise electrolytes and renal function normal. C-reactive protein 7.3, liver function test normal. Temperature max 100.1 at 8:30 PM. Heart rate in the 70s and 80s, blood pressure 143/75, pulse ox 95% on room air. Renal ultrasound revealed 3 liver masses demonstrated by ultrasound, largest in the left lobe measuring 12.8 cm. A couple shadowing calculi at the gallbladder neck region measuring up to 8 mm. No wall thickening or surrounding fluid. Positive Garcia sign could reflect referred pain. If concern for early acute cholecystitis follow up with HIDA scan. No biliary ductal dilatations. Patient has been seen by GI and liver MRI ordered for today. Patient is also been seen by oncology. 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 Neoplasm is favored over abscess. There are multiple additional satellite lesions seen scattered throughout the liver. Soft tissue fullness remains in the region of the second portion of the duodenum which could represent mass or adenopathy. Reticular subpleural left lower lobe pulmonary nodule. Nonvisualization of the left portal vein. Patient also underwent CT-guided biopsy of the liver and pathology is pending. Temperature max 100.0, heart rate 74, blood pressure 153/75, pulse ox 96% on room air. Capillary blood glucose running between 88 and 118. Blood cultures are no growth 1 at 24 hours and one at 48 hours. Aspirate from liver culture in process. Oncology has ordered repeat AFP tumor marker and repeat CEA. Noted that these were both reported negative yesterday. Patient states that he continues to have the same pain. Attempted to change patient off IV Dilaudid to tramadol but 50 mg did not help at all. Tramadol 100 mg 4 times daily as needed added. IV fluids discontinued. Anticipate probable discharge over the weekend. 12/08: Patient is in no acute distress. He is tolerating medications without any difficulties. Patient is concerned about breakthrough pain control and is still finding difficulty sleeping when he rolls over weeks amount. We will try a lidocaine patch to the site. He has been increased to tramadol which has shown some pain relief however he is still concerned once he gets home. Discharge Diagnosis 1. Acute abdominal pain with subacute component with known chronic history of recurrent pancreatitis, concern for mass on the liver versus abscess. 2 possible sepsis, and could be liver mass or abscess. 3 recurrent pancreatitis, acute pancreatitis ruled out with normal lipase. 4 recurrent ascites: 5 hyperlipidemia: 6 type 2 diabetes: 7 hypertension. 8 possible abscess in the liver area. 9 BPH: Continue Flomax 0.4 mg daily. 10 history of GI bleed along severe gastritis 11 mild arrhythmia DISCHARGE Dispostion Home today with self care Impression and plan of care have been directed as dictated by the signing physician. Eda Warner nurse practitioner acting as scribe for signing physician. Patient Condition at Discharge: Fair Plan - Discharge Summary Discharge Rx Participant: No New Discharge Prescriptions: New Pantoprazole [Protonix] 40 mg PO AC-BRKFST #30 tab traMADol HCl [Ultram] 100 mg PO QID PRN #16 tab PRN Reason: SEVERE PAIN traMADol HCl [Ultram] 50 mg PO QID PRN #16 tab PRN Reason: MODERATE PAIN Amoxic-Pot Clav 875-125Mg [Augmentin 875-125] 1 tab PO Q12HR 10 Days #20 tab Lidocaine 5% Patch [Lidoderm 5% Patch] 1 patch TOPICAL HS #4 patch Continue sitaGLIPtin PHOS/metFORMIN HCL [Janumet 50-1,000 mg Tablet] 1 tab PO BID Tamsulosin HCl [Flomax] 0.4 mg PO DAILY Spironolactone 12.5 mg PO Q48H Furosemide [Lasix] 20 mg PO Q48H Alive Men's 50+ Multivitamin 1 tab PO DAILY Rosuvastatin Calcium [Crestor] 5 mg PO DAILY Cinnamon Bark [Cinnamon] 500 mg PO BID Discharge Medication List sitaGLIPtin PHOS/metFORMIN HCL [Janumet 50-1,000 mg Tablet] 1 tab PO BID 12/06/15 [History] Tamsulosin HCl [Flomax] 0.4 mg PO DAILY 11/10/19 [History] Alive Men's 50+ Multivitamin 1 tab PO DAILY 12/04/20 [History] Cinnamon Bark [Cinnamon] 500 mg PO BID 12/04/20 [History] Furosemide [Lasix] 20 mg PO Q48H 12/04/20 [History] Rosuvastatin Calcium [Crestor] 5 mg PO DAILY 12/04/20 [History] Spironolactone 12.5 mg PO Q48H 12/04/20 [History] Amoxic-Pot Clav 875-125Mg [Augmentin 875-125] 1 tab PO Q12HR 10 Days #20 tab 12/08/20 [Rx] Lidocaine 5% Patch [Lidoderm 5% Patch] 1 patch TOPICAL HS #4 patch 12/08/20 [Rx] Pantoprazole [Protonix] 40 mg PO AC-BRKFST #30 tab 12/08/20 [Rx] traMADol HCl [Ultram] 50 mg PO QID PRN #16 tab 12/08/20 [Rx] traMADol HCl [Ultram] 100 mg PO QID PRN #16 tab 12/08/20 [Rx] Follow up Appointment(s)/Referral(s): Rashel Boothe MD [Primary Care Provider] - 1-2 days
[2020-12-08 12:27] VITALS: BP 124/73; PULSE 83; RESP 18; TEMP 98.7
[2020-12-08 14:56] LABS: African American GFR (CKD) 110.2 (60.0-200.0); Albumin 3.6 g/dL (3.80-4.90); Albumin/Globulin Ratio 1.64 (1.60-3.17); Anion Gap 9.6 mmol/L (4.00-12.00); Calcium 8.3 mg/dL (8.7-10.3); Carbon Dioxide 24.4 mmol/L (21.6-31.8); Globulin 2.2 g/dL (1.6-3.3); Non-African American GFR(CKD) 95.1 (60.0-200.0); Potassium 4.2 mmol/L (3.5-5.5); Total Bilirubin 0.5 mg/dL (0.3-1.2); Total Protein 5.8 g/dL (6.2-8.2)
[2020-12-08] MEDS ORDERED: LIDOCAINE 5% PATCH TOPICAL SCH (21:00)
[2020-12-11 07:20] LABS: Methylmalonic Acid 0.18 umol/L (<0.40)
== END 2020-12-08 13:02 | disposition home or self-care (01) | DRG 871 ==
LOC: EC 15:43 → 5NMEDONC 19:08
PROVIDERS: ADMIT Internal Medicine Geriatric Medicine; ATTEND Internal Medicine Geriatric Medicine
PROC: 0FB03ZX Excision of Liver, Percutaneous Approach, Diagnostic (ICD-10-PCS; principal; 2020-12-06)
DX: A41.9 Sepsis, unspecified organism (principal); K25.4 Chronic or unspecified gastric ulcer with hemorrhage; K65.9 Peritonitis, unspecified; R18.8 Other ascites; D64.9 Anemia, unspecified; Z20.822 Contact with and (suspected) exposure to COVID-19; E11.65 Type 2 diabetes mellitus with hyperglycemia; E78.5 Hyperlipidemia, unspecified; E83.42 Hypomagnesemia; F10.10 Alcohol abuse, uncomplicated; I10 Essential (primary) hypertension; K70.9 Alcoholic liver disease, unspecified; N40.0 Benign prostatic hyperplasia without lower urinary tract symptoms; Z79.84 Long term (current) use of oral hypoglycemic drugs; Z96.1 Presence of intraocular lens; Z87.891 Personal history of nicotine dependence; Z87.19 Personal history of other diseases of the digestive system; Z83.3 Family history of diabetes mellitus; Z82.5 Family history of asthma and other chronic lower respiratory diseases; Z82.49 Family history of ischemic heart disease and other diseases of the circulatory system; Z80.8 Family history of malignant neoplasm of other organs or systems; Z79.899 Other long term (current) drug therapy; K21.9 Gastro-esophageal reflux disease without esophagitis; K29.70 Gastritis, unspecified, without bleeding; M19.90 Unspecified osteoarthritis, unspecified site; H40.9 Unspecified glaucoma
CPT/HCPCS: 36415; 47000; 71046; 74177; 74183; 76705; 77012; 80053; 80202; 81001; 82105; 82378; 82607; 82728; 82747; 83540; 83550; 83605; 83690; 83735; 83921; 84145; 85025; 85027; 85610; 85730; 86140; 86301; 87040; 87070; 87075; 87205; 87635; 88307; 93005; 96365; 96366; 99285